=== PATIENT | female | born 1970 | race Caucasian/White ===

== ENCOUNTER 2016-12-21 16:27 | Inpatient (IN) | payer BC ==
[~2016-12-21] VITALS: Ht 165.1 cm; Wt 124.0 kg
[~2016-12-21 16:27] MED LIST: ADVIN25/60 INH; ATV5X PO; BUPR150T5 PO; EFFSR150 PO; HYOS1TAB SL; LEVO75TA5 PO; LISI20TA3 PO; OMEP20CA9 PO; ONDA-63 PO; SIME80CH12 PO; TPM/50 PO; TPRSR/100 PO; VENL37.593 PO; VLT/75 PO; XPNIN INH; XPNINS1255 NEB
[2016-12-21] MEDS ORDERED: EPP3/2 IM (16:39)
[2016-12-21] MEDS ORDERED: ONDANSETRON INJ 2 MG/ML 2 ML VIAL IV STA (16:54)
[2016-12-21] MEDS ORDERED: SODIUM CHLORIDE 0.9% 1000ML 1,000 ML IV ONE (16:54)
[2016-12-21] MEDS ORDERED: ACETAMINOPHEN 500 MG TAB PO STA (16:54)
[2016-12-21 16:55] VITALS: Ht 165.1 cm; Wt 124.0 kg
[2016-12-21] MEDS ORDERED: DEXAMETHASONE SOD INJ 10 MG/ML VIAL IV ONE (17:00)
--- NOTE | 2016-12-21 17:02 | EMERGENCY ROOM VISIT NOTE ---
History Report prepared by Kamini: Alo Puckett Under the Supervision of: Dr. Bobby Galicia D.O. First contact with patient: 16:48 Chief Complaint: HEADACHE Stated Complaint: HEADACHE, NAUSEA History of Present Illness The patient is a 46 year old female who presents to the Emergency Room with complaints of a constant and severe headache that she has been experiencing for the past two weeks. The patient states that her headache pain is localized in the back of her head, and radiates up the back and into the top of her head. She claims her pain is severe. She is also experiencing nausea secondary to her headache. She denies ever having a headache like this in the past. The patient saw here primary care physician yesterday and was given Lisinopril and Tramadol without relief. She is also complaining of mild "tightness" in her chest and loose stools. She denies any recent cough. Source of History: patient Onset: Two weeks Position: head (Back of head) Symptom Intensity: severe Timing: constant Associated Symptoms: + chest pain, + nausea, No cough Review of Systems See HPI for pertinent positives & negatives. A total of 10 systems reviewed and were otherwise negative. Past Medical & Surgical Medical Problems: (1) Asthma (2) Diabetes (3) HTN (hypertension) (4) Intractable headache Family History Diabetes mellitus FH: cancer FH: heart disease Hypertension Social History Smoking Status: Never Smoker Alcohol Use: none Drug Use: none Marital Status: Housing Status: lives with family Occupation Status: employed Current/Historical Medications Scheduled Lisinopril (Zestril), 10 MG PO DAILY Scheduled PRN Epinephrine (Epipen 2-Bashir), 0.3 MG IM UD PRN for ALLERGIC REACTION Allergies Coded Allergies: Sulfa Drugs (Verified Allergy, Intermediate, HIVES, 07/06/16) Molds & Smuts (Unverified Allergy, Mild, UNKNOWN, 07/06/16) Physical Exam Vital Signs Date Time Temp Pulse Resp B/P Pulse Ox O2 Delivery O2 Flow Rate FiO2 12/21/16 21:47 90 18 153/80 92 Room Air 12/21/16 21:13 98 12/21/16 19:47 101 18 135/64 91 Room Air 12/21/16 18:40 37.4 12/21/16 18:30 108 18 103/54 95 Room Air 12/21/16 18:05 115 17 105/66 94 Room Air 12/21/16 17:14 120 12/21/16 16:55 98 Room Air 12/21/16 16:33 39.1 127 22 133/80 96 Room Air Physical Exam GENERAL: Patient is awake, alert. Very anxious and uncomfortable appearing. EYES: The conjunctivae are clear. The pupils are round and reactive. EARS, NOSE, MOUTH AND THROAT: The nose is without any evidence of any deformity. Mucous membranes are moist tongue is midline NECK: There is pain with flexion of the neck. No meningismus was noted. RESPIRATORY: Normal respiratory effort is noted there is no evidence of wheezing rhonchi or rales CARDIOVASCULAR: Tachycardiac rate and rhythm noted there no murmurs rubs or gallops normal S1 normal S2 GASTROINTESTINAL: The abdomen is soft. Bowel sounds are present in all quadrants. Abdomen is nontender MUSCULOSKELETAL/EXTREMITIES: There is no evidence of gross deformity full range of motion is noted in the hips and shoulders SKIN: There is no obvious evidence of any rash. There are no petechiae, pallor or cyanosis noted. NEUROLOGIC: Patient is awake alert and oriented x3 strength is symmetric patellar reflexes are 2+ bilaterally Medical Decision & Procedures ER Provider Diagnostic Interpretation: Radiology results as stated below per my review and radiologist interpretation: CHEST ONE VIEW PORTABLE CLINICAL HISTORY: Sepsis dyspnea COMPARISON STUDY: 07/06/2016 FINDINGS: The bones soft tissues and hemidiaphragms are normal. The cardiomediastinal silhouette is normal. The lungs are clear. The pulmonary vasculature is normal. IMPRESSION: Negative chest. Electronically signed by: Ruddy Orourke M.D. 12/21/2016 5:11 PM Dictated Date/Time: 12/21/2016 5:[address]AST CT DOSE: 773.57 mGy.cm HISTORY: Mental status change HERRERA TECHNIQUE: Multiaxial CT images of the head were performed without the use of intravenous contrast. Comparison: 06/21/2016 Findings: The paranasal sinuses and mastoid air cells are clear. The calvarium and skull base are intact. The ventricles and sulci are within normal limits. There is no mass, hematoma, midline shift, or acute infarct. Impression: No acute intracranial abnormality. Electronically signed by: Ruddy Orourke M.D. 12/21/2016 5:47 PM Dictated Date/Time: 12/21/2016 5:46 PM Laboratory Results Test 12/21/16 16:55 12/21/16 17:03 12/21/16 19:14 Erythrocyte Sedimentation Rate 18 mm/hr (0-21) Prothrombin Time 11.1 SECONDS (9.0-12.0) Prothromb Time International Ratio 1.0 (0.9-1.1) Activated Partial Thromboplast Time 28.3 SECONDS (21.0-31.0) Partial Thromboplastin Ratio 1.1 Urine Color YELLOW Urine Appearance CLEAR (CLEAR) Urine pH 6.5 (4.5-7.5) Urine Specific [place] 1.002 (1.000-1.030) Urine Protein NEG (NEG) Urine Glucose (UA) NEG (NEG) Urine Ketones NEG (NEG) Urine Occult Blood NEG (NEG) Urine Nitrite NEG (NEG) Urine Bilirubin NEG (NEG) Urine Urobilinogen NEG (NEG) Urine Leukocyte Esterase NEG (NEG) Urine WBC (Auto) 1-5 /hpf (0-5) Urine RBC (Auto) 0-4 /hpf (0-4) Urine Hyaline Casts (Auto) 0 /lpf (0-5) Urine Epithelial Cells (Auto) 0-5 /lpf (0-5) Urine Bacteria (Auto) NEG (NEG) Total Bilirubin 0.6 mg/dl (0.2-1) Aspartate Amino Transf (AST/SGOT) 17 U/L (15-37) Alanine Aminotransferase (ALT/SGPT) 35 U/L (12-78) Alkaline Phosphatase 104 U/L (45-117) Total Creatine Kinase 77 U/L (26-192) Creatine Kinase MB < 0.5 ng/ml (0.5-3.6) Creatine Kinase MB Ratio (0-3.0) Troponin I < 0.015 ng/ml (0-0.045) C-Reactive Protein 6.55 mg/dl (0-0.29) Total Protein 8.0 gm/dl (6.4-8.2) Albumin 3.7 gm/dl (3.4-5.0) Globulin 4.3 gm/dl (2.5-4.0) Albumin/Globulin Ratio 0.9 (0.9-2) Lyme Disease IgG Antibody NEG (NEG) Lyme Disease IgM Antibody NEG (NEG) Bedside Lactic Acid Venous 2.22 mmol/L (0.90-1.70) CSF Color COLORLESS CSF Appearance CLEAR CSF WBC 1 /uL (0-5) CSF RBC 1 /uL (0) CSF Xanthrochromic NO XANTHOCHROMIA CSF Cell Count Tube # 4 CSF Chemistry Tube # 2 CSF Glucose 66 mg/dl (40-70) CSF Total Protein 35.9 mg/dl (15.0-45.0) Date/Time Source Procedure Growth Status 12/21/16 19:14 Cerebral Spinal Fluid Gram Stain - Final Complete 12/21/16 19:14 Cerebral Spinal Fluid CSF Culture - Final NO GROWTH Complete Laboratory results per my review. Medications Administered Medications (Trade) Dose Ordered Sig/Everardo Route Start Time Stop Time Status Last Admin Dose Admin Sodium Chloride (Nss 1000ml) 1,000 ml @ 999 mls/hr Q1H1M ONCE IV 12/21/16 16:54 12/21/16 17:54 DC 12/21/16 17:14 999 MLS/HR Acetaminophen (Tylenol Tab) 1,000 mg NOW STAT PO 12/21/16 16:54 12/21/16 16:58 DC 12/21/16 17:15 1,000 MG Ondansetron HCl (Zofran Inj) 4 mg NOW STAT IV 12/21/16 16:54 12/21/16 16:58 DC 12/21/16 17:15 4 MG Morphine Sulfate (MoRPHine SULFATE INJ) 4 mg Q15M PRN IV 12/21/16 17:00 12/21/16 22:07 DC 12/21/16 19:42 4 MG Dexamethasone Sodium Phosphate 10 mg 10 mg NOW ONCE IV 12/21/16 17:00 12/21/16 17:01 DC 12/21/16 17:15 10 MG Sodium Chloride (Nss 1000ml) 1,000 ml @ 999 mls/hr Q1H1M STAT IV 12/21/16 17:58 12/21/16 18:58 DC 12/21/16 18:42 999 MLS/HR Ceftriaxone Sodium 1 gm 1 gm NOW STAT IV 12/21/16 19:15 12/21/16 19:16 DC 12/21/16 19:15 1 GM Sodium Chloride 1,000 ml @ 999 mls/hr Q1H1M STAT IV 12/21/16 19:15 12/21/16 20:15 DC 12/21/16 19:15 999 MLS/HR Promethazine HCl/ Sodium Chloride (Phenergan Inj/ Nss 50ml) 50.5 ml @ 204 mls/hr NOW STAT IV 12/21/16 20:53 12/21/16 21:07 DC 12/21/16 21:14 204 MLS/HR Ketorolac Tromethamine (Toradol Inj) 30 mg NOW STAT IV 12/21/16 20:53 12/21/16 20:54 DC 12/21/16 21:14 30 MG Ondansetron HCl (Zofran Inj) 4 mg Q6H PRN IV 12/21/16 21:45 01/20/17 21:44 12/23/16 12:59 4 MG Hydromorphone HCl (Dilaudid Inj) 1 mg Q3HWA PRN IV 12/21/16 21:45 12/23/16 10:27 DC 12/22/16 20:04 1 MG Procedure Lumbar Puncture Indication: Headache and fever. Verbal consent was obtained after the risks and benefits were explained, including but not limited to headache, bleeding/clotting, scarring, infection, pain, and bone/joint/nerve damage. At this time, the risks of the procedure are less than the risks of NOT performing the procedure. A time out was taken and the correct patient and site identified. The patient was placed in the seated position and the back was prepped with betadine and draped in the standard fashion. The L3 intervertebral space was identified, anesthetized locally with 1 % lidocaine without epinephrine, and the spinal needle was inserted through the skin with the bevel parallel to the dural fibers. The needle was carefully advanced into the lumbar cistern and 4 tubes of initially bloody then clear CSF was obtained. The stylet was replaced and the needle was removed. A bandaid was placed and the patient was placed in the supine position. The patient tolerated the procedure well and there were no complications. ECG Indication: chest pain Rate (beats per minute): 117 Rhythm: sinus tachycardia Findings: RBBB (incomplete), no ectopy ED Course 1653: The patient was evaluated in room A3. A complete history and physical examination were performed. 1653: Ordered Zofran 4 mg IV, Tylenol 1000 mg PO, Sodium Chloride 1000 mL @ 999 mL/hr IV. 0: Ordered Decadron 10 mg IV, Morphine Sulfate 4 mg IV. 8: Ordered Sodium Chloride 1000 mL @ 999 mL/hr IV. 1915: Ordered Sodium Chloride 1000 mL @ 999 mL/hr IV, Rocephin 1 gm IV. 2052: Ordered Toradol 30 mg IV, Promethazine HCL 50.5 mL @ 205 mL/hr IV. 2110: I discussed the case with Dr. Ene GUZMAN Hospitalist, he will evaluate the patient for further treatment. Medical Decision The patient's history was concerning for headache. Differential diagnosis: Etiologies such as migraine headache, meningitis, sinusitis, CO exposure, ICH, SAH, infection, tumor, headache, sinus thrombosis, arterial dissection, as well as others were entertained. The patient is a 46-year-old female who presented to the emergency department for an evaluation of headache and fever. The patient had significant headache but no focal neurologic deficit. She had plates of neck pain but no meningismus. The patient was treated with IV fluids IV pain medicine and IV antiemetics. On subsequent reevaluation she was only minimally improved. She was given an IV steroid for the possibility that we were going to do a lumbar puncture to evaluate for meningitis. The patient was further treated with IV antibiotics because of the severity of symptoms. I discussed the patient's laboratory and radiographic studies with her. She continued to have very significant headache. Because of her abnormal vital signs as well as her fever I discussed her case with the on-call [facility] hospitalist group. They' ve agreed to evaluate the patient in the emergency department for further management and disposition. Consults Time Called: 2101 Consulting Physician: Dr. Ene Barry Returned Call: 2110 I discussed the case with Dr. Ene GUZMAN [facility], he will evaluate the patient for further treatment. Impression Primary Impression: SIRS (systemic inflammatory response syndrome) Additional Impressions: Intractable headache Fever Elevated WBC count Scribe Attestation The scribe's documentation has been prepared under my direction and personally reviewed by me in its entirety. I confirm that the note above accurately reflects all work, treatment, procedures, and medical decision making performed by me. Departure Information Dispostion Being Evaluated By Hospitalist Orlin Hunt M.D. (PCP) Patient Instructions My [facility] Problem Qualifiers Additional Impressions: Intractable headache Headache type: unspecified Headache chronicity pattern: acute headache Qualified Codes: R51 - Headache Fever Fever type: unspecified Qualified Codes: R50.9 - Fever, unspecified Elevated WBC count Leukocytosis type: unspecified Qualified Codes: D72.829 - Elevated white blood cell count, unspecified
[2016-12-21] MEDS ORDERED: LISI-461 PO (17:06)
--- NOTE | 2016-12-21 17:12 | DIAGNOSTIC IMAGING REPORT ---
CHEST ONE VIEW PORTABLE CLINICAL HISTORY: Sepsis dyspnea COMPARISON STUDY: 07/06/2016 FINDINGS: The bones soft tissues and hemidiaphragms are normal. The cardiomediastinal silhouette is normal. The lungs are clear. The pulmonary vasculature is normal. IMPRESSION: Negative chest. Electronically signed by: Ruddy Orourke M.D. 12/21/2016 5:11 PM Dictated Date/Time: 12/21/2016 5:10 PM
[2016-12-21] MEDS: MoRPHine SULFATE 4 MG/ML 1 ML CARP\\VIAL IV PRN ×3 (17:15→19:42)
[2016-12-21 17:16] LABS: BASO % 0.1 %; BASO ABS # 0.01 K/uL (0-0.2); COMPLETE YES; IG% 0.2 %; LYMPH % 10.2 %; LYMPH ABS # 1.26 K/uL (1.2-3.4); MEAN CELL VOLUME 86.2 fL (80-100); MEAN CORPUSCULAR HEMOGLOBIN 29.5 pg (25-34); MEAN CORPUSCULAR HGB CONC 34.2 g/dl (32-36); MEAN PLATELET VOLUME 9.5 fL (7.4-10.4); MONO % 2.8 %; NEUT % 86.7 %; PLATELET COUNT 264 K/uL (130-400); RED BLOOD COUNT 4.99 M/uL (4.2-5.4); WHITE BLOOD COUNT 12.33 K/uL (4.8-10.8)
[2016-12-21 17:21] LABS: URINE APPEARANCE CLEAR (CLEAR); URINE BILIRUBIN NEG (NEG); URINE COLOR YELLOW; URINE EPITHELIAL CELL AUTO 0-5 /lpf (0-5); URINE NITRITE NEG (NEG); URINE PH 6.5 (4.5-7.5); URINE SPECIFIC GRAVITY 1.002 (1.000-1.030); UROBILINOGEN NEG (NEG); ZZUR CULT IF INDIC CLEAN CATCH NO
[2016-12-21 17:23] LABS: MANUAL MICROSCOPIC REQUIRED? NO; REVIEW REQ? NO
[2016-12-21 17:24] LABS: PARTIAL THROMBOPLASTIN RATIO 1.1; PROTHROMBIN TIME (PATIENT) 11.1 SECONDS (9.0-12.0)
[2016-12-21 17:39] LABS: ALT/SGPT 35 U/L (12-78); AST/SGOT 17 U/L (15-37); BLOOD UREA NITROGEN 7 mg/dl (7-18); CALCIUM 8.6 mg/dl (8.5-10.1); CARBON DIOXIDE 27 mmol/L (21-32); CHLORIDE 101 mmol/L (98-107); CREATININE 0.89 mg/dl (0.60-1.20); GLUCOSE 124 mg/dl (70-99); POTASSIUM 3.3 mmol/L (3.5-5.1); SODIUM 135 mmol/L (136-145)
[2016-12-21 17:42] LABS: ALB/GLOB RATIO 0.9 (0.9-2); ALKALINE PHOSPHATASE 104 U/L (45-117); C-REACTIVE PROTEIN 6.55 mg/dl (0-0.29)
--- NOTE | 2016-12-21 17:49 | DIAGNOSTIC IMAGING REPORT ---
HEAD CT NONCONTRAST CT DOSE: 773.57 mGy.cm HISTORY: Mental status change HERRERA TECHNIQUE: Multiaxial CT images of the head were performed without the use of intravenous contrast. Comparison: 06/21/2016 Findings: The paranasal sinuses and mastoid air cells are clear. The calvarium and skull base are intact. The ventricles and sulci are within normal limits. There is no mass, hematoma, midline shift, or acute infarct. Impression: No acute intracranial abnormality. Electronically signed by: Ruddy Orourke M.D. 12/21/2016 5:47 PM Dictated Date/Time: 12/21/2016 5:46 PM
[2016-12-21] MEDS ORDERED: SODIUM CHLORIDE 0.9% 1000ML 1,000 ML IV STA ×2 (17:58→19:15)
[2016-12-21 18:08] LABS: LYME DISEASE AB IGG NEG (NEG); LYME DISEASE AB IGM NEG (NEG)
[2016-12-21] MEDS ORDERED: CEFTRIAXONE SOD INJ 1 GM ADDVIAL IV STA (19:15)
[2016-12-21 19:45] LABS: CSF TOTAL PROTEIN 35.9 mg/dl (15.0-45.0)
[2016-12-21 19:47] LABS: CSF CHEMISTRY TUBE # 2
[2016-12-21 19:50] LABS: CSF APPEARANCE CLEAR; CSF COLOR COLORLESS; CSF XANTHOCHROMIC NO XANTHOCHROMIA
[2016-12-21] MEDS ORDERED: KETOROLAC TROMETHAMINE 30 MG/ML VIAL IV STA (20:53)
[2016-12-21] MEDS ORDERED: PROMETHAZINE HCL INJ 12.5 MG in SODIUM CHLORIDE 0.9% 50ML 50 ML IV STA (20:53)
[2016-12-21] MEDS ORDERED: ACETAMINOPHEN 325 MG TAB PO PRN (21:45)
[2016-12-21] MEDS ORDERED: LEVALBUTEROL 1.25MG/0.5ML NEB INH PRN (21:45)
[2016-12-21] MEDS ORDERED: MAGNESIUM HYDROXIDE SUSP 30 ML UDC PO PRN (21:45)
[2016-12-21] MEDS ORDERED: OPTIRAY 320 IV PRN (22:00)
[2016-12-21] MEDS ORDERED: POTASSIUM CHLORIDE 10 MEQ TABCR PO STA (22:01)
[2016-12-21] MEDS ORDERED: VANCOMYCIN CONSULT ACTIVE PRN (22:15)
[2016-12-21] MEDS ORDERED: PIPERACILL/TAZOBAC CONSULT ACTIVE PRN (22:15)
[2016-12-21] MEDS ORDERED: PIPERACILL/TAZOBAC IV 4.5 GM in DEXTROSE 5% 100ML IV ONE (23:00)
[2016-12-21] MEDS ORDERED: VANCOMYCIN INJ 2,800 MG in SODIUM CHLORIDE 0.9% 500ML 500 ML IV SCH (23:00)
--- NOTE | 2016-12-21 23:01 | DIAGNOSTIC IMAGING REPORT ---
ABDOMEN AND PELVIS CT WITH IV CONTRAST CT DOSE: 1774.31 mGy.cm HISTORY: Pain left lower abdominal pain TECHNIQUE: Multiaxial CT images of the abdomen and pelvis were performed following the use of intravenous contrast. COMPARISON STUDY: 04/26/2013 FINDINGS: Lung bases are clear. Fatty infiltration of liver. Prior cholecystectomy and kidneys enhance uniformly. Spleen is unremarkable. Pancreas is within normal limits. Bowel pattern suggests a mild degree of generalized colonic wall thickening. There is a trace amount of pericolonic infiltrative change. There is no evidence for abscess collection or obstruction. The appendix is normal. Bladder is midline. There are several small reactive mesenteric pelvic and inguinal nodes. IMPRESSION: 1. Findings consistent with a generalized nonspecific colitis. 2. No evidence for abscess collection or obstruction. 3. Fatty infiltration of liver. 4. Prior cholecystectomy Electronically signed by: Ruddy Orourke M.D. 12/21/2016 11:00 PM Dictated Date/Time: 12/21/2016 10:57 PM
[2016-12-21] MEDS: HYDROmorphone INJ 1 MG/ML SYR IV PRN (23:31)
[2016-12-22] VITALS: BP 101/65; PULSE 78; TEMP 36.5; O2SAT 95
[2016-12-22 00:26] VITALS: O2SAT 95
[2016-12-22] MEDS: ONDANSETRON INJ 2 MG/ML 2 ML VIAL IV PRN ×4 (00:32→21:49)
--- NOTE | 2016-12-22 01:34 | HISTORY & PHYSICAL EXAMINATION ---
DATE OF ADMISSION: 12/21/2016 CHIEF COMPLAINT: Severe headache. HISTORY OF PRESENT ILLNESS: This is a 46-year-old female, with a past medical history significant for reflux esophagitis, obesity, hypothyroidism, asthma, hypertension and depression who presents with severe headache. The patient says that she is having intractable severe headache in the occipital region radiating to the front side of the head, going on for the last 2 weeks. She saw her family doctor and her blood pressure was high. Was restarted on lisinopril and advised for an MRI. As it was not getting better, she came to the ER today. In the ER, initially she was found to have a temp spike, but rest of the labs were okay. A lumbar puncture was done which was unremarkable. Urinalysis was negative. Lyme screen was negative. CT of the head was unremarkable. The patient is still complaining of severe headache; light is bothering her and sounds are bothering some. She also having some nausea, had couple of episodes of diarrhea and complains of some left lower quadrant abdominal pain. She denies any chest pain. She has some shortness of breath. The patient was on multiple medications in the past, but she has weaned off her all medications currently. Just recently, restarted lisinopril 10 mg for her blood pressure when she saw her PCP for headaches. But she wants to restart the Advair for her asthma. Currently, she is lying down in the dark room. Vitals signs are stable. ALLERGIES: SULFA ANTIBIOTICS. PAST MEDICAL HISTORY: As mentioned above. PAST SURGICAL HISTORY: Laparoscopic hysterectomy, total abdominal hysterectomy with bilateral salpingo-oophorectomy and sinus surgery. MEDICATIONS: Currently only on lisinopril 10 mg p.o. daily. FAMILY HISTORY: Significant for allergies. SOCIAL HISTORY: . Never smoked. No alcohol, no drug use. REVIEW OF SYMPTOMS: As per HPI. Rest of the review of symptoms is negative. PHYSICAL EXAMINATION: GENERAL: The patient is obese. She seems to be in pain. VITAL SIGNS: T-max 37.1, pulse 90, respiratory rate 18, blood pressure 150/80 and oxygen 92% on room air. HEENT: No pallor, no icterus. Pupils are equal, round and reactive to light. NECK: No JVD, no neck masses, no carotid bruits. CARDIOVASCULAR: S1, S2 heard, regular rate and rhythm. No murmur, no gallop. RESPIRATORY: Clear to auscultation bilaterally. No wheezing, no crackles. ABDOMEN: Soft, bowel sounds present. Left lower quadrant tenderness present. No distention, no guarding or rigidity. CENTRAL NERVOUS SYSTEM: Cranial nerves II-XII grossly intact. Nonfocal. EXTREMITIES: No edema, no erythema. LABORATORIES: PT 11.1, INR 1, PTT 28.3. Sodium 135, potassium 3.3, chloride 101, bicarbonate 27, BUN 7, creatinine 0.8, serum glucose 124, [id number] lactic acid 2.2, calcium 8.6, magnesium 2, total bilirubin 0.6, AST 17, ALT 35, alkaline phosphatase 104, total creatinine kinase 77, troponin I less than 0.015. WBC 12.3, hemoglobin 14.7, hematocrit 43 and platelets 264. Urinalysis was negative. Lumbar puncture today is unremarkable. Lyme screen negative. CT of the head; no acute intracranial abnormalities are seen. Chest x-ray; negative chest. EKG; sinus tachycardia with a rate of 117. No significant change found. ASSESSMENT AND PLAN: This is a 46-year-old female, who presents with: 1. Intractable headaches, starting from the back of the head and radiating to the front of the head. CT of the head is negative and also lumbar puncture is unremarkable. We will follow up with a MRI and MRA of the head, pain control. If any concerns, we will consult neurology in the morning. 2. Possible early sepsis and temperature spike with tachycardia and mild leukocytosis, but urinalysis is negative. Chest x-ray unremarkable. Source of infection is unclear. She has some mild left lower quadrant abdominal pain. We will get a CT of abdomen and pelvis .We will empirically start her on vancomycin, Zosyn and follow cultures. 3. History of hypertension. Start lisinopril 10 mg; recently restarted. We will follow her blood pressure. 4. History of depression, but not taking any medications. In the past, she was weaned off of all her medications for blood pressure, depression and asthma. She wants to restart Advair. 5. History of hypothyroidism, not on any medication. We will check TSH. 6. Family history of diabetes. We will check HbA1c levels. 7. Deep venous thrombosis prophylaxis, SCDs for now. 8. Disposition: Admit to medical floor. Expect to discharge home and follow with her family doctor. Level 1. Full code. MTDD
[2016-12-22] MEDS ORDERED: IV FLUIDS COMPLETED PRN (02:15)
[2016-12-22] MEDS: HYDROmorphone INJ 1 MG/ML SYR IV PRN ×4 (03:15→20:04)
[2016-12-22] MEDS ORDERED: PIPERACILL/TAZOBAC IV 4.5 GM in DEXTROSE 5% 100ML 100 ML IV SCH (06:00)
--- NOTE | 2016-12-22 06:37 | Pharmacy Progress Note ---
Pharmacy Antibiotic Consult Date of Service: December 22, 2016. Pharmacy Dosing Scope Pharmacy is consulted to initiate Vancomycin IV dosing therapy, order appropriate labs and adjust drug dose/frequency. Subjective The patient is a 46 year old female admitted on December 21, 2016 at 21:50 with intractable headaches who spike a fever and had some tachycardia. Dr. Luque chose to treat her empirically with Zosyn and Vancomycin for possible sepsis. Pharmacy will monitor and follow both at this time. Objective Height (Feet): 5 Height (Inches): 5 Weight (Kilograms): 124.00 Lab Results (24hrs): Test 12/21/16 16:55 12/21/16 17:03 12/21/16 19:14 12/22/16 04:44 White Blood Count 12.33 K/uL (4.8-10.8) Red Blood Count 4.99 M/uL (4.2-5.4) Hemoglobin 14.7 g/dL (12.0-16.0) Hematocrit 43.0 % (37-47) Mean Corpuscular Volume 86.2 fL (80-100) Mean Corpuscular Hemoglobin 29.5 pg (25-34) Mean Corpuscular Hemoglobin Concent 34.2 g/dl (32-36) Platelet Count 264 K/uL (130-400) Mean Platelet Volume 9.5 fL (7.4-10.4) Neutrophils (%) (Auto) 86.7 % Lymphocytes (%) (Auto) 10.2 % Monocytes (%) (Auto) 2.8 % Eosinophils (%) (Auto) 0.0 % Basophils (%) (Auto) 0.1 % Neutrophils # (Auto) 10.68 K/uL (1.4-6.5) Lymphocytes # (Auto) 1.26 K/uL (1.2-3.4) Monocytes # (Auto) 0.35 K/uL (0.11-0.59) Eosinophils # (Auto) 0.00 K/uL (0-0.5) Basophils # (Auto) 0.01 K/uL (0-0.2) RDW Standard Deviation 38.4 fL (36.4-46.3) RDW Coefficient of Variation 12.2 % (11.5-14.5) Immature Granulocyte % (Auto) 0.2 % Immature Granulocyte # (Auto) 0.03 K/uL (0.00-0.02) Erythrocyte Sedimentation Rate 18 mm/hr (0-21) Prothrombin Time 11.1 SECONDS (9.0-12.0) Prothromb Time International Ratio 1.0 (0.9-1.1) Activated Partial Thromboplast Time 28.3 SECONDS (21.0-31.0) Partial Thromboplastin Ratio 1.1 Urine Color YELLOW Urine Appearance CLEAR (CLEAR) Urine pH 6.5 (4.5-7.5) Urine Specific [place] 1.002 (1.000-1.030) Urine Protein NEG (NEG) Urine Glucose (UA) NEG (NEG) Urine Ketones NEG (NEG) Urine Occult Blood NEG (NEG) Urine Nitrite NEG (NEG) Urine Bilirubin NEG (NEG) Urine Urobilinogen NEG (NEG) Urine Leukocyte Esterase NEG (NEG) Urine WBC (Auto) 1-5 /hpf (0-5) Urine RBC (Auto) 0-4 /hpf (0-4) Urine Hyaline Casts (Auto) 0 /lpf (0-5) Urine Epithelial Cells (Auto) 0-5 /lpf (0-5) Urine Bacteria (Auto) NEG (NEG) Sodium Level 135 mmol/L (136-145) Potassium Level 3.3 mmol/L (3.5-5.1) Chloride Level 101 mmol/L (98-107) Carbon Dioxide Level 27 mmol/L (21-32) Anion Gap 7.0 mmol/L (3-11) Blood Urea Nitrogen 7 mg/dl (7-18) Creatinine 0.89 mg/dl (0.60-1.20) Est Creatinine Clear Calc Drug Dose 106.7 ml/min Estimated GFR () 91.4 Estimated GFR (Non- 78.8 BUN/Creatinine Ratio 8.0 (10-20) Random Glucose 124 mg/dl (70-99) Calcium Level 8.6 mg/dl (8.5-10.1) Magnesium Level 2.0 mg/dl (1.8-2.4) Total Bilirubin 0.6 mg/dl (0.2-1) Aspartate Amino Transf (AST/SGOT) 17 U/L (15-37) Alanine Aminotransferase (ALT/SGPT) 35 U/L (12-78) Alkaline Phosphatase 104 U/L (45-117) Total Creatine Kinase 77 U/L (26-192) Creatine Kinase MB < 0.5 ng/ml (0.5-3.6) Creatine Kinase MB Ratio (0-3.0) Troponin I < 0.015 ng/ml (0-0.045) C-Reactive Protein 6.55 mg/dl (0-0.29) Total Protein 8.0 gm/dl (6.4-8.2) Albumin 3.7 gm/dl (3.4-5.0) Globulin 4.3 gm/dl (2.5-4.0) Albumin/Globulin Ratio 0.9 (0.9-2) Lyme Disease IgG Antibody NEG (NEG) Lyme Disease IgM Antibody NEG (NEG) Bedside Lactic Acid Venous 2.22 mmol/L (0.90-1.70) CSF Color COLORLESS CSF Appearance CLEAR CSF WBC 1 /uL (0-5) CSF RBC 1 /uL (0) CSF Xanthrochromic NO XANTHOCHROMIA CSF Cell Count Tube # 4 CSF Chemistry Tube # 2 CSF Glucose 66 mg/dl (40-70) CSF Total Protein 35.9 mg/dl (15.0-45.0) Micro Results: Item Value Date Time Gram Stain - Final Resulted 12/21/16 1914 Cerebral Spinal Fluid Blood Culture Received 12/21/16 1717 Blood Pending Blood Culture Received 12/21/16 1655 Blood Pending Recent Pertinent Medications Item Value Date Time Piperacillin Sod/ 120 ml @ 30 mls/hr 12/22/16 0600 Tazobactam Sod Q8H/IV 12/22/16 0619 4.5 gm/Dextrose Assessment & Plan Loading dose: Vancomycin 2800mg (22.5mg/kg) IV X 1 dose then: Vancomycin 1500mg (11mg/kg) IV every 8 hours. I estimated patients half life at around 7 hours. I ordered to check a trough prior to patients 0400 dose on 12/24/16. Goal trough level estimate: between 15-20 mcg/mL. Pharmacy will continue to follow and will adjust dose/frequency as necessary. Thank you
[2016-12-22 07:52] VITALS: BP 120/70; PULSE 86; TEMP 36.7; O2SAT 93
[2016-12-22] MEDS: FLUTICASONE/SALMETEROL 250/50 (ADVAIR) 14 PUFF/1 INHALER INH SCH ×2 (08:27→20:01)
[2016-12-22] MEDS: LISINOPRIL 10 MG TAB PO SCH (08:28)
[2016-12-22 08:35] LABS: COMPLETE YES; HEMATOCRIT 36.9 % (37-47); IG% 0.2 %; LYMPH % 6.9 %; MEAN CELL VOLUME 87.2 fL (80-100); MEAN CORPUSCULAR HEMOGLOBIN 30.7 pg (25-34); MEAN CORPUSCULAR HGB CONC 35.2 g/dl (32-36); MEAN PLATELET VOLUME 9.4 fL (7.4-10.4); NEUT % 89.9 %; PLATELET COUNT 221 K/uL (130-400); RED BLOOD COUNT 4.23 M/uL (4.2-5.4); WHITE BLOOD COUNT 10.08 K/uL (4.8-10.8)
[2016-12-22] MEDS ORDERED: BUTALBITAL/ACETAMIN/CAFFEINE TAB PO STA (09:03)
[2016-12-22 09:08] LABS: BUN/CREATININE RATIO 15.2 (10-20); CREATININE 0.67 mg/dl (0.60-1.20); MAGNESIUM 2.2 mg/dl (1.8-2.4); POTASSIUM 3.8 mmol/L (3.5-5.1)
[2016-12-22 09:19] LABS: THYROID STIMULATING HORMONE 0.473 uIu/ml (0.300-4.500)
[2016-12-22 09:23] LABS: CALCIUM 8.6 mg/dl (8.5-10.1)
[2016-12-22 09:48] LABS: ESTIMATED AVERAGE GLUCOSE 117 mg/dl; HA1C FLAG Normal (Normal)
[2016-12-22 11:45] VITALS: TEMP 36.6
[2016-12-22] MEDS ORDERED: VANCOMYCIN INJ 1,400 MG in SODIUM CHLORIDE 0.9% 500ML 500 ML IV SCH (12:00)
--- NOTE | 2016-12-22 13:47 | Progress Note ---
Subjective Date of Service: December 22, 2016. Subjective Pt evaluation today including: conversation w/ patient, physical exam, lab review, review of studies, review of inpatient medication list Saw/examined the patient in room 454 She continues to have a headache +diarrhea this morning +fever on arrival, she feels weakness, +chills Problem List Medical Problems: (1) Chest pain Status: Acute (2) Cough Status: Acute (3) Elevated WBC count Status: Acute (4) Epigastric abdominal pain Status: Acute (5) Fever Status: Acute (6) SIRS (systemic inflammatory response syndrome) Status: Acute (7) Sleep deprivation Status: Acute (8) Wheezing Status: Acute Review of Systems Constitutional: + chills, + fever, + weakness ENT: + problem reported (headache) Respiratory: No shortness of breath Cardiac: No chest pain Abdomen: + diarrhea, + nausea, + pain, No GI bleeding, No constipation, No vomiting Psychiatric: No anxiety, No depression symptoms Heme: No abnormal bleeding/bruising Medications Current Inpatient Medications Medications (Trade) Dose Ordered Sig/Everardo Route Start Time Stop Time Status Last Admin Dose Admin Acetaminophen (Tylenol Tab) 650 mg Q4H PRN PO 12/21/16 21:45 01/20/17 21:44 Al Hydrox/Mg Hydrox/Simethicone (Maalox Max Susp) 15 ml Q4H PRN PO 12/21/16 21:45 01/20/17 21:44 Magnesium Hydroxide (Milk Of Magnesia Susp) 30 ml Q6H PRN PO 12/21/16 21:45 01/20/17 21:44 Ondansetron HCl (Zofran Inj) 4 mg Q6H PRN IV 12/21/16 21:45 01/20/17 21:44 12/22/16 12:44 4 MG Lisinopril (Zestril Tab) 10 mg DAILY PO 12/22/16 08:00 01/21/17 08:59 12/22/16 08:28 10 MG Hydromorphone HCl (Dilaudid Inj) 1 mg Q3HWA PRN IV 12/21/16 21:45 01/04/17 21:44 12/22/16 12:39 1 MG Salmeterol Xinafoate/ Fluticasone (Advair Diskus 250/50 Inh) 1 puff BID INH 12/22/16 08:00 01/21/17 08:59 12/22/16 08:27 1 PUFF Levalbuterol (Xopenex 1.25MG/ 0.5ML Neb) 1.25 mg Q4 PRN INH 12/21/16 21:45 01/20/17 21:44 Ioversol (Optiray 320) 111 ml UD PRN IV 12/21/16 22:00 12/25/16 21:59 Miscellaneous 1 ea 1 ea PRN PRN N/A 12/22/16 02:15 12/22/17 02:14 Ciprofloxacin/ Dextrose 400 mg/ Prmx 200 ml @ 100 mls/hr Q12 IV 12/22/16 21:00 01/01/17 20:59 UNV Metronidazole/Prmx (Flagyl / Nss/ Premixed Nss) 100 ml @ 100 mls/hr Q8H IV 12/22/16 13:30 01/01/17 13:29 UNV Acetaminophen/ Butalbital/ Caffeine (Fioricet Tab) 1 tab Q4H PRN PO 12/22/16 13:45 01/21/17 13:44 UNV Objective Vital Signs Date Time Temp Pulse Resp B/P Pulse Ox O2 Delivery O2 Flow Rate FiO2 12/22/16 11:45 Room Air 12/22/16 11:45 36.6 12/22/16 07:52 36.7 86 20 120/70 93 Room Air 12/22/16 00:26 95 Room Air 12/22/16 00:00 36.5 78 20 101/65 95 Room Air 12/22/16 00:00 Room Air 12/21/16 21:47 90 18 153/80 92 Room Air 12/21/16 21:13 98 12/21/16 19:47 101 18 135/64 91 Room Air 12/21/16 18:40 37.4 12/21/16 18:30 108 18 103/54 95 Room Air 12/21/16 18:05 115 17 105/66 94 Room Air 12/21/16 17:14 120 12/21/16 16:55 98 Room Air 12/21/16 16:33 39.1 127 22 133/80 96 Room Air Physical Exam General Appearance: + mild distress (mild distress secondary to pain), + obese Respiratory/Chest: lungs clear, normal breath sounds, no respiratory distress, no accessory muscle use Cardiovascular: regular rate, rhythm, no edema, no murmur Abdomen: non tender, soft, + abnormal bowel sounds (hyperactive bowel sounds) Extremities: normal inspection, no pedal edema Laboratory Results Last 24 Hours Test 12/21/16 16:55 12/21/16 17:03 12/21/16 19:14 12/22/16 08:05 White Blood Count 12.33 K/uL 10.08 K/uL Red Blood Count 4.99 M/uL 4.23 M/uL Hemoglobin 14.7 g/dL 13.0 g/dL Hematocrit 43.0 % 36.9 % Mean Corpuscular Volume 86.2 fL 87.2 fL Mean Corpuscular Hemoglobin 29.5 pg 30.7 pg Mean Corpuscular Hemoglobin Concent 34.2 g/dl 35.2 g/dl Platelet Count 264 K/uL 221 K/uL Mean Platelet Volume 9.5 fL 9.4 fL Neutrophils (%) (Auto) 86.7 % 89.9 % Lymphocytes (%) (Auto) 10.2 % 6.9 % Monocytes (%) (Auto) 2.8 % 3.0 % Eosinophils (%) (Auto) 0.0 % 0.0 % Basophils (%) (Auto) 0.1 % 0.0 % Neutrophils # (Auto) 10.68 K/uL 9.06 K/uL Lymphocytes # (Auto) 1.26 K/uL 0.70 K/uL Monocytes # (Auto) 0.35 K/uL 0.30 K/uL Eosinophils # (Auto) 0.00 K/uL 0.00 K/uL Basophils # (Auto) 0.01 K/uL 0.00 K/uL RDW Standard Deviation 38.4 fL 40.4 fL RDW Coefficient of Variation 12.2 % 12.6 % Immature Granulocyte % (Auto) 0.2 % 0.2 % Immature Granulocyte # (Auto) 0.03 K/uL 0.02 K/uL Erythrocyte Sedimentation Rate 18 mm/hr Prothrombin Time 11.1 SECONDS Prothromb Time International Ratio 1.0 Activated Partial Thromboplast Time 28.3 SECONDS Partial Thromboplastin Ratio 1.1 Urine Color YELLOW Urine Appearance CLEAR Urine pH 6.5 Urine Specific Protivin 1.002 Urine Protein NEG Urine Glucose (UA) NEG Urine Ketones NEG Urine Occult Blood NEG Urine Nitrite NEG Urine Bilirubin NEG Urine Urobilinogen NEG Urine Leukocyte Esterase NEG Urine WBC (Auto) 1-5 /hpf Urine RBC (Auto) 0-4 /hpf Urine Hyaline Casts (Auto) 0 /lpf Urine Epithelial Cells (Auto) 0-5 /lpf Urine Bacteria (Auto) NEG Sodium Level 135 mmol/L 140 mmol/L Potassium Level 3.3 mmol/L 3.8 mmol/L Chloride Level 101 mmol/L 108 mmol/L Carbon Dioxide Level 27 mmol/L 24 mmol/L Anion Gap 7.0 mmol/L 8.0 mmol/L Blood Urea Nitrogen 7 mg/dl 10 mg/dl Creatinine 0.89 mg/dl 0.67 mg/dl Est Creatinine Clear Calc Drug Dose 106.7 ml/min 141.8 ml/min Estimated GFR () 91.4 123.9 Estimated GFR (Non- 78.8 106.9 BUN/Creatinine Ratio 8.0 15.2 Random Glucose 124 mg/dl 135 mg/dl Calcium Level 8.6 mg/dl 8.6 mg/dl Magnesium Level 2.0 mg/dl 2.2 mg/dl Total Bilirubin 0.6 mg/dl Aspartate Amino Transf (AST/SGOT) 17 U/L Alanine Aminotransferase (ALT/SGPT) 35 U/L Alkaline Phosphatase 104 U/L Total Creatine Kinase 77 U/L Creatine Kinase MB < 0.5 ng/ml Creatine Kinase MB Ratio Troponin I < 0.015 ng/ml C-Reactive Protein 6.55 mg/dl Total Protein 8.0 gm/dl Albumin 3.7 gm/dl Globulin 4.3 gm/dl Albumin/Globulin Ratio 0.9 Lyme Disease IgG Antibody NEG Lyme Disease IgM Antibody NEG Bedside Lactic Acid Venous 2.22 mmol/L CSF Color COLORLESS CSF Appearance CLEAR CSF WBC 1 /uL CSF RBC 1 /uL CSF Xanthrochromic NO XANTHOCHROMIA CSF Cell Count Tube # 4 CSF Chemistry Tube # 2 CSF Glucose 66 mg/dl CSF Total Protein 35.9 mg/dl Estimated Average Glucose 117 mg/dl Hemoglobin A1c 5.7 % Thyroid Stimulating Hormone (TSH) 0.473 uIu/ml Test 12/22/16 11:42 Bedside Glucose 124 mg/dl Assessment and Plan This is a 46 year old female with PMH of HTN, depression/anxiety presents with headaches, weakness, fevers, abdominal pain Tension Headache patient presents with tension headache, which begins in the cervical region and works its way to the front patient states that she's been under a lot of stress at work recently - working overtime and 12+hours daily She has had problems with headaches before, but they have not persisted like this Dilaudid did not help Head CT performed = no acute findings Lumbar Puncture = no findings of meningitis/encephalitis MRI pending will add Fioricet q4PRN for headaches further work-up/management pending MRI results Viral Gastroenteritis patient presents with abdominal pain Abdominal CT shows nonspecific colitis states she ate scrapple, which tasted like it had gone bad +diarrhea this morning will check for C. diff, stool culture will change Zosyn + Vanco to Cipro + Flagyl WBC improved, presented with lactic acidosis and fever as well fever has subsided as well recheck lactic acid and CBC in AM HTN blood pressure stable continue Lisinopril Obesity Ha1c ~ 5.7% encouraged to lose weight DVT ppx SCDs FULL CODE
[2016-12-22] MEDS: METRONIDAZOLE / NSS 500 MG in PREMIXED NSS 100 ML IV SCH ×2 (14:15→21:49)
[2016-12-22 15:16] VITALS: BP 109/65; PULSE 85; TEMP 36.7; O2SAT 96
[2016-12-22] MEDS: CIPROFLOXACIN / D5W 400 MG in PREMIXED IN D5W 200 ML IV SCH (15:43)
[2016-12-22] MEDS: BUTALBITAL/ACETAMIN/CAFFEINE TAB PO PRN (16:02)
[2016-12-22] MEDS ORDERED: DiphenhydrAMINE INJ 50 MG in SYRINGE 0 ML IV PRN (17:15)
[2016-12-22] MEDS: DiphenhydrAMINE HCL 50 MG/ML VIAL IV PRN (17:19)
[2016-12-22] MEDS ORDERED: GADAVIST IV PRN (19:30)
--- NOTE | 2016-12-22 19:48 | DIAGNOSTIC IMAGING REPORT ---
MRI OF THE BRAIN WITHOUT AND WITH IV CONTRAST CLINICAL HISTORY: Severe headache. COMPARISON STUDY: MRI the brain December 15, [address] December 21, 2016. TECHNIQUE: Utilizing a 1.5 Norma magnet and dedicated coil, multiplanar, multiecho imaging of the brain was performed pre and postcontrast administration. IV administration of 12.5 mL of Gadavist contrast was uneventful. FINDINGS: There are no areas of restricted diffusion. No acute intracranial hemorrhage, midline shift or mass effect is present. Ventricular system is normal. Basilar cisterns are patent. There are no extra axial collections. Flow-voids for the major intracranial vessels are present. There are no intracranial masses or areas of pathologic enhancement. The appearance of the brain is unchanged since earlier studies. Calvarial signal is maintained. There are post surgical findings within the sinuses. There is no significant sinus disease. IMPRESSION: Unremarkable MRI of the brain. Electronically signed by: Donnell Ugarte M.D. 12/22/2016 7:47 PM Dictated Date/Time: 12/22/2016 7:44 PM
--- NOTE | 2016-12-22 19:55 | DIAGNOSTIC IMAGING REPORT ---
MRA OF THE INTRACRANIAL CIRCULATION WITHOUT CONTRAST CLINICAL HISTORY: Severe headache. COMPARISON STUDY: None. TECHNIQUE: Utilizing a 1.5 Norma magnet and 3-D [id number] technique, unenhanced MRA of the intracranial circulation was obtained. FINDINGS: The bilateral M1, M2, A1 and A2 segments are patent. There is no abrupt vessel cut off or intracranial aneurysm within the intracranial circulation. Posterior circulation is also intact. IMPRESSION: Unremarkable MRA of the intracranial circulation. Electronically signed by: Donnell Ugarte M.D. 12/22/2016 7:54 PM Dictated Date/Time: 12/22/2016 7:49 PM
[2016-12-22 22:50] VITALS: BP 104/68; PULSE 84; TEMP 36.6; O2SAT 96
[2016-12-23] MEDS: CIPROFLOXACIN / D5W 400 MG in PREMIXED IN D5W 200 ML IV SCH ×2 (03:53→15:39)
[2016-12-23] MEDS: ONDANSETRON INJ 2 MG/ML 2 ML VIAL IV PRN ×4 (04:08→19:55)
[2016-12-23] MEDS: DiphenhydrAMINE HCL 50 MG/ML VIAL IV PRN (05:00)
[2016-12-23] MEDS: METRONIDAZOLE / NSS 500 MG in PREMIXED NSS 100 ML IV SCH ×3 (06:10→21:41)
[2016-12-23 07:30] VITALS: BP 107/72; PULSE 73; TEMP 36.4; O2SAT 97
[2016-12-23] MEDS ORDERED: LOPERAMIDE HCL 2 MG CAP PO ONE (08:00)
[2016-12-23 08:02] LABS: BASO % 0.3 %; BASO ABS # 0.02 K/uL (0-0.2); COMPLETE YES; EOS % 0.4 %; HEMATOCRIT 34.6 % (37-47); IG% 0.1 %; LYMPH % 32.4 %; LYMPH ABS # 2.49 K/uL (1.2-3.4); MEAN CELL VOLUME 89.6 fL (80-100); MEAN CORPUSCULAR HEMOGLOBIN 30.6 pg (25-34); MEAN CORPUSCULAR HGB CONC 34.1 g/dl (32-36); MEAN PLATELET VOLUME 8.9 fL (7.4-10.4); MONO % 9.4 %; NEUT % 57.4 %; PLATELET COUNT 187 K/uL (130-400); RED BLOOD COUNT 3.86 M/uL (4.2-5.4); WHITE BLOOD COUNT 7.68 K/uL (4.8-10.8)
[2016-12-23] MEDS: LISINOPRIL 10 MG TAB PO SCH (08:14)
[2016-12-23] MEDS: FLUTICASONE/SALMETEROL 250/50 (ADVAIR) 14 PUFF/1 INHALER INH SCH ×2 (08:14→19:53)
[2016-12-23 09:04] LABS: BUN/CREATININE RATIO 13.4 (10-20); CALCIUM 8.1 mg/dl (8.5-10.1); CREATININE 0.78 mg/dl (0.60-1.20); MAGNESIUM 2.3 mg/dl (1.8-2.4); POTASSIUM 3.7 mmol/L (3.5-5.1)
--- NOTE | 2016-12-23 11:16 | Progress Note ---
Subjective Date of Service: December 23, 2016. Subjective Pt evaluation today including: conversation w/ patient, physical exam, lab review, review of studies, review of inpatient medication list Saw/examined the patient in room 454 +watery diarrhea, multiple episodes overnight states she also had nausea/vomiting this morning no abdominal pain no chest pain, no shortness of breath headache; intermittent, radiating from cervical neck around the forehead Problem List Medical Problems: (1) Chest pain Status: Acute (2) Cough Status: Acute (3) Elevated WBC count Status: Acute (4) Epigastric abdominal pain Status: Acute (5) Fever Status: Acute (6) SIRS (systemic inflammatory response syndrome) Status: Acute (7) Sleep deprivation Status: Acute (8) Wheezing Status: Acute Review of Systems Constitutional: + weakness, No chills, No fever Respiratory: No cough, No shortness of breath, No sputum Cardiac: No chest pain, No edema, No palpitations Abdomen: + diarrhea, + nausea, + vomiting, No GI bleeding, No constipation, No pain Medications Current Inpatient Medications Medications (Trade) Dose Ordered Sig/Everardo Route Start Time Stop Time Status Last Admin Dose Admin Acetaminophen (Tylenol Tab) 650 mg Q4H PRN PO 12/21/16 21:45 01/20/17 21:44 Al Hydrox/Mg Hydrox/Simethicone (Maalox Max Susp) 15 ml Q4H PRN PO 12/21/16 21:45 01/20/17 21:44 Magnesium Hydroxide (Milk Of Magnesia Susp) 30 ml Q6H PRN PO 12/21/16 21:45 01/20/17 21:44 Ondansetron HCl (Zofran Inj) 4 mg Q6H PRN IV 12/21/16 21:45 01/20/17 21:44 12/23/16 07:35 4 MG Lisinopril (Zestril Tab) 10 mg DAILY PO 12/22/16 08:00 01/21/17 08:59 12/23/16 08:14 10 MG Salmeterol Xinafoate/ Fluticasone (Advair Diskus 250/50 Inh) 1 puff BID INH 12/22/16 08:00 01/21/17 08:59 12/23/16 08:14 1 PUFF Levalbuterol (Xopenex 1.25MG/ 0.5ML Neb) 1.25 mg Q4 PRN INH 12/21/16 21:45 01/20/17 21:44 Ioversol (Optiray 320) 111 ml UD PRN IV 12/21/16 22:00 12/25/16 21:59 Miscellaneous 1 ea 1 ea PRN PRN N/A 12/22/16 02:15 12/22/17 02:14 Ciprofloxacin/ Dextrose 400 mg/ Prmx 200 ml @ 100 mls/hr Q12H IV 12/22/16 16:00 01/01/17 15:59 12/23/16 03:53 100 MLS/HR Metronidazole/Prmx (Flagyl / Nss/ Premixed Nss) 100 ml @ 100 mls/hr Q8H IV 12/22/16 14:00 01/01/17 13:29 12/23/16 06:10 100 MLS/HR Acetaminophen/ Butalbital/ Caffeine (Fioricet Tab) 1 tab Q4H PRN PO 12/22/16 13:45 01/21/17 13:44 12/22/16 16:02 1 TAB Diphenhydramine HCl (Benadryl Inj) 50 mg Q8H PRN IV 12/22/16 17:30 01/21/17 17:29 12/23/16 05:00 50 MG Gadobutrol (Gadavist) 12.5 mmol UD PRN IV 12/22/16 19:30 12/26/16 19:29 Ketorolac Tromethamine 30 mg 30 mg Q6H PRN IV 12/23/16 10:30 12/28/16 10:29 UNV Potassium Chloride/Dextrose/ Sod Cl (D5nss + 20meq KCl) 1,000 ml @ 80 mls/hr [id number] IV 12/23/16 10:30 01/22/17 10:29 UNV Objective Vital Signs Date Time Temp Pulse Resp B/P Pulse Ox O2 Delivery O2 Flow Rate FiO2 12/23/16 08:00 Room Air 12/23/16 07:30 36.4 73 18 107/72 97 Room Air 12/23/16 00:00 Room Air 12/22/16 22:50 36.6 84 18 104/68 96 Room Air 12/22/16 18:50 Room Air 12/22/16 15:16 36.7 85 18 109/65 96 Room Air 12/22/16 11:45 Room Air 12/22/16 11:45 36.6 Physical Exam General Appearance: no apparent distress, + obese Respiratory/Chest: lungs clear, normal breath sounds, no respiratory distress, no accessory muscle use Cardiovascular: regular rate, rhythm, no edema, no murmur Abdomen: non tender, soft, + abnormal bowel sounds (hyperactive bowel sounds), + pertinent finding (nondistended) Laboratory Results Last 24 Hours Test 12/22/16 11:42 12/23/16 07:53 Bedside Glucose 124 mg/dl White Blood Count 7.68 K/uL Red Blood Count 3.86 M/uL Hemoglobin 11.8 g/dL Hematocrit 34.6 % Mean Corpuscular Volume 89.6 fL Mean Corpuscular Hemoglobin 30.6 pg Mean Corpuscular Hemoglobin Concent 34.1 g/dl Platelet Count 187 K/uL Mean Platelet Volume 8.9 fL Neutrophils (%) (Auto) 57.4 % Lymphocytes (%) (Auto) 32.4 % Monocytes (%) (Auto) 9.4 % Eosinophils (%) (Auto) 0.4 % Basophils (%) (Auto) 0.3 % Neutrophils # (Auto) 4.41 K/uL Lymphocytes # (Auto) 2.49 K/uL Monocytes # (Auto) 0.72 K/uL Eosinophils # (Auto) 0.03 K/uL Basophils # (Auto) 0.02 K/uL RDW Standard Deviation 42.5 fL RDW Coefficient of Variation 13.0 % Immature Granulocyte % (Auto) 0.1 % Immature Granulocyte # (Auto) 0.01 K/uL Sodium Level 144 mmol/L Potassium Level 3.7 mmol/L Chloride Level 110 mmol/L Carbon Dioxide Level 27 mmol/L Anion Gap 7.0 mmol/L Blood Urea Nitrogen 10 mg/dl Creatinine 0.78 mg/dl Est Creatinine Clear Calc Drug Dose 121.8 ml/min Estimated GFR () 107.2 Estimated GFR (Non- 92.5 BUN/Creatinine Ratio 13.4 Random Glucose 91 mg/dl Lactic Acid Level 1.2 mmol/L Calcium Level 8.1 mg/dl Magnesium Level 2.3 mg/dl Lipase 202 U/L Assessment and Plan This is a 46 year old female with PMH of HTN, depression/anxiety presents with headaches, weakness, fevers, abdominal pain Tension Headache 12/23 will stop Dilaudid as this does not seem to work continue Fioricet PRN and alternate with Toradol PRN for tension headache symptoms Head CT, Brain MRI/MRA, LP all with no acute findings 12/22 patient presents with tension headache, which begins in the cervical region and works its way to the front patient states that she's been under a lot of stress at work recently - working overtime and 12+hours daily She has had problems with headaches before, but they have not persisted like this Dilaudid did not help Head CT performed = no acute findings Lumbar Puncture = no findings of meningitis/encephalitis MRI pending will add Fioricet q4PRN for headaches further work-up/management pending MRI results Viral Gastroenteritis 12/23 give Imodium x1 now start IVFs Zofran PRN Cipro + Flagyl C. diff negative, stool cultures pending 12/22 patient presents with abdominal pain Abdominal CT shows nonspecific colitis states she ate scrapple, which tasted like it had gone bad +diarrhea this morning will check for C. diff, stool culture will change Zosyn + Vanco to Cipro + Flagyl WBC improved, presented with lactic acidosis and fever as well fever has subsided as well recheck lactic acid and CBC in AM HTN blood pressure stable continue Lisinopril Obesity Ha1c ~ 5.7% encouraged to lose weight DVT ppx SCDs FULL CODE
[2016-12-23] MEDS: D5NSS + 20MEQ KCL 1,000 ML IV SCH (11:42)
[2016-12-23] MEDS: KETOROLAC TROMETHAMINE 30 MG/ML VIAL IV PRN (11:50)
[2016-12-23 16:17] VITALS: BP 116/78; PULSE 75; TEMP 36.6; O2SAT 96
[2016-12-23 23:41] VITALS: BP 122/75; PULSE 73; TEMP 36.8; O2SAT 93
[2016-12-24] MEDS ORDERED: PROMETHAZINE HCL INJ 12.5 MG in SODIUM CHLORIDE 0.9% 50ML 50 ML IV PRN ×2
[2016-12-24] MEDS: D5NSS + 20MEQ KCL 1,000 ML IV SCH ×2 (01:20→13:05)
[2016-12-24] MEDS ORDERED: VANCOMYCIN TROUGH SCH (03:30)
[2016-12-24] MEDS: CIPROFLOXACIN / D5W 400 MG in PREMIXED IN D5W 200 ML IV SCH ×2 (04:28→15:43)
[2016-12-24] MEDS: BUTALBITAL/ACETAMIN/CAFFEINE TAB PO PRN (05:29)
[2016-12-24] MEDS: METRONIDAZOLE / NSS 500 MG in PREMIXED NSS 100 ML IV SCH (06:30)
[2016-12-24 07:00] VITALS: BP 124/81; PULSE 66; TEMP 36.7; O2SAT 95
[2016-12-24 08:02] LABS: BASO % 0.2 %; BASO ABS # 0.01 K/uL (0-0.2); COMPLETE YES; EOS % 2.3 %; HEMATOCRIT 36.3 % (37-47); IG% 0.2 %; LYMPH % 36.7 %; LYMPH ABS # 2.26 K/uL (1.2-3.4); MEAN CELL VOLUME 89.9 fL (80-100); MEAN CORPUSCULAR HEMOGLOBIN 30.9 pg (25-34); MEAN CORPUSCULAR HGB CONC 34.4 g/dl (32-36); MEAN PLATELET VOLUME 9.6 fL (7.4-10.4); NEUT % 52.6 %; PLATELET COUNT 211 K/uL (130-400); RED BLOOD COUNT 4.04 M/uL (4.2-5.4); WHITE BLOOD COUNT 6.16 K/uL (4.8-10.8)
[2016-12-24] MEDS: FLUTICASONE/SALMETEROL 250/50 (ADVAIR) 14 PUFF/1 INHALER INH SCH ×2 (08:26→21:03)
[2016-12-24] MEDS: LISINOPRIL 10 MG TAB PO SCH (08:26)
[2016-12-24] MEDS: ONDANSETRON INJ 2 MG/ML 2 ML VIAL IV PRN (08:31)
[2016-12-24 08:34] LABS: BUN/CREATININE RATIO 9.6 (10-20); CREATININE 0.8 mg/dl (0.60-1.20); MAGNESIUM 2.1 mg/dl (1.8-2.4); POTASSIUM 3.5 mmol/L (3.5-5.1)
[2016-12-24 08:46] LABS: CALCIUM 8.2 mg/dl (8.5-10.1)
--- NOTE | 2016-12-24 13:42 | Progress Note ---
Subjective Date of Service: December 24, 2016. Subjective Pt evaluation today including: conversation w/ patient, physical exam, lab review, review of studies, review of inpatient medication list Saw/examined the patient in room 454 She feels slightly improved today Tolerated full liquid diet Problem List Medical Problems: (1) Chest pain Status: Acute (2) Cough Status: Acute (3) Elevated WBC count Status: Acute (4) Epigastric abdominal pain Status: Acute (5) Fever Status: Acute (6) SIRS (systemic inflammatory response syndrome) Status: Acute (7) Sleep deprivation Status: Acute (8) Wheezing Status: Acute Review of Systems Constitutional: No chills, No fever, No weakness Respiratory: No cough, No shortness of breath, No sputum Cardiac: No chest pain Abdomen: + diarrhea, + nausea, No GI bleeding, No constipation, No pain, No vomiting Heme: No abnormal bleeding/bruising Medications Current Inpatient Medications Medications (Trade) Dose Ordered Sig/Everardo Route Start Time Stop Time Status Last Admin Dose Admin Acetaminophen (Tylenol Tab) 650 mg Q4H PRN PO 12/21/16 21:45 01/20/17 21:44 Al Hydrox/Mg Hydrox/Simethicone (Maalox Max Susp) 15 ml Q4H PRN PO 12/21/16 21:45 01/20/17 21:44 Magnesium Hydroxide (Milk Of Magnesia Susp) 30 ml Q6H PRN PO 12/21/16 21:45 01/20/17 21:44 Ondansetron HCl (Zofran Inj) 4 mg Q6H PRN IV 12/21/16 21:45 01/20/17 21:44 12/24/16 08:31 4 MG Lisinopril (Zestril Tab) 10 mg DAILY PO 12/22/16 08:00 01/21/17 08:59 12/24/16 08:26 10 MG Salmeterol Xinafoate/ Fluticasone (Advair Diskus 250/50 Inh) 1 puff BID INH 12/22/16 08:00 01/21/17 08:59 12/24/16 08:26 1 PUFF Levalbuterol (Xopenex 1.25MG/ 0.5ML Neb) 1.25 mg Q4 PRN INH 12/21/16 21:45 01/20/17 21:44 Ioversol (Optiray 320) 111 ml UD PRN IV 12/21/16 22:00 12/25/16 21:59 Miscellaneous 1 ea 1 ea PRN PRN N/A 12/22/16 02:15 12/22/17 02:14 Ciprofloxacin/ Dextrose/Prmx (Cipro / D5w/ Premixed D5W) 200 ml @ 100 mls/hr Q12H IV 12/22/16 16:00 01/01/17 15:59 12/24/16 04:28 100 MLS/HR Acetaminophen/ Butalbital/ Caffeine (Fioricet Tab) 1 tab Q4H PRN PO 12/22/16 13:45 01/21/17 13:44 12/24/16 05:29 1 TAB Diphenhydramine HCl (Benadryl Inj) 50 mg Q8H PRN IV 12/22/16 17:30 01/21/17 17:29 12/23/16 05:00 50 MG Gadobutrol (Gadavist) 12.5 mmol UD PRN IV 12/22/16 19:30 12/26/16 19:29 Ketorolac Tromethamine 30 mg 30 mg Q6H PRN IV 12/23/16 10:30 12/28/16 10:29 12/23/16 11:50 30 MG Potassium Chloride/Dextrose/ Sod Cl 1,000 ml @ 80 mls/hr [id number] IV 12/23/16 12:00 01/22/17 11:59 12/24/16 01:20 80 MLS/HR Promethazine HCl/ Sodium Chloride (Phenergan Inj/ Nss 50ml) 50.5 ml @ 204 mls/hr Q6H PRN IV 12/24/16 00:00 01/23/17 00:00 Objective Vital Signs Date Time Temp Pulse Resp B/P Pulse Ox O2 Delivery O2 Flow Rate FiO2 12/24/16 08:00 Room Air 12/24/16 07:00 36.7 66 16 124/81 95 Room Air 12/24/16 00:55 Room Air 12/23/16 23:41 36.8 73 16 122/75 93 Room Air 12/23/16 16:17 36.6 75 18 116/78 96 Room Air 12/23/16 15:58 Room Air Physical Exam General Appearance: no apparent distress ENT: hearing grossly normal Respiratory/Chest: lungs clear, normal breath sounds, no respiratory distress, no accessory muscle use Cardiovascular: regular rate, rhythm, no edema, no murmur Abdomen: normal bowel sounds, non tender, soft Extremities: normal inspection, no pedal edema Neurologic/Psychiatric: no motor/sensory deficits, alert, normal mood/affect Laboratory Results Last 24 Hours Test 12/24/16 07:00 White Blood Count 6.16 K/uL Red Blood Count 4.04 M/uL Hemoglobin 12.5 g/dL Hematocrit 36.3 % Mean Corpuscular Volume 89.9 fL Mean Corpuscular Hemoglobin 30.9 pg Mean Corpuscular Hemoglobin Concent 34.4 g/dl Platelet Count 211 K/uL Mean Platelet Volume 9.6 fL Neutrophils (%) (Auto) 52.6 % Lymphocytes (%) (Auto) 36.7 % Monocytes (%) (Auto) 8.0 % Eosinophils (%) (Auto) 2.3 % Basophils (%) (Auto) 0.2 % Neutrophils # (Auto) 3.25 K/uL Lymphocytes # (Auto) 2.26 K/uL Monocytes # (Auto) 0.49 K/uL Eosinophils # (Auto) 0.14 K/uL Basophils # (Auto) 0.01 K/uL RDW Standard Deviation 42.9 fL RDW Coefficient of Variation 13.0 % Immature Granulocyte % (Auto) 0.2 % Immature Granulocyte # (Auto) 0.01 K/uL Sodium Level 142 mmol/L Potassium Level 3.5 mmol/L Chloride Level 106 mmol/L Carbon Dioxide Level 29 mmol/L Anion Gap 7.0 mmol/L Blood Urea Nitrogen 8 mg/dl Creatinine 0.80 mg/dl Est Creatinine Clear Calc Drug Dose 118.7 ml/min Estimated GFR () 103.9 Estimated GFR (Non- 89.7 BUN/Creatinine Ratio 9.6 Random Glucose 94 mg/dl Calcium Level 8.2 mg/dl Magnesium Level 2.1 mg/dl Assessment and Plan This is a 46 year old female with PMH of HTN, depression/anxiety presents with headaches, weakness, fevers, abdominal pain Campylobacter Enteritis 12/24 stool culture + for Campylobacter jejuni will stop Flagyl continue Cipro for now IVFs advance diet as tolerated d/c home on 12/25 12/23 give Imodium x1 now start IVFs Zofran PRN Cipro + Flagyl C. diff negative, stool cultures pending 12/22 patient presents with abdominal pain Abdominal CT shows nonspecific colitis states she ate scrapple, which tasted like it had gone bad +diarrhea this morning will check for C. diff, stool culture will change Zosyn + Vanco to Cipro + Flagyl WBC improved, presented with lactic acidosis and fever as well fever has subsided as well recheck lactic acid and CBC in AM Tension Headache 12/24 resolved, will keep PRN fioricet and toradol for now 12/23 will stop Dilaudid as this does not seem to work continue Fioricet PRN and alternate with Toradol PRN for tension headache symptoms Head CT, Brain MRI/MRA, LP all with no acute findings 12/22 patient presents with tension headache, which begins in the cervical region and works its way to the front patient states that she's been under a lot of stress at work recently - working overtime and 12+hours daily She has had problems with headaches before, but they have not persisted like this Dilaudid did not help Head CT performed = no acute findings Lumbar Puncture = no findings of meningitis/encephalitis MRI pending will add Fioricet q4PRN for headaches further work-up/management pending MRI results HTN blood pressure stable continue Lisinopril Obesity Ha1c ~ 5.7% encouraged to lose weight DVT ppx SCDs FULL CODE
[2016-12-24 15:00] VITALS: BP 127/80; PULSE 72; TEMP 36.8; O2SAT 96
[2016-12-24] MEDS: ALUMINUM/MAGNESIUM/SIMETH (MAALOX MAX) 30 ML UDC PO PRN ×2 (18:46→22:30)
[2016-12-25 01:00] VITALS: BP 119/79; PULSE 70; TEMP 36.5; O2SAT 96
[2016-12-25] MEDS: D5NSS + 20MEQ KCL 1,000 ML IV SCH ×2 (02:30→14:11)
[2016-12-25] MEDS: CIPROFLOXACIN / D5W 400 MG in PREMIXED IN D5W 200 ML IV SCH ×2 (04:07→16:18)
[2016-12-25 06:18] LABS: HEMATOCRIT 40.8 % (37-47); MEAN CELL VOLUME 89.5 fL (80-100); MEAN CORPUSCULAR HEMOGLOBIN 29.8 pg (25-34); MEAN CORPUSCULAR HGB CONC 33.3 g/dl (32-36); MEAN PLATELET VOLUME 9.6 fL (7.4-10.4); PLATELET COUNT 214 K/uL (130-400); RED BLOOD COUNT 4.56 M/uL (4.2-5.4); WHITE BLOOD COUNT 6.87 K/uL (4.8-10.8)
[2016-12-25 07:00] LABS: BUN/CREATININE RATIO 9.9 (10-20); CALCIUM 8.6 mg/dl (8.5-10.1); CREATININE 0.65 mg/dl (0.60-1.20); POTASSIUM 3.9 mmol/L (3.5-5.1)
[2016-12-25 07:35] VITALS: BP 135/91; PULSE 70; TEMP 36.7; O2SAT 97
[2016-12-25] MEDS: FLUTICASONE/SALMETEROL 250/50 (ADVAIR) 14 PUFF/1 INHALER INH SCH ×2 (08:22→21:59)
[2016-12-25] MEDS: LISINOPRIL 10 MG TAB PO SCH (08:23)
--- NOTE | 2016-12-25 09:44 | Progress Note ---
Subjective Date of Service: December 25, 2016. Subjective Pt evaluation today including: conversation w/ patient, physical exam, lab review, review of studies, review of inpatient medication list Saw/examined the patient in room 454 She is doing okay; eating and tolerating it well still feels some stomach cramping; occasional diarrhea no blood in the stool Problem List Medical Problems: (1) Chest pain Status: Acute (2) Cough Status: Acute (3) Elevated WBC count Status: Acute (4) Epigastric abdominal pain Status: Acute (5) Fever Status: Acute (6) SIRS (systemic inflammatory response syndrome) Status: Acute (7) Sleep deprivation Status: Acute (8) Wheezing Status: Acute Review of Systems Constitutional: No chills, No fever Respiratory: No shortness of breath Cardiac: No chest pain Abdomen: + diarrhea, + nausea, + pain, No GI bleeding, No constipation, No vomiting Medications Current Inpatient Medications Medications (Trade) Dose Ordered Sig/Everardo Route Start Time Stop Time Status Last Admin Dose Admin Acetaminophen (Tylenol Tab) 650 mg Q4H PRN PO 12/21/16 21:45 01/20/17 21:44 Al Hydrox/Mg Hydrox/Simethicone (Maalox Max Susp) 15 ml Q4H PRN PO 12/21/16 21:45 01/20/17 21:44 12/24/16 22:30 15 ML Magnesium Hydroxide (Milk Of Magnesia Susp) 30 ml Q6H PRN PO 12/21/16 21:45 01/20/17 21:44 Ondansetron HCl (Zofran Inj) 4 mg Q6H PRN IV 12/21/16 21:45 01/20/17 21:44 12/24/16 08:31 4 MG Lisinopril (Zestril Tab) 10 mg DAILY PO 12/22/16 08:00 01/21/17 08:59 12/25/16 08:23 10 MG Salmeterol Xinafoate/ Fluticasone (Advair Diskus 250/50 Inh) 1 puff BID INH 12/22/16 08:00 01/21/17 08:59 12/25/16 08:22 1 PUFF Levalbuterol (Xopenex 1.25MG/ 0.5ML Neb) 1.25 mg Q4 PRN INH 12/21/16 21:45 01/20/17 21:44 Ioversol (Optiray 320) 111 ml UD PRN IV 12/21/16 22:00 12/25/16 21:59 Miscellaneous 1 ea 1 ea PRN PRN N/A 12/22/16 02:15 12/22/17 02:14 Ciprofloxacin/ Dextrose/Prmx (Cipro / D5w/ Premixed D5W) 200 ml @ 100 mls/hr Q12H IV 12/22/16 16:00 01/01/17 15:59 12/25/16 04:07 100 MLS/HR Acetaminophen/ Butalbital/ Caffeine (Fioricet Tab) 1 tab Q4H PRN PO 12/22/16 13:45 01/21/17 13:44 12/24/16 05:29 1 TAB Diphenhydramine HCl (Benadryl Inj) 50 mg Q8H PRN IV 12/22/16 17:30 01/21/17 17:29 12/23/16 05:00 50 MG Gadobutrol (Gadavist) 12.5 mmol UD PRN IV 12/22/16 19:30 12/26/16 19:29 Ketorolac Tromethamine 30 mg 30 mg Q6H PRN IV 12/23/16 10:30 12/28/16 10:29 12/23/16 11:50 30 MG Potassium Chloride/Dextrose/ Sod Cl 1,000 ml @ 80 mls/hr [id number] IV 12/23/16 12:00 01/22/17 11:59 12/25/16 02:30 80 MLS/HR Promethazine HCl/ Sodium Chloride (Phenergan Inj/ Nss 50ml) 50.5 ml @ 204 mls/hr Q6H PRN IV 12/24/16 00:00 01/23/17 00:00 Objective Vital Signs Date Time Temp Pulse Resp B/P Pulse Ox O2 Delivery O2 Flow Rate FiO2 12/25/16 07:35 36.7 70 18 135/91 97 Room Air 12/25/16 01:00 36.5 70 20 119/79 96 Room Air 12/25/16 00:03 Room Air 12/24/16 21:20 Room Air 12/24/16 16:00 Room Air 12/24/16 15:00 36.8 72 16 127/80 96 Room Air Physical Exam General Appearance: no apparent distress, + obese Abdomen: normal bowel sounds, non tender, soft Laboratory Results Last 24 Hours Test 12/25/16 05:24 12/25/16 05:30 Sodium Level 139 mmol/L Potassium Level 3.9 mmol/L Chloride Level 104 mmol/L Carbon Dioxide Level 29 mmol/L Anion Gap 6.0 mmol/L Blood Urea Nitrogen 6 mg/dl Creatinine 0.65 mg/dl Est Creatinine Clear Calc Drug Dose 146.1 ml/min Estimated GFR () 125.1 Estimated GFR (Non- 108.0 BUN/Creatinine Ratio 9.9 Random Glucose 113 mg/dl Calcium Level 8.6 mg/dl White Blood Count 6.87 K/uL Red Blood Count 4.56 M/uL Hemoglobin 13.6 g/dL Hematocrit 40.8 % Mean Corpuscular Volume 89.5 fL Mean Corpuscular Hemoglobin 29.8 pg Mean Corpuscular Hemoglobin Concent 33.3 g/dl RDW Standard Deviation 41.5 fL RDW Coefficient of Variation 12.7 % Platelet Count 214 K/uL Mean Platelet Volume 9.6 fL Assessment and Plan This is a 46 year old female with PMH of HTN, depression/anxiety presents with headaches, weakness, fevers, abdominal pain Campylobacter Enteritis 12/25 blood culture + for one bottle, for gram negative bacilli likely campylobacter will continue Cipro IVFs advance diet as tolerated d/c in AM (12/26) - once cultures return 12/24 stool culture + for Campylobacter jejuni will stop Flagyl continue Cipro for now IVFs advance diet as tolerated d/c home on 12/25 12/23 give Imodium x1 now start IVFs Zofran PRN Cipro + Flagyl C. diff negative, stool cultures pending 12/22 patient presents with abdominal pain Abdominal CT shows nonspecific colitis states she ate scrapple, which tasted like it had gone bad +diarrhea this morning will check for C. diff, stool culture will change Zosyn + Vanco to Cipro + Flagyl WBC improved, presented with lactic acidosis and fever as well fever has subsided as well recheck lactic acid and CBC in AM Tension Headache 12/24 resolved, will keep PRN fioricet and toradol for now 12/23 will stop Dilaudid as this does not seem to work continue Fioricet PRN and alternate with Toradol PRN for tension headache symptoms Head CT, Brain MRI/MRA, LP all with no acute findings 12/22 patient presents with tension headache, which begins in the cervical region and works its way to the front patient states that she's been under a lot of stress at work recently - working overtime and 12+hours daily She has had problems with headaches before, but they have not persisted like this Dilaudid did not help Head CT performed = no acute findings Lumbar Puncture = no findings of meningitis/encephalitis MRI pending will add Fioricet q4PRN for headaches further work-up/management pending MRI results HTN blood pressure stable continue Lisinopril Obesity Ha1c ~ 5.7% encouraged to lose weight DVT ppx SCDs FULL CODE
[2016-12-25] MEDS: ALUMINUM/MAGNESIUM/SIMETH (MAALOX MAX) 30 ML UDC PO PRN ×3 (14:10→21:57)
[2016-12-25 16:40] VITALS: BP 132/84; PULSE 78; TEMP 36.8; O2SAT 95
[2016-12-25] MEDS: KETOROLAC TROMETHAMINE 30 MG/ML VIAL IV PRN (21:58)
[2016-12-25 23:43] VITALS: BP 123/65; PULSE 68; TEMP 36.7; O2SAT 97
[2016-12-26] MEDS: D5NSS + 20MEQ KCL 1,000 ML IV SCH ×2 (03:47→15:43)
[2016-12-26] MEDS: CIPROFLOXACIN / D5W 400 MG in PREMIXED IN D5W 200 ML IV SCH ×2 (03:47→15:44)
[2016-12-26 07:27] VITALS: BP 133/84; PULSE 70; TEMP 36.4; O2SAT 98
[2016-12-26] MEDS: FLUTICASONE/SALMETEROL 250/50 (ADVAIR) 14 PUFF/1 INHALER INH SCH ×2 (07:40→20:59)
[2016-12-26] MEDS: LISINOPRIL 10 MG TAB PO SCH (07:40)
[2016-12-26 08:00] LABS: HEMATOCRIT 41.6 % (37-47); MEAN CELL VOLUME 89.1 fL (80-100); MEAN CORPUSCULAR HEMOGLOBIN 30.6 pg (25-34); MEAN CORPUSCULAR HGB CONC 34.4 g/dl (32-36); MEAN PLATELET VOLUME 9.3 fL (7.4-10.4); PLATELET COUNT 246 K/uL (130-400); RED BLOOD COUNT 4.67 M/uL (4.2-5.4); WHITE BLOOD COUNT 7.46 K/uL (4.8-10.8)
[2016-12-26 08:25] LABS: BUN/CREATININE RATIO 10.6 (10-20); CREATININE 0.69 mg/dl (0.60-1.20); MAGNESIUM 2.6 mg/dl (1.8-2.4); POTASSIUM 4.2 mmol/L (3.5-5.1)
[2016-12-26 08:52] LABS: CALCIUM 8.6 mg/dl (8.5-10.1)
[2016-12-26] MEDS: ALUMINUM/MAGNESIUM/SIMETH (MAALOX MAX) 30 ML UDC PO PRN ×2 (09:34→21:00)
--- NOTE | 2016-12-26 13:22 | Progress Note ---
Subjective Date of Service: December 26, 2016. Subjective Pt evaluation today including: conversation w/ patient, physical exam, lab review, review of studies, review of inpatient medication list Saw/examined the patient in room 454 she still is c/o abdominal pain, diarrhea improving with medications no fevers/chills Problem List Medical Problems: (1) Chest pain Status: Acute (2) Cough Status: Acute (3) Elevated WBC count Status: Acute (4) Epigastric abdominal pain Status: Acute (5) Fever Status: Acute (6) SIRS (systemic inflammatory response syndrome) Status: Acute (7) Sleep deprivation Status: Acute (8) Wheezing Status: Acute Review of Systems Constitutional: No chills, No fever Respiratory: No shortness of breath Cardiac: No chest pain Abdomen: + diarrhea, + nausea, + pain, No GI bleeding, No constipation, No vomiting Female : No dysuria, No urinary frequency Medications Current Inpatient Medications Medications (Trade) Dose Ordered Sig/Everardo Route Start Time Stop Time Status Last Admin Dose Admin Acetaminophen (Tylenol Tab) 650 mg Q4H PRN PO 12/21/16 21:45 01/20/17 21:44 Al Hydrox/Mg Hydrox/Simethicone (Maalox Max Susp) 15 ml Q4H PRN PO 12/21/16 21:45 01/20/17 21:44 12/26/16 09:34 15 ML Magnesium Hydroxide (Milk Of Magnesia Susp) 30 ml Q6H PRN PO 12/21/16 21:45 01/20/17 21:44 Ondansetron HCl (Zofran Inj) 4 mg Q6H PRN IV 12/21/16 21:45 01/20/17 21:44 12/24/16 08:31 4 MG Lisinopril (Zestril Tab) 10 mg DAILY PO 12/22/16 08:00 01/21/17 08:59 12/26/16 07:40 10 MG Salmeterol Xinafoate/ Fluticasone (Advair Diskus 250/50 Inh) 1 puff BID INH 12/22/16 08:00 01/21/17 08:59 12/26/16 07:40 1 PUFF Levalbuterol (Xopenex 1.25MG/ 0.5ML Neb) 1.25 mg Q4 PRN INH 12/21/16 21:45 01/20/17 21:44 Miscellaneous 1 ea 1 ea PRN PRN N/A 12/22/16 02:15 12/22/17 02:14 Ciprofloxacin/ Dextrose/Prmx (Cipro / D5w/ Premixed D5W) 200 ml @ 100 mls/hr Q12H IV 12/22/16 16:00 01/01/17 15:59 12/26/16 03:47 100 MLS/HR Acetaminophen/ Butalbital/ Caffeine (Fioricet Tab) 1 tab Q4H PRN PO 12/22/16 13:45 01/21/17 13:44 12/24/16 05:29 1 TAB Diphenhydramine HCl (Benadryl Inj) 50 mg Q8H PRN IV 12/22/16 17:30 01/21/17 17:29 12/23/16 05:00 50 MG Gadobutrol (Gadavist) 12.5 mmol UD PRN IV 12/22/16 19:30 12/26/16 19:29 Ketorolac Tromethamine 30 mg 30 mg Q6H PRN IV 12/23/16 10:30 12/28/16 10:29 12/25/16 21:58 30 MG Potassium Chloride/Dextrose/ Sod Cl 1,000 ml @ 80 mls/hr [id number] IV 12/23/16 12:00 01/22/17 11:59 12/26/16 03:47 80 MLS/HR Promethazine HCl/ Sodium Chloride (Phenergan Inj/ Nss 50ml) 50.5 ml @ 204 mls/hr Q6H PRN IV 12/24/16 00:00 01/23/17 00:00 12/25/16 22:06 204 MLS/HR Objective Vital Signs Date Time Temp Pulse Resp B/P Pulse Ox O2 Delivery O2 Flow Rate FiO2 12/26/16 08:00 Room Air 12/26/16 07:27 36.4 70 16 133/84 98 Room Air 12/26/16 00:35 Room Air 12/25/16 23:43 36.7 68 20 123/65 97 Room Air 12/25/16 21:30 Room Air 12/25/16 16:40 36.8 78 18 132/84 95 Room Air 12/25/16 16:00 Room Air Physical Exam General Appearance: + mild distress (nausea, diarrhea, abdominal pain) Abdomen: non tender, soft, no organomegaly, no pulsatile mass, + abnormal bowel sounds (hyperactive bowel sounds) Extremities: normal inspection, no pedal edema Laboratory Results Last 24 Hours Test 12/26/16 07:30 White Blood Count 7.46 K/uL Red Blood Count 4.67 M/uL Hemoglobin 14.3 g/dL Hematocrit 41.6 % Mean Corpuscular Volume 89.1 fL Mean Corpuscular Hemoglobin 30.6 pg Mean Corpuscular Hemoglobin Concent 34.4 g/dl RDW Standard Deviation 39.8 fL RDW Coefficient of Variation 12.6 % Platelet Count 246 K/uL Mean Platelet Volume 9.3 fL Sodium Level 139 mmol/L Potassium Level 4.2 mmol/L Chloride Level 102 mmol/L Carbon Dioxide Level 29 mmol/L Anion Gap 8.0 mmol/L Blood Urea Nitrogen 7 mg/dl Creatinine 0.69 mg/dl Est Creatinine Clear Calc Drug Dose 137.6 ml/min Estimated GFR () 122.7 Estimated GFR (Non- 105.9 BUN/Creatinine Ratio 10.6 Random Glucose 126 mg/dl Calcium Level 8.6 mg/dl Magnesium Level 2.6 mg/dl Assessment and Plan This is a 46 year old female with PMH of HTN, depression/anxiety presents with headaches, weakness, fevers, abdominal pain Campylobacter Enteritis 12/26 blood culture + for probably anaerobic gram negative organism I'll add Flagyl back will continue Cipro IVFs full liquid diet monitor overnight; possible d/c home with Cipro + Flagyl and Zofran PRN as an outpatient 12/25 blood culture + for one bottle, for gram negative bacilli likely campylobacter will continue Cipro IVFs advance diet as tolerated d/c in AM (12/26) - once cultures return 12/24 stool culture + for Campylobacter jejuni will stop Flagyl continue Cipro for now IVFs advance diet as tolerated d/c home on 12/25 12/23 give Imodium x1 now start IVFs Zofran PRN Cipro + Flagyl C. diff negative, stool cultures pending 12/22 patient presents with abdominal pain Abdominal CT shows nonspecific colitis states she ate scrapple, which tasted like it had gone bad +diarrhea this morning will check for C. diff, stool culture will change Zosyn + Vanco to Cipro + Flagyl WBC improved, presented with lactic acidosis and fever as well fever has subsided as well recheck lactic acid and CBC in AM Tension Headache - resolved 12/24 resolved, will keep PRN fioricet and toradol for now 12/23 will stop Dilaudid as this does not seem to work continue Fioricet PRN and alternate with Toradol PRN for tension headache symptoms Head CT, Brain MRI/MRA, LP all with no acute findings 12/22 patient presents with tension headache, which begins in the cervical region and works its way to the front patient states that she's been under a lot of stress at work recently - working overtime and 12+hours daily She has had problems with headaches before, but they have not persisted like this Dilaudid did not help Head CT performed = no acute findings Lumbar Puncture = no findings of meningitis/encephalitis MRI pending will add Fioricet q4PRN for headaches further work-up/management pending MRI results HTN blood pressure stable continue Lisinopril Obesity Ha1c ~ 5.7% encouraged to lose weight DVT ppx SCDs FULL CODE
[2016-12-26] MEDS: METRONIDAZOLE / NSS 500 MG in PREMIXED NSS 100 ML IV SCH ×2 (13:53→22:15)
[2016-12-26 15:23] VITALS: BP 130/87; PULSE 73; TEMP 36.6; O2SAT 95
[2016-12-26] MEDS: ONDANSETRON INJ 2 MG/ML 2 ML VIAL IV PRN (23:07)
[2016-12-26 23:43] VITALS: BP 113/74; PULSE 79; TEMP 36.5; O2SAT 96
[2016-12-27] VITALS: O2SAT 96
[2016-12-27] MEDS: CIPROFLOXACIN / D5W 400 MG in PREMIXED IN D5W 200 ML IV SCH (03:53)
[2016-12-27] MEDS: D5NSS + 20MEQ KCL 1,000 ML IV SCH (03:53)
[2016-12-27] MEDS: METRONIDAZOLE / NSS 500 MG in PREMIXED NSS 100 ML IV SCH ×2 (06:18→13:33)
[2016-12-27 07:06] VITALS: BP 116/76; PULSE 71; TEMP 36.5; O2SAT 96
[2016-12-27 07:49] LABS: HEMATOCRIT 42.7 % (37-47); MEAN CORPUSCULAR HEMOGLOBIN 30.2 pg (25-34); MEAN PLATELET VOLUME 9.1 fL (7.4-10.4); PLATELET COUNT 268 K/uL (130-400); WHITE BLOOD COUNT 8.91 K/uL (4.8-10.8)
[2016-12-27] MEDS: LISINOPRIL 10 MG TAB PO SCH (07:57)
[2016-12-27] MEDS: FLUTICASONE/SALMETEROL 250/50 (ADVAIR) 14 PUFF/1 INHALER INH SCH (07:57)
[2016-12-27 08:53] LABS: BUN/CREATININE RATIO 8.6 (10-20); CREATININE 0.71 mg/dl (0.60-1.20); MAGNESIUM 2.3 mg/dl (1.8-2.4); POTASSIUM 4.6 mmol/L (3.5-5.1)
[2016-12-27 08:59] LABS: CALCIUM 8.9 mg/dl (8.5-10.1)
--- NOTE | 2016-12-27 12:33 | Progress Note ---
Subjective Date of Service: December 27, 2016. Subjective Pt evaluation today including: conversation w/ patient, physical exam, lab review, review of studies, review of inpatient medication list Problem List Medical Problems: (1) Chest pain Status: Acute (2) Cough Status: Acute (3) Elevated WBC count Status: Acute (4) Epigastric abdominal pain Status: Acute (5) Fever Status: Acute (6) SIRS (systemic inflammatory response syndrome) Status: Acute (7) Sleep deprivation Status: Acute (8) Wheezing Status: Acute Review of Systems Constitutional: No chills, No fever Respiratory: No shortness of breath Cardiac: No chest pain Abdomen: + diarrhea (improving), No GI bleeding, No constipation, No nausea, No pain, No vomiting Heme: No abnormal bleeding/bruising Medications Current Inpatient Medications Medications (Trade) Dose Ordered Sig/Everardo Route Start Time Stop Time Status Last Admin Dose Admin Acetaminophen (Tylenol Tab) 650 mg Q4H PRN PO 12/21/16 21:45 01/20/17 21:44 Al Hydrox/Mg Hydrox/Simethicone (Maalox Max Susp) 15 ml Q4H PRN PO 12/21/16 21:45 01/20/17 21:44 12/26/16 21:00 15 ML Magnesium Hydroxide (Milk Of Magnesia Susp) 30 ml Q6H PRN PO 12/21/16 21:45 01/20/17 21:44 Ondansetron HCl (Zofran Inj) 4 mg Q6H PRN IV 12/21/16 21:45 01/20/17 21:44 12/26/16 23:07 4 MG Lisinopril (Zestril Tab) 10 mg DAILY PO 12/22/16 08:00 01/21/17 08:59 12/27/16 07:57 10 MG Salmeterol Xinafoate/ Fluticasone (Advair Diskus 250/50 Inh) 1 puff BID INH 12/22/16 08:00 01/21/17 08:59 12/27/16 07:57 1 PUFF Levalbuterol (Xopenex 1.25MG/ 0.5ML Neb) 1.25 mg Q4 PRN INH 12/21/16 21:45 01/20/17 21:44 Miscellaneous 1 ea 1 ea PRN PRN N/A 12/22/16 02:15 12/22/17 02:14 Ciprofloxacin/ Dextrose/Prmx (Cipro / D5w/ Premixed D5W) 200 ml @ 100 mls/hr Q12H IV 12/22/16 16:00 01/01/17 15:59 12/27/16 03:53 100 MLS/HR Acetaminophen/ Butalbital/ Caffeine (Fioricet Tab) 1 tab Q4H PRN PO 12/22/16 13:45 01/21/17 13:44 12/24/16 05:29 1 TAB Diphenhydramine HCl (Benadryl Inj) 50 mg Q8H PRN IV 12/22/16 17:30 01/21/17 17:29 12/23/16 05:00 50 MG Ketorolac Tromethamine 30 mg 30 mg Q6H PRN IV 12/23/16 10:30 12/28/16 10:29 12/25/16 21:58 30 MG Potassium Chloride/Dextrose/ Sod Cl 1,000 ml @ 80 mls/hr [id number] IV 12/23/16 12:00 01/22/17 11:59 12/27/16 03:53 80 MLS/HR Promethazine HCl 12.5 mg/Sodium Chloride 50.5 ml @ 204 mls/hr Q6H PRN IV 12/24/16 00:00 01/23/17 00:00 12/25/16 22:06 204 MLS/HR Metronidazole/Prmx (Flagyl / Nss/ Premixed Nss) 100 ml @ 100 mls/hr Q8H IV 12/26/16 14:00 01/05/17 13:14 12/27/16 06:18 100 MLS/HR Objective Vital Signs Date Time Temp Pulse Resp B/P Pulse Ox O2 Delivery O2 Flow Rate FiO2 12/27/16 08:00 Room Air 12/27/16 07:06 36.5 71 18 116/76 96 Room Air 12/27/16 00:00 96 Room Air 12/26/16 23:43 36.5 79 18 113/74 96 Room Air 12/26/16 16:00 Room Air 12/26/16 15:23 36.6 73 16 130/87 95 Room Air Physical Exam General Appearance: no apparent distress, + obese Respiratory/Chest: lungs clear, normal breath sounds, no respiratory distress, no accessory muscle use Cardiovascular: regular rate, rhythm, no edema, no murmur Abdomen: normal bowel sounds, non tender, soft Laboratory Results Last 24 Hours Test 12/27/16 07:26 White Blood Count 8.91 K/uL Red Blood Count 4.80 M/uL Hemoglobin 14.5 g/dL Hematocrit 42.7 % Mean Corpuscular Volume 89.0 fL Mean Corpuscular Hemoglobin 30.2 pg Mean Corpuscular Hemoglobin Concent 34.0 g/dl RDW Standard Deviation 40.5 fL RDW Coefficient of Variation 12.6 % Platelet Count 268 K/uL Mean Platelet Volume 9.1 fL Sodium Level 139 mmol/L Potassium Level 4.6 mmol/L Chloride Level 103 mmol/L Carbon Dioxide Level 31 mmol/L Anion Gap 5.0 mmol/L Blood Urea Nitrogen 6 mg/dl Creatinine 0.71 mg/dl Est Creatinine Clear Calc Drug Dose 133.8 ml/min Estimated GFR () 120.1 Estimated GFR (Non- 103.6 BUN/Creatinine Ratio 8.6 Random Glucose 94 mg/dl Calcium Level 8.9 mg/dl Magnesium Level 2.3 mg/dl Chemistry Specimen Hemolysis Assessment and Plan This is a 46 year old female with PMH of HTN, depression/anxiety presents with headaches, weakness, fevers, abdominal pain Campylobacter Enteritis 12/27 Will d/c home today with Cipro + Flagyl x3 days F/u with Dr. Joy on December 30 @ 10:45AM 12/26 blood culture + for probably anaerobic gram negative organism I'll add Flagyl back will continue Cipro IVFs full liquid diet monitor overnight; possible d/c home with Cipro + Flagyl and Zofran PRN as an outpatient 12/25 blood culture + for one bottle, for gram negative bacilli likely campylobacter will continue Cipro IVFs advance diet as tolerated d/c in AM (12/26) - once cultures return 12/24 stool culture + for Campylobacter jejuni will stop Flagyl continue Cipro for now IVFs advance diet as tolerated d/c home on 12/25 12/23 give Imodium x1 now start IVFs Zofran PRN Cipro + Flagyl C. diff negative, stool cultures pending 12/22 patient presents with abdominal pain Abdominal CT shows nonspecific colitis states she ate scrapple, which tasted like it had gone bad +diarrhea this morning will check for C. diff, stool culture will change Zosyn + Vanco to Cipro + Flagyl WBC improved, presented with lactic acidosis and fever as well fever has subsided as well recheck lactic acid and CBC in AM Tension Headache - resolved 12/24 resolved, will keep PRN fioricet and toradol for now 12/23 will stop Dilaudid as this does not seem to work continue Fioricet PRN and alternate with Toradol PRN for tension headache symptoms Head CT, Brain MRI/MRA, LP all with no acute findings 12/22 patient presents with tension headache, which begins in the cervical region and works its way to the front patient states that she's been under a lot of stress at work recently - working overtime and 12+hours daily She has had problems with headaches before, but they have not persisted like this Dilaudid did not help Head CT performed = no acute findings Lumbar Puncture = no findings of meningitis/encephalitis MRI pending will add Fioricet q4PRN for headaches further work-up/management pending MRI results HTN blood pressure stable continue Lisinopril Obesity Ha1c ~ 5.7% encouraged to lose weight DVT ppx SCDs FULL CODE
[2016-12-27] MEDS ORDERED: CIPR-255 PO (12:40)
[2016-12-27] MEDS ORDERED: ONDA8TAB62 SL (12:40)
[2016-12-27] MEDS ORDERED: METR-163 PO (12:40)
--- NOTE | 2016-12-27 12:43 | Discharge Instructions ---
Discharge Instructions Date of Service December 27, 2016. Admission Reason for Admission: Intractable Headache Discharge Discharge Diagnosis / Problem: Campylobacter Enteritis Discharge Goals Goal(s): Decrease discomfort, Improve function, Diagnostic testing, Therapeutic intervention Activity Recommendations Activity Limitations: resume your previous activity . Instructions / Follow-Up Instructions / Follow-Up Please follow-up with Dr. Joy (covering for Dr. Mccauley) on December 30 at 10:45AM * You will be on Cipro and Flagyl for three more days, take as prescribed * Continue with liquids and soft diet for now * Primary care should check back on final blood culture report from the hospital Current Hospital Diet Patient's current hospital diet: Full Liquid Diet Discharge Diet Recommended Diet: Full Liquid Diet Pending Studies Studies pending at discharge: no Laboratory Results Hemoglobin A1c Test 12/22/16 08:05 Range/Units Estimated Average Glucose 117 mg/dl Hemoglobin A1c 5.7 H 4.5-5.6 % Medical Emergencies . Who to Call and When: Medical Emergencies: If at any time you feel your situation is an emergency, please call 911 immediately. . Non-Emergent Contact Non-Emergency issues call your: Primary Care Provider . . "Provider Documentation" section prepared by Cristino Rudolph. . VTE Core Measure Inpt VTE Proph given/why not?: SCD's
--- NOTE | 2016-12-27 12:44 | Discharge Summary ---
Discharge Summary Date of Service December 27, 2016. Discharge Summary Admission Date: December 21, 2016 at 21:50 Discharge Date: December 27, 2016 Discharge Disposition: Home Principal Diagnosis: Campylobacter Enteritis Medication Reconciliation New Medications: Ciprofloxacin Hcl (Cipro) 500 Mg Tab 500 MG PO BID for 3 Days, #6 TAB Metronidazole (Flagyl) 500 Mg Tab 500 MG PO TID for 3 Days, #9 TAB Ondansetron Odt (Zofran Odt) 8 Mg Soltab 8 MG SL Q6H PRN for Nausea for 5 Days, #20 TAB Continued Medications: Epinephrine (Epipen 2-Bashir) 0.3 Mg Inj 0.3 MG IM UD PRN for ALLERGIC REACTION Lisinopril (Zestril) 10 Mg Tab 10 MG PO DAILY, TAB Admission Information Physical Exam (per Admitting): DATE OF ADMISSION: 12/21/2016 CHIEF COMPLAINT: Severe headache. HISTORY OF PRESENT ILLNESS: This is a 46-year-old female, with a past medical history significant for reflux esophagitis, obesity, hypothyroidism, asthma, hypertension and depression who presents with severe headache. The patient says that she is having intractable severe headache in the occipital region radiating to the front side of the head, going on for the last 2 weeks. She saw her family doctor and her blood pressure was high. Was restarted on lisinopril and advised for an MRI. As it was not getting better, she came to the ER today. In the ER, initially she was found to have a temp spike, but rest of the labs were okay. A lumbar puncture was done which was unremarkable. Urinalysis was negative. Lyme screen was negative. CT of the head was unremarkable. The patient is still complaining of severe headache; light is bothering her and sounds are bothering some. She also having some nausea, had couple of episodes of diarrhea and complains of some left lower quadrant abdominal pain. She denies any chest pain. She has some shortness of breath. The patient was on multiple medications in the past, but she has weaned off her all medications currently. Just recently, restarted lisinopril 10 mg for her blood pressure when she saw her PCP for headaches. But she wants to restart the Advair for her asthma. Currently, she is lying down in the dark room. Vitals signs are stable. ALLERGIES: SULFA ANTIBIOTICS. PAST MEDICAL HISTORY: As mentioned above. PAST SURGICAL HISTORY: Laparoscopic hysterectomy, total abdominal hysterectomy with bilateral salpingo-oophorectomy and sinus surgery. MEDICATIONS: Currently only on lisinopril 10 mg p.o. daily. FAMILY HISTORY: Significant for allergies. SOCIAL HISTORY: . Never smoked. No alcohol, no drug use. REVIEW OF SYMPTOMS: As per HPI. Rest of the review of symptoms is negative. PHYSICAL EXAMINATION: GENERAL: The patient is obese. She seems to be in pain. VITAL SIGNS: T-max 37.1, pulse 90, respiratory rate 18, blood pressure 150/80 and oxygen 92% on room air. HEENT: No pallor, no icterus. Pupils are equal, round and reactive to light. NECK: No JVD, no neck masses, no carotid bruits. CARDIOVASCULAR: S1, S2 heard, regular rate and rhythm. No murmur, no gallop. RESPIRATORY: Clear to auscultation bilaterally. No wheezing, no crackles. ABDOMEN: Soft, bowel sounds present. Left lower quadrant tenderness present. No distention, no guarding or rigidity. CENTRAL NERVOUS SYSTEM: Cranial nerves II-XII grossly intact. Nonfocal. EXTREMITIES: No edema, no erythema. LABORATORIES: PT 11.1, INR 1, PTT 28.3. Sodium 135, potassium 3.3, chloride 101, bicarbonate 27, BUN 7, creatinine 0.8, serum glucose 124, [id number] lactic acid 2.2, calcium 8.6, magnesium 2, total bilirubin 0.6, AST 17, ALT 35, alkaline phosphatase 104, total creatinine kinase 77, troponin I less than 0.015. WBC 12.3, hemoglobin 14.7, hematocrit 43 and platelets 264. Urinalysis was negative. Lumbar puncture today is unremarkable. Lyme screen negative. CT of the head; no acute intracranial abnormalities are seen. Chest x-ray; negative chest. EKG; sinus tachycardia with a rate of 117. No significant change found. ASSESSMENT AND PLAN: This is a 46-year-old female, who presents with: 1. Intractable headaches, starting from the back of the head and radiating to the front of the head. CT of the head is negative and also lumbar puncture is unremarkable. We will follow up with a MRI and MRA of the head, pain control. If any concerns, we will consult neurology in the morning. 2. Possible early sepsis and temperature spike with tachycardia and mild leukocytosis, but urinalysis is negative. Chest x-ray unremarkable. Source of infection is unclear. She has some mild left lower quadrant abdominal pain. We will get a CT of abdomen and pelvis .We will empirically start her on vancomycin, Zosyn and follow cultures. 3. History of hypertension. Start lisinopril 10 mg; recently restarted. We will follow her blood pressure. 4. History of depression, but not taking any medications. In the past, she was weaned off of all her medications for blood pressure, depression and asthma. She wants to restart Advair. 5. History of hypothyroidism, not on any medication. We will check TSH. 6. Family history of diabetes. We will check HbA1c levels. 7. Deep venous thrombosis prophylaxis, SCDs for now. 8. Disposition: Admit to medical floor. Expect to discharge home and follow with her family doctor. Level 1. Full code. Hospital Course This is a 46 year old female with PMH of HTN, depression/anxiety presents with headaches, weakness, fevers, abdominal pain Campylobacter Enteritis 12/27 Will d/c home today with Cipro + Flagyl x3 days F/u with Dr. Joy on Monday, December 30 @ 10:45AM 12/26 blood culture + for probably anaerobic gram negative organism I'll add Flagyl back will continue Cipro IVFs full liquid diet monitor overnight; possible d/c home with Cipro + Flagyl and Zofran PRN as an outpatient 12/25 blood culture + for one bottle, for gram negative bacilli likely campylobacter will continue Cipro IVFs advance diet as tolerated d/c in AM (12/26) - once cultures return 12/24 stool culture + for Campylobacter jejuni will stop Flagyl continue Cipro for now IVFs advance diet as tolerated d/c home on 12/25 12/23 give Imodium x1 now start IVFs Zofran PRN Cipro + Flagyl C. diff negative, stool cultures pending 12/22 patient presents with abdominal pain Abdominal CT shows nonspecific colitis states she ate scrapple, which tasted like it had gone bad +diarrhea this morning will check for C. diff, stool culture will change Zosyn + Vanco to Cipro + Flagyl WBC improved, presented with lactic acidosis and fever as well fever has subsided as well recheck lactic acid and CBC in AM Tension Headache - resolved 12/24 resolved, will keep PRN fioricet and toradol for now 12/23 will stop Dilaudid as this does not seem to work continue Fioricet PRN and alternate with Toradol PRN for tension headache symptoms Head CT, Brain MRI/MRA, LP all with no acute findings 12/22 patient presents with tension headache, which begins in the cervical region and works its way to the front patient states that she's been under a lot of stress at work recently - working overtime and 12+hours daily She has had problems with headaches before, but they have not persisted like this Dilaudid did not help Head CT performed = no acute findings Lumbar Puncture = no findings of meningitis/encephalitis MRI pending will add Fioricet q4PRN for headaches further work-up/management pending MRI results HTN blood pressure stable continue Lisinopril Obesity Ha1c ~ 5.7% encouraged to lose weight DVT ppx SCDs FULL CODE Total time spent on discharge = 40 minutes This includes examination of the patient, discharge planning, medication reconciliation, and communication with other providers. Discharge Instructions Please follow-up with Dr. Joy (covering for Dr. Mccauley) on December 30 at 10:45AM * You will be on Cipro and Flagyl for three more days, take as prescribed * Continue with liquids and soft diet for now * Primary care should check back on final blood culture report from the hospital Additional Copies To Alisa Joy D.O.; Orlin Mccauley M.D.
[2016-12-27 13:18] VITALS: BP 116/76; PULSE 71; TEMP 36.5; O2SAT 96
== END 2016-12-27 16:10 | disposition home or self-care (01) | DRG 372 ==
LOC: ENRESERVDT → ENRESERVTM → C.EDB 16:31 → C.MS4W 21:50
PROVIDERS: ADMIT Internal Medicine; ATTEND Family Medicine
PROC: 009U3ZX Drainage of Spinal Canal, Percutaneous Approach, Diagnostic (ICD-10-PCS; principal; 2016-12-21)
DX: A04.5 Campylobacter enteritis (principal); Z68.42 Body mass index [BMI] 45.0-49.9, adult; G44.201 Tension-type headache, unspecified, intractable; I10 Essential (primary) hypertension; E66.9 Obesity, unspecified; J45.909 Unspecified asthma, uncomplicated; Z79.899 Other long term (current) drug therapy; Z83.3 Family history of diabetes mellitus

== ENCOUNTER 2017-04-08 17:58 | Inpatient (IN) | payer BC ==
[~2017-04-08] VITALS: Ht 167.6 cm; Wt 117.2 kg
[2017-04-08] VITALS (9 sets, daily range): BP systolic 107–138; BP diastolic 62–87; PULSE 75–88; TEMP 36.8–37; O2SAT 95–98; Ht 167.6 cm; Wt 117.2 kg
[~2017-04-08 17:58] MED LIST changes: -ADVIN25/60 INH; -ATV5X PO; -BUPR150T5 PO; +CIPR-255 PO; -EFFSR150 PO; +EPP3/2 IM; -HYOS1TAB SL; -LEVO75TA5 PO; +LISI-461 PO; -LISI20TA3 PO; -OMEP20CA9 PO; -ONDA-63 PO; -SIME80CH12 PO; -TPM/50 PO; -TPRSR/100 PO; -VENL37.593 PO; -VLT/75 PO; -XPNIN INH; -XPNINS1255 NEB
[2017-04-08] MEDS ORDERED: SODIUM CHLORIDE 0.9% 1000ML 1,000 ML IV SCH (18:00)
--- NOTE | 2017-04-08 18:18 | DIAGNOSTIC IMAGING REPORT ---
HEAD WITHOUT CONTRAST (CT) CLINICAL HISTORY: 46 years-old Female presenting with Stroke. TECHNIQUE: Multidetector CT imaging of the head was performed without the use of intravenous contrast. IV contrast: None. A dose lowering technique was used consistent with the principles of ALARA (as low as reasonably achievable). COMPARISON: 12/21/2016. CT DOSE (mGy.cm): The estimated cumulative dose is 1074.96 mGy.cm. FINDINGS: [employer] topogram: Unremarkable. Ventricles and sulci normal in size. Brain parenchyma normal in appearance with preserved atn-white differentiation. No mass effect or midline shift. No hemorrhage or acute territorial infarct. No extra-axial fluid collection. Paranasal sinuses and mastoid air cells clear. Calvarium intact. IMPRESSION: 1. No acute intracranial pathology. Electronically signed by: Dhaval Thayer M.D. 04/08/2017 6:17 PM Dictated Date/Time: 04/08/2017 6:15 PM
[2017-04-08] MEDS ORDERED: PROMETHAZINE HCL INJ 12.5 MG in SODIUM CHLORIDE 0.9% 50ML 50 ML IV STA (18:20)
[2017-04-08] MEDS ORDERED: LABETALOL HCL IV 5 MG/ML 20ML IV ONE (18:25)
--- NOTE | 2017-04-08 18:33 | EMERGENCY ROOM VISIT NOTE ---
History Report prepared by Kamini: Shirley Fam Under the Supervision of: Jose MustafaO. First contact with patient: 18:00 Stated Complaint: STROKE SYMPTOMS History of Present Illness The patient is a 46 year old female who presents to the Emergency Room with complaints of worsening stroke-like symptoms beginning at 1725. The patient was not feeling well today and went to [facility] for evaluation. She developed blurred vision while there and EMS was called. When paramedics arrived on scene the patient was found to have left-sided weakness and slurred speech. She was brought to the ED for further evaluation. The patient states that she has had a frontal headache for the past two weeks. She states that the headache came on slowly and has been gradually worsening. She saw her PCP earlier this week for her headache and they thought that it was due to hypertension. The patient was started on Lisinopril and Metoprolol. The patient is currently complaining of a headache, blurred vision, nausea, and chest pain. She denies any shortness of breath. Source of History: patient, EMS Onset: 1724 Position: other (global) Quality: other (stroke-like) Timing: worsening Associated Symptoms: + headache, + chest pain, + nausea, + weakness (left- sided weakness. ), No SOB Note: Pt notes blurred vision. Pt found to have slurred speech. Review of Systems See HPI for pertinent positives & negatives. A total of 10 systems reviewed and were otherwise negative. 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 Family History Diabetes mellitus FH: cancer FH: heart disease Hypertension Social History Smoking Status: Never Smoker Alcohol Use: none Drug Use: none Marital Status: Housing Status: lives with family Occupation Status: employed Current/Historical Medications Scheduled Lisinopril (Zestril), 20 MG PO DAILY Lisinopril (Zestril), 10 MG PO DAILY Metoprolol Succ (Toprol Xl) (Toprol-Xl), 25 MG PO DAILY Scheduled PRN Cyclobenzaprine Hcl (Flexeril), 10 MG PO HS PRN for Muscle Spasms Epinephrine (Epipen 2-Bashir), 0.3 MG IM UD PRN for ALLERGIC REACTION Simethicone (Gas Relief), 80 MG PO QID PRN for Gas or Constipation Allergies Coded Allergies: Sulfa Drugs (Verified Allergy, Intermediate, HIVES, 04/08/17) Molds & Smuts (Unverified Allergy, Mild, UNKNOWN, 04/08/17) Physical Exam Vital Signs Date Time Temp Pulse Resp B/P (MAP) Pulse Ox O2 Delivery O2 Flow Rate FiO2 04/08/17 19:46 113 18 149/92 96 04/08/17 19:41 115 20 138/124 95 04/08/17 19:36 101 20 148/88 92 04/08/17 19:31 103 18 156/94 96 04/08/17 19:26 172/117 04/08/17 19:25 108 18 99 04/08/17 19:21 145/101 04/08/17 19:20 99 16 96 04/08/17 19:16 174/101 04/08/17 19:15 99 97 04/08/17 19:11 160/107 04/08/17 19:10 90 96 04/08/17 19:06 192/124 04/08/17 19:05 94 18 98 04/08/17 19:01 176/105 04/08/17 19:00 92 20 97 04/08/17 18:56 175/118 04/08/17 18:55 89 97 04/08/17 18:53 90 20 173/133 96 Room Air 04/08/17 18:51 173/133 04/08/17 18:50 98 100 04/08/17 18:46 155/115 04/08/17 18:45 89 96 04/08/17 18:40 88 18 169/101 96 Room Air 04/08/17 18:30 93 18 171/107 97 Room Air 04/08/17 18:30 97 Room Air 04/08/17 18:20 99 04/08/17 18:20 99 20 177/114 97 Room Air Physical Exam GENERAL: Patient is awake, alert, and very anxious-appearing. Patient is resting comfortably and showing no signs of anxiety EYES: The conjunctivae are clear. The pupils were dilated and reactive bilaterally. EARS, NOSE, MOUTH AND THROAT: The nose is without any evidence of any deformity. Mucous membranes are moist tongue is midline NECK: The neck is nontender and supple. RESPIRATORY: Normal respiratory effort is noted there is no evidence of wheezing rhonchi or rales CARDIOVASCULAR: Regular rate and rhythm noted there no murmurs rubs or gallops normal S1 normal S2 GASTROINTESTINAL: The abdomen is soft. Bowel sounds are present in all quadrants. Abdomen is nontender MUSCULOSKELETAL/EXTREMITIES: There is no evidence of gross deformity full range of motion is noted in the hips and shoulders SKIN: There is no obvious evidence of any rash. There are no petechiae, pallor or cyanosis noted. NEUROLOGIC: Patient is awake alert and oriented x3. Speech was slurred. Ultrasound Technologist strength diminished in left compared to right. Patient was able to hold legs off bed for greater than 5 seconds, right stronger than left. Medical Decision & Procedures ER Provider Diagnostic Interpretation: Radiology results as stated below per my review and radiologist interpretation: HEAD WITHOUT CONTRAST (CT) CLINICAL HISTORY: 46 years-old Female presenting with Stroke. TECHNIQUE: Multidetector CT imaging of the head was performed without the use of intravenous contrast. IV contrast: None. A dose lowering technique was used consistent with the principles of ALARA (as low as reasonably achievable). COMPARISON: 12/21/2016. CT DOSE (mGy.cm): The estimated cumulative dose is 1074.96 mGy.cm. FINDINGS: Patent Leather Sorter topogram: Unremarkable. Ventricles and sulci normal in size. Brain parenchyma normal in appearance with preserved tan-white differentiation. No mass effect or midline shift. No hemorrhage or acute territorial infarct. No extra-axial fluid collection. Paranasal sinuses and mastoid air cells clear. Calvarium intact. IMPRESSION: 1. No acute intracranial pathology. Electronically signed by: Dhaval Thayer M.D. 04/08/2017 6:17 PM Dictated Date/Time: 04/08/2017 6:15 PM CHEST ONE VIEW PORTABLE CLINICAL HISTORY: 46 years-old Female presenting with Stroke. TECHNIQUE: Portable upright AP view of the chest was obtained. COMPARISON: 12/21/2016. FINDINGS: Cardiac silhouette top normal in size. Persistent elevation of the right hemidiaphragm. Lungs and pleural spaces clear. Osseous structures normal. Upper abdomen normal. IMPRESSION: 1. No acute cardiopulmonary disease. Electronically signed by: Dhaval Thayer M.D. 04/08/2017 6:32 PM Dictated Date/Time: 04/08/2017 6:31 PM Laboratory Results 04/08/17 18:32 Red Blood Count 5.44, Mean Corpuscular Volume 86.6, Mean Corpuscular Hemoglobin 29.4, Mean Corpuscular Hemoglobin Concent 34.0, Mean Platelet Volume 9.5, Neutrophils (%) (Auto) 58.5, Lymphocytes (%) (Auto) 35.3, Monocytes (%) (Auto) 4.9, Eosinophils (%) (Auto) 1.0, Basophils (%) (Auto) 0.1, Neutrophils # (Auto) 5.15, Lymphocytes # (Auto) 3.11, Monocytes # (Auto) 0.43, Eosinophils # (Auto) 0.09, Basophils # (Auto) 0.01 04/08/17 18:32 Test 04/08/17 00:00 04/08/17 18:18 04/08/17 18:21 04/08/17 18:31 Urine Color YELLOW Urine Appearance CLEAR (CLEAR) Urine pH 7.0 (4.5-7.5) Urine Specific [place] 1.012 (1.000-1.030) Urine Protein NEG (NEG) Urine Glucose (UA) NEG (NEG) Urine Ketones NEG (NEG) Urine Occult Blood NEG (NEG) Urine Nitrite NEG (NEG) Urine Bilirubin NEG (NEG) Urine Urobilinogen NEG (NEG) Urine Leukocyte Esterase SMALL (NEG) Urine WBC (Auto) 5-10 /hpf (0-5) Urine RBC (Auto) 0-4 /hpf (0-4) Urine Hyaline Casts (Auto) 0 /lpf (0-5) Urine Epithelial Cells (Auto) >30 /lpf (0-5) Urine Bacteria (Auto) NEG (NEG) Urine Opiates Screen NEG (NEG) Urine Methadone, Qualitative NEG (NEG) Urine Barbiturates NEG (NEG) Urine Phencyclidine (PCP) Level NEG (NEG) Ur Amphetamine/Methamphetamine NEG (NEG) MDMA (Ecstasy) Screen NEG (NEG) Urine Benzodiazepines Screen NEG (NEG) Urine Cocaine Metabolite NEG (NEG) Urine Marijuana (THC) NEG (NEG) Bedside Glucose 108 mg/dl (70-90) Bedside Prothrombin Time INR 1.1 (0.9-1.1) Prothrombin Time 10.4 SECONDS (9.0-12.0) Prothromb Time International Ratio 1.0 (0.9-1.1) Activated Partial Thromboplast Time 27.2 SECONDS (21.0-31.0) Partial Thromboplastin Ratio 1.0 Fibrinogen 374 mg/dl (184-400) D-Dimer 290 ug/L FEU (0-500) Test 04/08/17 18:32 04/08/17 19:38 White Blood Count 8.81 K/uL (4.8-10.8) Red Blood Count 5.44 M/uL (4.2-5.4) Hemoglobin 16.0 g/dL (12.0-16.0) Hematocrit 47.1 % (37-47) Mean Corpuscular Volume 86.6 fL (80-100) Mean Corpuscular Hemoglobin 29.4 pg (25-34) Mean Corpuscular Hemoglobin Concent 34.0 g/dl (32-36) Platelet Count 300 K/uL (130-400) Mean Platelet Volume 9.5 fL (7.4-10.4) Neutrophils (%) (Auto) 58.5 % Lymphocytes (%) (Auto) 35.3 % Monocytes (%) (Auto) 4.9 % Eosinophils (%) (Auto) 1.0 % Basophils (%) (Auto) 0.1 % Neutrophils # (Auto) 5.15 K/uL (1.4-6.5) Lymphocytes # (Auto) 3.11 K/uL (1.2-3.4) Monocytes # (Auto) 0.43 K/uL (0.11-0.59) Eosinophils # (Auto) 0.09 K/uL (0-0.5) Basophils # (Auto) 0.01 K/uL (0-0.2) RDW Standard Deviation 39.3 fL (36.4-46.3) RDW Coefficient of Variation 12.3 % (11.5-14.5) Immature Granulocyte % (Auto) 0.2 % Immature Granulocyte # (Auto) 0.02 K/uL (0.00-0.02) Anion Gap 7.0 mmol/L (3-11) Estimated GFR () 99.4 Estimated GFR (Non- 85.8 BUN/Creatinine Ratio 11.5 (10-20) Calcium Level 9.4 mg/dl (8.5-10.1) Total Bilirubin 0.5 mg/dl (0.2-1) Direct Bilirubin < 0.1 mg/dl (0-0.2) Aspartate Amino Transf (AST/SGOT) 17 U/L (15-37) Alanine Aminotransferase (ALT/SGPT) 30 U/L (12-78) Alkaline Phosphatase 109 U/L (45-117) Total Creatine Kinase 101 U/L (26-192) Creatine Kinase MB 1.6 ng/ml (0.5-3.6) Creatine Kinase MB Ratio 1.6 (0-3.0) Troponin I < 0.015 ng/ml (0-0.045) Total Protein 8.5 gm/dl (6.4-8.2) Albumin 4.2 gm/dl (3.4-5.0) Laboratory results per my review. Medications Administered Medications (Trade) Dose Ordered Sig/Everardo Route Start Time Stop Time Status Last Admin Dose Admin Sodium Chloride 1,000 ml @ 50 mls/hr Q20H IV 04/08/17 18:00 04/08/17 21:00 DC 04/08/17 18:00 50 MLS/HR Promethazine HCl 12.5 mg/Sodium Chloride 50.5 ml @ 204 mls/hr NOW STAT IV 04/08/17 18:20 04/08/17 18:34 DC 04/08/17 18:52 204 MLS/HR Labetalol HCl (Normodyne IV) 5 mg STK-MED ONCE IV 04/08/17 18:25 04/08/17 18:26 DC 04/08/17 18:32 10 MG Nicardipine HCl 25 mg/Sodium Chloride 250 ml @ 0 mls/hr Q0M STAT IV 04/08/17 18:58 04/08/17 18:59 DC 04/08/17 19:17 5 MLS/HR Alteplase, Recombinant 90 mg/ Empty Bag 90 ml @ 0 mls/hr TODAY@1930 IV 04/08/17 19:30 04/08/17 19:31 DC 04/08/17 19:30 91 MLS/HR Alteplase, Recombinant 9 mg/ Syringe 9 ml @ 9 mls/min TODAY@1915 IV 04/08/17 19:15 04/08/17 20:00 DC 04/08/17 19:22 9 MLS/MIN ECG Indication: altered mental status Rate (beats per minute): 86 Rhythm: normal sinus Findings: RBBB (incomplete), no acute ischemic change, no ectopy Comparison ECG Date: 12/21/16 Change: no significant change ED Course 175: I took medical command. A stroke alert was called in the ED prior to the patient's arrival. 1800: NSS 1000 ml @ 50 mls/hr IV 180: The patient arrived and was taken immediately to CT. I accompanied her there. 181: The patient was evaluated in room A1. A complete history and physical examination were performed. 182: Promethazine HCl 12.5 mg/Sodium Chloride 50.5 ml @ 204 mls/hr IV 182: Dr. Cerrato of neurology at [facility] will evaluate the patient via Tele-Stroke. 1841: I reassessed the patient and she is speaking with Dr. Cerrato. 1857: Nicardipine HCl 25 mg/Sodium Chloride 250 ml IV 1908: I reevaluated the patient. TPA will be ordered and administered. 1914: Alteplase, Recombinant 9 ml @ 9 mls/min IV, Nicardipine HCl 25 mg/Sodium Chloride 250 ml IV 1929: Alteplase, Recombinant 90 mg IV 1931: I spoke with Dr. Moss. We discussed the patient's case. The patient will be evaluated by the [facility] for further management. 1936: I discussed the patient's results and treatment plan with Dr. Cerrato of neurology at [facility]. 1953: I reassessed the patient at this time. She is resting comfortably. I discussed the results and treatment plan with the patient and her family. I answered all pertaining questions that they had. They expressed understanding and verbalized agreement. 2005: I discussed the case with the quill machine tender, Dr. Isaac. He will follow will consult in the ICU. Medical Decision Differential diagnosis: Etiologies such as metabolic, infection, hypo/hyperglycemia, electrolyte abnormalities, cardiac sources, intracerebral event, toxicologic, neurologic, as well as others were entertained. Nursing notes reviewed. Additional history is obtained from the patient's family member. Additional history is obtained from the prehospital personnel. The patient is a 46-year-old female who presented to the emergency department for a strokelike syndrome. The patient has had a headache for the last few days but also has been having difficulty managing her blood pressure. She was seen at an outpatient clinic and started to develop symptoms that could be consistent with stroke. She was sent to the emergency department by ambulance. She was made a stroke alert prior to arrival after a medic command phone call. The patient was found have significantly elevated blood pressure but also a physical exam consistent with a possible stroke. She had a very significant NIH stroke score. She also had a headache which made the overall presentation somewhat difficult. The patient presented well within the three-hour window so she was evaluated by the tele stroke neurologist at [facility]. After discussion we felt the patient's condition could be consistent with an ischemic stroke. Her initial CT did not show any hemorrhagic changes. For this reason she was felt to be a good candidate for IV TPA. She was also treated with blood pressure medication IV. She was reevaluated multiple times. I discussed the patient's laboratory and radiographic studies with her and her significant other. The TPA checklist was gone over by the neurologist and the patient. She accepted the risk of the TPA. She was given TPA in the emergency department. She was also treated with IV fluids and IV antiemetics. I discussed her case with the on-call quill machine tender as well as the on-call [facility] hospitalist. They've agreed to evaluate the patient for further management and disposition. Medication Reconcilliation Current Medication List: was personally reviewed by me Blood Pressure Screening Patient's blood pressure: Elevated blood pressure Managed in the ED and will be dealt with as an inpatient. Consults Time Called: 1928 Consulting Physician: Dr. Moss Returned Call: [address] Moss. We discussed the patient's case. The patient will be evaluated by the [facility] for further management. Additional Consults: Time Called: 1936 Consulted Physician: Dr. Cerrato Returned Call: 1936 Additional Comments: I discussed the patient's results and treatment plan with Dr. Cerrato of neurology at [facility]. Time Called: 1944 Consulted Physician: Dr. Isaac Returned Call: 2005 Additional Comments: I discussed the case with the quill machine tender, Dr. Isaac. He will follow will consult in the ICU. Impression Primary Impression: CVA (cerebral vascular accident) Additional Impressions: Left-sided weakness Headache Critical Care I have personally spent greater than 60 minutes of critical care time in the direct management of this patient. This includes bedside care, interpretation of diagnostic studies, and testing, discussion with consultants, patient, and family members, and other required patient management activities. This 60 minutes is in excess of all separately billable procedures. Scribe Attestation The scribe's documentation has been prepared under my direction and personally reviewed by me in its entirety. I confirm that the note above accurately reflects all work, treatment, procedures, and medical decision making performed by me. Departure Information Dispostion Being Evaluated By Hospitalist Orlin Hunt M.D. (PCP) Stroke History Time Last Known Well 172 Stroke t-PA Criteria Reviewed Meets criteria for t-PA Reason t-PA Not Given Treatment provided - N/A Problem Qualifiers Primary Impression: CVA (cerebral vascular accident) CVA mechanism: unspecified Qualified Codes: I63.9 - Cerebral infarction, unspecified Additional Impressions: Headache Headache type: unspecified Headache chronicity pattern: acute headache Intractability: not intractable Qualified Codes: R51 - Headache
[2017-04-08 18:44] LABS: BASO % 0.1 %; BASO ABS # 0.01 K/uL (0-0.2); COMPLETE YES; HEMATOCRIT 47.1 % (37-47); IG% 0.2 %; LYMPH % 35.3 %; LYMPH ABS # 3.11 K/uL (1.2-3.4); MEAN CELL VOLUME 86.6 fL (80-100); MEAN CORPUSCULAR HEMOGLOBIN 29.4 pg (25-34); MEAN PLATELET VOLUME 9.5 fL (7.4-10.4); MONO % 4.9 %; NEUT % 58.5 %; PLATELET COUNT 300 K/uL (130-400); RED BLOOD COUNT 5.44 M/uL (4.2-5.4); WHITE BLOOD COUNT 8.81 K/uL (4.8-10.8)
[2017-04-08 18:54] LABS: PROTHROMBIN TIME (PATIENT) 10.4 SECONDS (9.0-12.0)
[2017-04-08] MEDS ORDERED: NiCARDipine IV 25 MG in SODIUM CHLORIDE 0.9% 250ML 240 ML IV STA (18:58)
[2017-04-08 19:11] LABS: ALKALINE PHOSPHATASE 109 U/L (45-117); ALT/SGPT 30 U/L (12-78); BLOOD UREA NITROGEN 10 mg/dl (7-18); BUN/CREATININE RATIO 11.5 (10-20); CALCIUM 9.4 mg/dl (8.5-10.1)
[2017-04-08 19:12] LABS: CARBON DIOXIDE 28 mmol/L (21-32); CHLORIDE 104 mmol/L (98-107); CREATININE 0.83 mg/dl (0.60-1.20); GLUCOSE 101 mg/dl (70-99); SODIUM 139 mmol/L (136-145)
[2017-04-08] MEDS ORDERED: ALTEPLASE, RECOMBINANT INJ 9 MG in SYRINGE 0 ML IV SCH (19:15)
[2017-04-08] MEDS ORDERED: SET 2260-0500 IV ONE (19:15)
[2017-04-08] MEDS ORDERED: NiCARDipine IV 25 MG in SODIUM CHLORIDE 0.9% 250ML 240 ML IV PRN (19:15)
[2017-04-08 19:27] LABS: AST/SGOT 17 U/L (15-37); CKMB/CK RATIO 1.6 (0-3.0)
[2017-04-08] MEDS ORDERED: ALTEPLASE IV SCH (19:30)
[2017-04-08] MEDS ORDERED: RECOMBINANT IV SCH (19:30)
[2017-04-08] MEDS ORDERED: PHARMACIST DISCHARGE MED REC CONSULT PRN ×2 (19:45→20:00)
[2017-04-08] MEDS ORDERED: MoRPHine SULFATE 2 MG/ML CARP IV PRN (19:45)
[2017-04-08] MEDS ORDERED: NITROGLYCERIN 0.4 MG SL PER TAB CHARGE SL PRN (19:45)
[2017-04-08] MEDS ORDERED: LORAZEPAM 0.5 MG TAB PO PRN (19:45)
[2017-04-08] MEDS ORDERED: SIME1CHW17 PO (20:07)
[2017-04-08] MEDS ORDERED: LISI-725 PO (20:07)
[2017-04-08] MEDS ORDERED: LISI-461 PO (20:07)
[2017-04-08] MEDS ORDERED: METO25TA3 PO (20:07)
[2017-04-08] MEDS ORDERED: CYCL10TA6 PO (20:07)
[2017-04-08] MEDS ORDERED: LABETALOL HCL IV 5 MG/ML 20ML IV PRN (20:15)
--- NOTE | 2017-04-08 20:37 | History and Physical ---
History & Physical Date & Time of Service: Apr 08, 2017 at 20:34 Chief Complaint: Stroke Symptoms Primary Care Physician: Orlin Mccauley M.D. History of Present Illness Source: patient, hospital records History as per prior medical records as patient have slurred speech and receiving TPA for ischemic stroke in the ED: "The patient is a 46 year old female who presents to the Emergency Room with complaints of worsening stroke-like symptoms beginning at 1725. The patient was not feeling well today and went to [facility] for evaluation. She developed blurred vision while there and EMS was called. When paramedics arrived on scene the patient was found to have left-sided weakness and slurred speech. She was brought to the ED for further evaluation. The patient states that she has had a frontal headache for the past two weeks. She states that the headache came on slowly and has been gradually worsening. She saw her PCP earlier this week for her headache and they thought that it was due to hypertension. The patient was started on Lisinopril and Metoprolol. The patient is currently complaining of a headache, blurred vision, nausea, and chest pain. She denies any shortness of breath." ED provider initiated TPA after tele-consultation with neurology. Estimated time of between symptoms of stroke and TPA was estimated to be around 2 hours and 30 mnutes. Patient was also started on nicardipine drip for blood pressure control. On exam by hospitalist medical provider, patient able to speak with slurred speech however with generalized left sided weakness of upper extremity to lower extremity with diminished sensation throughout left side of the body. Past Medical/Surgical History Medical Problems: (1) Anxiety Status: Chronic (2) Asthma Status: Chronic (3) Diabetes Status: Chronic (4) HTN (hypertension) Status: Chronic (5) Hyperventilation Status: Resolved Family History Diabetes mellitus FH: cancer FH: heart disease Hypertension Social History Smoking Status: Never Smoker Drug Use: none Marital Status: Housing status: lives with family Occupational Status: employed Immunizations History of Influenza Vaccine: Yes Influenza Vaccine Date: Jun 12, 2008 History of Tetanus Vaccine?: Yes Tetanus Immunization Date: May 10, 2005 History of Pneumococcal: Yes History of Hepatitis B Vaccine: Unknown Multi-Drug Resistant Organisms History of MDRO: No Allergies Coded Allergies: Sulfa Drugs (Verified Allergy, Intermediate, HIVES, 04/08/17) Molds & Smuts (Unverified Allergy, Mild, UNKNOWN, 04/08/17) Home Medications Scheduled Lisinopril (Zestril), 20 MG PO DAILY Lisinopril (Zestril), 10 MG PO DAILY Metoprolol Succ (Toprol Xl) (Toprol-Xl), 25 MG PO DAILY Scheduled PRN Cyclobenzaprine Hcl (Flexeril), 10 MG PO HS PRN for Muscle Spasms Epinephrine (Epipen 2-Bashir), 0.3 MG IM UD PRN for ALLERGIC REACTION Simethicone (Gas Relief), 80 MG PO QID PRN for Gas or Constipation Review of Systems Review of symptoms limited as patient receiving TPA in the ED for stroke and has slurred speech Neurologic: + weakness, + numbness/tingling Physical Exam Vital Signs Date Time Temp Pulse Resp B/P (MAP) Pulse Ox O2 Delivery O2 Flow Rate FiO2 04/08/17 20:19 80 18 96/57 96 04/08/17 20:16 72 18 92/52 93 04/08/17 20:11 92 16 96/59 93 04/08/17 20:06 112 18 139/79 94 04/08/17 20:01 134 18 137/108 97 04/08/17 19:56 111 20 148/89 96 04/08/17 19:51 112 18 160/85 95 04/08/17 19:46 113 18 149/92 96 04/08/17 19:41 115 20 138/124 95 04/08/17 19:36 101 20 148/88 92 04/08/17 19:31 103 18 156/94 96 04/08/17 19:26 172/117 04/08/17 19:25 108 18 99 04/08/17 19:21 145/101 04/08/17 19:20 99 16 96 04/08/17 19:16 174/101 04/08/17 19:15 99 97 04/08/17 19:11 160/107 04/08/17 19:10 90 96 04/08/17 19:06 192/124 04/08/17 19:05 94 18 98 04/08/17 19:01 176/105 04/08/17 19:00 92 20 97 04/08/17 18:56 175/118 04/08/17 18:55 89 97 04/08/17 18:53 90 20 173/133 96 Room Air 04/08/17 18:51 173/133 04/08/17 18:50 98 100 04/08/17 18:46 155/115 04/08/17 18:45 89 96 04/08/17 18:40 88 18 169/101 96 Room Air 04/08/17 18:30 93 18 171/107 97 Room Air 04/08/17 18:30 97 Room Air 04/08/17 18:20 99 04/08/17 18:20 99 20 177/114 97 Room Air General Appearance: + moderate distress, + obese Head: normocephalic, atraumatic Eyes: normal inspection, EOMI ENT: + muffled/hoarse voice (slurred speech) Neck: supple, trachea midline Respiratory/Chest: chest non-tender, lungs clear, normal breath sounds, no respiratory distress, no accessory muscle use Cardiovascular: regular rate, rhythm, no edema, no JVD, no murmur, normal peripheral pulses Abdomen/GI: normal bowel sounds, non tender, soft, no pulsatile mass Extremities/Musculoskelatal: no calf tenderness, no pedal edema Neurologic/Psych: alert, oriented x 3, + aphasia, + motor weakness (left upper extremity strength diminished compared to right arm, patient cannot lift up her left leg or left foot dorsiflexion or plantarflexion ), + sensory deficit (left upper and lower extremities with diminished sensation compared to right side) Skin: normal color, warm/dry, no rash Diagnostics Laboratory Results Results Past 24 Hours Test 04/08/17 18:00 04/08/17 18:21 04/08/17 18:31 04/08/17 18:32 Range/Units Bedside Prothrombin Time INR 1.1 0.9-1.1 Prothrombin Time 10.4 9.0-12.0 SECONDS Prothromb Time International Ratio 1.0 0.9-1.1 Activated Partial Thromboplast Time 27.2 21.0-31.0 SECONDS Partial Thromboplastin Ratio 1.0 White Blood Count 8.81 4.8-10.8 K/uL Red Blood Count 5.44 4.2-5.4 M/uL Hemoglobin 16.0 12.0-16.0 g/dL Hematocrit 47.1 37-47 % Mean Corpuscular Volume 86.6 80-100 fL Mean Corpuscular Hemoglobin 29.4 25-34 pg Mean Corpuscular Hemoglobin Concent 34.0 32-36 g/dl Platelet Count 300 130-400 K/uL Mean Platelet Volume 9.5 7.4-10.4 fL Neutrophils (%) (Auto) 58.5 % Lymphocytes (%) (Auto) 35.3 % Monocytes (%) (Auto) 4.9 % Eosinophils (%) (Auto) 1.0 % Basophils (%) (Auto) 0.1 % Neutrophils # (Auto) 5.15 1.4-6.5 K/uL Lymphocytes # (Auto) 3.11 1.2-3.4 K/uL Monocytes # (Auto) 0.43 0.11-0.59 K/uL Eosinophils # (Auto) 0.09 0-0.5 K/uL Basophils # (Auto) 0.01 0-0.2 K/uL RDW Standard Deviation 39.3 36.4-46.3 fL RDW Coefficient of Variation 12.3 11.5-14.5 % Immature Granulocyte % (Auto) 0.2 % Immature Granulocyte # (Auto) 0.02 0.00-0.02 K/uL Sodium Level 139 136-145 mmol/L Potassium Level 4.0 3.5-5.1 mmol/L Chloride Level 104 98-107 mmol/L Carbon Dioxide Level 28 21-32 mmol/L Anion Gap 7.0 3-11 mmol/L Blood Urea Nitrogen 10 7-18 mg/dl Creatinine 0.83 0.60-1.20 mg/dl Estimated GFR () 99.4 Estimated GFR (Non- 85.8 BUN/Creatinine Ratio 11.5 10-20 Random Glucose 101 70-99 mg/dl Calcium Level 9.4 8.5-10.1 mg/dl Total Bilirubin 0.5 0.2-1 mg/dl Direct Bilirubin < 0.1 0-0.2 mg/dl Aspartate Amino Transf (AST/SGOT) 17 15-37 U/L Alanine Aminotransferase (ALT/SGPT) 30 12-78 U/L Alkaline Phosphatase 109 45-117 U/L Total Creatine Kinase 101 26-192 U/L Creatine Kinase MB 1.6 0.5-3.6 ng/ml Creatine Kinase MB Ratio 1.6 0-3.0 Troponin I < 0.015 0-0.045 ng/ml Total Protein 8.5 6.4-8.2 gm/dl Albumin 4.2 3.4-5.0 gm/dl Test 04/08/17 19:38 Range/Units Diagnostic Radiology HEAD WITHOUT CONTRAST (CT) CLINICAL HISTORY: 46 years-old Female presenting with Stroke. TECHNIQUE: Multidetector CT imaging of the head was performed without the use of intravenous contrast. IV contrast: None. A dose lowering technique was used consistent with the principles of ALARA (as low as reasonably achievable). COMPARISON: 12/21/2016. CT DOSE (mGy.cm): The estimated cumulative dose is 1074.96 mGy.cm. FINDINGS: Carrier Blower topogram: Unremarkable. Ventricles and sulci normal in size. Brain parenchyma normal in appearance with preserved tan-white differentiation. No mass effect or midline shift. No hemorrhage or acute territorial infarct. No extra-axial fluid collection. Paranasal sinuses and mastoid air cells clear. Calvarium intact. IMPRESSION: 1. No acute intracranial pathology. Electronically signed by: Dhaval Thayer M.D. 04/08/2017 6:17 PM Dictated Date/Time: 04/08/2017 6:15 PM EKG no EKG available Impression Assessment and Plan This is a 46 year old F admitted with symptoms of ischemic stroke and TPA was initiated in the ED Admit to ICU for monitoring and neurochecks Will switch from Nicardipine drip to Labetalol to keep blood pressure between 150/90 to 180/105 Patient's physical exam when TPA initiated was generalized left sided weakness with sensory deficits and slurred speech Will need stat repeat CT head if need neurological findings as this may suggest evolving stroke of intracranial bleed as side effect of TPA Will need further CT head evaluation between 12 to 36 hours to follow up whether there are new changes on head CT if no acute deterioration in symptoms Hold other anticoagulation or antiplatelets for now because of TPA use Will need speech and swallow evaluation Restart oral home medications if passes speech and swallow, review of medications from home significant for metoprolol and lisinopril Will need PT/OT for physical therapy As patient is under age of 50 with stroke, ordered hypercoagulable workup labs Follow up with Neurology consult Level of Care Critical Care VTE Prophylaxis VTE Risk Assessment Done? Y/N: Yes Risk Level: Low
[2017-04-08 20:41] LABS: FIBRINOGEN* 374 mg/dl (184-400)
[2017-04-08] MEDS ORDERED: SODIUM CHLORIDE 0.9% 500ML 500 ML IV SCH (21:30)
[2017-04-08] MEDS ORDERED: NURSING VERBAL MED ORDER ONE (22:15)
[2017-04-08] MEDS: SODIUM CHLORIDE 0.9% 1000ML 1,000 ML IV SCH (22:38)
[2017-04-08 23:04] LABS: URINE APPEARANCE CLEAR (CLEAR); URINE BILIRUBIN NEG (NEG); URINE COLOR YELLOW; URINE EPITHELIAL CELL AUTO >30 /lpf (0-5); URINE NITRITE NEG (NEG); URINE SPECIFIC GRAVITY 1.012 (1.000-1.030); UROBILINOGEN NEG (NEG); ZZUR CULT IF INDIC CLEAN CATCH NO
[2017-04-08 23:05] LABS: MANUAL MICROSCOPIC REQUIRED? NO; REVIEW REQ? NO
[2017-04-08 23:37] LABS: BENZODIAZEPINE, URINE NEG (NEG); COCAINE,URINE NEG (NEG); PHENCYCLIDINE, URINE NEG (NEG)
[2017-04-09] VITALS (42 sets, daily range): BP systolic 97–145; BP diastolic 57–90; PULSE 65–87; TEMP 36.6–37; O2SAT 94–99
[2017-04-09 02:10] LABS: BASO % 0.1 %; BASO ABS # 0.01 K/uL (0-0.2); COMPLETE YES; HEMATOCRIT 37.6 % (37-47); IG% 0.1 %; LYMPH % 33.4 %; LYMPH ABS # 2.55 K/uL (1.2-3.4); MEAN CELL VOLUME 85.6 fL (80-100); MEAN CORPUSCULAR HEMOGLOBIN 30.8 pg (25-34); MEAN CORPUSCULAR HGB CONC 35.9 g/dl (32-36); MEAN PLATELET VOLUME 9.3 fL (7.4-10.4); MONO % 5.6 %; NEUT % 59.8 %; PLATELET COUNT 252 K/uL (130-400); RED BLOOD COUNT 4.39 M/uL (4.2-5.4); WHITE BLOOD COUNT 7.64 K/uL (4.8-10.8)
[2017-04-09 02:31] LABS: CKMB/CK RATIO 2.3 (0-3.0)
[2017-04-09 04:58] LABS: BUN/CREATININE RATIO 12.2 (10-20); CALCIUM 8.2 mg/dl (8.5-10.1); CREATININE 0.65 mg/dl (0.60-1.20); POTASSIUM 3.8 mmol/L (3.5-5.1)
[2017-04-09] MEDS ORDERED: NURSING VERBAL MED ORDER ONE (05:00)
[2017-04-09 05:06] LABS: CHOLESTEROL/HDL RATIO 4.4
--- NOTE | 2017-04-09 06:19 | DIAGNOSTIC IMAGING REPORT ---
CAROTID DOPPLER NECK ART CLINICAL HISTORY: 46 years-old Female with acute strokelike symptoms. COMPARISON: Brain MR 04/09/2017 TECHNIQUE: Multiple real time sonographic images of the carotid bifurcations were obtained assessing tan scale, color Doppler and spectral wave form appearance FINDINGS: RIGHT CAROTID: The peak systolic velocity measured 63.8 cm/sec. The end diastolic velocity measured 21 cm/sec. The ICA to CCA ratio measured 0.64 which correlates with a stenosis of 0-50%. LEFT CAROTID: The peak systolic velocity measured 55 cm/sec. The end diastolic velocity measured 24 cm/sec. The ICA to CCA ratio measured 0.51 which correlates with a stenosis of 0-50%. There is normal antegrade vertebral flow bilaterally. IMPRESSION: 1. No hemodynamically significant stenosis or significant atherosclerotic plaquing. 2. Normal antegrade vertebral flow bilaterally. The above report was generated using voice recognition software. It may contain grammatical, syntax or spelling errors. Electronically signed by: Grupo Robins M.D. 04/09/2017 6:18 AM Dictated Date/Time: 04/09/2017 6:13 AM
--- NOTE | 2017-04-09 06:58 | DIAGNOSTIC IMAGING REPORT ---
MRA HEAD WITHOUT CONTRAST HISTORY: 46 years-old Female acute strokelike symptoms. COMPARISON: MRI of the brain 04/09/2017 TECHNIQUE: MR angiography of the head was obtained utilizing 3-D [id number]-[id number] sequencing with MIP reformats. FINDINGS: Large lyrnx-ip-ryoy voice professor images demonstrate no gross abnormality. The bilateral internal carotid arteries, middle and anterior cerebral arteries appear patent and within normal limits. The anterior communicating artery is also unremarkable. The bilateral vertebral arteries appear patent. The basilar and posterior cerebral arteries are patent. No high-grade stenosis, aneurysm or proximal branch occlusion identified. IMPRESSION: No high-grade stenosis, proximal branch occlusion or aneurysm. The above report was generated using voice recognition software. It may contain grammatical, syntax or spelling errors. Electronically signed by: Grupo Robins M.D. 04/09/2017 6:57 AM Dictated Date/Time: 04/09/2017 6:53 AM
--- NOTE | 2017-04-09 08:07 | DIAGNOSTIC IMAGING REPORT ---
BRAIN COMBO HISTORY: 46 years-old Female acute stroke like symptoms. COMPARISON: MRA of the head 04/08/2017, CT head 04/08/2017 TECHNIQUE: Multiplanar multisequence MRI of the brain was obtained both with and without the use of 12 mL Gadavist. FINDINGS: The large djbeh-vc-exbi make ready worker images demonstrate no gross of modality. There is no restricted diffusion to suggest acute ischemia. The midline structures including the corpus callosum, brainstem, optic chiasm, pituitary and pineal glands appear unremarkable on the sagittal T1 sequence. No cerebellar tonsillar herniation. No acute intracranial hemorrhage, midline shift, hydrocephalus, abnormal extra-axial collections or intracranial mass. No abnormal T2/FLAIR signal abnormality. Flow voids at the level of the skull base are within normal limits. Orbits are symmetric. Mastoid air cells and middle ear cavities are clear. There is minimal ethmoid, right sphenoid and left maxillary sinus disease. No abnormal enhancement identified. IMPRESSION: 1. No acute intracranial abnormality. No evidence of acute ischemia or abnormal enhancement. 2. Mild paranasal sinus disease incidentally noted. The above report was generated using voice recognition software. It may contain grammatical, syntax or spelling errors. Electronically signed by: Grupo Robins M.D. 04/09/2017 8:06 AM Dictated Date/Time: 04/09/2017 8:02 AM
[2017-04-09] MEDS ORDERED: PERFLUTREN LIPID MICROSPHERE (DEFINITY) IV ONE (08:45)
--- NOTE | 2017-04-09 09:42 | ECHOCARDIOGRAM REPORT ---
*NOTICE TO RECEIVING LIBERTARIAN AGENCY This information is strictly Confidential and protected under [place] law. [place] law prohibits you from making any further disclosure of this information unless further disclosure is expressly permitted by the written consent of the person to whom it pertains or is authorized by law. A general authorization for the release of medical or other information is not sufficient for this purpose. Hospital accepts no responsibility if the information is made available to any other person, INCLUDING THE PATIENT. Interpretation Summary * Name: KOFFI DELGADO Study Date: 04/09/2017 08:18 AM BP: 123/75 mmHg * Patient Location: .MSICU\S\E106\S\1 HR: 74 * : 1970 (M/d/yyyy) Gender: Female Height: 65 in * Age: 46 yrs Ethnicity: CA Weight: 270 lb * Ordering Physician: Chrissy Yeh * Referring Physician: Self, Referred * Performed By: Edna Glover RDCS * * Reason For Study: CEREBRAL ISCHEMIA/EMBOLUS * BSA: 2.2 m2 * -- Conclusions -- * The left ventricle is normal in size. * There is mild concentric left ventricular hypertrophy. * The left ventricular wall motion is normal. * Left ventricular systolic function is normal. * Ejection Fraction = 60-65%. * There is no significant valvular disease. * Injection of contrast documented no interatrial shunt noted on technically limited assessment Procedure Details * A saline contrast injection was performed to assess for cardiac shunting. * The injection was performed through an intravenous line in the left arm. * The attending nurse who injected the saline contrast was JONAH BYERS. * A total of 10 cc of agitated saline was given. * A contrast injection of Definity was performed to improve assessment of LV function. * Contrast was injected into an intravenous site in the left arm. * One vial of Definity ultrasound contrast was diluted in normal saline to a total volume of 10 ml. A total of '2' ml of solution was administered during imaging. * Lot # [id number] of Definity utilized for procedure. * Expiration date MAY 31. * The attending nurse who injected the contrast agent was JONAH BYERS. * A complete two-dimensional transthoracic echocardiogram was performed (2D, M-mode, Doppler and color flow Doppler). Left Ventricle * The left ventricle is normal in size. * There is mild concentric left ventricular hypertrophy. * Ejection Fraction = 60-65%. * Left ventricular systolic function is normal. * The left ventricular wall motion is normal. Right Ventricle * The right ventricle is normal in size and function. Atria * The left atrial size is normal. * Right atrial size is normal. * No ASD detected; PFO is not assessed. * Injection of contrast documented no interatrial shunt. Mitral Valve * The mitral valve anatomy is normal. * There is no mitral valve stenosis. * There is trace mitral regurgitation. Tricuspid Valve * The tricuspid valve anatomy is normal. * There is no tricuspid stenosis. * There is trace tricuspid regurgitation. Aortic Valve * The aortic valve is trileaflet. * No hemodynamically significant valvular aortic stenosis. * No aortic regurgitation is present. Pulmonic Valve * The pulmonic valve is not well visualized. Great Vessels * The aortic root is normal size. Pericardium/Pleural * There is no pericardial effusion. Great Vessels * Normal inferior vena cava diameter and respiratory variation suggests normal central venous pressure. MMode 2D Measurements and Calculations IVSd 1.2 cm IVSs 1.8 cm LVIDd 4.9 cm LVIDs 3.1 cm LVPWd 1.1 cm LVPWs 1.4 cm IVS/LVPW 1.1 FS 36.5 % EDV(Teich) 115.4 ml ESV(Teich) 39.1 ml EF(Teich) 66.1 % EDV(cubed) 121.1 ml ESV(cubed) 31.0 ml EF(cubed) 74.4 % % IVS thick 53.4 % % LVPW thick 31.1 % LV mass(C)d 210.7 grams LV mass(C)dI 93.8 grams/m\S\2 LV mass(C)s 189.0 grams LV mass(C)sI 84.1 grams/m\S\2 SV(Teich) 76.2 ml SI(Teich) 33.9 ml/m\S\2 SV(cubed) 90.1 ml SI(cubed) 40.1 ml/m\S\2 Ao root diam 3.0 cm Ao root area 7.1 cm\S\2 LA dimension 3.8 cm LA/Ao 1.3 LVAd ap4 30.4 cm\S\2 LVLd ap4 8.7 cm EDV(MOD-sp4) 84.5 ml EDV(sp4-el) 90.2 ml LVAs ap4 17.3 cm\S\2 LVLs ap4 7.2 cm ESV(MOD-sp4) 32.5 ml ESV(sp4-el) 35.1 ml EF(MOD-sp4) 61.6 % EF(sp4-el) 61.1 % LVAd ap2 41.1 cm\S\2 LVLd ap2 9.2 cm EDV(MOD-sp2) 147.3 ml EDV(sp2-el) 155.6 ml LVAs ap2 23.1 cm\S\2 LVLs ap2 7.9 cm ESV(MOD-sp2) 54.2 ml ESV(sp2-el) 57.3 ml EF(MOD-sp2) 63.2 % EF(sp2-el) 63.1 % LVLd %diff 6.2 % EDV(MOD-bp) 114.2 ml LVLs %diff 8.7 % ESV(MOD-bp) 41.8 ml EF(MOD-bp) 63.4 % SV(MOD-sp4) 52.1 ml SI(MOD-sp4) 23.2 ml/m\S\2 SV(MOD-sp2) 93.1 ml SI(MOD-sp2) 41.4 ml/m\S\2 SV(MOD-bp) 72.3 ml SI(MOD-bp) 32.2 ml/m\S\2 SV(sp4-el) 55.2 ml SI(sp4-el) 24.5 ml/m\S\2 SV(sp2-el) 98.3 ml SI(sp2-el) 43.7 ml/m\S\2 Doppler Measurements and Calculations MV E max ana 95.1 cm/sec MV A max ana 87.8 cm/sec MV E/A 1.1 MV dec time 0.20 sec Ao V2 max 137.7 cm/sec Ao max PG 7.6 mmHg Ao max PG (full) 2.7 mmHg LV V1 max PG 4.8 mmHg LV V1 max 110.1 cm/sec
[2017-04-09] MEDS: PANTOprazole SOD 40 MG TAB PO SCH (12:26)
[2017-04-09] MEDS: ATORVASTATIN 40 MG TAB PO SCH (12:26)
[2017-04-09] MEDS: SODIUM CHLORIDE 0.9% 1000ML 1,000 ML IV SCH ×3 (12:27→20:40)
--- NOTE | 2017-04-09 12:38 | Progress Note ---
Medicine Progress Note Date & Time of Visit: Apr 09, 2017 at 12:31. Subjective patient seen resting in bed, comfortable at bedside states she feels improved today able to articulate words more, slurring is less also states left arm is stronger, but still feels somewhat heavy denies headache, chest pain, dyspnea, palpitations, dizziness no other symptoms Objective Last 8 Hrs Date Time Temp Pulse Resp B/P (MAP) Pulse Ox O2 Delivery O2 Flow Rate FiO2 04/09/17 11:10 36.6 87 20 136/79 (98) 97 Room Air 04/09/17 10:10 36.6 72 20 115/67 (83) 98 Room Air 04/09/17 10:00 36.6 78 17 115/67 (83) 96 Room Air 04/09/17 09:10 36.6 80 23 118/77 (91) 96 Room Air 04/09/17 08:10 36.6 74 15 123/75 (91) 96 Room Air 04/09/17 08:00 Room Air 04/09/17 08:00 36.6 79 15 122/78 (93) 98 Room Air 04/09/17 07:10 37.0 72 14 130/81 (97) 98 Room Air 04/09/17 06:22 37.0 69 12 110/62 (78) 97 Room Air 04/09/17 06:10 37.0 70 13 110/62 (78) 96 Room Air 04/09/17 05:10 37.0 74 17 105/63 (77) 94 Room Air 04/09/17 04:51 37.0 70 14 118/75 (89) 96 Room Air 04/09/17 04:45 96 Room Air Physical Exam: General- oriented x 3, not in distress, speaks in sentences with no effort Head- atraumatic Eyes- EOMI, anicteric ENT- oropharynx clear Neck- supple, no JVD Lungs- clear breath sounds bilaterally Heart- regular rhythm; no murmur, normal rate Abdomen- normal bowel sounds, soft, nontender, no masses or hepatosplenomegaly Extremities- no pretibial edema, no calf tenderness; peripheral pulses intact Neuro- alert, oriented x 3; PERRL, EOMI; no facial palsy; moderate dysarthria; motor 4/5 LUE otherwise 5/5 ;sensation 100% Skin- warm & dry Laboratory Results: Last 24 Hours Test 8/26/17 18:18 04/08/17 18:21 04/08/17 18:31 04/08/17 18:32 Bedside Glucose 108 mg/dl Bedside Prothrombin Time INR 1.1 Prothrombin Time 10.4 SECONDS Prothromb Time International Ratio 1.0 Activated Partial Thromboplast Time 27.2 SECONDS Partial Thromboplastin Ratio 1.0 Fibrinogen 374 mg/dl D-Dimer 290 ug/L FEU White Blood Count 8.81 K/uL Red Blood Count 5.44 M/uL Hemoglobin 16.0 g/dL Hematocrit 47.1 % Mean Corpuscular Volume 86.6 fL Mean Corpuscular Hemoglobin 29.4 pg Mean Corpuscular Hemoglobin Concent 34.0 g/dl Platelet Count 300 K/uL Mean Platelet Volume 9.5 fL Neutrophils (%) (Auto) 58.5 % Lymphocytes (%) (Auto) 35.3 % Monocytes (%) (Auto) 4.9 % Eosinophils (%) (Auto) 1.0 % Basophils (%) (Auto) 0.1 % Neutrophils # (Auto) 5.15 K/uL Lymphocytes # (Auto) 3.11 K/uL Monocytes # (Auto) 0.43 K/uL Eosinophils # (Auto) 0.09 K/uL Basophils # (Auto) 0.01 K/uL RDW Standard Deviation 39.3 fL RDW Coefficient of Variation 12.3 % Immature Granulocyte % (Auto) 0.2 % Immature Granulocyte # (Auto) 0.02 K/uL Sodium Level 139 mmol/L Potassium Level 4.0 mmol/L Chloride Level 104 mmol/L Carbon Dioxide Level 28 mmol/L Anion Gap 7.0 mmol/L Blood Urea Nitrogen 10 mg/dl Creatinine 0.83 mg/dl Estimated GFR () 99.4 Estimated GFR (Non- 85.8 BUN/Creatinine Ratio 11.5 Random Glucose 101 mg/dl Calcium Level 9.4 mg/dl Total Bilirubin 0.5 mg/dl Direct Bilirubin < 0.1 mg/dl Aspartate Amino Transf (AST/SGOT) 17 U/L Alanine Aminotransferase (ALT/SGPT) 30 U/L Alkaline Phosphatase 109 U/L Total Creatine Kinase 101 U/L Creatine Kinase MB 1.6 ng/ml Creatine Kinase MB Ratio 1.6 Troponin I < 0.015 ng/ml Total Protein 8.5 gm/dl Albumin 4.2 gm/dl Test 04/09/17 01:36 04/09/17 09:32 White Blood Count 7.64 K/uL Red Blood Count 4.39 M/uL Hemoglobin 13.5 g/dL Hematocrit 37.6 % Mean Corpuscular Volume 85.6 fL Mean Corpuscular Hemoglobin 30.8 pg Mean Corpuscular Hemoglobin Concent 35.9 g/dl Platelet Count 252 K/uL Mean Platelet Volume 9.3 fL Neutrophils (%) (Auto) 59.8 % Lymphocytes (%) (Auto) 33.4 % Monocytes (%) (Auto) 5.6 % Eosinophils (%) (Auto) 1.0 % Basophils (%) (Auto) 0.1 % Neutrophils # (Auto) 4.56 K/uL Lymphocytes # (Auto) 2.55 K/uL Monocytes # (Auto) 0.43 K/uL Eosinophils # (Auto) 0.08 K/uL Basophils # (Auto) 0.01 K/uL RDW Standard Deviation 39.2 fL RDW Coefficient of Variation 12.5 % Immature Granulocyte % (Auto) 0.1 % Immature Granulocyte # (Auto) 0.01 K/uL Prothrombin Time 11.0 SECONDS Prothromb Time International Ratio 1.0 Sodium Level 141 mmol/L Potassium Level 3.8 mmol/L Chloride Level 109 mmol/L Carbon Dioxide Level 26 mmol/L Anion Gap 6.0 mmol/L Blood Urea Nitrogen 8 mg/dl Creatinine 0.65 mg/dl Est Creatinine Clear Calc Drug Dose 145.3 ml/min Estimated GFR () 125.1 Estimated GFR (Non- 108.0 BUN/Creatinine Ratio 12.2 Random Glucose 103 mg/dl Calcium Level 8.2 mg/dl Total Bilirubin 0.5 mg/dl Direct Bilirubin 0.1 mg/dl Aspartate Amino Transf (AST/SGOT) 16 U/L Alanine Aminotransferase (ALT/SGPT) 25 U/L Alkaline Phosphatase 83 U/L Total Creatine Kinase 57 U/L Creatine Kinase MB 1.3 ng/ml Creatine Kinase MB Ratio Troponin I < 0.015 ng/ml Total Protein 6.4 gm/dl Albumin 3.1 gm/dl Triglycerides Level 138 mg/dl Cholesterol Level 136 mg/dl HDL Cholesterol 31 mg/dl LDL Cholesterol, Calculated 77 mg/dl VLDL Cholesterol, Calculated 28 mg/dl Cholesterol/HDL Ratio 4.4 Date/Time Source Procedure Growth Status 8/26/17 20:42 Nasal MRSA DNA Surveillance Screen - Final Specimen Negative for MRSA by DNA Probe Complete Assessment & Plan 46 year old female with history of Hypertension presenting with slurred speech and left sided weakness. EPISODE OF SLURRED SPEECH, LEFT SIDED WEAKNESS - possible acute CVA - s/p TPA 04/08/17 at around 730pm - Brain MRI, Brain MRA, Carotid US: unremarkable - repeat CT head pending - no Aspirin, Plavix, anticoag until after 24 hours since tpa - Neuro consulted HYPERTENSION - presented with Hypertension - given Labetalol, Nicardipine BP stable now DVT PROPHYLAXIS SCDs for now Dispo lives with at home PT/OT pending Current Inpatient Medications: Current Inpatient Medications Medications (Trade) Dose Ordered Sig/Everardo Route Start Time Stop Time Status Last Admin Dose Admin Miscellaneous Information (Pharmacist Discharge Med Rec Consult) 1 ea UD PRN N/A 04/08/17 19:45 05/08/17 19:44 Acetaminophen (Tylenol Tab) 650 mg Q4H PRN PO 04/08/17 19:45 05/08/17 19:44 Lorazepam (Ativan Tab) 0.5 mg Q4H PRN PO 04/08/17 19:45 05/08/17 19:44 Nitroglycerin (Nitrostat Tab) 0.4 mg UD PRN SL 04/08/17 19:45 05/08/17 19:44 Pantoprazole Sodium (Protonix Tab) 40 mg DAILY PO 04/09/17 09:00 05/09/17 08:59 04/09/17 12:26 40 MG Morphine Sulfate (MoRPHine SULFATE INJ) 2 mg Q2H PRN IV 04/08/17 19:45 04/22/17 19:44 Atorvastatin Calcium (Lipitor Tab) 80 mg QAM PO 04/09/17 09:00 05/09/17 08:59 04/09/17 12:26 80 MG Labetalol HCl (Normodyne IV) 10 mg Q8H PRN IV 04/08/17 20:15 05/08/17 20:14 Sodium Chloride 1,000 ml @ 150 mls/hr Q6H40M IV 04/08/17 22:30 05/08/17 22:29 04/09/17 12:27 150 MLS/HR
--- NOTE | 2017-04-09 17:16 | CONSULTATION REPORT ---
DATE OF CONSULTATION: 04/09/[address] Sunshine. Elo is 46 years old, is known to Dr. Orlin Mccauley and presented to the Emergency Room last evening with complaints of visual blurring on the left side and numbness and weakness of the left side, beginning at about 1725 hours. This preceded by about 2 weeks of a right-sided pulsatile headache without photophobia, sonophobia or much in the way of nausea and in the setting of episodic shorter duration headaches which have plagued her for quite a number of years. She in fact had a headache back in 2013, occurring in the setting of abrupt withdrawal from serotonin reuptake inhibitors and probably had a withdrawal syndrome and then developed a right hemiparesis, was seen then by Dr. Castro and was noted to have some nonorganic findinge on exam. She apparently continued to have a right-sided weakness syndrome for several weeks, the headache resolved and she has had nothing like that ever since until the past two weeks Please see the next note I was interrupted and had to stop this dictation suddenly MTDD
--- NOTE | 2017-04-09 17:26 | Critical Care Consultation ---
Critical Care Consultation Date of Consultation: Apr 09, 2017. Attending Physician: Ramez Sunshine MD Reason for Consultation: Acute CVA History of Present Illness This is a 46 year old female with h/o DM, asthma, HTN that presented to ED yesterday with left sided weakness and heaviness, blurry vision and slurring of the speech. Received tPA last night after consulting the tele-neurologist. Her symptoms are somewhat improved but still persistent She has been complaining of right side headache for couple of weeks.. On admission her BP was high, was briefly on Nicardipine, has lowered quickly, and is actually normal now Family History Diabetes mellitus FH: cancer FH: heart disease Hypertension Social History Smoking Status: Never Smoker Drug Use: none Marital Status: Housing Status: lives with family Occupation Status: employed Allergies Coded Allergies: Sulfa Drugs (Verified Allergy, Intermediate, HIVES, 04/08/17) Molds & Smuts (Unverified Allergy, Mild, UNKNOWN, 04/08/17) Home Medications Scheduled Lisinopril (Zestril), 20 MG PO DAILY Lisinopril (Zestril), 10 MG PO DAILY Metoprolol Succ (Toprol Xl) (Toprol-Xl), 25 MG PO DAILY Scheduled PRN Cyclobenzaprine Hcl (Flexeril), 10 MG PO HS PRN for Muscle Spasms Epinephrine (Epipen 2-Bashir), 0.3 MG IM UD PRN for ALLERGIC REACTION Simethicone (Gas Relief), 80 MG PO QID PRN for Gas or Constipation Current Inpatient Medications Current Inpatient Medications Medications (Trade) Dose Ordered Sig/Everardo Route Start Time Stop Time Status Last Admin Dose Admin Miscellaneous Information (Pharmacist Discharge Med Rec Consult) 1 ea UD PRN N/A 04/08/17 19:45 05/08/17 19:44 Acetaminophen (Tylenol Tab) 650 mg Q4H PRN PO 04/08/17 19:45 05/08/17 19:44 Lorazepam (Ativan Tab) 0.5 mg Q4H PRN PO 04/08/17 19:45 05/08/17 19:44 Nitroglycerin (Nitrostat Tab) 0.4 mg UD PRN SL 04/08/17 19:45 05/08/17 19:44 Pantoprazole Sodium (Protonix Tab) 40 mg DAILY PO 04/09/17 09:00 05/09/17 08:59 04/09/17 12:26 40 MG Morphine Sulfate (MoRPHine SULFATE INJ) 2 mg Q2H PRN IV 04/08/17 19:45 04/22/17 19:44 Atorvastatin Calcium (Lipitor Tab) 80 mg QAM PO 04/09/17 09:00 05/09/17 08:59 04/09/17 12:26 80 MG Labetalol HCl (Normodyne IV) 10 mg Q8H PRN IV 04/08/17 20:15 05/08/17 20:14 Sodium Chloride 1,000 ml @ 150 mls/hr Q6H40M IV 04/08/17 22:30 05/08/17 22:29 04/09/17 12:27 150 MLS/HR Review of Systems Per HPI, all other systems reviewed and negative Physical Exam Date Time Temp Pulse Resp B/P (MAP) Pulse Ox O2 Delivery O2 Flow Rate FiO2 04/09/17 16:10 36.6 85 19 105/68 (80) 97 Room Air 04/09/17 16:00 36.6 81 16 105/68 (80) 99 Room Air 04/09/17 16:00 Room Air 04/09/17 15:10 36.6 85 19 110/67 (81) 98 Room Air 04/09/17 14:10 36.6 85 19 110/67 (81) 98 Room Air 04/09/17 14:00 36.6 82 13 134/71 (92) 96 Room Air 04/09/17 13:10 36.6 85 19 110/67 (81) 98 Room Air 04/09/17 12:10 36.6 73 15 100/66 (77) 97 Room Air 04/09/17 12:00 36.6 72 13 100/66 (77) 96 Room Air 04/09/17 12:00 Room Air 04/09/17 11:10 36.6 87 20 136/79 (98) 97 Room Air 04/09/17 10:10 36.6 72 20 115/67 (83) 98 Room Air 04/09/17 10:00 36.6 78 17 115/67 (83) 96 Room Air 04/09/17 09:10 36.6 80 23 118/77 (91) 96 Room Air 04/09/17 08:10 36.6 74 15 123/75 (91) 96 Room Air 04/09/17 08:00 Room Air 04/09/17 08:00 36.6 79 15 122/78 (93) 98 Room Air 04/09/17 07:10 37.0 72 14 130/81 (97) 98 Room Air 04/09/17 06:22 37.0 69 12 110/62 (78) 97 Room Air 04/09/17 06:10 37.0 70 13 110/62 (78) 96 Room Air 04/09/17 05:10 37.0 74 17 105/63 (77) 94 Room Air 04/09/17 04:51 37.0 70 14 118/75 (89) 96 Room Air 04/09/17 04:45 96 Room Air 04/09/17 04:10 37.0 77 13 118/75 (89) 98 Room Air 04/09/17 03:10 37.0 65 13 106/59 (75) 97 Room Air 04/09/17 02:40 37.0 70 13 97/57 (70) 94 Room Air 04/09/17 02:10 37.0 69 13 99/57 (71) 96 Room Air 04/09/17 02:10 68 14 99/57 (71) 98 Room Air 04/09/17 02:06 37.0 66 15 99/57 (71) 95 Room Air 04/09/17 01:40 37.0 69 13 110/68 (82) 95 Room Air 04/09/17 01:10 37.0 75 14 108/68 (81) 95 Room Air 04/09/17 01:10 76 13 108/68 (81) 98 Room Air 04/09/17 00:40 37.0 84 14 113/73 (86) 95 Room Air 04/09/17 00:19 37.0 75 22 127/76 (93) 95 Room Air 04/09/17 00:10 77 16 113/73 (86) 98 Room Air 04/09/17 00:10 37.0 79 20 129/75 (93) 95 Room Air 04/09/17 00:01 96 Room Air 04/08/17 23:40 37.0 79 20 138/87 (104) 97 Room Air 04/08/17 23:10 37.0 75 21 123/75 (91) 98 Room Air 04/08/17 23:10 37.0 75 21 123/75 (91) 98 Room Air 04/08/17 22:40 80 15 118/76 (90) 96 Room Air 04/08/17 22:10 37.0 75 15 107/62 (77) 96 Room Air 04/08/17 22:10 37.0 75 15 107/62 (77) 96 Room Air 04/08/17 21:40 80 17 108/65 (79) 95 Room Air 04/08/17 21:40 36.8 80 17 115/70 (85) 95 Room Air 04/08/17 21:10 37.0 86 18 124/69 (87) 97 Room Air 04/08/17 21:10 86 18 124/69 (87) 97 Room Air 04/08/17 21:06 37.0 86 18 113/75 97 Room Air 04/08/17 20:55 86 18 113/75 (88) 97 Room Air 04/08/17 20:55 86 18 113/75 (88) 97 Room Air 04/08/17 20:40 37.0 88 18 108/76 (87) 96 Room Air 04/08/17 20:40 37.0 88 18 108/76 (87) 96 Room Air 04/08/17 20:19 80 18 96/57 96 04/08/17 20:16 72 18 92/52 93 04/08/17 20:11 92 16 96/59 93 04/08/17 20:06 112 18 139/79 94 04/08/17 20:01 134 18 137/108 97 04/08/17 19:56 111 20 148/89 96 04/08/17 19:51 112 18 160/85 95 04/08/17 19:46 113 18 149/92 96 04/08/17 19:41 115 20 138/124 95 04/08/17 19:36 101 20 148/88 92 04/08/17 19:31 103 18 156/94 96 04/08/17 19:26 172/117 04/08/17 19:25 108 18 99 04/08/17 19:21 145/101 04/08/17 19:20 99 16 96 04/08/17 19:16 174/101 04/08/17 19:15 99 97 04/08/17 19:11 160/107 04/08/17 19:10 90 96 04/08/17 19:06 192/124 04/08/17 19:05 94 18 98 04/08/17 19:01 176/105 04/08/17 19:00 92 20 97 04/08/17 18:56 175/118 04/08/17 18:55 89 97 04/08/17 18:53 90 20 173/133 96 Room Air 04/08/17 18:51 173/133 04/08/17 18:50 98 100 04/08/17 18:46 155/115 04/08/17 18:45 89 96 04/08/17 18:40 88 18 169/101 96 Room Air 04/08/17 18:30 93 18 171/107 97 Room Air 04/08/17 18:30 97 Room Air 04/08/17 18:20 99 04/08/17 18:20 99 20 177/114 97 Room Air General: Obese, NAD Heent: NC/AT, PERRL CVS: S1S2 regular, no murmur. Lungs: CTA b/l Abd: soft, NT, ND Ext: No edema INSTRUCTION LIBRARIAN: AAO x 3. 3/5 strength on the right, 4/5 on the left. Diminished sensation on the left side of the body. Cranial nerves appear intact. Stuttered speech Laboratory Results Last 24 Hours Test 04/08/17 18:18 04/08/17 18:21 04/08/17 18:31 04/08/17 18:32 Bedside Glucose 108 mg/dl Bedside Prothrombin Time INR 1.1 Prothrombin Time 10.4 SECONDS Prothromb Time International Ratio 1.0 Activated Partial Thromboplast Time 27.2 SECONDS Partial Thromboplastin Ratio 1.0 Fibrinogen 374 mg/dl D-Dimer 290 ug/L FEU White Blood Count 8.81 K/uL Red Blood Count 5.44 M/uL Hemoglobin 16.0 g/dL Hematocrit 47.1 % Mean Corpuscular Volume 86.6 fL Mean Corpuscular Hemoglobin 29.4 pg Mean Corpuscular Hemoglobin Concent 34.0 g/dl Platelet Count 300 K/uL Mean Platelet Volume 9.5 fL Neutrophils (%) (Auto) 58.5 % Lymphocytes (%) (Auto) 35.3 % Monocytes (%) (Auto) 4.9 % Eosinophils (%) (Auto) 1.0 % Basophils (%) (Auto) 0.1 % Neutrophils # (Auto) 5.15 K/uL Lymphocytes # (Auto) 3.11 K/uL Monocytes # (Auto) 0.43 K/uL Eosinophils # (Auto) 0.09 K/uL Basophils # (Auto) 0.01 K/uL RDW Standard Deviation 39.3 fL RDW Coefficient of Variation 12.3 % Immature Granulocyte % (Auto) 0.2 % Immature Granulocyte # (Auto) 0.02 K/uL Sodium Level 139 mmol/L Potassium Level 4.0 mmol/L Chloride Level 104 mmol/L Carbon Dioxide Level 28 mmol/L Anion Gap 7.0 mmol/L Blood Urea Nitrogen 10 mg/dl Creatinine 0.83 mg/dl Estimated GFR () 99.4 Estimated GFR (Non- 85.8 BUN/Creatinine Ratio 11.5 Random Glucose 101 mg/dl Calcium Level 9.4 mg/dl Total Bilirubin 0.5 mg/dl Direct Bilirubin < 0.1 mg/dl Aspartate Amino Transf (AST/SGOT) 17 U/L Alanine Aminotransferase (ALT/SGPT) 30 U/L Alkaline Phosphatase 109 U/L Total Creatine Kinase 101 U/L Creatine Kinase MB 1.6 ng/ml Creatine Kinase MB Ratio 1.6 Troponin I < 0.015 ng/ml Total Protein 8.5 gm/dl Albumin 4.2 gm/dl Test 04/09/17 01:36 04/09/17 09:32 04/09/17 12:40 White Blood Count 7.64 K/uL Red Blood Count 4.39 M/uL Hemoglobin 13.5 g/dL Hematocrit 37.6 % Mean Corpuscular Volume 85.6 fL Mean Corpuscular Hemoglobin 30.8 pg Mean Corpuscular Hemoglobin Concent 35.9 g/dl Platelet Count 252 K/uL Mean Platelet Volume 9.3 fL Neutrophils (%) (Auto) 59.8 % Lymphocytes (%) (Auto) 33.4 % Monocytes (%) (Auto) 5.6 % Eosinophils (%) (Auto) 1.0 % Basophils (%) (Auto) 0.1 % Neutrophils # (Auto) 4.56 K/uL Lymphocytes # (Auto) 2.55 K/uL Monocytes # (Auto) 0.43 K/uL Eosinophils # (Auto) 0.08 K/uL Basophils # (Auto) 0.01 K/uL RDW Standard Deviation 39.2 fL RDW Coefficient of Variation 12.5 % Immature Granulocyte % (Auto) 0.1 % Immature Granulocyte # (Auto) 0.01 K/uL Prothrombin Time 11.0 SECONDS Prothromb Time International Ratio 1.0 Sodium Level 141 mmol/L Potassium Level 3.8 mmol/L Chloride Level 109 mmol/L Carbon Dioxide Level 26 mmol/L Anion Gap 6.0 mmol/L Blood Urea Nitrogen 8 mg/dl Creatinine 0.65 mg/dl Est Creatinine Clear Calc Drug Dose 145.3 ml/min Estimated GFR () 125.1 Estimated GFR (Non- 108.0 BUN/Creatinine Ratio 12.2 Random Glucose 103 mg/dl Calcium Level 8.2 mg/dl Total Bilirubin 0.5 mg/dl Direct Bilirubin 0.1 mg/dl Aspartate Amino Transf (AST/SGOT) 16 U/L Alanine Aminotransferase (ALT/SGPT) 25 U/L Alkaline Phosphatase 83 U/L Total Creatine Kinase 57 U/L Creatine Kinase MB 1.3 ng/ml Creatine Kinase MB Ratio Troponin I < 0.015 ng/ml Total Protein 6.4 gm/dl Albumin 3.1 gm/dl Triglycerides Level 138 mg/dl Cholesterol Level 136 mg/dl HDL Cholesterol 31 mg/dl LDL Cholesterol, Calculated 77 mg/dl VLDL Cholesterol, Calculated 28 mg/dl Cholesterol/HDL Ratio 4.4 Bedside Glucose 91 mg/dl Diagnostic Results MRI: 1. No acute intracranial abnormality. No evidence of acute ischemia or abnormal enhancement. 2. Mild paranasal sinus disease incidentally noted. MRA: No high-grade stenosis, proximal branch occlusion or aneurysm. Carotid US: 1. No hemodynamically significant stenosis or significant atherosclerotic plaquing. 2. Normal antegrade vertebral flow bilaterally. Echo: Negative bubble test EF 60-65% No significant valvular disease Assessment & Plan 46 year old female present with symptom of right sided CVA, s/p thrombolysis, with residual deficit but normal MRI HTN DM Obesity Mood disorder Plan: Monitor neurochecks Holding antihypertensives for the time being MRI/MRA normal. Start ASA if follow up CT scan is negative for bleeding Glucose 103, 91. If it increases, start insulin coverage Tolerating diet, passed swallow evaluation DVT prophylaxis: SCD Critical care time spent with patient, family, consultants greater than 25 minutes
--- NOTE | 2017-04-09 18:08 | PROGRESS NOTE ---
DATE: 04/09/2017 ADDENDUM See the prior note for the history of the present illness. Yesterday after she presented to the Emergency Room with fluctuating neurologic signs and headache, she was found to be quite hypertensive. A CAT scan was negative. Telestroke neurology was contacted at [place] and it was recommended that her blood pressure be treated acutely and it was with resultant drop into quite normal range and in fact into a hypotensive range eventually and TPA was administered, without much in the way of appreciable change in her symptoms other than perhaps a slight improvement and her headache seems to be slightly better. She has some stuttering speech. She still talks about monocular visual blurring on the left and has varying degrees of weakness and numbness of the left arm and to a lesser degree the left leg. She claims no symptoms on the right. Repeat CT scan has not been done as yet, but is due as per protocol. MRI has been done along with an MRA and both studies are not unexpectedly in my opinion quite normal, revealing no evidence for a new infarction, no evidence for significant prior areas of white matter hyperintensity and no intracranial vascular lesions. All of this occurs in the setting of anxiety, asthma, diabetes, hypertension and history of hyperventilation. FAMILY HISTORY: Positive for diabetes, cancer, heart disease and hypertension. SOCIAL HISTORY: Reveals her to be a never smoker. She is . She lives with her family. She does not use ethanol. She is employed. IMMUNIZATIONS: Up-to-date. There is no history of multiple drug resistant organisms. ALLERGIES: SULFA, MOLDS AND SMUTS. MEDICATIONS: Home medications include lisinopril and metoprolol, which actually were just recently started. She presented to her primary care physician's office and was noted to be hypertensive with the systolic, I believe in the 160 range and both of these drugs were initiated then in hopes that this would help her headache. As needed medications include cyclobenzaprine for muscle spasms, epinephrine for allergic reactions and simethicone for gas relief. REVIEW OF SYSTEMS: Reveals episodic headaches without much in the way of visual or somatosensory aura, dating back at least several years, probably longer. Otherwise, she does not have any chronic problems with head, eyes, ears, nose and throat, cardiovascular, pulmonary, gastrointestinal, genitourinary, or musculoskeletal systems and neurologically all we have is the headaches, the prior episode of right-sided weakness and numbness, alluded to above and evaluated by Dr. Castro in 2014 and the current events. She has never had any scintillating phenomenon or other visual phenomena that might indicate prior migraines with aura. PHYSICAL EXAMINATION: VITAL SIGNS: On admission, her blood pressure was 192/124, but then after administration of medications, it fell precipitously to 96/57. Her pulse was 80, had been 101. Her pressure was a little up and her oxygen saturations were normal. GENERAL: She was moderately overnourished, alert, mildly anxious. HEENT: There were no cranial deformities or other abnormalities on examination of the head, eyes, ears, nose and throat other than some hesitant speech with some stuttering. LUNGS: Clear. HEART: Had a regular rhythm. No murmurs were appreciated. ABDOMEN: Soft, nontender. EXTREMITIES: Free of edema. SKIN: Normal and peripheral pulses were normal. NEUROLOGIC: Today neurologically, she is alert, awake, oriented. She has a hesitant stuttering speech pattern, it varies from moment to moment and when distracted, it actually comes out fairly fluently. There are no aphasic tendencies, no word substitutions, no neologisms or paraphasias. She has normal extraocular movements. Visual field testing is revealing of a left monocular visual blurring with retention of ability to see fingers and count them, yet with a reduced acuity on that side, at least to gross testing. On the right, monocular vision is quite normal without any field cuts. Ocular fundi are poorly seen. Eye movements themselves are conjugate. There is no nystagmus. There is no facial asymmetry. Facial motility and strength are normal. Facial sensation is subjectively reduced on the left, all modalities. I could not get her to split the tuning fork in the middle of the forehead. Tongue protrudes in the midline. There is remarkably variable degree of left upper extremity weakness and clumsiness. At times, she can raise her hand quite readily to her face, but at other times it remains flaccid . 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 I can even get her to do some rapid repetitive motions and when distracted, the arm does go through a lot of purposeful posturing without any obvious deficits. Reflexes are present and equal. Toes are downgoing. No Dann signs are seen. Strength testing is comparable on the left but lot of give way phenomenon is normal on the right. There is obviously no atrophy. No fasciculations. Sensory examination again reveals hemisensory deficit to all modalities, which is variable. Reviewing all of this, it is difficult to state that this woman had a true vascular event. At most this may be a migraine with aura accompanied by some amplification of symptomatology, leading to this variable degree of hemiparesis without objective evidence on either imaging studies or exam for true neurologic deficit. 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 For now, I would go through the TPA protocol, would place her on aspirin after the next CT scan and Dr. Castro will assume her care tomorrow. She may well need physical therapy, occupational therapy, speech therapy, etc. and could even reach a point where she needs to go to [facility] to "recover" some of her function. Judging from her last performance, I would suspect however that she may be back to baseline within a week. BLU
[2017-04-09 19:54] LABS: CKMB/CK RATIO 1.2 (0-3.0)
--- NOTE | 2017-04-09 20:23 | DIAGNOSTIC IMAGING REPORT ---
HEAD WITHOUT CONTRAST (CT) CLINICAL HISTORY: 46 years-old Female with S/P t-PA for Stroke. Evaluate hemorrhage. Acute strokelike symptoms. TECHNIQUE: Multiple axial CT images of the head were obtained without contrast. A dose lowering technique was utilized adhering to the principles of ALARA. CT DOSE: 537.48 mGy.cm COMPARISON: Brain MRA 02/03/2017, CT head 04/08/2017. FINDINGS: No acute intracranial hemorrhage, midline shift, mass, large territorial ischemia or abnormal extra-axial collection. The calvarium is intact. The paranasal sinuses, mastoid air cells, and middle ear cavities are clear. IMPRESSION: No acute intracranial abnormality. The above report was generated using voice recognition software. It may contain grammatical, syntax or spelling errors. Electronically signed by: Grupo Robins M.D. 04/09/2017 8:22 PM Dictated Date/Time: 04/09/2017 8:20 PM
[2017-04-09] MEDS: ACETAMINOPHEN 325 MG TAB PO PRN (23:13)
[2017-04-10] VITALS (16 sets, daily range): BP systolic 115–150; BP diastolic 67–96; PULSE 63–90; TEMP 36.5–36.9; O2SAT 92–98
[2017-04-10] MEDS: SODIUM CHLORIDE 0.9% 1000ML 1,000 ML IV SCH (05:07)
[2017-04-10 05:24] LABS: COMPLETE YES; EOS % 1.4 %; HEMATOCRIT 42.1 % (37-47); IG% 0.1 %; LYMPH % 33.6 %; LYMPH ABS # 2.56 K/uL (1.2-3.4); MEAN CELL VOLUME 88.4 fL (80-100); MEAN PLATELET VOLUME 9.2 fL (7.4-10.4); MONO % 5.2 %; NEUT % 59.7 %; PLATELET COUNT 252 K/uL (130-400); RED BLOOD COUNT 4.76 M/uL (4.2-5.4); WHITE BLOOD COUNT 7.62 K/uL (4.8-10.8)
[2017-04-10 05:33] LABS: PROTHROMBIN TIME (PATIENT) 10.8 SECONDS (9.0-12.0)
[2017-04-10 05:51] LABS: BUN/CREATININE RATIO 11.1 (10-20); CALCIUM 8.6 mg/dl (8.5-10.1); CREATININE 0.61 mg/dl (0.60-1.20); POTASSIUM 3.7 mmol/L (3.5-5.1)
[2017-04-10 07:38] LABS: ESTIMATED AVERAGE GLUCOSE 114 mg/dl; HA1C FLAG Normal (Normal)
--- NOTE | 2017-04-10 09:25 | Progress Note ---
Medicine Progress Note Date & Time of Visit: Apr 10, 2017 at 09:21. Subjective patient seen resting in bed, comfortable states she feels improved today slurred speech about the same, left arm and leg weakness and numbness improving has diarrhea since yesterday, 2 BMs today, mild abdominal discomfort no other symptoms Objective Last 8 Hrs Date Time Temp Pulse Resp B/P (MAP) Pulse Ox O2 Delivery O2 Flow Rate FiO2 04/10/17 06:01 66 14 128/88 (101) 98 04/10/17 05:06 63 15 141/82 (101) 04/10/17 05:01 71 15 127/88 (101) 92 04/10/17 04:16 96 Room Air 04/10/17 04:01 64 14 121/76 (91) 98 04/10/17 03:01 67 12 125/71 (89) 97 04/10/17 02:01 68 12 120/73 (89) 96 Physical Exam: General- oriented x 3, not in distress, speaks in sentences with no effort Eyes- anicteric Neck- no JVD Lungs- clear breath sounds bilaterally, no rales/wheezes Heart- regular rhythm; no murmur, normal rate Abdomen- normal bowel sounds, soft, nontender, no masses or hepatosplenomegaly Extremities- no pretibial edema, no calf tenderness; peripheral pulses intact Neuro- alert, oriented x 3; PERRL, EOMI; no facial palsy; moderate dysarthria; motor 3-4/5 DANA and LLE otherwise 5/5 ;sensation 50% on the left side , 100% on the right Skin- warm & dry Laboratory Results: Last 24 Hours Test 04/09/17 12:40 04/09/17 19:25 04/10/17 05:07 Bedside Glucose 91 mg/dl Total Creatine Kinase 51 U/L Creatine Kinase MB 0.6 ng/ml Creatine Kinase MB Ratio 1.2 Troponin I < 0.015 ng/ml White Blood Count 7.62 K/uL Red Blood Count 4.76 M/uL Hemoglobin 14.3 g/dL Hematocrit 42.1 % Mean Corpuscular Volume 88.4 fL Mean Corpuscular Hemoglobin 30.0 pg Mean Corpuscular Hemoglobin Concent 34.0 g/dl Platelet Count 252 K/uL Mean Platelet Volume 9.2 fL Neutrophils (%) (Auto) 59.7 % Lymphocytes (%) (Auto) 33.6 % Monocytes (%) (Auto) 5.2 % Eosinophils (%) (Auto) 1.4 % Basophils (%) (Auto) 0.0 % Neutrophils # (Auto) 4.54 K/uL Lymphocytes # (Auto) 2.56 K/uL Monocytes # (Auto) 0.40 K/uL Eosinophils # (Auto) 0.11 K/uL Basophils # (Auto) 0.00 K/uL RDW Standard Deviation 39.8 fL RDW Coefficient of Variation 12.4 % Immature Granulocyte % (Auto) 0.1 % Immature Granulocyte # (Auto) 0.01 K/uL Prothrombin Time 10.8 SECONDS Prothromb Time International Ratio 1.0 Sodium Level 140 mmol/L Potassium Level 3.7 mmol/L Chloride Level 108 mmol/L Carbon Dioxide Level 27 mmol/L Anion Gap 5.0 mmol/L Blood Urea Nitrogen 7 mg/dl Creatinine 0.61 mg/dl Est Creatinine Clear Calc Drug Dose 156.7 ml/min Estimated GFR () 127.8 Estimated GFR (Non- 110.3 BUN/Creatinine Ratio 11.1 Random Glucose 96 mg/dl Calcium Level 8.6 mg/dl Total Bilirubin 0.7 mg/dl Direct Bilirubin 0.1 mg/dl Aspartate Amino Transf (AST/SGOT) 9 U/L Alanine Aminotransferase (ALT/SGPT) 25 U/L Alkaline Phosphatase 99 U/L Total Protein 7.2 gm/dl Albumin 3.5 gm/dl Date/Time Source Procedure Growth Status 04/09/17 16:30 Stool C.difficile Toxin B Gene (PCR) - Final No C. difficile toxin B gene detected Complete Assessment & Plan 46 year old female with history of Hypertension presenting with slurred speech and left sided weakness. EPISODE OF SLURRED SPEECH, LEFT SIDED WEAKNESS - possible acute CVA - s/p TPA 04/08/17 at around 730pm - Brain MRI, Brain MRA, Carotid US: unremarkable - repeat CT head: negative - will start Aspirin today - appreciate Neuro consult - will need Rehab HYPERTENSION - presented with Hypertension - given Labetalol, Nicardipine BP stable now off Metoprolol and Lisinopril DIARRHEA - no C diff - will start Imodium PRN, Clear liquids diet, IV fluids - monitor DVT PROPHYLAXIS SCDs for now will discuss heparin with Neuro Dispo lives with at home will need Rehab placement Current Inpatient Medications: Current Inpatient Medications Medications (Trade) Dose Ordered Sig/Everardo Route Start Time Stop Time Status Last Admin Dose Admin Miscellaneous Information (Pharmacist Discharge Med Rec Consult) 1 ea UD PRN N/A 04/08/17 19:45 05/08/17 19:44 Acetaminophen (Tylenol Tab) 650 mg Q4H PRN PO 04/08/17 19:45 05/08/17 19:44 04/09/17 23:13 650 MG Lorazepam (Ativan Tab) 0.5 mg Q4H PRN PO 04/08/17 19:45 05/08/17 19:44 04/09/17 23:13 0.5 MG Nitroglycerin (Nitrostat Tab) 0.4 mg UD PRN SL 04/08/17 19:45 05/08/17 19:44 Pantoprazole Sodium (Protonix Tab) 40 mg DAILY PO 04/09/17 09:00 05/09/17 08:59 04/09/17 12:26 40 MG Morphine Sulfate (MoRPHine SULFATE INJ) 2 mg Q2H PRN IV 04/08/17 19:45 04/22/17 19:44 Atorvastatin Calcium (Lipitor Tab) 80 mg QAM PO 04/09/17 09:00 05/09/17 08:59 04/09/17 12:26 80 MG Labetalol HCl (Normodyne IV) 10 mg Q8H PRN IV 04/08/17 20:15 05/08/17 20:14 Sodium Chloride 1,000 ml @ 150 mls/hr Q6H40M IV 04/08/17 22:30 05/08/17 22:29 04/10/17 05:07 150 MLS/HR
[2017-04-10] MEDS ORDERED: NURSING VERBAL MED ORDER ONE (10:00)
[2017-04-10] MEDS: ATORVASTATIN 40 MG TAB PO SCH (10:15)
[2017-04-10] MEDS: PANTOprazole SOD 40 MG TAB PO SCH (10:15)
[2017-04-10] MEDS: ACETAMINOPHEN 325 MG TAB PO PRN ×2 (12:48→23:07)
[2017-04-10] MEDS ORDERED: ASPIRIN 81 MG ECTAB PO STA (21:19)
--- NOTE | 2017-04-10 22:40 | PROGRESS NOTE ---
DATE: 04/10/2017 REASON FOR CONSULTATION: Weakness. HISTORY OF PRESENT ILLNESS: I am seeing Mrs. Lovell in followup. Dr. House saw her yesterday and noted that she was admitted hypertensive to the ER with complaints of stuttering each, blurred vision and variable degrees of weakness of the left arm and left leg. CT of the head noncontrast was nonrevealing, MRI/MRA were normal and she was given TPA. This neurologic deficit did come on in the setting of a headache but has persisted and her headache has improved. She has been for several weeks complaining of migraines. She indicates she has a history of migraines, but none for many years, never accompanied by any neurologic deficit. Apparently, as far in 2014 with right-sided weakness and numbness with a negative workup at that time. Her CT of the head today is unrevealing. Her blood pressure is under much better control. She has a difficult to describe speech, but it is clearly stuttering without clear word-finding difficulty. There is no field cut. OBJECTIVE: VITAL SIGNS: 36.9, 90, 18, 127/86, 96%. NEUROLOGICAL: There is no field cut. No facial asymmetry. Speech stuttering. Motor - she uses the left arm variably. There is a drift without pronation. There are decreased left rapid alternating movements. Left leg - very variable effort, symmetric reflexes, decreased sensation to temperature on the left. IMPRESSION: Possible complicated migraine. PLAN: Supportive care, physical therapy if needed, echocardiography showing no embolic source, hypercoagulable state workup if not previously done albeit, no clear infarction is noted. The patient has a history of weakness in the legs associated with medication use. I will try to review her outpatient chart to see which agent was etiologic at that time. We will consider then prophylactic agents for migraine, Topamax may be a good option. The patient has no history of kidney stones, we will follow with you. BLU
[2017-04-11] VITALS (8 sets, daily range): BP systolic 121–136; BP diastolic 77–94; PULSE 71–91; TEMP 36.5–37.1; O2SAT 94–98
[2017-04-11 06:03] LABS: COMPLETE YES; EOS % 1.8 %; HEMATOCRIT 42.7 % (37-47); IG% 0.2 %; LYMPH % 31.1 %; LYMPH ABS # 2.77 K/uL (1.2-3.4); MEAN CELL VOLUME 86.4 fL (80-100); MEAN CORPUSCULAR HEMOGLOBIN 30.8 pg (25-34); MEAN CORPUSCULAR HGB CONC 35.6 g/dl (32-36); MEAN PLATELET VOLUME 9.4 fL (7.4-10.4); MONO % 6.6 %; NEUT % 60.3 %; PLATELET COUNT 275 K/uL (130-400); RED BLOOD COUNT 4.94 M/uL (4.2-5.4); WHITE BLOOD COUNT 8.92 K/uL (4.8-10.8)
[2017-04-11 06:29] LABS: PROTHROMBIN TIME (PATIENT) 10.7 SECONDS (9.0-12.0)
[2017-04-11 06:40] LABS: BUN/CREATININE RATIO 12.2 (10-20); CALCIUM 8.9 mg/dl (8.5-10.1); CREATININE 0.74 mg/dl (0.60-1.20); POTASSIUM 3.7 mmol/L (3.5-5.1)
[2017-04-11] MEDS: ATORVASTATIN 40 MG TAB PO SCH (09:42)
[2017-04-11] MEDS: PANTOprazole SOD 40 MG TAB PO SCH (09:42)
[2017-04-11] MEDS: ASPIRIN 81 MG ECTAB PO SCH (09:44)
[2017-04-11] MEDS: LOPERAMIDE HCL 2 MG CAP PO PRN (12:23)
[2017-04-11] MEDS ORDERED: TOPIRAMATE 25 MG TAB PO ONE (15:00)
--- NOTE | 2017-04-11 15:06 | Progress Note ---
Medicine Progress Note Date & Time of Visit: Apr 11, 2017 at 15:00. Subjective patient seen resting in chair, comfortable states speech continues to improved, also left upper and lower extremity strength and sensation is improving has mild headache, but no new focal deficits, nausea, changes with vision no other symptoms states she is ready and would like to discharged today to have more physical therapy Objective Last 8 Hrs Date Time Temp Pulse Resp B/P (MAP) Pulse Ox O2 Delivery O2 Flow Rate FiO2 04/11/17 12:00 Room Air 04/11/17 11:32 36.7 91 16 136/94 (108) 96 Room Air 04/11/17 08:09 36.8 71 16 121/78 (92) 97 Room Air 04/11/17 08:00 Room Air Physical Exam: General- oriented x 3, not in distress, speaks in sentences with no effort Neck- no JVD Lungs- clear breath sounds bilaterally Heart- regular rhythm; no murmur, normal rate Abdomen- normal bowel sounds, soft, nontender Extremities- no pretibial edema, no calf tenderness Neuro- alert, oriented x 3; PERRL, EOMI; no facial palsy; moderate dysarthria; motor 3-4/5 DANA and 4/5 LLE otherwise 5/5 ;sensation 60% on the left side , 100% on the right Skin- warm & dry Laboratory Results: Last 24 Hours Test 04/11/17 05:29 White Blood Count 8.92 K/uL Red Blood Count 4.94 M/uL Hemoglobin 15.2 g/dL Hematocrit 42.7 % Mean Corpuscular Volume 86.4 fL Mean Corpuscular Hemoglobin 30.8 pg Mean Corpuscular Hemoglobin Concent 35.6 g/dl Platelet Count 275 K/uL Mean Platelet Volume 9.4 fL Neutrophils (%) (Auto) 60.3 % Lymphocytes (%) (Auto) 31.1 % Monocytes (%) (Auto) 6.6 % Eosinophils (%) (Auto) 1.8 % Basophils (%) (Auto) 0.0 % Neutrophils # (Auto) 5.38 K/uL Lymphocytes # (Auto) 2.77 K/uL Monocytes # (Auto) 0.59 K/uL Eosinophils # (Auto) 0.16 K/uL Basophils # (Auto) 0.00 K/uL RDW Standard Deviation 40.2 fL RDW Coefficient of Variation 12.6 % Immature Granulocyte % (Auto) 0.2 % Immature Granulocyte # (Auto) 0.02 K/uL Prothrombin Time 10.7 SECONDS Prothromb Time International Ratio 1.0 Sodium Level 138 mmol/L Potassium Level 3.7 mmol/L Chloride Level 104 mmol/L Carbon Dioxide Level 27 mmol/L Anion Gap 7.0 mmol/L Blood Urea Nitrogen 9 mg/dl Creatinine 0.74 mg/dl Est Creatinine Clear Calc Drug Dose 126.1 ml/min Estimated GFR () 114.2 Estimated GFR (Non- 98.5 BUN/Creatinine Ratio 12.2 Random Glucose 96 mg/dl Calcium Level 8.9 mg/dl Total Bilirubin 0.5 mg/dl Direct Bilirubin 0.1 mg/dl Aspartate Amino Transf (AST/SGOT) 12 U/L Alanine Aminotransferase (ALT/SGPT) 24 U/L Alkaline Phosphatase 101 U/L Total Protein 7.5 gm/dl Albumin 3.6 gm/dl Assessment & Plan 46 year old female with history of Hypertension presenting with slurred speech and left sided weakness. EPISODE OF SLURRED SPEECH, LEFT SIDED WEAKNESS - possible complicate migraine - s/p TPA 04/08/17 at around 730pm 03/29/17 - Brain MRI, Brain MRA, Carotid US: unremarkable - repeat CT head: negative -- evaluated by Neurology service Dr. House and Dr. Castro episode and symptoms felt to be from complicated migraine recommend Topamax 25mg bid x 1 week, then 50mg BID also start Aspirin 81mg po daily -- transition to Rehab today ff up with Neurologist Dr. House or Dr. Castro in 2 weeks ff up with Primary care physician after Rehab HYPERTENSION - presented with Hypertension - given Labetalol, Nicardipine BP stable now off usual Metoprolol and Lisinopril - monitor BP and resume Metoprolol and/or Lisinopril accordingly DIARRHEA - no C diff - resolved Dispo transition to Rehab ff up with Neurologist Dr. House or Dr. Castro in 2 weeks ff up with Primary care physician after Rehab Current Inpatient Medications: Current Inpatient Medications Medications (Trade) Dose Ordered Sig/Everardo Route Start Time Stop Time Status Last Admin Dose Admin Acetaminophen (Tylenol Tab) 650 mg Q4H PRN PO 04/08/17 19:45 05/08/17 19:44 04/10/17 23:07 650 MG Lorazepam (Ativan Tab) 0.5 mg Q4H PRN PO 04/08/17 19:45 05/08/17 19:44 04/09/17 23:13 0.5 MG Nitroglycerin (Nitrostat Tab) 0.4 mg UD PRN SL 04/08/17 19:45 05/08/17 19:44 Pantoprazole Sodium (Protonix Tab) 40 mg DAILY PO 04/09/17 09:00 05/09/17 08:59 04/11/17 09:42 40 MG Morphine Sulfate (MoRPHine SULFATE INJ) 2 mg Q2H PRN IV 04/08/17 19:45 04/22/17 19:44 Atorvastatin Calcium (Lipitor Tab) 80 mg QAM PO 04/09/17 09:00 05/09/17 08:59 04/11/17 09:42 80 MG Loperamide HCl (Imodium Cap) 2 mg UD PRN PO 04/10/17 09:30 05/10/17 09:29 04/11/17 12:23 2 MG Aspirin (Ecotrin Tab) 81 mg QAM PO 04/11/17 09:00 05/11/17 08:59 04/11/17 09:44 81 MG
[2017-04-11] MEDS ORDERED: LPT40 PO (15:10)
[2017-04-11] MEDS ORDERED: ASPEC81 PO (15:10)
[2017-04-11] MEDS ORDERED: TOPI25TA10 PO ×2 (15:10→15:11)
[2017-04-11] MEDS ORDERED: TOPI50TA24 PO (15:10)
--- NOTE | 2017-04-11 15:22 | Discharge Summary ---
Discharge Summary Date of Service Apr 11, 2017. Discharge Summary Admission Date: Apr 08, 2017 at 19:46 Discharge Date: Apr 11, 2017 Discharge Disposition: Rehab Principal Diagnosis: EPISODE OF SLURRED SPEECH, LEFT SIDED WEAKNESS - possible complicate migraine Secondary Diagnoses/Problems: Please refer to hospital course below. Procedures: BRAIN COMBO HISTORY: 46 years-old Female acute stroke like symptoms. COMPARISON: MRA of the head 04/08/2017, CT head 04/08/2017 TECHNIQUE: Multiplanar multisequence MRI of the brain was obtained both with and without the use of 12 mL Gadavist. FINDINGS: The large sxioa-nj-jzwk net mender images demonstrate no gross of modality. There is no restricted diffusion to suggest acute ischemia. The midline structures including the corpus callosum, brainstem, optic chiasm, pituitary and pineal glands appear unremarkable on the sagittal T1 sequence. No cerebellar tonsillar herniation. No acute intracranial hemorrhage, midline shift, hydrocephalus, abnormal extra-axial collections or intracranial mass. No abnormal T2/FLAIR signal abnormality. Flow voids at the level of the skull base are within normal limits. Orbits are symmetric. Mastoid air cells and middle ear cavities are clear. There is minimal ethmoid, right sphenoid and left maxillary sinus disease. No abnormal enhancement identified. IMPRESSION: 1. No acute intracranial abnormality. No evidence of acute ischemia or abnormal enhancement. 2. Mild paranasal sinus disease incidentally noted. MRA HEAD WITHOUT CONTRAST HISTORY: 46 years-old Female acute strokelike symptoms. COMPARISON: MRI of the brain 04/09/2017 TECHNIQUE: MR angiography of the head was obtained utilizing 3-D uyma-gi-ligqje sequencing with MIP reformats. FINDINGS: Large znmyy-ge-bopu net mender images demonstrate no gross abnormality. The bilateral internal carotid arteries, middle and anterior cerebral arteries appear patent and within normal limits. The anterior communicating artery is also unremarkable. The bilateral vertebral arteries appear patent. The basilar and posterior cerebral arteries are patent. No high-grade stenosis, aneurysm or proximal branch occlusion identified. IMPRESSION: No high-grade stenosis, proximal branch occlusion or aneurysm. CAROTID DOPPLER NECK ART CLINICAL HISTORY: 46 years-old Female with acute strokelike symptoms. COMPARISON: Brain MR 04/09/2017 TECHNIQUE: Multiple real time sonographic images of the carotid bifurcations were obtained assessing tan scale, color Doppler and spectral wave form appearance FINDINGS: RIGHT CAROTID: The peak systolic velocity measured 63.8 cm/sec. The end diastolic velocity measured 21 cm/sec. The ICA to CCA ratio measured 0.64 which correlates with a stenosis of 0-50%. LEFT CAROTID: The peak systolic velocity measured 55 cm/sec. The end diastolic velocity measured 24 cm/sec. The ICA to CCA ratio measured 0.51 which correlates with a stenosis of 0-50%. There is normal antegrade vertebral flow bilaterally. IMPRESSION: 1. No hemodynamically significant stenosis or significant atherosclerotic plaquing. 2. Normal antegrade vertebral flow bilaterally. ECHO: * -- Conclusions -- * The left ventricle is normal in size. * There is mild concentric left ventricular hypertrophy. * The left ventricular wall motion is normal. * Left ventricular systolic function is normal. * Ejection Fraction = 60-65%. * There is no significant valvular disease. * Injection of contrast documented no interatrial shunt noted on technically limited assessment Consultations: Neurology Dr. Escobedo and Dr. Castro Pending Studies/Follow-Up: Please refer to hospital course below. Medication Reconciliation New Medications: Topiramate (Topamax) 50 Mg Tab 1 TAB PO BID for 30 Days, #60 TAB 1 Refill START ON 2016 Topiramate (Topamax) 25 Mg Tab 1 TAB PO BID for 7 Days, #14 TAB 0 Refills TO BE TAKEN FROM 04/11/17 TO 04/17/17, THEN TRANSITION TO TOPAMAX 50MG BID ON 04/18/17 Aspirin (Aspirin EC Low Dose) 81 Mg Ectab 81 MG PO QAM for 30 Days, #30 TABS 2 Refills with food Atorvastatin (Atorvastatin Calcium) 40 Mg Tab 40 MG PO QAM for 30 Days, #30 TAB 2 Refills Continued Medications: Epinephrine (Epipen 2-Bashir) 0.3 Mg Inj 0.3 MG IM UD PRN for ALLERGIC REACTION Simethicone (Gas Relief) 80 Mg Chw 80 MG PO QID PRN for Gas or Constipation Discontinued Medications: Cyclobenzaprine Hcl (Flexeril) 10 Mg Tab 10 MG PO HS PRN for Muscle Spasms, #21 TAB Lisinopril (Zestril) 20 Mg Tab 20 MG PO DAILY, TAB TAKE 20MG DAILY WITH 10MG TABLET FOR A TOTAL DOSE OF 30MG DAILY Lisinopril (Zestril) 10 Mg Tab 10 MG PO DAILY, TAB TAKE 10MG DAILY WITH A 20MG TABLET FOR A TOTAL DOSE OF 30MG DAILY Metoprolol Succ (Toprol Xl) (Toprol-Xl) 25 Mg Tabcr 25 MG PO DAILY, #30 TAB Admission Information HPI (per Admitting provider): History as per prior medical records as patient have slurred speech and receiving TPA for ischemic stroke in the ED: "The patient is a 46 year old female who presents to the Emergency Room with complaints of worsening stroke-like symptoms beginning at 1725. The patient was not feeling well today and went to [facility] for evaluation. She developed blurred vision while there and EMS was called. When paramedics arrived on scene the patient was found to have left-sided weakness and slurred speech. She was brought to the ED for further evaluation. The patient states that she has had a frontal headache for the past two weeks. She states that the headache came on slowly and has been gradually worsening. She saw her PCP earlier this week for her headache and they thought that it was due to hypertension. The patient was started on Lisinopril and Metoprolol. The patient is currently complaining of a headache, blurred vision, nausea, and chest pain. She denies any shortness of breath." ED provider initiated TPA after tele-consultation with neurology. Estimated time of between symptoms of stroke and TPA was estimated to be around 2 hours and 30 mnutes. Patient was also started on nicardipine drip for blood pressure control. On exam by hospitalist medical provider, patient able to speak with slurred speech however with generalized left sided weakness of upper extremity to lower extremity with diminished sensation throughout left side of the body. Physical Exam (per Admitting): General Appearance: + moderate distress, + obese Head: normocephalic, atraumatic Eyes: normal inspection, EOMI ENT: + muffled/hoarse voice (slurred speech) Neck: supple, trachea midline Respiratory/Chest: chest non-tender, lungs clear, normal breath sounds, no respiratory distress, no accessory muscle use Cardiovascular: regular rate, rhythm, no edema, no JVD, no murmur, normal peripheral pulses Abdomen/GI: normal bowel sounds, non tender, soft, no pulsatile mass Extremities/Musculoskelatal: no calf tenderness, no pedal edema Neurologic/Psych: alert, oriented x 3, + aphasia, + motor weakness (left upper extremity strength diminished compared to right arm, patient cannot lift up her left leg or left foot dorsiflexion or plantarflexion ), + sensory deficit (left upper and lower extremities with diminished sensation compared to right side) Skin: normal color, warm/dry, no rash Hospital Course 46 year old female with history of Hypertension presenting with slurred speech and left sided weakness. EPISODE OF SLURRED SPEECH, LEFT SIDED WEAKNESS - possible Complicated Migraine\\ - s/p TPA administration at 04/08/17 after Tele-Stroke Conference with [facility] - however, Brain MRI, Brain MRA: negative for acute process Carotid US: negative - repeat CT head: negative admitted to ICU, then transitioned to Tele -- evaluated by Neurology service Dr. Escobedo and Dr. Castro episode and symptoms felt to be from complicated migraine recommend Topamax 25mg bid x 1 week, then 50mg BID for migraine prophylaxis also start Aspirin 81mg po daily, Simvastatin 40 mg po daily for now -- symptoms improving gradually -- transition to Rehab for continued PT/OT/Speech therapy ff up with Neurologist Dr. Escobedo or Dr. Castro in 2 weeks ff up with Primary care physician after Rehab -- ff up LFTs as Statin has been started HYPERTENSION - presented with Hypertension - given Labetalol, Nicardipine BP stable now off usual Metoprolol and Lisinopril - monitor BP and resume Metoprolol and/or Lisinopril accordingly DIARRHEA - no C diff - resolved HISTORY OF DEPRESSION - monitor Dispo transition to Rehab ff up with Neurologist Dr. Escobedo or Dr. Castro in 2 weeks ff up with Primary care physician after Rehab Total time spent on discharge = 35 minutes This includes examination of the patient, discharge planning, medication reconciliation, and communication with other providers. Discharge Instructions Discharge Instructions Date of Service Apr 11, 2017. 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 Additional Information Patient informed of condition: Yes Advance Directives: No (UNKNOWN) DNR: No (PATIENT IS FULL CODE) Level of Care: Acute Rehab Communicable Disease: No Prognosis: Improving Instructions / Follow-Up Instructions / Follow-Up PLEASE MONITOR BP DAILY. MAY NEED TO RESUME METOPROLOL AND LISINOPRIL NEEDED. ALSO, TOPAMAX HAS BEEN STARTED. MONITOR CLOSELY. FOLLOW UP LFTS OUTPATIENT HAS STATIN HAS BEEN STARTED. PLEASE REFER TO ACCOMPANYING DISCHARGE SUMMARY FOR FURTHER DETAILS. FOLLOW UP WITH PRIMARY CARE PHYSICIAN 1 WEEK AFTER DISCHARGE FROM REHAB. FOLLOW UP WITH NEUROLOGIST DR. ESCOBEDO OR DR. CASTRO IN 2 WEEKS. PATIENT INSTRUCTIONS: Risk Factors for Stroke: You can reduce your chances of stroke by working with your medical provider to adopt a healthy lifestyle. Some specific ways to lower your chance of stroke are: * If you are a smoker, now is the time to stop smoking cigarettes * If you are diabetic, improve the control of your blood sugars * Avoid excessive amounts of alcohol * Control high blood pressure * Lose weight if you are overweight * Be sure to lead an active lifestyle * Eat a healthy diet low in salt, cholesterol and fat You should know about other risk factors for stroke that you are unable to control. These include: * Age 55 years or older * Male gender * Certain racial groups: , or / * Family History of Stroke, Mini stroke or Heart Attack * Sickle Cell Disease Follow Up: It is important for you to keep your follow up appointments with your medical provider. . Who to Call and When: Medical Emergencies: Call 911 immediately if you experience any of the following warning signs and symptoms of Stroke: * Sudden numbness or weakness of the face, arm or leg, especially on one side of the body * Sudden confusion, trouble speaking or understanding * Sudden trouble seeing in one or both eyes * Sudden trouble walking, dizziness, loss of balance or coordination * Sudden severe headache with no cause Do not delay calling 911 if you experience any warning signs or symptoms of a stroke. Delay in seeking medical attention may affect what treatments can be given to you. . Current Hospital Diet Patient's current hospital diet: Diabetes Type 2 Diet, AHA Diet (Heart Healthy) Discharge Diet Recommended Diet: AHA Diet (Heart Healthy) Procedures Procedures Performed: BRAIN MRI AND MRA, ECHO, CT HEAD Pending Studies Studies pending at discharge: yes List of pending studies: PLEASE REFER TO DISCHARGE SUMMARY. Physician Orders On Transfer Special Precautions: PLEASE MONITOR BP DAILY. MAY NEED TO RESUME METOPROLOL AND LISINOPRIL NEEDED. ALSO, TOPAMAX HAS BEEN STARTED. MONITOR CLOSELY. FOLLOW UP LFTS OUTPATIENT HAS STATIN HAS BEEN STARTED. PLEASE REFER TO ACCOMPANYING DISCHARGE SUMMARY FOR FURTHER DETAILS. FOLLOW UP WITH PRIMARY CARE PHYSICIAN 1 WEEK AFTER DISCHARGE FROM REHAB. FOLLOW UP WITH NEUROLOGIST DR. ESCOBEDO OR DR. CASTRO IN 2 WEEKS. Laboratory Results Hemoglobin A1c Test 04/08/17 18:32 Range/Units Estimated Average Glucose 114 mg/dl Hemoglobin A1c 5.6 4.5-5.6 % Lipid Panel Test 04/09/17 01:36 Range/Units Triglycerides Level 138 0-150 mg/dl Cholesterol Level 136 0-200 mg/dl HDL Cholesterol 31 mg/dl Cholesterol/HDL Ratio 4.4 LDL Cholesterol, Calculated 77 mg/dl Medical Emergencies . Who to Call and When: Medical Emergencies: If at any time you feel your situation is an emergency, please call 911 immediately. . Non-Emergent Contact Non-Emergency issues call your: Primary Care Provider, Neurologist Call Non-Emergent contact if: you have a fever, you have any medication questions . . "Provider Documentation" section prepared by Ramez Sunshine. . Core Measure Problem Core Measures: Stroke Stroke Core Measures Reason no t-PA for Stroke: Treatment provided - N/A Reason no antithrom by day 2: Treatment provided - N/A Reason no antithrom at D/C: Treatment provided - N/A Reason no statin at D/C: Treatment provided - N/A Reason no anticoag w/a fib: Treatment provided - N/A
--- NOTE | 2017-04-11 15:25 | Discharge Instructions ---
Discharge Instructions Date of Service Apr 11, 2017. 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 Additional Information Patient informed of condition: Yes Advance Directives: No (UNKNOWN) DNR: No (PATIENT IS FULL CODE) Level of Care: Acute Rehab Communicable Disease: No Prognosis: Improving Instructions / Follow-Up Instructions / Follow-Up PLEASE MONITOR BP DAILY. MAY NEED TO RESUME METOPROLOL AND LISINOPRIL NEEDED. ALSO, TOPAMAX HAS BEEN STARTED. MONITOR CLOSELY. FOLLOW UP LFTS OUTPATIENT HAS STATIN HAS BEEN STARTED. PLEASE REFER TO ACCOMPANYING DISCHARGE SUMMARY FOR FURTHER DETAILS. FOLLOW UP WITH PRIMARY CARE PHYSICIAN 1 WEEK AFTER DISCHARGE FROM REHAB. FOLLOW UP WITH NEUROLOGIST DR. ESCOBEDO OR DR. SMALLWOOD IN 2 WEEKS. PATIENT INSTRUCTIONS: Risk Factors for Stroke: You can reduce your chances of stroke by working with your medical provider to adopt a healthy lifestyle. Some specific ways to lower your chance of stroke are: * If you are a smoker, now is the time to stop smoking cigarettes * If you are diabetic, improve the control of your blood sugars * Avoid excessive amounts of alcohol * Control high blood pressure * Lose weight if you are overweight * Be sure to lead an active lifestyle * Eat a healthy diet low in salt, cholesterol and fat You should know about other risk factors for stroke that you are unable to control. These include: * Age 55 years or older * Male gender * Certain racial groups: , or / * Family History of Stroke, Mini stroke or Heart Attack * Sickle Cell Disease Follow Up: It is important for you to keep your follow up appointments with your medical provider. . Who to Call and When: Medical Emergencies: Call 911 immediately if you experience any of the following warning signs and symptoms of Stroke: * Sudden numbness or weakness of the face, arm or leg, especially on one side of the body * Sudden confusion, trouble speaking or understanding * Sudden trouble seeing in one or both eyes * Sudden trouble walking, dizziness, loss of balance or coordination * Sudden severe headache with no cause Do not delay calling 911 if you experience any warning signs or symptoms of a stroke. Delay in seeking medical attention may affect what treatments can be given to you. . Current Hospital Diet Patient's current hospital diet: Diabetes Type 2 Diet, AHA Diet (Heart Healthy) Discharge Diet Recommended Diet: AHA Diet (Heart Healthy) Procedures Procedures Performed: BRAIN MRI AND MRA, ECHO, CT HEAD Pending Studies Studies pending at discharge: yes List of pending studies: PLEASE REFER TO DISCHARGE SUMMARY. Physician Orders On Transfer Special Precautions: PLEASE MONITOR BP DAILY. MAY NEED TO RESUME METOPROLOL AND LISINOPRIL NEEDED. ALSO, TOPAMAX HAS BEEN STARTED. MONITOR CLOSELY. FOLLOW UP LFTS OUTPATIENT HAS STATIN HAS BEEN STARTED. PLEASE REFER TO ACCOMPANYING DISCHARGE SUMMARY FOR FURTHER DETAILS. FOLLOW UP WITH PRIMARY CARE PHYSICIAN 1 WEEK AFTER DISCHARGE FROM REHAB. FOLLOW UP WITH NEUROLOGIST DR. ESCOBEDO OR DR. SMALLWOOD IN 2 WEEKS. Laboratory Results Hemoglobin A1c Test 04/08/17 18:32 Range/Units Estimated Average Glucose 114 mg/dl Hemoglobin A1c 5.6 4.5-5.6 % Lipid Panel Test 04/09/17 01:36 Range/Units Triglycerides Level 138 0-150 mg/dl Cholesterol Level 136 0-200 mg/dl HDL Cholesterol 31 mg/dl Cholesterol/HDL Ratio 4.4 LDL Cholesterol, Calculated 77 mg/dl Medical Emergencies . Who to Call and When: Medical Emergencies: If at any time you feel your situation is an emergency, please call 911 immediately. . Non-Emergent Contact Non-Emergency issues call your: Primary Care Provider, Neurologist Call Non-Emergent contact if: you have a fever, you have any medication questions . . "Provider Documentation" section prepared by Ramez Sunshine. . Core Measure Problem Core Measures: Stroke Stroke Core Measures Reason no t-PA for Stroke: Treatment provided - N/A Reason no antithrom by day 2: Treatment provided - N/A Reason no antithrom at D/C: Treatment provided - N/A Reason no statin at D/C: Treatment provided - N/A Reason no anticoag w/a fib: Treatment provided - N/A
[2017-04-11] MEDS: TOPIRAMATE 25 MG TAB PO SCH (21:11)
[2017-04-12 03:41] VITALS: BP 123/70; PULSE 79; TEMP 37; O2SAT 95
[2017-04-12] MEDS: PANTOprazole SOD 40 MG TAB PO SCH (07:41)
[2017-04-12] MEDS: ATORVASTATIN 40 MG TAB PO SCH (07:41)
[2017-04-12] MEDS: TOPIRAMATE 25 MG TAB PO SCH ×2 (07:41→20:41)
[2017-04-12] MEDS: ASPIRIN 81 MG ECTAB PO SCH (07:42)
[2017-04-12 07:44] VITALS: BP 121/79; PULSE 74; TEMP 36.6; O2SAT 95
--- NOTE | 2017-04-12 11:03 | Progress Note ---
Internal Med Progress Note Date of Service: Apr 12, 2017. Provider Documentation: SUBJECTIVE: Seen and examined at bedside. States speech and left sided weakness continues to improve Headache resolved No new complaints Eager to get discharged OBJECTIVE: Vital Signs-as noted below Physical Exam: General Appearance:Moderately built and nourished, no apparent distress Head: normocephalic, Atraumatic Eyes: normal inspection, EOMI Neck: supple, Trachea midline Respiratory/Chest: Normal breath sounds, CTA Cardiovascular: S1, S2, No murmur Abdomen/GI:Soft, Non tender, Bowel sounds present Extremities/Musculoskelatal:normal inspection, no edema Neurologic/Psych: motor 3-4/5 LUE and 4/5 LLE Skin: normal color, warm Lab data as noted below. ASSESSMENT & PLAN: Patient is a 46 yr female with history of Hypertension presenting with slurred speech and left sided weakness. Stroke like symptoms Presented with episode of slurred speech and left sided weakness Likely complicate migraine S/P TPA on 04/08/17 Brain MRI, Brain MRA, Carotid US: unremarkable Repeat CT head: negative Appreciate Neurology Input:Dr. House and Dr. Castro Continue Topamax 25mg bid x 1 week, then 50mg BID Continue Aspirin 81mg po daily Plan to be discharged to Rehab today Follow up with Neurologist Dr. House or Dr. Castro in 2 weeks Follow up with Primary care physician after Rehab Hypertension presented with Hypertension Received Labetalol, Nicardipine stable off usual Metoprolol and Lisinopril Plan to resume Metoprolol and/or Lisinopril if necessary Diarrhea no C diff resolved Disposition: Plan to discharge to Rehab when bed available Follow up with Neurologist Dr. House or Dr. Castro in 2 weeks Follow up with Primary care physician after Rehab Vital Signs: Date Time Temp Pulse Resp B/P (MAP) Pulse Ox O2 Delivery O2 Flow Rate FiO2 04/12/17 08:00 Room Air 04/12/17 07:44 36.6 74 17 121/79 (93) 95 Room Air 04/12/17 04:00 Room Air 04/12/17 03:41 37.0 79 19 123/70 (87) 95 Room Air 04/12/17 00:00 Room Air 04/11/17 23:53 36.7 84 18 125/77 (93) 98 Room Air 04/11/17 20:00 95 Room Air 04/11/17 19:10 37.0 91 18 130/87 (101) 95 Room Air 04/11/17 16:00 94 Room Air 04/11/17 15:14 37.1 89 20 134/89 (104) 94 Room Air 04/11/17 12:00 Room Air 04/11/17 11:32 36.7 91 16 136/94 (108) 96 Room Air Lab Results: Results Past 24 Hours Test 04/12/17 05:29 Range/Units Total Bilirubin 0.5 0.2-1 mg/dl Direct Bilirubin 0.2 0-0.2 mg/dl Aspartate Amino Transf (AST/SGOT) 17 15-37 U/L Alanine Aminotransferase (ALT/SGPT) 26 12-78 U/L Alkaline Phosphatase 95 45-117 U/L Total Protein 7.0 6.4-8.2 gm/dl Albumin 3.5 3.4-5.0 gm/dl
[2017-04-12 11:36] VITALS: BP 135/86; PULSE 84; TEMP 36.6; O2SAT 97
[2017-04-12] MEDS: ACETAMINOPHEN 325 MG TAB PO PRN (12:57)
[2017-04-12] MEDS: LOPERAMIDE HCL 2 MG CAP PO PRN (14:40)
[2017-04-12 15:33] VITALS: BP 121/82; PULSE 92; TEMP 36.8; O2SAT 96
[2017-04-12 17:23] VITALS: BP 125/87; PULSE 90; TEMP 36.6; O2SAT 95
[2017-04-12 23:29] VITALS: BP 105/70; PULSE 77; TEMP 36.6; O2SAT 97
[2017-04-13 08:05] VITALS: BP 126/85; PULSE 73; TEMP 36.8; O2SAT 96
[2017-04-13] MEDS: TOPIRAMATE 25 MG TAB PO SCH ×2 (08:37→21:04)
[2017-04-13] MEDS: ASPIRIN 81 MG ECTAB PO SCH (08:38)
[2017-04-13] MEDS: ATORVASTATIN 40 MG TAB PO SCH (08:38)
[2017-04-13] MEDS: PANTOprazole SOD 40 MG TAB PO SCH (08:38)
--- NOTE | 2017-04-13 13:48 | Progress Note ---
Internal Med Progress Note Date of Service: Apr 13, 2017. Provider Documentation: SUBJECTIVE: Seen and examined at bedside. States is upset about not able being to be discharged to rehab Also reports stiffness of left wrist She reports she is able move her extremities better when she diverts herself by watching television Still has intermittent speech problems Denies Headache Eager to get discharged OBJECTIVE: Vital Signs-as noted below Physical Exam: General Appearance:Moderately built and nourished, no apparent distress Head: normocephalic, Atraumatic Eyes: normal inspection, EOMI Neck: supple, Trachea midline Respiratory/Chest: Normal breath sounds, CTA Cardiovascular: S1, S2, No murmur Abdomen/GI:Soft, Non tender, Bowel sounds present Extremities/Musculoskelatal:normal inspection, no edema Neurologic/Psych: motor 3-4/5 LUE and 4/5 LLE Skin: normal color, warm Lab data as noted below. ASSESSMENT & PLAN: Patient is a 46 yr female with history of Hypertension presenting with slurred speech and left sided weakness. Stroke like symptoms Presented with episode of slurred speech and left sided weakness Likely complicate migraine S/P TPA on 04/08/17 Brain MRI, Brain MRA, Carotid US: unremarkable Repeat CT head: negative Appreciate Neurology Input:Dr. House and Dr. Castro Continue Topamax 25mg bid x 1 week, then 50mg BID Continue Aspirin, Lipitor Discussed with regarding change in symptoms Repeat MRI Brain/Neck Start Baclofen 10mg BID Consult Psychiatry for possible conversion disorder Hypertension presented with Hypertension Received Labetalol, Nicardipine stable off usual Metoprolol and Lisinopril Plan to resume Metoprolol and/or Lisinopril if necessary Diarrhea no C diff resolved Disposition: Plan to discharge to Rehab when medically stable Follow up with Neurologist Dr. House or Dr. Castro in 2 weeks Follow up with Primary care physician after Rehab Vital Signs: Date Time Temp Pulse Resp B/P (MAP) Pulse Ox O2 Delivery O2 Flow Rate FiO2 04/13/17 08:05 36.8 73 18 126/85 (99) 96 Room Air 04/13/17 08:00 Room Air 04/13/17 00:00 Room Air 04/12/17 23:29 36.6 77 20 105/70 (82) 97 Room Air 04/12/17 20:00 Room Air 04/12/17 17:23 36.6 90 18 125/87 (100) 95 Room Air 04/12/17 17:13 Room Air 04/12/17 17:03 36.8 92 18 96 04/12/17 16:00 Room Air 04/12/17 15:33 36.8 92 18 121/82 (95) 96 Room Air Lab Results: Results Past 24 Hours Test 04/12/17 20:36 04/13/17 07:09 04/13/17 07:39 04/13/17 11:50 Range/Units Bedside Glucose 97 106 79 70-90 mg/dl Total Bilirubin 0.5 0.2-1 mg/dl Direct Bilirubin 0.1 0-0.2 mg/dl Aspartate Amino Transf (AST/SGOT) 17 15-37 U/L Alanine Aminotransferase (ALT/SGPT) 30 12-78 U/L Alkaline Phosphatase 98 45-117 U/L Total Protein 7.2 6.4-8.2 gm/dl Albumin 3.5 3.4-5.0 gm/dl
[2017-04-13] MEDS: BACLOFEN 10 MG TAB PO SCH ×2 (14:23→21:04)
[2017-04-13 15:44] LABS: ANTITHROMBINIII ACTIVITY** 101 % activity (80-120); B2 GLYCOPROTEIN IGA <9 SAU (<=20); B2 GLYCOPROTEIN IGG <9 SGU (<=20); B2 GLYCOPROTEIN IGM <9 SMU (<=20); LUPUS ANTICOAGULANT** TC36573X Negative (Negative); PROTEIN C ACTIVITY** TC 1777X 128 % (70-180); PROTEIN S ACT(FUNCT)**1779X 110 % (60-140)
[2017-04-13 16:22] VITALS: BP 118/83; PULSE 97; TEMP 36.9; O2SAT 96
--- NOTE | 2017-04-13 16:55 | Psychiatric Consultation ---
Consultation Date of Consultation Apr 13, 2017. Identifying Data The patient is a 46-year-old female, with medical history significant for hypertension, who presented to the emergency department with symptoms of a CVA. She was admitted for further evaluation and treatment. We are consulted to evaluate possible conversion disorder. Information is gathered from the patient, in the electronic medical record, and considered to be reliable. Chief Complaint "People think I'm crazy". History of Present Illness Elo Lovell is a 46-year-old woman, known to our mental health unit from a previous admission for depression in 2006, who is now admitted to the medical floor after presenting to the emergency department with symptoms of worsening headache 2 weeks, blurred vision, left-sided weakness, slurred speech. She [facility] presented to the [facility] and was immediately sent by ambulance to the ED due to concerns for CVA. She was placed on TPA protocol in the emergency room. She has been seen by neurology, Dr. House and Raúl, who did not think that this was a thromboembolic event but cannot rule out a migraine with aura. She has had similar symptoms in the past, but on the other side. When I see the patient today, she is seated in a wheelchair. She appears to have full range of motion of her right leg and right arm but left leg is still, left arm is still and left fist is contracted. She describes being under immense stress in recent months. She works as a personal computer network engineer full-time but is being scheduled up to 135 hours every 2 weeks. She has asked them to back down her hours which they have not and her boss had been away at the [facility] for several weeks and so she could not address it with her. Her is in support of her backing off her hours. She also feels stressed by some of the clients that she has cysts, and feels anxious going to their homes. She admits that she has had a headache for the better part of the last 2 weeks which was continuously worsening to the day of admission. She has been started on Topamax here in the hospital and says that she has not had headaches since that time. She is extremely distressed today, perceiving members of her primary team as having told her that she is "crazy" and that all of her symptoms are in her head. She is tearful, at times yelling her distress , saying that "no one would want to be in the hospital with these symptoms". She describes that her mood has been "okay" and denies any suicidal thinking. She has been extremely tired based on the number of hours that she has been working. She has had headaches on the right side of her head off and on for years and tends to believe that they may be migrainous. Her sleep is been disturbance with significant initial insomnia describing that everything is "running through my head" and she is unable to fall asleep. She experiences anxiety on a regular basis and knows so when she has a racing heart. She denies any specific triggers to her anxiety other than having to go to certain clients homes. She denies that she has ever had auditory or visual hallucinations. She does not engage in self-injurious behaviors. She has never demonstrated any eating disordered behaviors. She denies any discrete episodes of euphoric mood, sleeplessness or pleasure seeking behaviors that would be congruent with a bipolar disorder. Past Psychiatric History Current OP Treatment: no current treatment Prior OP Treatment: psychiatrist, therapist Prior Psych [facility] Suicide Attempts: Yes (By OD in 2006) Past Medication Trials Celexa, xanax Past Medical/Surgical History (1) HTN (hypertension) Allergies Allergies: Coded Allergies: Sulfa Drugs (Verified Allergy, Intermediate, HIVES, 04/08/17) Molds & Smuts (Unverified Allergy, Mild, UNKNOWN, 04/08/17) Home Medications Scheduled Aspirin (Aspirin EC Low Dose), 81 MG PO QAM Atorvastatin (Atorvastatin Calcium), 40 MG PO QAM Lisinopril (Zestril), 20 MG PO DAILY Lisinopril (Zestril), 10 MG PO DAILY Metoprolol Succ (Toprol Xl) (Toprol-Xl), 25 MG PO DAILY Topiramate (Topamax), 1 TAB PO BID Topiramate (Topamax), 1 TAB PO BID Scheduled PRN Cyclobenzaprine Hcl (Flexeril), 10 MG PO HS PRN for Muscle Spasms Epinephrine (Epipen 2-Bashir), 0.3 MG IM UD PRN for ALLERGIC REACTION Simethicone (Gas Relief), 80 MG PO QID PRN for Gas or Constipation Family History Diabetes mellitus FH: cancer FH: heart disease Hypertension History of Suicide: No History of Substance Abuse: No Psychiatric History: No Alcohol Use Alcohol Use In Past 12 Months: No Smoking Use Smoking Status: Never Smoker Substance History Denies Personal History Lives in: [place] with her and parents Education: graduated from high school Work History: Employed full-time as a personal computer network engineer Relationship History: (for 26 years) Children: [id number] son Legal History: none Psychological Trauma History: Denies Hx Traumatic Event Review of Systems Constitutional: other (fatigue) Eyes: denies: no symptoms, as stated in HPI, eye pain, tearing, itching, redness, discharge, double vision, visual changes, blurred vision, photophobia, other ENT: denies: no symptoms reported, see HPI, ear pain, ear discharge, loss of hearing, tinnitus, nasal pain, nasal congestion, rhinorrhea, epistaxis, sore throat, stidor, throat swelling, mouth pain, mouth swelling, dental pain, gum swelling, other Cardiovascular: denies: no symptoms reported, see HPI, chest pain, chest tightness, chest pressure, diaphoresis, palpitations, syncope, other Respiratory: denies: no symptoms reported, see HPI, cough, orthopnea, short of breath, stridor, wheezing, sputum production, cyanosis, BARBOSA, PND, other Gastrointestinal: denies no symptoms reported, denies see HPI, denies abdominal pain, denies constipation, denies diarrhea, denies nausea, denies vomiting, denies other Musculoskeletal: other (residual left sided weakness) Integumentary: denies no symptoms reported, denies see HPI, denies change in color, denies change in hair/nails, denies dryness, denies lesions, denies lumps , denies rash, denies other Neurologic: reports: other (left sided weakness) Endocrine: denies: no symptoms, as stated in HPI, cold intolerance, heat intolerance, hair changes, goiter, polydipsia, polyuria, skin changes, other Hematologic / Lymphatic: denies: no symptoms, as stated in HPI, abnormal clotting, adenopathy, anemia, easy bleeding, easy bruising, gums bleeding, petechiae, other Examination Physical Examination As per Dr. Mercedes Vital Signs Vital Signs Past 12 Hours Date Time Temp Pulse Resp B/P (MAP) Pulse Ox O2 Delivery O2 Flow Rate FiO2 04/13/17 16:22 36.9 97 18 118/83 (95) 96 Room Air 04/13/17 08:05 36.8 73 18 126/85 (99) 96 Room Air 04/13/17 08:00 Room Air Laboratory Results Last 24 Hours Test 04/12/17 20:36 04/13/17 07:09 04/13/17 07:39 04/13/17 11:50 Bedside Glucose 97 mg/dl 106 mg/dl 79 mg/dl Total Bilirubin 0.5 mg/dl Direct Bilirubin 0.1 mg/dl Aspartate Amino Transf (AST/SGOT) 17 U/L Alanine Aminotransferase (ALT/SGPT) 30 U/L Alkaline Phosphatase 98 U/L Total Protein 7.2 gm/dl Albumin 3.5 gm/dl Mental Examination During interview pt is: alert and oriented, cooperative Appearance: appropriately groomed Eye contact is: good Motor behavior is: other (left sided weakness with contracted left hand, full range of motion of right leg and arm) Speech: loud (at times when angry) Affect: tearful, angry Mood is: angry Thought process: goal directed Thought content: reality based without delusions Suicidal thought are: denied Homicidal thoughts are: denied Hallucinations: denies auditory, denies visual Cognition: memory grossly intact, attention grossly intact, language grossly intact Intelligence estimated to be: below average Insight: poor Judgement: poor Impression / Recommendations Impression 46-year-old woman admitted to the hospital with symptoms of a stroke. She received TP a and CVA has been ruled out. Neurology has been consulted and cannot rule out a migrainous process with our up. We have been asked to see her to rule out a conversion disorder which we cannot do until all other organic causes for her symptoms have been ruled out. What I can tell you is that she has been under a great deal of stress at work and feels she has no control over that. It is certainly possible that she is converting her emotional distress into a physical symptom but we cannot make that connection until the migraine with aura has been ruled out. I have spent time talking with her about conversion disorder in an attempt to let her know that no one thinks that she is "crazy". I told her we acknowledge that her symptoms are very real but may have a significant stress component to them. She denies that she has been feeling stressed and does not give me indication to prescribe an antidepressant. She is anxious to break free of her symptoms and is pushing herself emotionally to "just do it" which I think is only putting more pressure on her. I am suggesting that she have a period away from work and then return to work with only 40 hours a week until she has seen a significant period of stability. This I will leave to be attending team or to the people who will be discharging her from what ever nursing facility she will be transferring to. She seems to have grasped the notion that her body is giving her a message that she has been under too much stress. There is no indication for inpatient hospitalization. I will order Ativan 0.5 mg twice a day when necessary for use here in the hospital as she is overly distraught about people's perceptions of her symptoms. Inventory Assets Strengths: Supportive family, is employed multimedia production assistant Needs: To set good limits with work Risk Factors Assessment : Yes /single/: No Higher / Fall in social status: No Access to guns: Yes Health problems: Yes Mental Health Diagnoses: Yes Substance use disorders: No Previous attempt: Yes Previous psychiatric stay: Yes Hopelessness: No Smoker: No Protective Factors Assessment : Yes Responsible for young children: No Employed: Yes Stable relationships: Yes Supportive family: Yes Recommendations (1) psychological factors affecting other medical conditions 04/13 - Cannot diagnosed with conversion disorder until other organic causes have been ruled out. -She is willing to accept a psychological interpretation for her symptoms as that of being a stress reaction. - She denies that her mood has been significantly depressed and so I do not see room for an antidepressant at this time. - I will take the liberty of ordering Ativan 0.5 mg twice a day when necessary anxiety for use here in the hospital only -I would recommend that she take a week off of work post discharge and then return to work with a 40 hour limitation until she has had a significant period of stability and cleared by her outpatient PCP Has been reviewed with Dr. Nisreen Taylor
[2017-04-13] MEDS ORDERED: LORAZEPAM 0.5 MG TAB PO PRN (17:00)
--- NOTE | 2017-04-13 17:39 | DIAGNOSTIC IMAGING REPORT ---
BRAIN WITHOUT CONTRAST HISTORY: 46 years-old Female acute headache with strokelike symptoms. COMPARISON: CT head 04/09/2017, brain MRI 04/09/2017. TECHNIQUE: Multiplanar multisequence MRI of the brain was obtained without contrast. FINDINGS: The large [id number] localizer images demonstrates no gross abnormality. There is no restricted diffusion to suggest acute infarction. The midline structures including the corpus callosum, brainstem, optic chiasm, pituitary and peroneal glands are unremarkable. There is no evidence of cerebellar tonsillar herniation. The imaged upper cervical spine is unremarkable. No acute intracranial hemorrhage, midline shift, abnormal extra-axial collections, hydrocephalus or intracranial mass. The major flow voids at the level of the skull base appear patent. Moderate right sphenoid sinus disease has developed in the interval. Minimal maxillary and ethmoid sinus disease also noted. The mastoid air cells are generally clear. IMPRESSION: 1. No acute intracranial abnormality. 2. Interval development of moderate right sphenoid sinus disease. The above report was generated using voice recognition software. It may contain grammatical, syntax or spelling errors. Electronically signed by: Grupo Robins M.D. 04/13/2017 5:38 PM Dictated Date/Time: 04/13/2017 5:34 PM
--- NOTE | 2017-04-13 18:22 | DIAGNOSTIC IMAGING REPORT ---
CERVICAL WITHOUT CONTRAST HISTORY: 46 years-old Female acute left-sided weakness. COMPARISON: MRI cervical spine 12/25/2013 TECHNIQUE: Multiplanar multisequence MRI of the cervical spine was obtained without contrast. FINDINGS: Large [id number] localizer images demonstrate no gross abnormality of the thorax, head or neck. Right sided sphenoid sinus disease is partially imaged. Circumscribed T1 hyperintense lesion within the T3 vertebral body is unchanged suggesting hemangioma. No aggressive features. There is no focal bone marrow edema or fracture identified. Signal within the cord is within normal limits. Imaged posterior fossa structures are unremarkable. C2-C3: Minimal uncovertebral spurring without significant central canal or foraminal narrowing. No change. C3-C4: Mild uncovertebral spurring without central canal or foraminal narrowing. No change. C4-C5: Mild uncovertebral spurring without central canal or foraminal narrowing. No change. C5-C6: Moderate intervertebral disc space narrowing with marginal spurring and a broad-based posterior disc osteophyte complex favoring the left lateral recess and left foramen is again seen causing mild to moderate central canal, moderate left lateral recess and mild left foraminal stenosis. Right foramen is generally patent. Modic type II endplate changes are noted. No significant change from 12/15/2013. C6-C7: Uncovertebral spurring with broad-based posterior disc bulge. No central canal or foraminal narrowing. No change. C7-T1: No central canal or foraminal narrowing. No change. Left paracentral disc osteophyte complex at T2-T3 is unchanged causing mild left lateral recess narrowing as seen on the sagittal imaging alone. IMPRESSION: 1. No acute abnormality identified involving the cervical spine. No fracture. 2. At C5-C6, intervertebral disc space narrowing with a broad-based posterior disc osteophyte complex favoring the left lateral recess and left foramen is again seen causing mild to moderate central canal, moderate left lateral recess and mild left foraminal stenosis. These findings appear unchanged from comparison MRI cervical spine dated 12/15/2013. 3. Right-sided sphenoid sinus disease incidentally noted. The above report was generated using voice recognition software. It may contain grammatical, syntax or spelling errors. Electronically signed by: Grupo Robins M.D. 04/13/2017 6:21 PM Dictated Date/Time: 04/13/2017 6:11 PM
[2017-04-13] MEDS ORDERED: IBUPROFEN 200 MG TAB PO PRN (19:45)
[2017-04-13] MEDS ORDERED: TRAMADOL HCL 50 MG TAB PO PRN (19:45)
--- NOTE | 2017-04-13 19:47 | PROGRESS NOTE ---
DATE: 04/13/2017 SUBJECTIVE: I have contacted by Dr. Mercedes today about the patient. We had not been following as I thought she had been transferred to rehabilitation, but there have been some placement issues. Went to see her today twice and she was not in her room. She complained of increased weakness and numbness on the left side and a very stiff and spastic left hand. Still with some distraction. She was somewhat stronger than she had otherwise appeared. When contacted by Dr. Mercedes, I recommended that he perform an MRI of the cervical spine and a repeat MRI of the brain. They have been performed by now and they are grossly normal. There is nothing on the MRI of the brain or cervical apinethat would explain her symptoms, and the MRI of the brain is normal. I suspect the patient is having a conversion reaction related to personal stressors. I did speak to Dr. Mercedes about trying a little bit of baclofen to see if that decreased the tone in her left hand. The patient should see us in followup post -discharge. I think she does need inpatient rehabilitation as she has had ongoing neurologic deficit. BLU
[2017-04-13 23:18] VITALS: BP 111/72; PULSE 73; TEMP 36.7; O2SAT 95
[2017-04-14 07:25] VITALS: BP 123/79; PULSE 74; TEMP 36.7; O2SAT 96
[2017-04-14] MEDS: TOPIRAMATE 25 MG TAB PO SCH (09:40)
[2017-04-14] MEDS: PANTOprazole SOD 40 MG TAB PO SCH (09:40)
[2017-04-14] MEDS: BACLOFEN 10 MG TAB PO SCH (09:40)
[2017-04-14] MEDS: ATORVASTATIN 40 MG TAB PO SCH (09:40)
[2017-04-14] MEDS: ASPIRIN 81 MG ECTAB PO SCH (09:40)
[2017-04-14] MEDS: ACETAMINOPHEN 325 MG TAB PO PRN (12:33)
--- NOTE | 2017-04-14 12:35 | Progress Note ---
Internal Med Progress Note Date of Service: Apr 14, 2017. Provider Documentation: SUBJECTIVE: Seen and examined at bedside. states feeling better today Stiffness in left upper extremity much improved and speech more fluent today Has mild Headache Eager to get discharged OBJECTIVE: Vital Signs-as noted below Physical Exam: General Appearance:Moderately built and nourished, no apparent distress Head: normocephalic, Atraumatic Eyes: normal inspection, EOMI Neck: supple, Trachea midline Respiratory/Chest: Normal breath sounds, CTA Cardiovascular: S1, S2, No murmur Abdomen/GI:Soft, Non tender, Bowel sounds present Extremities/Musculoskelatal:normal inspection, no edema Neurologic/Psych: motor 3-4/5 LUE and 4/5 LLE Skin: normal color, warm Lab data as noted below. ASSESSMENT & PLAN: Patient is a 46 yr female with history of Hypertension presenting with slurred speech and left sided weakness. Stroke like symptoms Presented with episode of slurred speech and left sided weakness Likely complicate migraine S/P TPA on 04/08/17 Brain MRI, Brain MRA, Carotid US: unremarkable Repeat CT head: negative Appreciate Neurology Input:Dr. House and Dr. Castro Continue Topamax 25mg bid x 1 week, then 50mg BID Continue Aspirin, Lipitor Discussed with regarding change in symptoms Repeat MRI Brain/Neck: no acute process Continue Baclofen 10mg BID Consult Psychiatry for possible conversion disorder Hypertension presented with Hypertension Received Labetalol, Nicardipine stable off usual Metoprolol and Lisinopril Plan to resume Metoprolol and/or Lisinopril if necessary Diarrhea no C diff resolved Disposition: Plan to discharge to Rehab today Follow up with in 1 week after being discharged from [facility] Follow up with Neurologist Dr. House or Dr. Castro in 2 weeks Follow up with your Psychiatrist as needed. Vital Signs: Date Time Temp Pulse Resp B/P (MAP) Pulse Ox O2 Delivery O2 Flow Rate FiO2 04/14/17 10:37 Room Air 04/14/17 07:25 36.7 74 16 123/79 (94) 96 Room Air 04/14/17 00:00 Room Air 04/13/17 23:18 36.7 73 20 111/72 (85) 95 Room Air 04/13/17 16:22 36.9 97 18 118/83 (95) 96 Room Air 04/13/17 16:00 Room Air Lab Results: Results Past 24 Hours Test 04/13/17 16:39 04/14/17 07:50 04/14/17 11:26 Range/Units Bedside Glucose 111 100 128 70-90 mg/dl
[2017-04-14 13:28] VITALS: BP 123/79; PULSE 74; TEMP 36.7; O2SAT 96
--- NOTE | 2017-04-14 15:10 | PROGRESS NOTE ---
DATE: 04/14/2017 Elo is going off to [facility] this afternoon. I refer the reader to Dr. Castro's notation of yesterday regarding the spasms of the left arm and the notations of the essentially normal MRIs of the cervical spine. She was put on some baclofen. She is on Topamax. Her headache seems to be better and overall her mood is good. Her speech still has a peculiar hesitancy to it, but there are no word finding deficits. The left arm is held in a flexed posture and may have a little bit of excessive tone, but again there are variable degrees of weakness consistent in my mind with a underlying more functional hemiparesis than organic. Hopefully, with tincture of time and a little rehabilitation efforts at [facility] she will get back to her baseline and she is going to follow up with Dr. Castro in the clinic several weeks after she is discharged from [facility] or within a month or so of her discharge from here assuming that she is not in [facility] for a prolonged interval MTDD
== END 2017-04-14 15:00 | DRG 103 ==
LOC: EDBD 17:58 → C.ED 18:00 → C.MSICU 19:46 → ENRESERV 20:14 → C.2T 04-10 18:44 → ENRESERV 04-12 16:24 → C.MS2W 04-12 17:05
PROVIDERS: ADMIT Hospitalist; ATTEND Internal Medicine
DX: G43.109 Migraine with aura, not intractable, without status migrainosus (principal); Z68.41 Body mass index [BMI] 40.0-44.9, adult; I10 Essential (primary) hypertension; E11.9 Type 2 diabetes mellitus without complications; F41.9 Anxiety disorder, unspecified; J45.909 Unspecified asthma, uncomplicated; E66.9 Obesity, unspecified; Z83.3 Family history of diabetes mellitus; Z80.9 Family history of malignant neoplasm, unspecified; Z82.49 Family history of ischemic heart disease and other diseases of the circulatory system

== ENCOUNTER 2017-09-15 06:36 | Emergency (ER) | payer BC ==
[~2017-09-15 06:36] MED LIST changes: +ASPEC81 PO; -CIPR-255 PO; +CYCL10TA6 PO; -LISI-461 PO; +LPT40 PO; +SIME1CHW17 PO; +TOPI25TA10 PO; +TOPI50TA24 PO
[2017-09-15 06:40] VITALS: TEMP 36.7; Ht 167.6 cm
[2017-09-15] MEDS ORDERED: PROCHLORPERAZINE 5 MG/ML 2 ML VIAL IV STA (06:50)
[2017-09-15] MEDS ORDERED: KETOROLAC TROMETHAMINE 30 MG/ML VIAL IV STA (06:50)
[2017-09-15] MEDS ORDERED: DiphenhydrAMINE HCL 50 MG/ML VIAL IV STA (06:50)
--- NOTE | 2017-09-15 07:44 | EMERGENCY ROOM VISIT NOTE ---
History Report prepared by Kamini: Clark Razo Under the Supervision of: Dr. Bradley Jansen D.O. First contact with patient: 06:39 Chief Complaint: STROKE SYMPTOMS Stated Complaint: STROKE SYMPTOMS History of Present Illness The patient is a 47 year old female who presents to the Emergency Room with complaints of persistent headache for two days [employer]. She reports a headache through stuttered words. She states that it has been hurting for two days. She currently rates her pain a 9/10 in severity. Per , the patient's stuttered speech began this morning. She states that she has been taking medication prescribed to her for migraines. She believes it is Topamax, which she is taking twice a day. She notes the headaches were improving, though they have returned. She was seen in the ED in March 2017 for similar symptoms. She believes this migraine is worse than before. Source of History: patient, spouse/significant other Onset: two days [employer] Position: head Symptom Intensity: 9/10 Quality: ache Timing: other (persistent) Note: She notes stuttered speech. Review of Systems See HPI for pertinent positives & negatives. A total of 10 systems reviewed and were otherwise negative. 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 [employer] Family History Diabetes mellitus FH: cancer FH: heart disease Hypertension Social History Smoking Status: Never Smoker Alcohol Use: none Drug Use: none Marital Status: Housing Status: lives with family Occupation Status: employed Current/Historical Medications Scheduled Aspirin (Aspirin EC Low Dose), 81 MG PO QAM Atorvastatin (Lipitor), 40 MG PO QAM Topiramate (Topamax), 1 TAB PO BID Scheduled PRN Cyclobenzaprine Hcl (Flexeril), 10 MG PO HS PRN for Muscle Spasms Epinephrine (Epipen 2-Bashir), 0.3 MG IM UD PRN for ALLERGIC REACTION Allergies Coded Allergies: Sulfa Drugs (Verified Allergy, Intermediate, HIVES, 09/15/17) Molds & Smuts (Unverified Allergy, Mild, UNKNOWN, 09/15/17) Physical Exam Vital Signs Date Time Temp Pulse Resp B/P (MAP) Pulse Ox O2 Delivery O2 Flow Rate FiO2 09/15/17 06:56 75 09/15/17 06:40 36.7 95 18 177/99 100 Room Air Physical Exam VITAL SIGNS: were reviewed as above. GENERAL:Non-toxic in appearance. Stuttered speech. SKIN: Warm dry and pink. HEAD: Normocephalic and atraumatic. OROPHARYNX: Is clear and moist NECK: Supple without lymphadenopathy or meningismus. LUNGS: clear. HEART: Regular rate and rhythm. ABDOMEN: Soft and nontender. EXTREMITIES: Warm and well perfused. NEUROLOGICALLY: Awake alert and oriented without focal deficit. Cranial nerves 2 -12 are intact. There is no pronator drift. Cerebellar testing is within normal limits. There is no nystagmus. There is no facial droop. Speech is clear. Vision is grossly normal. MUSCULOSKELETAL: Good muscle tone. No evidence of trauma. Medical Decision & Procedures Medications Administered Medications (Trade) Dose Ordered Sig/Everardo Route Start Time Stop Time Status Last Admin Dose Admin Ketorolac Tromethamine (Toradol Inj) 30 mg NOW STAT IV 09/15/17 06:50 09/15/17 06:52 DC 09/15/17 07:03 30 MG Prochlorperazine Edisylate (Compazine Inj) 10 mg NOW STAT IV 09/15/17 06:50 09/15/17 06:52 DC 09/15/17 07:03 10 MG Diphenhydramine HCl (Benadryl Inj) 50 mg NOW STAT IV 09/15/17 06:50 09/15/17 06:52 DC 09/15/17 07:03 50 MG ED Course 0642: Previous medical records were reviewed. The patient was evaluated in room B11B. A complete history and physical examination was performed. 0650: Ordered Benadryl 50 mg IV, Compazine 10 mg IV, and Toradol 30 mg IV 0738: I reassessed the patient at this time. She is feeling better. Her speech is mostly normal. I discussed the results and treatment plan with the patient. I answered all pertaining questions that she had. She expressed understanding and verbalized agreement. The patient will be discharged home. Medical Decision Differential includes: Acute intracranial bleed, trauma, meningitis, encephalitis, increased intracranial pressure, mass or mass effect, facial or dental infection, temporal arteritis, CVA, TIA, acute hypertensive emergency, sinusitis, carbon monoxide exposure. This is a 47-year-old female who presents to the ED with a chief complaint of migraine headache. The patient states that her migraine is similar to previous migraines it is on the right side. She also has associated stuttering. This is happened to her in the past. The patient is currently on Topamax for her migraines. She tried her Topamax but it did not seem to help. She has had the symptoms for a couple of days. Initial blood pressure was somewhat elevated. This is likely situational. The patient's exam revealed no neurologic deficit. The patient does have some stuttering. She has no other abnormal findings on exam. The patient was treated with Toradol 30 mg IV, Benadryl 50 mg IV and Compazine 10 mg IV. On reassessment, the patient states that her headache seems to be mostly improved. Her stuttering has also mostly improved. There is a small amount of residual stuttering. The patient is felt to be stable for discharge. She is to contact her neurologist for further evaluation and follow- up. Medication Reconcilliation Current Medication List: was personally reviewed by me Blood Pressure Screening Patient's blood pressure: Elevated blood pressure Blood pressure disposition: Elevated BP felt to be situational Impression Primary Impression: Migraine Additional Impression: Stuttered speeh w/headache Scribe Attestation The scribe's documentation has been prepared under my direction and personally reviewed by me in its entirety. I confirm that the note above accurately reflects all work, treatment, procedures, and medical decision making performed by me. Departure Information Dispostion Home / Self-Care Referrals Orlin Mccauley M.D. (PCP) Forms HOME CARE DOCUMENTATION FORM, IMPORTANT VISIT INFORMATION Patient Instructions ED Headache Migraine, My [facility] Additional Instructions Follow-up with your neurologist. Call today for an appointment. Follow-up with your doctor for further care and evaluation in 1-2 days. Return to the emergency department for worsening or new symptoms or any concerns. You have been examined and treated today on an emergency basis only. This is not a substitute for, or an effort to provide, complete comprehensive medical care. It is impossible to recognize and treat all injuries or illnesses in a single emergency department visit. It is therefore important that you follow up closely with your doctor. Call as soon as possible for an appointment. Problem Qualifiers
[2017-09-15 08:05] VITALS: BP 122/67; PULSE 66; O2SAT 95
== END 2017-09-15 08:06 | disposition home or self-care (01) ==
LOC: C.EDB 06:36
DX: G43.909 Migraine, unspecified, not intractable, without status migrainosus (principal); R47.89 Other speech disturbances; J45.909 Unspecified asthma, uncomplicated; F41.9 Anxiety disorder, unspecified; Z86.73 Personal history of transient ischemic attack (TIA), and cerebral infarction without residual deficits; E11.9 Type 2 diabetes mellitus without complications; I10 Essential (primary) hypertension; Z83.3 Family history of diabetes mellitus; Z82.49 Family history of ischemic heart disease and other diseases of the circulatory system; Z79.82 Long term (current) use of aspirin; Z79.899 Other long term (current) drug therapy

== ENCOUNTER 2017-09-24 13:06 | Observation (INO) | payer BC ==
[~2017-09-24] VITALS: Ht 167.6 cm; Wt 96.3 kg
[~2017-09-24 13:06] MED LIST changes: -SIME1CHW17 PO; -TOPI25TA10 PO
[2017-09-24] MEDS ORDERED: DiphenhydrAMINE HCL 50 MG/ML VIAL IV STA (13:42)
[2017-09-24] MEDS ORDERED: SODIUM CHLORIDE 0.9% 1000ML 1,000 ML IV STA (13:42)
[2017-09-24] MEDS ORDERED: PROCHLORPERAZINE 5 MG/ML 2 ML VIAL IV STA (13:42)
[2017-09-24] MEDS ORDERED: KETOROLAC TROMETHAMINE 30 MG/ML VIAL IV STA (13:42)
[2017-09-24 14:12] LABS: BASO % 0.1 %; BASO ABS # 0.01 K/uL (0-0.2); EOS % 0.6 %; EOS ABS # 0.05 K/uL (0-0.5); HEMATOCRIT 43.7 % (37-47); HEMOGLOBIN 15.6 g/dL (12.0-16.0); IG# 0.02 K/uL (0.00-0.02); LYMPH % 25.1 %; LYMPH ABS # 2.14 K/uL (1.2-3.4); MEAN CELL VOLUME 87.4 fL (80-100); MEAN CORPUSCULAR HEMOGLOBIN 31.2 pg (25-34); MEAN CORPUSCULAR HGB CONC 35.7 g/dl (32-36); MEAN PLATELET VOLUME 9.8 fL (7.4-10.4); MONO % 6.3 %; MONO ABS # 0.54 K/uL (0.11-0.59); NEUT % 67.7 %; NEUT ABS # 5.75 K/uL (1.4-6.5); PLATELET COUNT 243 K/uL (130-400); RED CELL DISTRIBUTION WIDTH CV 12.4 % (11.5-14.5); RED CELL DISTRIBUTION WIDTH SD 39.8 fL (36.4-46.3); WHITE BLOOD COUNT 8.51 K/uL (4.8-10.8)
[2017-09-24 14:22] LABS: ALBUMIN 3.8 gm/dl (3.4-5.0); ALT/SGPT 27 U/L (12-78); AST/SGOT 11 U/L (15-37); BLOOD UREA NITROGEN 14 mg/dl (7-18); CALCIUM 8.7 mg/dl (8.5-10.1); CARBON DIOXIDE 24 mmol/L (21-32); CREATININE 0.75 mg/dl (0.60-1.20); GLUCOSE 86 mg/dl (70-99); LIPASE 159 U/L (73-393); POTASSIUM 3.6 mmol/L (3.5-5.1); SODIUM 138 mmol/L (136-145)
--- NOTE | 2017-09-24 14:23 | DIAGNOSTIC IMAGING REPORT ---
HEAD WITHOUT CONTRAST (CT) CT DOSE: 537.48 mGy.cm HISTORY: Mental status change HERRERA and l weakness TECHNIQUE: Multiaxial CT images of the head were performed without the use of intravenous contrast. A dose lowering technique was utilized adhering to the principles of ALARA. Comparison: 04/09/2017 Findings: The paranasal sinuses and mastoid air cells are clear. The calvarium and skull base are intact. The ventricles and sulci are within normal limits. There is no mass, hematoma, midline shift, or acute infarct. Impression: No acute intracranial abnormality. The above report was generated using voice recognition software. It may contain grammatical, syntax or spelling errors. Electronically signed by: Ruddy Orourke M.D. 09/24/2017 2:22 PM Dictated Date/Time: 09/24/2017 2:21 PM
[2017-09-24 14:25] LABS: ALKALINE PHOSPHATASE 129 U/L (45-117)
[2017-09-24] MEDS ORDERED: LISI-461 PO (15:35)
[2017-09-24] MEDS ORDERED: TOPI50TA16 PO (15:35)
[2017-09-24] MEDS ORDERED: METO25TA4 PO (15:35)
[2017-09-24] MEDS ORDERED: ONDANSETRON INJ 2 MG/ML 2 ML VIAL IV PRN (15:45)
[2017-09-24] MEDS ORDERED: VERAPAMIL HCL 40 MG TAB PO ONE (15:45)
[2017-09-24 16:14] LABS: PTT PATIENT 27.2 SECONDS (21.0-31.0)
[2017-09-24 17:00] VITALS: BP 114/73; PULSE 66; TEMP 36.6; O2SAT 96; Ht 167.6 cm; Wt 96.3 kg
[2017-09-24] MEDS ORDERED: IV FLUIDS COMPLETED PRN (17:30)
[2017-09-24] MEDS: SODIUM CHLORIDE 0.9% 1000ML 1,000 ML IV SCH (18:09)
--- NOTE | 2017-09-24 19:04 | EMERGENCY ROOM VISIT NOTE ---
History Report prepared by Kamini: Sachin Wooten Under the Supervision of: Dr. Declan Khan D.O. First contact with patient: 13:31 Chief Complaint: OTHER COMPLAINT Stated Complaint: HERRERA, SHAKEY,COLD,NERVOUS, SICK IN STOMACH History of Present Illness The patient is a 47 year old female who presents to the Emergency Room with complaints of a persistent right-sided headache that began two days ago. She rates her pain an 8/10 in severity. She has a past medical history of migraines that began this past summer, about 8 months ago. When she would experience her headaches, she would get them about once a week. She describes her current headache as a thumping sensation and as a normal migraine. A couple of days ago , the patient began to have this persistent thumping headache with associated nausea. She tried her normal medications and Excedrin with no relief. She is having noise and light sensitivity as well. She notes some mild weakness to her left leg that began when her headache began as well. This morning, she began having some burning with urination and urgency. Pt denies change in vision, rhinorrhea, sore throat, fevers, cough, chest pain, shortness of breath, abdominal pain, vomiting, diarrhea, and melena. Source of History: patient Onset: two days ago Position: head Symptom Intensity: 8/10 Quality: other (Thumping) Timing: constant Associated Symptoms: + nausea, + weakness (left leg), No fevers, No sorethroat, No cough, No chest pain, No SOB, No vomiting, No abdominal pain, No melena, No diarrhea Note: She is having some light and noise sensitivity. Review of Systems See HPI for pertinent positives & negatives. A total of 10 systems reviewed and were otherwise negative. 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 [employer]UFA[employer]IC[employer] Family History Diabetes mellitus FH: cancer FH: heart disease Hypertension Social History Smoking Status: Never Smoker Alcohol Use: none Drug Use: none Marital Status: Housing Status: lives with family Occupation Status: employed Current/Historical Medications Scheduled Aspirin (Aspirin EC Low Dose), 81 MG PO QAM Atorvastatin (Lipitor), 40 MG PO QAM Lisinopril (Zestril), 10 MG PO DAILY Metoprolol Succinate (Toprol Xl), 25 MG PO DAILY Topiramate (Topamax), 50 MG PO BID Scheduled PRN Cyclobenzaprine Hcl (Flexeril), 10 MG PO HS PRN for Muscle Spasms Epinephrine (Epipen 2-Bashir), 0.3 MG IM UD PRN for ALLERGIC REACTION Allergies Coded Allergies: Sulfa Antibiotics (Verified Allergy, Intermediate, HIVES, 09/24/17) Molds & Smuts (Unverified Allergy, Mild, UNKNOWN, 09/24/17) Physical Exam Vital Signs Date Time Temp Pulse Resp B/P (MAP) Pulse Ox O2 Delivery O2 Flow Rate FiO2 09/24/17 14:45 72 18 119/66 98 Room Air 09/24/17 13:24 36.9 96 20 151/98 99 Room Air Physical Exam GENERAL: Sitting up in bed, alert, well appearing, well nourished, no distress, non-toxic EYE EXAM: normal conjunctiva. PERRL and EOM's intact. OROPHARYNX: no exudate, no erythema, lips, buccal mucosa, and tongue normal and mucous membranes are moist NECK: supple, no nuchal rigidity, no adenopathy, non-tender LUNGS: Clear to auscultation. Normal chest wall mechanics HEART: no murmurs, S1 normal and S2 normal ABDOMEN: abdomen soft, non-tender, normo-active bowel sounds, no masses, no rebound or guarding. BACK: Back is symmetrical on inspection and there is no deformity, no midline tenderness, no CVA tenderness. SKIN: no rashes and no bruising UPPER EXTREMITIES: upper extremities are grossly normal. LOWER EXTREMITIES: No pitting edema. NEURO EXAM: Normal sensorium, cranial nerves II-XII intact, normal speech, strength 5/5 of bilateral upper extremities, flexion and extension at the left hip, knee, and ankle 4/5 in LLE. Right lower extremity 5/5. No drift. Finger to nose intact. Gross sensation intact. Medical Decision & Procedures ER Provider Diagnostic Interpretation: Radiology results as stated below per my review and the radiologist's interpretation: HEAD WITHOUT CONTRAST (CT) CT DOSE: 537.48 mGy.cm HISTORY: Mental status change HERRERA and l weakness TECHNIQUE: Multiaxial CT images of the head were performed without the use of intravenous contrast. A dose lowering technique was utilized adhering to the principles of ALARA. Comparison: 04/09/2017 Findings: The paranasal sinuses and mastoid air cells are clear. The calvarium and skull base are intact. The ventricles and sulci are within normal limits. There is no mass, hematoma, midline shift, or acute infarct. Impression: No acute intracranial abnormality. The above report was generated using voice recognition software. It may contain grammatical, syntax or spelling errors. Electronically signed by: Ruddy Orourke M.D. 09/24/2017 2:22 PM Dictated Date/Time: 09/24/2017 2:21 PM Laboratory Results 09/24/17 14:00 Red Blood Count 5.00, Mean Corpuscular Volume 87.4, Mean Corpuscular Hemoglobin 31.2, Mean Corpuscular Hemoglobin Concent 35.7, Mean Platelet Volume 9.8, Neutrophils (%) (Auto) 67.7, Lymphocytes (%) (Auto) 25.1, Monocytes (%) (Auto) 6.3, Eosinophils (%) (Auto) 0.6, Basophils (%) (Auto) 0.1, Neutrophils # (Auto) 5.75, Lymphocytes # (Auto) 2.14, Monocytes # (Auto) 0.54, Eosinophils # (Auto) 0.05, Basophils # (Auto) 0.01 09/24/17 14:00 Test 09/24/17 14:00 White Blood Count 8.51 K/uL (4.8-10.8) Red Blood Count 5.00 M/uL (4.2-5.4) Hemoglobin 15.6 g/dL (12.0-16.0) Hematocrit 43.7 % (37-47) Mean Corpuscular Volume 87.4 fL (80-100) Mean Corpuscular Hemoglobin 31.2 pg (25-34) Mean Corpuscular Hemoglobin Concent 35.7 g/dl (32-36) Platelet Count 243 K/uL (130-400) Mean Platelet Volume 9.8 fL (7.4-10.4) Neutrophils (%) (Auto) 67.7 % Lymphocytes (%) (Auto) 25.1 % Monocytes (%) (Auto) 6.3 % Eosinophils (%) (Auto) 0.6 % Basophils (%) (Auto) 0.1 % Neutrophils # (Auto) 5.75 K/uL (1.4-6.5) Lymphocytes # (Auto) 2.14 K/uL (1.2-3.4) Monocytes # (Auto) 0.54 K/uL (0.11-0.59) Eosinophils # (Auto) 0.05 K/uL (0-0.5) Basophils # (Auto) 0.01 K/uL (0-0.2) RDW Standard Deviation 39.8 fL (36.4-46.3) RDW Coefficient of Variation 12.4 % (11.5-14.5) Immature Granulocyte % (Auto) 0.2 % Immature Granulocyte # (Auto) 0.02 K/uL (0.00-0.02) Prothrombin Time 10.3 SECONDS (9.0-12.0) Prothromb Time International Ratio 1.0 (0.9-1.1) Activated Partial Thromboplast Time 27.2 SECONDS (21.0-31.0) Partial Thromboplastin Ratio 1.0 Urine Color YELLOW Urine Appearance CLEAR (CLEAR) Urine pH 6.0 (4.5-7.5) Urine Specific [place] 1.019 (1.000-1.030) Urine Protein NEG (NEG) Urine Glucose (UA) NEG (NEG) Urine Ketones NEG (NEG) Urine Occult Blood NEG (NEG) Urine Nitrite NEG (NEG) Urine Bilirubin NEG (NEG) Urine Urobilinogen NEG (NEG) Urine Leukocyte Esterase TRACE (NEG) Urine WBC (Auto) 1-5 /hpf (0-5) Urine RBC (Auto) 0-4 /hpf (0-4) Urine Hyaline Casts (Auto) 0 /lpf (0-5) Urine Epithelial Cells (Auto) 10-20 /lpf (0-5) Urine Bacteria (Auto) NEG (NEG) Urine Test NEG (NEG) Anion Gap 10.0 mmol/L (3-11) Est Creatinine Clear Calc Drug Dose 120.2 ml/min Estimated GFR () 111.6 Estimated GFR (Non- 96.3 BUN/Creatinine Ratio 18.9 (10-20) Calcium Level 8.7 mg/dl (8.5-10.1) Magnesium Level 2.0 mg/dl (1.8-2.4) Total Bilirubin 0.4 mg/dl (0.2-1) Direct Bilirubin < 0.1 mg/dl (0-0.2) Aspartate Amino Transf (AST/SGOT) 11 U/L (15-37) Alanine Aminotransferase (ALT/SGPT) 27 U/L (12-78) Alkaline Phosphatase 129 U/L (45-117) Total Protein 8.0 gm/dl (6.4-8.2) Albumin 3.8 gm/dl (3.4-5.0) Lipase 159 U/L (73-393) Thyroid Stimulating Hormone (TSH) 2.400 uIu/ml (0.300-4.500) Laboratory results per my review. Medications Administered Medications (Trade) Dose Ordered Sig/Everardo Route Start Time Stop Time Status Last Admin Dose Admin Sodium Chloride 1,000 ml @ 999 mls/hr Q1H1M STAT IV 09/24/17 13:42 09/24/17 14:42 DC 09/24/17 13:55 999 MLS/HR Prochlorperazine Edisylate (Compazine Inj) 10 mg NOW STAT IV 09/24/17 13:42 09/24/17 13:43 DC 09/24/17 13:54 10 MG Ketorolac Tromethamine (Toradol Inj) 30 mg NOW STAT IV 09/24/17 13:42 09/24/17 13:43 DC 09/24/17 13:54 30 MG Diphenhydramine HCl (Benadryl Inj) 50 mg NOW STAT IV 09/24/17 13:42 09/24/17 13:43 DC 09/24/17 13:55 50 MG ED Course ED COURSE: Vital signs were reviewed and showed situational hypertension The patients medical record was reviewed and showed that she received TPA during and inpatient stay on 04/13/17. The above diagnostic studies were performed and reviewed. ED treatments and interventions as stated above. 1331: The patient was evaluated in room A2. A complete history and physical examination was performed. 1342: Ordered Benadryl Inj 50 mg IV, Toradol Inj 30 mg IV, Compazine Inj 10 mg IV, Sodium Chloride 1000 ml @ 999 mls/hr IV 1507: Upon reevaluation, the patient is resting.I discussed my findings with the patient and she understands and agrees with the treatment plan. Based on the patients age, coexisting illnesses, exam and lab findings the decision to treat as an inpatient was made. The patient remained stable while under my care. The patient will be evaluated by Dr. Ronni Barry, for further management. Medical Decision Differential Diagnosis includes but is not limited to ischemic Stroke, hemorrhagic stroke, bells palsy, mass, neoplasm, migraine headache, seizure, subarachnoid hemorrhage, TIA, and transient global amnesia. Patient is a 47-year-old female who presents to ER for headache which has been present since this past Monday associated with left lower extremity weakness. She does have mild weakness with flexion extension of the hip knee ankle and EHL. CBC all BMP, LFTs, bilirubin and lipase is unremarkable. UA was negative. INR was unremarkable. CT head was negative. EKG was unremarkable. Upon review of her chart she is here previously for left-sided deficit following which she received TPA. She is in the hospital and they question whether this was secondary to a conversion disorder versus migraine. She was discharged to rehabilitation. Currently her symptoms have been present longer than 24 hours. Not candidate for a stroke workup. Discussed case with internal medicine as this is her second appearance with very similar symptoms. I felt uncomfortable sending her home with the left-sided deficit. Case discussed with internal medicine for further workup. Medication Reconcilliation Current Medication List: was personally reviewed by me Blood Pressure Screening Patient's blood pressure: Elevated blood pressure Blood pressure disposition: Elevated BP felt to be situational Consults Time Called: 1500 Consulting Physician: Dr. Ronni Barry Returned Call: [phone] I reviewed the patient's case with them. They will evaluate the patient for further management. Impression Primary Impression: Headache Additional Impression: Weakness of left lower extremity Scribe Attestation The scribe's documentation has been prepared under my direction and personally reviewed by me in its entirety. I confirm that the note above accurately reflects all work, treatment, procedures, and medical decision making performed by me. Departure Information Dispostion Being Evaluated By Hospitalist rOlin Hunt M.D. (PCP) Patient Instructions My [facility] Problem Qualifiers Primary Impression: Headache Headache type: unspecified Headache chronicity pattern: unspecified pattern Intractability: not intractable Qualified Codes: R51 - Headache
--- NOTE | 2017-09-24 19:16 | History and Physical ---
History & Physical Date & Time of Service: Sep 24, 2017 at 19:03 Chief Complaint: Hemiplegic Migraine Primary Care Physician: Orlin Mccauley M.D. History of Present Illness Source: patient, clinic records, hospital records This is a 47 year old female with a PMH of HTN, obesity, migraine headaches - presents with a migraine as well as L sided weakness. She has had this in the past and was admitted in March 2017 with similar symptoms. At that time, she had severe headaches and L upper extremity weakness. She had a complete w/up which including multiple brain MRIs and CTs which were negative. She was diagnosed with complicated migraines and was seen by neurology inpatient as well as outpatient. She was started on Topamax and has been doing well. States that the headache started to act up two days prior to arrival and worsened the day of arrival. She then developed L lower extremity weakness and her family urged her to come to the ED. Upon presentation, she had a head CT which was negative. Was given IV toradol, Zofran and fluids. States her headache is better and as her headache improved, her lower extremity weakness improved. During my exam, most of the weakness had subsided. Past Medical/Surgical History Medical Problems: (1) Acute asthma exacerbation Status: Resolved (2) Ambulatory dysfunction Status: Resolved (3) Ambulatory dysfunction Status: Resolved (4) Anxiety Status: Chronic (5) Anxiety attack Status: Resolved (6) Asthma Status: Chronic (7) CVA (cerebral vascular accident) Status: Resolved (8) Diabetes Status: Chronic (9) HTN (hypertension) Status: Chronic (10) Hyperventilation Status: Resolved (11) Intractable headache Status: Resolved (12) Medication reaction Status: Resolved (13) Medication side effect Status: Resolved (14) Migraine Status: Chronic (15) Prolonged QT interval Status: Resolved (16) psychological factors affecting other medical conditions Status: Resolved (17) SOB (shortness of breath) Status: Resolved (18) Stuttered speeh w/headache Status: Resolved (19) 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 Family History Diabetes mellitus FH: cancer FH: heart disease Hypertension Social History Smoking Status: Never Smoker Drug Use: none Marital Status: Housing status: lives with family Occupational Status: employed Immunizations History of Influenza Vaccine: Yes Influenza Vaccine Date: Jun 12, 2008 History of Tetanus Vaccine?: Yes Tetanus Immunization Date: May 10, 2005 History of Pneumococcal: Yes History of Hepatitis B Vaccine: Unknown Multi-Drug Resistant Organisms History of MDRO: No Allergies Coded Allergies: Sulfa Antibiotics (Verified Allergy, Intermediate, HIVES, 09/24/17) Molds & Smuts (Unverified Allergy, Mild, UNKNOWN, 09/24/17) Home Medications Scheduled Aspirin (Aspirin EC Low Dose), 81 MG PO QAM Atorvastatin (Lipitor), 40 MG PO QAM Lisinopril (Zestril), 10 MG PO DAILY Metoprolol Succinate (Toprol Xl), 25 MG PO DAILY Topiramate (Topamax), 50 MG PO BID Scheduled PRN Cyclobenzaprine Hcl (Flexeril), 10 MG PO HS PRN for Muscle Spasms Epinephrine (Epipen 2-Bashir), 0.3 MG IM UD PRN for ALLERGIC REACTION Review of Systems Constitutional: + weakness, + problem reported (headache), No fever, No chills Eyes: No worsening of vision, No eye pain, No diplopia ENT: No hearing loss Respiratory: No cough, No sputum, No shortness of breath, No dyspnea on exertion Cardiovascular: No chest pain, No orthopnea, No edema, No palpitations Abdomen: No pain, No nausea, No vomiting, No diarrhea, No constipation, No GI bleeding Musculoskeletal: No joint pain, No muscle pain Genitourinary - Female: No dysuria, No urinary frequency, No urinary urgency, No urinary incontinence, No urinary retention, No hematuria Neurologic: + weakness (LLE weakness), No memory loss, No paralysis, No numbness/tingling, No vertigo, No balance problems Psychiatric: No depression symptoms, No anxiety, No insomnia Endocrine: No fatigue Hematologic / Lymphatic: No abnormal bleeding/bruising Integumentary: No rash Allergic / Immunologic: No environmental allergies, No seasonal allergies Physical Exam Vital Signs Date Time Temp Pulse Resp B/P (MAP) Pulse Ox O2 Delivery O2 Flow Rate FiO2 09/24/17 17:00 36.6 66 18 114/73 96 Room Air 09/24/17 16:05 73 18 112/73 97 Room Air 09/24/17 14:45 72 18 119/66 98 Room Air 09/24/17 13:24 36.9 96 20 151/98 99 Room Air General Appearance: no apparent distress, + obese Head: normocephalic, atraumatic Eyes: normal inspection ENT: hearing grossly normal Neck: supple Respiratory/Chest: lungs clear, normal breath sounds, no respiratory distress, no accessory muscle use Cardiovascular: regular rate, rhythm, no edema, no murmur Abdomen/GI: normal bowel sounds, non tender, soft Back: no muscle spasm Extremities/Musculoskelatal: normal capillary refill, no pedal edema Neurologic/Psych: alert, + motor weakness (mild weakness to plantarflexion of the L foot; no weakness to any other planes of motion) Skin: normal color Lymphatic: no adenopathy Diagnostics Laboratory Results Results Past 24 Hours Test 09/24/17 14:00 09/24/17 15:45 Range/Units White Blood Count 8.51 4.8-10.8 K/uL Red Blood Count 5.00 4.2-5.4 M/uL Hemoglobin 15.6 12.0-16.0 g/dL Hematocrit 43.7 37-47 % Mean Corpuscular Volume 87.4 80-100 fL Mean Corpuscular Hemoglobin 31.2 25-34 pg Mean Corpuscular Hemoglobin Concent 35.7 32-36 g/dl Platelet Count 243 130-400 K/uL Mean Platelet Volume 9.8 7.4-10.4 fL Neutrophils (%) (Auto) 67.7 % Lymphocytes (%) (Auto) 25.1 % Monocytes (%) (Auto) 6.3 % Eosinophils (%) (Auto) 0.6 % Basophils (%) (Auto) 0.1 % Neutrophils # (Auto) 5.75 1.4-6.5 K/uL Lymphocytes # (Auto) 2.14 1.2-3.4 K/uL Monocytes # (Auto) 0.54 0.11-0.59 K/uL Eosinophils # (Auto) 0.05 0-0.5 K/uL Basophils # (Auto) 0.01 0-0.2 K/uL RDW Standard Deviation 39.8 36.4-46.3 fL RDW Coefficient of Variation 12.4 11.5-14.5 % Immature Granulocyte % (Auto) 0.2 % Immature Granulocyte # (Auto) 0.02 0.00-0.02 K/uL Prothrombin Time 10.3 9.0-12.0 SECONDS Prothromb Time International Ratio 1.0 0.9-1.1 Activated Partial Thromboplast Time 27.2 21.0-31.0 SECONDS Partial Thromboplastin Ratio 1.0 Urine Color YELLOW Urine Appearance CLEAR CLEAR Urine pH 6.0 4.5-7.5 Urine Specific [place] 1.019 1.000-1.030 Urine Protein NEG NEG Urine Glucose (UA) NEG NEG Urine Ketones NEG NEG Urine Occult Blood NEG NEG Urine Nitrite NEG NEG Urine Bilirubin NEG NEG Urine Urobilinogen NEG NEG Urine Leukocyte Esterase TRACE NEG Urine WBC (Auto) 1-5 0-5 /hpf Urine RBC (Auto) 0-4 0-4 /hpf Urine Hyaline Casts (Auto) 0 0-5 /lpf Urine Epithelial Cells (Auto) 10-20 0-5 /lpf Urine Bacteria (Auto) NEG NEG Urine Test NEG NEG Sodium Level 138 136-145 mmol/L Potassium Level 3.6 3.5-5.1 mmol/L Chloride Level 104 98-107 mmol/L Carbon Dioxide Level 24 21-32 mmol/L Anion Gap 10.0 3-11 mmol/L Blood Urea Nitrogen 14 7-18 mg/dl Creatinine 0.75 0.60-1.20 mg/dl Est Creatinine Clear Calc Drug Dose 120.2 ml/min Estimated GFR () 111.6 Estimated GFR (Non- 96.3 BUN/Creatinine Ratio 18.9 10-20 Random Glucose 86 70-99 mg/dl Calcium Level 8.7 8.5-10.1 mg/dl Magnesium Level 2.0 1.8-2.4 mg/dl Total Bilirubin 0.4 0.2-1 mg/dl Direct Bilirubin < 0.1 0-0.2 mg/dl Aspartate Amino Transf (AST/SGOT) 11 15-37 U/L Alanine Aminotransferase (ALT/SGPT) 27 12-78 U/L Alkaline Phosphatase 129 45-117 U/L Total Protein 8.0 6.4-8.2 gm/dl Albumin 3.8 3.4-5.0 gm/dl Lipase 159 73-393 U/L Thyroid Stimulating Hormone (TSH) 2.400 0.300-4.500 uIu/ml Vitamin B12 Level 260 211-911 pg/mL Diagnostic Radiology HEAD WITHOUT CONTRAST (CT) CT DOSE: 537.48 mGy.cm HISTORY: Mental status change HERRERA and l weakness TECHNIQUE: Multiaxial CT images of the head were performed without the use of intravenous contrast. A dose lowering technique was utilized adhering to the principles of ALARA. Comparison: 04/09/2017 Findings: The paranasal sinuses and mastoid air cells are clear. The calvarium and skull base are intact. The ventricles and sulci are within normal limits. There is no mass, hematoma, midline shift, or acute infarct. Impression: No acute intracranial abnormality. Impression Assessment and Plan This is a 47 year old female with a PMH of HTN, obesity, migraine headaches - presents with a migraine as well as L sided weakness Complicated Migraine causing temporary hemiparesis/hemiplegia has had issues with this in the past for now, will give a dose of Verapamil try Toradol monitor electrolytes, check TSH continue Topamax 50mg BID consult neurology for further input PT/OT HTN blood pressure stable continue Lisinopril, metoprolol DVT ppx Lovenox FULL CODE Advanced Directives Existing Living Will: No Existing Power of Program Management Professional: No VTE Prophylaxis VTE Risk Assessment Done? Y/N: Yes Risk Level: Moderate
[2017-09-24 19:31] VITALS: BP 107/68; PULSE 66; TEMP 36.4; O2SAT 97
[2017-09-24] MEDS: ENOXAPARIN 40 MG/0.4 ML SYR SC SCH (21:29)
[2017-09-24] MEDS: TOPIRAMATE 25 MG TAB PO SCH (21:29)
[2017-09-25] VITALS (9 sets, daily range): BP systolic 101–138; BP diastolic 63–89; PULSE 64–76; TEMP 36.4–36.7; O2SAT 96–98
[2017-09-25] MEDS: ACETAMINOPHEN 325 MG TAB PO PRN ×4 (00:29→19:34)
[2017-09-25] MEDS: SODIUM CHLORIDE 0.9% 1000ML 1,000 ML IV SCH (05:37)
[2017-09-25] MEDS: ATORVASTATIN 40 MG TAB PO SCH (07:46)
[2017-09-25] MEDS: ASPIRIN 81 MG ECTAB PO SCH (07:46)
[2017-09-25] MEDS: LISINOPRIL 10 MG TAB PO SCH (07:46)
[2017-09-25] MEDS: METOPROLOL SUCC 25MG EXT REL TAB PO SCH (07:46)
[2017-09-25] MEDS: TOPIRAMATE 25 MG TAB PO SCH (07:47)
[2017-09-25 09:20] LABS: BASO % 0.1 %; BASO ABS # 0.01 K/uL (0-0.2); EOS % 0.8 %; EOS ABS # 0.06 K/uL (0-0.5); HEMATOCRIT 39.2 % (37-47); HEMOGLOBIN 13.9 g/dL (12.0-16.0); IG# 0.01 K/uL (0.00-0.02); LYMPH % 34.4 %; LYMPH ABS # 2.51 K/uL (1.2-3.4); MEAN CELL VOLUME 87.1 fL (80-100); MEAN CORPUSCULAR HEMOGLOBIN 30.9 pg (25-34); MEAN PLATELET VOLUME 9.4 fL (7.4-10.4); MONO % 4.4 %; MONO ABS # 0.32 K/uL (0.11-0.59); NEUT % 60.2 %; NEUT ABS # 4.39 K/uL (1.4-6.5); PLATELET COUNT 225 K/uL (130-400); RED CELL DISTRIBUTION WIDTH CV 12.5 % (11.5-14.5); RED CELL DISTRIBUTION WIDTH SD 40.1 fL (36.4-46.3)
[2017-09-25 09:25] LABS: MEAN CORPUSCULAR HGB CONC 35.5 g/dl (32-36)
[2017-09-25 09:44] LABS: ALBUMIN 3.3 gm/dl (3.4-5.0); CALCIUM 8.5 mg/dl (8.5-10.1); CREATININE 0.77 mg/dl (0.60-1.20); POTASSIUM 3.8 mmol/L (3.5-5.1); TOTAL PROTEIN 6.8 gm/dl (6.4-8.2)
--- NOTE | 2017-09-25 09:55 | DIAGNOSTIC IMAGING REPORT ---
BRAIN COMBO CLINICAL HISTORY: 47 years-old Female presenting with history of complicated migraine. rule out infarct areas. TECHNIQUE: Multisequence, multiplanar MR imaging of the brain was performed before and after the administration of intravenous contrast. IV contrast: 9.5 mL of Gadavist. COMPARISON: Head CT 09/24/2017 and Brain MR on 04/13/2017. FINDINGS: Ventricles and sulci normal in size. Brain parenchyma normal in appearance with preserved tan-white differentiation. Incidental no made of choroid plexus cysts in the atria of the lateral ventricles. No mass effect or midline shift. No restricted diffusion to suggest acute ischemia. No hemorrhage. No extra-axial fluid collection. T2 skull base flow voids preserved. No abnormal parenchymal enhancement. Bone marrow signal intensity within the calvarium within normal limits. IMPRESSION: 1. No acute intracranial pathology. No abnormal enhancement. Specifically, no signal abnormality within the white matter as evidence evidence of migraines, and no evidence of infarct. Electronically signed by: Dhaval Thayer M.D. 09/25/2017 9:54 AM Dictated Date/Time: 09/25/2017 9:47 AM
--- NOTE | 2017-09-25 16:11 | Neurology Consultation ---
Neurology Consultation Date of Consultation: Sep 25, 2017. Attending Physician: Oswald Moss M.D. Primary Care Physician: Orlin Mccauley M.D. Reason for Consultation: hemiplegic migraine History of Present Illness Source: patient Elo is a 47 year old female with a PMH of HTN, obesity, migraine headaches - presents with a migraine as well as L sided weakness. She has had this in the past and was admitted in March 2017 with similar symptoms. Previously she complained of a severe headaches and L upper extremity weakness, brain MRIs and CTs were negative. She was diagnosed with complicated migraines and was seen by neurology inpatient as well as outpatient. She was started on Topamax and has been doing well. States that the headache started on Monday and she was taking Tylenol for the pain when she developed L lower extremity weakness and her family urged her to come to the ED. Today she states her headache is down to a 5/10 which is much improved. She is no longer having LE weakness but she states her foot is turning in which it did in the past and has a foot brace for support. denies CP, SOB, abdominal pain, N , V, UE weakness, vision changes. 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 Past Medical/Surgical History Medical Problems: (1) Chest pain Status: Acute (2) Cough Status: Acute (3) Elevated WBC count Status: Acute (4) Epigastric abdominal pain Status: Acute (5) Fever Status: Acute (6) Headache Status: Acute (7) Headache Status: Acute (8) Left-sided weakness Status: Acute (9) SIRS (systemic inflammatory response syndrome) Status: Acute (10) Sleep deprivation Status: Acute (11) Weakness of left lower extremity Status: Acute (12) Wheezing Status: Acute Social History Smoking Status: Never smoker Drug Use: none Marital Status: Housing Status: lives with family Occupation Status: employed Allergies Coded Allergies: Sulfa Antibiotics (Verified Allergy, Intermediate, HIVES, 09/24/17) Molds & Smuts (Unverified Allergy, Mild, UNKNOWN, 09/24/17) Current Inpatient Medications Current Inpatient Medications Medications (Trade) Dose Ordered Sig/Everardo Route Start Time Stop Time Status Last Admin Dose Admin Enoxaparin Sodium (Lovenox Inj) 40 mg Q24H SC 2/11/18 21:00 10/24/17 20:59 09/24/17 21:29 40 MG Acetaminophen (Tylenol Tab) 650 mg Q4H PRN PO 09/24/17 15:45 10/24/17 15:44 09/25/17 12:23 650 MG Ondansetron HCl (Zofran Inj) 4 mg Q6H PRN IV 09/24/17 15:45 10/24/17 15:44 Aspirin (Ecotrin Tab) 81 mg QAM PO 09/25/17 09:00 10/25/17 08:59 09/25/17 07:46 81 MG Atorvastatin Calcium (Lipitor Tab) 40 mg QAM PO 09/25/17 09:00 10/25/17 08:59 09/25/17 07:46 40 MG Lisinopril (Zestril Tab) 10 mg DAILY PO 09/25/17 09:00 10/25/17 08:59 09/25/17 07:46 10 MG Metoprolol Succinate (Toprol Xl Tab) 25 mg DAILY PO 09/25/17 09:00 10/25/17 08:59 09/25/17 07:46 25 MG Topiramate (Topamax Tab) 50 mg BID PO 09/24/17 21:00 10/24/17 20:59 09/25/17 07:47 50 MG Miscellaneous (Iv Fluids Completed) 1 ea PRN PRN N/A 09/24/17 17:30 09/24/18 17:29 09/25/17 08:47 1 EA Physical Exam Vital Signs (Past 24 Hrs): Date Time Temp Pulse Resp B/P (MAP) Pulse Ox O2 Delivery O2 Flow Rate FiO2 09/25/17 12:20 Room Air 09/25/17 12:12 36.5 71 20 138/89 (105) 96 Room Air 09/25/17 11:01 69 97 09/25/17 08:20 Room Air 09/25/17 08:04 36.7 67 16 116/75 (89) 98 Room Air 09/25/17 04:00 Room Air 09/25/17 03:59 36.5 65 21 107/68 (81) 97 Room Air 09/25/17 00:25 Room Air 09/25/17 00:04 36.5 64 20 102/63 (76) 97 Room Air 09/24/17 20:00 Room Air 09/24/17 19:31 36.4 66 18 107/68 (81) 97 Room Air 09/24/17 17:00 36.6 66 18 114/73 96 Room Air 09/24/17 16:05 73 18 112/73 97 Room Air Physical Exam: Constitutional: appearance nourished, healthy and obese Ears, Nose, Mouth and Throat: mucous membranes moist, no injection and skin normal, eyes normal Cardiovascular: normal S-1 and S-2 and regular rate and rhythm Respiratory: clear to auscultation (CTA) and no rales, rhonchi or wheeze Musculoskeletal: non pitting peripheral edema and good distal pulses Skin: no stigmata of neurocutaneous disease noted and normal and intact Eyes: extraocular muscles intact (EOMI) and pupils equal, round and reactive to light (PERRL) NEUROLOGIC EXAMINATION: Mental status: Alert and interactive Oriented to full date and location Oriented to person Speech fluent with no evidence of aphasia Cranial Nerves smile eye brow raise symmetric Reflexes: Deep tendon reflexes were symmetrical and graded 2/5. Plantar responses were flexor. Sensory: cool and light touch intact Coordination: Romberg absent Gait/Stance: Posture normal. Gait normal: with steady with steps, base, turning tandem gait. Motor: Negative for pronator drift of out stretched arms with eyes closed. Strength: biceps triceps deltoids hand utilization management manager intrinsics 5/5 bilaterally hip flex plantar flex ext 5/5 bilaterally Laboratory Results Past 24 Hours: 09/25/17 08:50 Red Blood Count 4.50, Mean Corpuscular Volume 87.1, Mean Corpuscular Hemoglobin 30.9, Mean Corpuscular Hemoglobin Concent 35.5, Mean Platelet Volume 9.4, Neutrophils (%) (Auto) 60.2, Lymphocytes (%) (Auto) 34.4, Monocytes (%) (Auto) 4.4, Eosinophils (%) (Auto) 0.8, Basophils (%) (Auto) 0.1, Neutrophils # (Auto) 4.39, Lymphocytes # (Auto) 2.51, Monocytes # (Auto) 0.32, Eosinophils # (Auto) 0.06, Basophils # (Auto) 0.01 09/25/17 08:50 Test 2/12/18 08:50 White Blood Count 7.30 K/uL (4.8-10.8) Red Blood Count 4.50 M/uL (4.2-5.4) Hemoglobin 13.9 g/dL (12.0-16.0) Hematocrit 39.2 % (37-47) Mean Corpuscular Volume 87.1 fL (80-100) Mean Corpuscular Hemoglobin 30.9 pg (25-34) Mean Corpuscular Hemoglobin Concent 35.5 g/dl (32-36) Platelet Count 225 K/uL (130-400) Mean Platelet Volume 9.4 fL (7.4-10.4) Neutrophils (%) (Auto) 60.2 % Lymphocytes (%) (Auto) 34.4 % Monocytes (%) (Auto) 4.4 % Eosinophils (%) (Auto) 0.8 % Basophils (%) (Auto) 0.1 % Neutrophils # (Auto) 4.39 K/uL (1.4-6.5) Lymphocytes # (Auto) 2.51 K/uL (1.2-3.4) Monocytes # (Auto) 0.32 K/uL (0.11-0.59) Eosinophils # (Auto) 0.06 K/uL (0-0.5) Basophils # (Auto) 0.01 K/uL (0-0.2) RDW Standard Deviation 40.1 fL (36.4-46.3) RDW Coefficient of Variation 12.5 % (11.5-14.5) Immature Granulocyte % (Auto) 0.1 % Immature Granulocyte # (Auto) 0.01 K/uL (0.00-0.02) Anion Gap 9.0 mmol/L (3-11) Est Creatinine Clear Calc Drug Dose 107.9 ml/min Estimated GFR () 108.1 Estimated GFR (Non- 93.2 BUN/Creatinine Ratio 16.4 (10-20) Calcium Level 8.5 mg/dl (8.5-10.1) Magnesium Level 2.2 mg/dl (1.8-2.4) Total Bilirubin 0.5 mg/dl (0.2-1) Aspartate Amino Transf (AST/SGOT) 10 U/L (15-37) Alanine Aminotransferase (ALT/SGPT) 22 U/L (12-78) Alkaline Phosphatase 100 U/L (45-117) Total Protein 6.8 gm/dl (6.4-8.2) Albumin 3.3 gm/dl (3.4-5.0) Globulin 3.5 gm/dl (2.5-4.0) Albumin/Globulin Ratio 0.9 (0.9-2) Imaging MRI brain combo- . No acute intracranial pathology. No abnormal enhancement. Specifically, no signal abnormality within the white matter as evidence evidence of migraines, and no evidence of infarct. Impression 47 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 increase Topamax 50 mg BID to 100 mg BID report and foggy thinking or tingling in hands 2. MRI with no acute findings 3. hemiplegia has resolved- should wear foot support for ambulation 4. PT/OT for any discharge needs 5. she needs to talk to her regarding work issues and finding a new job 6. will see her back in the office 2-3 weeks after discharge Brittany Adams PAC schedule I have seen and discussed above patient with Dr Trung House, neurology Patient known to our service and familiar to me from past admission for very similar but now fortunately less profound issues ie headache and contralateral left hemiparesis now involving almost the leg exclusively and of very minor severity we will increase the topamax and hopefully the headache and her symptoms will respond exam and imaging thus far- much like last time -shows some non organic features and is normal respectively Trung House MD
--- NOTE | 2017-09-25 18:48 | Progress Note ---
Internal Med Progress Note Date of Service: Sep 25, 2017. Provider Documentation: SUBJECTIVE: Patient seen and examined. Continues to have headache. Was able to demonstrate that she could stand but appeared to be unsteady on her feet. OBJECTIVE: General Appearance: no apparent distress, + obese Head: normocephalic, atraumatic Eyes: normal inspection ENT: hearing grossly normal Neck: supple Respiratory/Chest: lungs clear, normal breath sounds, no respiratory distress, no accessory muscle use Cardiovascular: regular rate, rhythm, no edema, no murmur Abdomen/GI: normal bowel sounds, non tender, soft Back: no muscle spasm Extremities/Musculoskelatal: normal capillary refill, no pedal edema Neurologic/Psych: alert,mild weakness to plantarflexion of the L foot Skin: normal color Lymphatic: no adenopath ASSESSMENT & PLAN: 47 year old female with PMH hemiplegic migraines As per Neurology "1. increase Topamax 50 mg BID to 100 mg BID report and foggy thinking or tingling in hands 2. MRI with no acute findings 3. hemiplegia has resolved- should wear foot support for ambulation 4. PT/OT for any discharge needs 5. she needs to talk to her regarding work issues and finding a new job 6. will see her back in the office 2-3 weeks after discharge Brittany Adams PAC schedule" HTN blood pressure stable continue Lisinopril, metoprolol DVT ppx Lovenox FULL CODE Vital Signs: Date Time Temp Pulse Resp B/P (MAP) Pulse Ox O2 Delivery O2 Flow Rate FiO2 09/25/17 16:00 97 Room Air 09/25/17 15:24 36.6 76 123/81 (95) 97 Room Air 09/25/17 12:20 Room Air 09/25/17 12:12 36.5 71 20 138/89 (105) 96 Room Air 09/25/17 11:01 69 97 09/25/17 08:20 Room Air 09/25/17 08:04 36.7 67 16 116/75 (89) 98 Room Air 09/25/17 04:00 Room Air 09/25/17 03:59 36.5 65 21 107/68 (81) 97 Room Air 09/25/17 00:25 Room Air 09/25/17 00:04 36.5 64 20 102/63 (76) 97 Room Air 09/24/17 20:00 Room Air 09/24/17 19:31 36.4 66 18 107/68 (81) 97 Room Air Lab Results: Results Past 24 Hours Test 09/25/17 08:50 Range/Units White Blood Count 7.30 4.8-10.8 K/uL Red Blood Count 4.50 4.2-5.4 M/uL Hemoglobin 13.9 12.0-16.0 g/dL Hematocrit 39.2 37-47 % Mean Corpuscular Volume 87.1 80-100 fL Mean Corpuscular Hemoglobin 30.9 25-34 pg Mean Corpuscular Hemoglobin Concent 35.5 32-36 g/dl Platelet Count 225 130-400 K/uL Mean Platelet Volume 9.4 7.4-10.4 fL Neutrophils (%) (Auto) 60.2 % Lymphocytes (%) (Auto) 34.4 % Monocytes (%) (Auto) 4.4 % Eosinophils (%) (Auto) 0.8 % Basophils (%) (Auto) 0.1 % Neutrophils # (Auto) 4.39 1.4-6.5 K/uL Lymphocytes # (Auto) 2.51 1.2-3.4 K/uL Monocytes # (Auto) 0.32 0.11-0.59 K/uL Eosinophils # (Auto) 0.06 0-0.5 K/uL Basophils # (Auto) 0.01 0-0.2 K/uL RDW Standard Deviation 40.1 36.4-46.3 fL RDW Coefficient of Variation 12.5 11.5-14.5 % Immature Granulocyte % (Auto) 0.1 % Immature Granulocyte # (Auto) 0.01 0.00-0.02 K/uL Sodium Level 141 136-145 mmol/L Potassium Level 3.8 3.5-5.1 mmol/L Chloride Level 108 98-107 mmol/L Carbon Dioxide Level 24 21-32 mmol/L Anion Gap 9.0 3-11 mmol/L Blood Urea Nitrogen 13 7-18 mg/dl Creatinine 0.77 0.60-1.20 mg/dl Est Creatinine Clear Calc Drug Dose 107.9 ml/min Estimated GFR () 108.1 Estimated GFR (Non- 93.2 BUN/Creatinine Ratio 16.4 10-20 Random Glucose 144 70-99 mg/dl Calcium Level 8.5 8.5-10.1 mg/dl Magnesium Level 2.2 1.8-2.4 mg/dl Total Bilirubin 0.5 0.2-1 mg/dl Aspartate Amino Transf (AST/SGOT) 10 15-37 U/L Alanine Aminotransferase (ALT/SGPT) 22 12-78 U/L Alkaline Phosphatase 100 45-117 U/L Total Protein 6.8 6.4-8.2 gm/dl Albumin 3.3 3.4-5.0 gm/dl Globulin 3.5 2.5-4.0 gm/dl Albumin/Globulin Ratio 0.9 0.9-2
[2017-09-25] MEDS: ENOXAPARIN 40 MG/0.4 ML SYR SC SCH (20:35)
[2017-09-25] MEDS: TOPIRAMATE 100 MG TAB PO SCH (20:36)
[2017-09-26] MEDS: ACETAMINOPHEN 325 MG TAB PO PRN ×4 (00:06→21:04)
[2017-09-26 07:48] VITALS: BP 121/81; PULSE 60; TEMP 36.4; O2SAT 97
[2017-09-26] MEDS: METOPROLOL SUCC 25MG EXT REL TAB PO SCH (10:02)
[2017-09-26] MEDS: ASPIRIN 81 MG ECTAB PO SCH (10:02)
[2017-09-26] MEDS: TOPIRAMATE 100 MG TAB PO SCH ×2 (10:02→20:59)
[2017-09-26] MEDS: LISINOPRIL 10 MG TAB PO SCH (10:02)
[2017-09-26] MEDS: ATORVASTATIN 40 MG TAB PO SCH (10:02)
--- NOTE | 2017-09-26 13:03 | Progress Note ---
Internal Med Progress Note Date of Service: Sep 26, 2017. Provider Documentation: SUBJECTIVE: Patient seen and examined. Patient reports that she continues to have 4 out of 10 headache but feels better compared to yesterday. She has worked with physical therapy on her gait yesterday. OBJECTIVE: General Appearance: no apparent distress, + obese Head: normocephalic, atraumatic Eyes: normal inspection ENT: hearing grossly normal Neck: supple Respiratory/Chest: lungs clear, normal breath sounds, no respiratory distress, no accessory muscle use Cardiovascular: regular rate, rhythm, no edema, no murmur Abdomen/GI: normal bowel sounds, non tender, soft Back: no muscle spasm Extremities/Musculoskelatal: normal capillary refill, no pedal edema Neurologic/Psych: alert,mild weakness to plantarflexion of the L foot Skin: normal color Lymphatic: no adenopath ASSESSMENT & PLAN: 47 year old female with PMH hemiplegic migraines As per Neurology on 09/25/17 "1. increase Topamax 50 mg BID to 100 mg BID report and foggy thinking or tingling in hands 2. MRI with no acute findings 3. hemiplegia has resolved- should wear foot support for ambulation 4. PT/OT for any discharge needs 5. she needs to talk to her regarding work issues and finding a new job 6. will see her back in the office 2-3 weeks after discharge Brittany Adams PAC schedule" As of 09/26/17, patient is not feeling that the headaches have resolved but she is optimistic that with recent medication titrations that she will feel better, Patient also awaiting further neurology service follow up and further physical therapy for her gait. Patient still with left ankle weakness for the hemiplegia on exam which is likely due to the migraine sequelae as CT head and MRI head tests are unremarkable. TSH and B12 levels normal. Will check Folate levels, RPR with today's electrolyte labs HTN blood pressure stable continue Lisinopril, metoprolol DVT ppx Lovenox FULL CODE Vital Signs: Date Time Temp Pulse Resp B/P (MAP) Pulse Ox O2 Delivery O2 Flow Rate FiO2 09/26/17 07:48 36.4 60 18 121/81 (94) 97 Room Air 09/26/17 07:35 Room Air 09/26/17 00:00 Room Air 09/25/17 22:52 36.4 64 16 101/66 (78) 97 Room Air 09/25/17 20:35 Room Air 09/25/17 19:25 Room Air 09/25/17 18:59 36.6 76 20 97 09/25/17 16:00 97 Room Air 09/25/17 15:24 36.6 76 123/81 (95) 97 Room Air
[2017-09-26 13:47] LABS: ALBUMIN 3.7 gm/dl (3.4-5.0); CALCIUM 8.8 mg/dl (8.5-10.1); CREATININE 0.72 mg/dl (0.60-1.20); POTASSIUM 3.7 mmol/L (3.5-5.1)
[2017-09-26 13:49] LABS: TOTAL PROTEIN 7.3 gm/dl (6.4-8.2)
--- NOTE | 2017-09-26 15:01 | Neurology Progress Notes ---
Neurology Progress Note Date of Service Sep 26, 2017. Jung Gasca is a 47 year old female with a PMH of HTN, obesity, migraine headaches - presents with a migraine as well as L sided weakness. She has had this in the past and was admitted in March 2017 with similar symptoms. Previously she complained of a severe headaches and L upper extremity weakness, brain MRIs and CTs were negative. She was diagnosed with complicated migraines and was seen by neurology inpatient as well as outpatient. She was started on Topamax and has been doing well. States that the headache started on Monday and she was taking Tylenol for the pain when she developed L lower extremity weakness and her family urged her to come to the ED. Today she states her headache is down to a 5/10 which is much improved but they put the lights on over her bed an this made her headache worse. She is no longer having LE weakness but she states her foot is turning in which it did in the past and has a foot brace for support. denies CP, SOB, abdominal pain, N, V , UE weakness, vision changes. 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 discussed starting steroid taper to break the migraine she is in agreement. she had some dizziness with standing this am when after she was given the Topamax 100mg will need to watch. Will see her back in the office and may change to another prophy option. Objective Date Time Temp Pulse Resp B/P (MAP) Pulse Ox O2 Delivery O2 Flow Rate FiO2 09/26/17 07:48 36.4 60 18 121/81 (94) 97 Room Air 09/26/17 07:35 Room Air 09/26/17 00:00 Room Air 09/25/17 22:52 36.4 64 16 101/66 (78) 97 Room Air 09/25/17 20:35 Room Air 09/25/17 19:25 Room Air 09/25/17 18:59 36.6 76 20 97 09/25/17 16:00 97 Room Air 09/25/17 15:24 36.6 76 123/81 (95) 97 Room Air Last 24 Hours Test 09/26/17 13:07 Sodium Level 138 mmol/L Potassium Level 3.7 mmol/L Chloride Level 107 mmol/L Carbon Dioxide Level 23 mmol/L Anion Gap 7.0 mmol/L Blood Urea Nitrogen 10 mg/dl Creatinine 0.72 mg/dl Est Creatinine Clear Calc Drug Dose 115.4 ml/min Estimated GFR () 117.2 Estimated GFR (Non- 101.1 BUN/Creatinine Ratio 13.3 Random Glucose 129 mg/dl Calcium Level 8.8 mg/dl Total Bilirubin 0.4 mg/dl Aspartate Amino Transf (AST/SGOT) 12 U/L Alanine Aminotransferase (ALT/SGPT) 25 U/L Alkaline Phosphatase 107 U/L Total Protein 7.3 gm/dl Albumin 3.7 gm/dl Globulin 3.6 gm/dl Albumin/Globulin Ratio 1.0 Folate 17.34 ng/mL Imaging: no new imaging Exam: Physical Exam: Constitutional: Bappearance nourished, obese sitting in the dark Ears, Nose, Mouth and Throat: mucous membranes moist, no injection and skin normal, eyes normal Cardiovascular: normal S-1 and S-2 and regular rate and rhythm Respiratory: clear to auscultation (CTA) and no rales, rhonchi or wheeze Musculoskeletal: non pitting peripheral edema Skin: no stigmata of neurocutaneous disease noted and normal and intact Eyes: extraocular muscles intact (EOMI) and pupils equal, round and reactive to light (PERRL) NEUROLOGIC EXAMINATION: Mental status: Alert and interactive Oriented to full date and location Oriented to person Speech fluent with no evidence of aphasia Cranial Nerves smile eye brow raise symmetric Coordination: finger to nose no bipass Gait/Stance: Posture lying in bed Strength: biceps triceps hand laborer bituminous paving 5/5 bilaterally hip flex plantar flex ext 5/5 bilaterally Current Inpatient Medications Medications (Trade) Dose Ordered Sig/Everardo Route Start Time Stop Time Status Last Admin Dose Admin Enoxaparin Sodium (Lovenox Inj) 40 mg Q24H SC 09/24/17 21:00 10/24/17 20:59 09/25/17 20:35 40 MG Acetaminophen (Tylenol Tab) 650 mg Q4H PRN PO 09/24/17 15:45 10/24/17 15:44 09/26/17 14:25 650 MG Ondansetron HCl (Zofran Inj) 4 mg Q6H PRN IV 09/24/17 15:45 10/24/17 15:44 Aspirin (Ecotrin Tab) 81 mg QAM PO 09/25/17 09:00 3/14/18 08:59 09/26/17 10:02 81 MG Atorvastatin Calcium (Lipitor Tab) 40 mg QAM PO 09/25/17 09:00 10/25/17 08:59 09/26/17 10:02 40 MG Lisinopril (Zestril Tab) 10 mg DAILY PO 09/25/17 09:00 10/25/17 08:59 09/26/17 10:02 10 MG Metoprolol Succinate (Toprol Xl Tab) 25 mg DAILY PO 09/25/17 09:00 10/25/17 08:59 09/26/17 10:02 25 MG Miscellaneous (Iv Fluids Completed) 1 ea PRN PRN N/A 09/24/17 17:30 09/24/18 17:29 09/25/17 08:47 1 EA Topiramate (Topamax Tab) 100 mg BID PO 09/25/17 21:00 10/24/17 20:59 09/26/17 10:02 100 MG Impression 47 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 increase Topamax 50 mg BID to 100 mg BID report and foggy thinking or tingling in hands 2. MRI with no acute findings 3. hemiplegia has resolved- should wear foot support for ambulation 4. PT/OT for any discharge needs 5. she needs to talk to her regarding work issues and finding a new job 6. will start a steroid taper 60 mg x 3 days (first dose given), 40 mg x 3 days , 30 mg x 3 days, 20 mg x 3 days, 10 mg x 3 days then stop 7. will see her back in the office 2-3 weeks after discharge Brittany Adams PAC schedule 8. if steroid taper and change in topamax does not help with headache management may switch at next visit will need to taper off topamax. 9. if medically stable ok to discharge to home with follow up I have seen and discussed above patient with Dr Trung House, neurology Unfortunately today the headache is persistent and she is much more photophobic with lights off totally in the room but luckily the left leg strength is stable and speech with the exception of some stuttering is unremarkable plan is to start steroids in hopes this will "break up the pain " but in the past her response to this was marginal I feel she could go home but suspect she will resist a bit until pain is a bit better follow up if discharged with Brittany Adams and Brittany Castro MD in our office If here tomorrow we will reassess and frankly suspect she will not be willing to go home yet Trung House MD
[2017-09-26 15:15] VITALS: BP 114/76; PULSE 79; TEMP 36.7; O2SAT 96
[2017-09-26] MEDS: ENOXAPARIN 40 MG/0.4 ML SYR SC SCH (20:59)
[2017-09-26 23:25] VITALS: BP 109/67; PULSE 68; TEMP 36.5; O2SAT 93
[2017-09-27 07:10] VITALS: BP 105/65; PULSE 60; TEMP 36.5; O2SAT 96
[2017-09-27 07:56] LABS: EOS % 0.2 %; EOS ABS # 0.02 K/uL (0-0.5); HEMATOCRIT 40.8 % (37-47); HEMOGLOBIN 14.6 g/dL (12.0-16.0); IG# 0.02 K/uL (0.00-0.02); LYMPH % 15.9 %; LYMPH ABS # 1.81 K/uL (1.2-3.4); MEAN CELL VOLUME 86.6 fL (80-100); MEAN CORPUSCULAR HGB CONC 35.8 g/dl (32-36); MEAN PLATELET VOLUME 9.8 fL (7.4-10.4); MONO % 4.8 %; MONO ABS # 0.55 K/uL (0.11-0.59); NEUT % 78.9 %; NEUT ABS # 8.99 K/uL (1.4-6.5); PLATELET COUNT 273 K/uL (130-400); RED CELL DISTRIBUTION WIDTH CV 12.2 % (11.5-14.5); RED CELL DISTRIBUTION WIDTH SD 38.8 fL (36.4-46.3); WHITE BLOOD COUNT 11.39 K/uL (4.8-10.8)
[2017-09-27 08:26] LABS: ALBUMIN 3.5 gm/dl (3.4-5.0); CALCIUM 8.9 mg/dl (8.5-10.1); CREATININE 0.69 mg/dl (0.60-1.20); POTASSIUM 3.9 mmol/L (3.5-5.1)
[2017-09-27 08:29] LABS: TOTAL PROTEIN 7.4 gm/dl (6.4-8.2)
[2017-09-27] MEDS: LISINOPRIL 10 MG TAB PO SCH (09:02)
[2017-09-27] MEDS: TOPIRAMATE 100 MG TAB PO SCH (09:03)
[2017-09-27] MEDS: ATORVASTATIN 40 MG TAB PO SCH (09:03)
[2017-09-27] MEDS: METOPROLOL SUCC 25MG EXT REL TAB PO SCH (09:03)
[2017-09-27] MEDS: ASPIRIN 81 MG ECTAB PO SCH (09:03)
[2017-09-27] MEDS: ACETAMINOPHEN 325 MG TAB PO PRN (09:06)
--- NOTE | 2017-09-27 11:47 | Progress Note ---
Subjective Date of Service: Sep 27, 2017. Subjective Pt evaluation today including: conversation w/ patient, physical exam, lab review, review of studies, review of inpatient medication list Saw/examined the patient in room 320 No problems/issues to today, she ambulated the hallways headache improved Problem List Medical Problems: (1) Chest pain Status: Acute (2) Cough Status: Acute (3) Elevated WBC count Status: Acute (4) Epigastric abdominal pain Status: Acute (5) Fever Status: Acute (6) Headache Status: Acute (7) Headache Status: Acute (8) Left-sided weakness Status: Acute (9) SIRS (systemic inflammatory response syndrome) Status: Acute (10) Sleep deprivation Status: Acute (11) Weakness of left lower extremity Status: Acute (12) Wheezing Status: Acute Review of Systems ENT: + problem reported (+headache) Respiratory: No shortness of breath Cardiac: No chest pain Medications Current Inpatient Medications Medications (Trade) Dose Ordered Sig/Everardo Route Start Time Stop Time Status Last Admin Dose Admin Enoxaparin Sodium (Lovenox Inj) 40 mg Q24H SC 09/24/17 21:00 10/24/17 20:59 09/26/17 20:59 40 MG Acetaminophen (Tylenol Tab) 650 mg Q4H PRN PO 09/24/17 15:45 10/24/17 15:44 09/27/17 09:06 650 MG Ondansetron HCl (Zofran Inj) 4 mg Q6H PRN IV 09/24/17 15:45 10/24/17 15:44 Aspirin (Ecotrin Tab) 81 mg QAM PO 09/25/17 09:00 10/25/17 08:59 09/27/17 09:03 81 MG Atorvastatin Calcium (Lipitor Tab) 40 mg QAM PO 09/25/17 09:00 10/25/17 08:59 09/27/17 09:03 40 MG Lisinopril (Zestril Tab) 10 mg DAILY PO 09/25/17 09:00 10/25/17 08:59 09/27/17 09:02 10 MG Metoprolol Succinate (Toprol Xl Tab) 25 mg DAILY PO 09/25/17 09:00 10/25/17 08:59 09/27/17 09:03 25 MG Miscellaneous (Iv Fluids Completed) 1 ea PRN PRN N/A 09/24/17 17:30 09/24/18 17:29 09/25/17 08:47 1 EA Topiramate (Topamax Tab) 100 mg BID PO 09/25/17 21:00 10/24/17 20:59 09/27/17 09:03 100 MG Objective Vital Signs Date Time Temp Pulse Resp B/P (MAP) Pulse Ox O2 Delivery O2 Flow Rate FiO2 09/27/17 07:20 Room Air 09/27/17 07:10 36.5 60 16 105/65 (78) 96 Room Air 09/26/17 23:35 Room Air 09/26/17 23:25 36.5 68 16 109/67 (81) 93 Room Air 09/26/17 15:50 Room Air 09/26/17 15:15 36.7 79 18 114/76 (89) 96 Room Air Physical Exam General Appearance: no apparent distress Respiratory/Chest: no respiratory distress, no accessory muscle use Cardiovascular: regular rate, rhythm Neurologic/Psychiatric: no motor/sensory deficits, alert, normal mood/affect Laboratory Results Last 24 Hours Test 09/26/17 13:07 09/27/17 06:57 Sodium Level 138 mmol/L 138 mmol/L Potassium Level 3.7 mmol/L 3.9 mmol/L Chloride Level 107 mmol/L 108 mmol/L Carbon Dioxide Level 23 mmol/L 20 mmol/L Anion Gap 7.0 mmol/L 10.0 mmol/L Blood Urea Nitrogen 10 mg/dl 12 mg/dl Creatinine 0.72 mg/dl 0.69 mg/dl Est Creatinine Clear Calc Drug Dose 115.4 ml/min 120.4 ml/min Estimated GFR () 117.2 121.8 Estimated GFR (Non- 101.1 105.1 BUN/Creatinine Ratio 13.3 16.9 Random Glucose 129 mg/dl 103 mg/dl Calcium Level 8.8 mg/dl 8.9 mg/dl Total Bilirubin 0.4 mg/dl 0.5 mg/dl Aspartate Amino Transf (AST/SGOT) 12 U/L 10 U/L Alanine Aminotransferase (ALT/SGPT) 25 U/L 25 U/L Alkaline Phosphatase 107 U/L 102 U/L Total Protein 7.3 gm/dl 7.4 gm/dl Albumin 3.7 gm/dl 3.5 gm/dl Globulin 3.6 gm/dl 3.9 gm/dl Albumin/Globulin Ratio 1.0 0.9 Folate 17.34 ng/mL White Blood Count 11.39 K/uL Red Blood Count 4.71 M/uL Hemoglobin 14.6 g/dL Hematocrit 40.8 % Mean Corpuscular Volume 86.6 fL Mean Corpuscular Hemoglobin 31.0 pg Mean Corpuscular Hemoglobin Concent 35.8 g/dl Platelet Count 273 K/uL Mean Platelet Volume 9.8 fL Neutrophils (%) (Auto) 78.9 % Lymphocytes (%) (Auto) 15.9 % Monocytes (%) (Auto) 4.8 % Eosinophils (%) (Auto) 0.2 % Basophils (%) (Auto) 0.0 % Neutrophils # (Auto) 8.99 K/uL Lymphocytes # (Auto) 1.81 K/uL Monocytes # (Auto) 0.55 K/uL Eosinophils # (Auto) 0.02 K/uL Basophils # (Auto) 0.00 K/uL RDW Standard Deviation 38.8 fL RDW Coefficient of Variation 12.2 % Immature Granulocyte % (Auto) 0.2 % Immature Granulocyte # (Auto) 0.02 K/uL Assessment and Plan This is a 47 year old female with a PMH of HTN, obesity, migraine headaches - presents with a migraine as well as L sided weakness Complicated Migraine 09/27 appreciate neurology input Topamax increased to 100mg BID continue steroid taper as per neuro will d/c home today 09/25 causing temporary hemiparesis/hemiplegia has had issues with this in the past for now, will give a dose of Verapamil try Toradol monitor electrolytes, check TSH continue Topamax 50mg BID consult neurology for further input PT/OT HTN blood pressure stable continue Lisinopril, metoprolol DVT ppx Lovenox FULL CODE
[2017-09-27] MEDS ORDERED: TPM100 PO (11:53)
[2017-09-27] MEDS ORDERED: PRD20 PO (11:53)
--- NOTE | 2017-09-27 11:57 | Discharge Instructions ---
Discharge Instructions Date of Service Sep 27, 2017. Admission Reason for Admission: Hemiplegic Migraine Discharge Discharge Diagnosis / Problem: Hemiplegic Migraine Discharge Goals Goal(s): Decrease discomfort, Improve function, Diagnostic testing, Therapeutic intervention Activity Recommendations Activity Limitations: resume your previous activity . Instructions / Follow-Up Instructions / Follow-Up Please follow-up with Dr. Brewer (covering for Dr. Mccauley) on September 29 at 10:45AM * Your dose of Topamax will increase to 100mg twice a day * You will be on a prednisone taper as follows * Take 60mg (three tablets) on 09/27 and 09/28 * Take 40mg (two tablets) on 09/29, 09/30, 10/01 * Take 30mg (one and a half tablets) on 10/02, 10/03, 10/04 * Take 20mg (one tablet) on 10/05, 10/06, 10/07 * Take 10mg (half a tablet) on 10/08, 10/09, 10/10 * Follow-up with neurology (JOSIE Gaytan) Current Hospital Diet Patient's current hospital diet: Regular Diet Discharge Diet Recommended Diet: Regular Diet Pending Studies Studies pending at discharge: no Medical Emergencies . Who to Call and When: Medical Emergencies: If at any time you feel your situation is an emergency, please call 911 immediately. . Non-Emergent Contact Non-Emergency issues call your: Primary Care Provider, Neurologist . . "Provider Documentation" section prepared by Cristino Rudolph. . VTE Core Measure Inpt VTE Proph given/why not?: Enoxaparin (Lovenox)SQ
--- NOTE | 2017-09-27 11:59 | Discharge Summary ---
Discharge Summary Date of Service Sep 27, 2017. Discharge Summary Admission Date: Sep 24, 2017 at 15:38 Discharge Date: Sep 27, 2017 Discharge Disposition: Home Principal Diagnosis: Hemiplegic Migraine Hypertension Medication Reconciliation New Medications: Prednisone (Prednisone) 20 Mg Tab 60 MG PO UD for 14 Days, #21 TABS Topiramate (Topiramate) 100 Mg Tab 100 MG PO BID for 30 Days, #60 TAB Continued Medications: Aspirin (Aspirin EC Low Dose) 81 Mg Ectab 81 MG PO QAM for 30 Days, #30 TABS 2 Refills with food Atorvastatin (Lipitor) 40 Mg Tab 40 MG PO QAM for 30 Days, #30 TAB 2 Refills Cyclobenzaprine Hcl (Flexeril) 10 Mg Tab 10 MG PO HS PRN for Muscle Spasms, #21 TAB Epinephrine (Epipen 2-Bashir) 0.3 Mg Inj 0.3 MG IM UD PRN for ALLERGIC REACTION Lisinopril (Zestril) 10 Mg Tab 10 MG PO DAILY Metoprolol Succinate (Toprol Xl) 25 Mg Tabcr 25 MG PO DAILY Discontinued Medications: Topiramate (Topamax) 50 Mg Tab 50 MG PO BID Admission Information HPI (per Admitting provider): This is a 47 year old female with a PMH of HTN, obesity, migraine headaches - presents with a migraine as well as L sided weakness. She has had this in the past and was admitted in March 2017 with similar symptoms. At that time, she had severe headaches and L upper extremity weakness. She had a complete w/up which including multiple brain MRIs and CTs which were negative. She was diagnosed with complicated migraines and was seen by neurology inpatient as well as outpatient. She was started on Topamax and has been doing well. States that the headache started to act up two days prior to arrival and worsened the day of arrival. She then developed L lower extremity weakness and her family urged her to come to the ED. Upon presentation, she had a head CT which was negative. Was given IV toradol, Zofran and fluids. States her headache is better and as her headache improved, her lower extremity weakness improved. During my exam, most of the weakness had subsided. Physical Exam (per Admitting): General Appearance: no apparent distress, + obese Head: normocephalic, atraumatic Eyes: normal inspection ENT: hearing grossly normal Neck: supple Respiratory/Chest: lungs clear, normal breath sounds, no respiratory distress, no accessory muscle use Cardiovascular: regular rate, rhythm, no edema, no murmur Abdomen/GI: normal bowel sounds, non tender, soft Back: no muscle spasm Extremities/Musculoskelatal: normal capillary refill, no pedal edema Neurologic/Psych: alert, + motor weakness (mild weakness to plantarflexion of the L foot; no weakness to any other planes of motion) Skin: normal color Lymphatic: no adenopathy Hospital Course This is a 47 year old female with a PMH of HTN, obesity, migraine headaches - presents with a migraine as well as L sided weakness Complicated Migraine 09/27 appreciate neurology input Topamax increased to 100mg BID continue steroid taper as per neuro will d/c home today 09/25 causing temporary hemiparesis/hemiplegia has had issues with this in the past for now, will give a dose of Verapamil try Toradol monitor electrolytes, check TSH continue Topamax 50mg BID consult neurology for further input PT/OT HTN blood pressure stable continue Lisinopril, metoprolol DVT ppx Lovenox FULL CODE Total time spent on discharge = 25 minutes This includes examination of the patient, discharge planning, medication reconciliation, and communication with other providers. Discharge Instructions Please follow-up with Dr. Brewer (covering for Dr. Mccauley) on September 29 at 10:45AM * Your dose of Topamax will increase to 100mg twice a day * You will be on a prednisone taper as follows * Take 60mg (three tablets) on 09/27 and 09/28 * Take 40mg (two tablets) on 09/29, 09/30, 10/01 * Take 30mg (one and a half tablets) on 10/02, 10/03, 10/04 * Take 20mg (one tablet) on 10/05, 10/06, 10/07 * Take 10mg (half a tablet) on 10/08, 10/09, 10/10 * Follow-up with neurology (Brittany Adams, JOSIE)
[2017-09-27 14:03] VITALS: BP 105/65; PULSE 60; TEMP 36.5; O2SAT 96
== END 2017-09-27 15:45 | disposition home or self-care (01) ==
LOC: C.EDB 13:07 → C.2T 15:38 → ENRESERV 16:27 → CANRESERV 16:49 → ENRESERV 16:49 → INTOOBSV 09-25 13:14 → OBSVTOIN 09-25 13:14 → CANBEDREQ 09-25 14:10 → ENRESERV 09-25 17:16 → C.3E 09-25 19:22
PROVIDERS: ADMIT Family Medicine; ATTEND Family Medicine
DX: G43.409 Hemiplegic migraine, not intractable, without status migrainosus (principal); I10 Essential (primary) hypertension; E11.9 Type 2 diabetes mellitus without complications; Z79.82 Long term (current) use of aspirin; Z79.899 Other long term (current) drug therapy; Z98.890 Other specified postprocedural states; Z86.73 Personal history of transient ischemic attack (TIA), and cerebral infarction without residual deficits; E66.9 Obesity, unspecified; Z88.2 Allergy status to sulfonamides; Z83.3 Family history of diabetes mellitus; Z80.9 Family history of malignant neoplasm, unspecified; Z82.49 Family history of ischemic heart disease and other diseases of the circulatory system

== ENCOUNTER 2017-11-09 17:57 | Emergency (ER) | payer BC ==
[~2017-11-09] VITALS: Ht 167.6 cm; Wt 108.0 kg
[~2017-11-09 17:57] MED LIST changes: +LISI-461 PO; +METO25TA4 PO; +PRD20 PO; -TOPI50TA24 PO; +TPM100 PO
[2017-11-09 18:12] VITALS: TEMP 36.9; Ht 167.6 cm; Wt 108.0 kg
[2017-11-09] MEDS ORDERED: SODIUM CHLORIDE 0.9% 1000ML 1,000 ML IV STA (20:02)
[2017-11-09] MEDS ORDERED: CEFTRIAXONE SOD INJ 1 GM ADDVIAL IV STA (20:02)
[2017-11-09] MEDS ORDERED: KETOROLAC TROMETHAMINE 30 MG/ML VIAL IV STA (20:02)
[2017-11-09] MEDS ORDERED: HYDROmorphone INJ 1 MG/ML SYR IV STA (20:02)
--- NOTE | 2017-11-09 20:07 | EMERGENCY ROOM VISIT NOTE ---
History Report prepared by Kamini: Liz Palma Under the Supervision of: Dr. Bradley Starks M.D. First contact with patient: 19:56 Chief Complaint: URINARY SYMPTOMS Stated Complaint: RUBIO TO PEE AND CHILLS, LOWER BACK HURTS VOMITING Nursing Triage Summary: patient reports UTI being treated with abx from [facility], reports no improvement, states "I'm getting the shakes now and the pain is worse." History of Present Illness The patient is a 47 year old female who presents to the Emergency Room with complaints of worsening urinary burning beginning 10 days ago. The patient went to [facility] on Monday, two days ago, and was started on Cipro. The patient reports chills, nausea, and increased urinary frequency. The patient has been taking Zofran for her nausea with minimal relief. Source of History: patient Onset: 10 days ago Position: other (generalized) Quality: other (urinary burning) Timing: constant Associated Symptoms: + chills, + nausea, + urinary symptoms Review of Systems See HPI for pertinent positives & negatives. A total of 10 systems reviewed and were otherwise negative. 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 Family History Diabetes mellitus FH: cancer FH: heart disease Hypertension Social History Smoking Status: Never Smoker Alcohol Use: none Drug Use: none Marital Status: Housing Status: lives with family Occupation Status: employed Current/Historical Medications Scheduled Aspirin (Aspirin EC Low Dose), 81 MG PO QAM Atorvastatin (Lipitor), 40 MG PO QAM Cephalexin Monohydrate (Keflex), 500 MG PO QID Ciprofloxacin Tab (Cipro), 500 MG PO BID Lisinopril (Zestril), 10 MG PO DAILY Metoprolol Succinate (Toprol Xl), 25 MG PO DAILY Phenazopyridine HCl (Pyridium), 200 MG PO TID Topiramate (Topiramate), 100 MG PO BID Scheduled PRN Cyclobenzaprine Hcl (Flexeril), 10 MG PO HS PRN for Muscle Spasms Epinephrine (Epipen 2-Bashir), 0.3 MG IM UD PRN for ALLERGIC REACTION Metoclopramide (Reglan), 10 MG PO Q6H PRN for Nausea Ondansetron Hcl (Zofran), 4 MG PO for Nausea Miscellaneous Medications Magnesium Oxide (Mag-Ox), 400 MG PO Allergies Coded Allergies: Sulfa Antibiotics (Verified Allergy, Intermediate, HIVES, 11/09/17) Molds & Smuts (Unverified Allergy, Mild, UNKNOWN, 11/09/17) Physical Exam Vital Signs Date Time Temp Pulse Resp B/P (MAP) Pulse Ox O2 Delivery O2 Flow Rate FiO2 11/09/17 22:00 100 18 151/85 96 Room Air 11/09/17 20:23 93 18 146/84 95 Room Air 11/09/17 18:12 36.9 95 18 159/101 95 Room Air Physical Exam GENERAL: Awake, alert, well-appearing, in no acute distress HENT: Normocephalic, atraumatic. Oropharynx unremarkable. EYES: Normal conjunctiva. Sclera non-icteric. NECK: Supple. No nuchal rigidity. FROM. No JVD. RESPIRATORY: Clear to auscultation. CARDIAC: Regular rate, normal rhythm. Extremities warm and well perfused. Pulses equal. ABDOMEN: Soft, non-distended. No tenderness to palpation. No rebound or guarding. No masses. RECTAL: Deferred. MUSCULOSKELETAL: Chest examination reveals no tenderness. The back is symmetrical on inspection without obvious abnormality. There is no CVA tenderness to palpation. No joint edema. LOWER EXTREMITIES: Calves are equal size bilaterally and non-tender. No edema. No discoloration. NEURO: Normal sensorium. No sensory or motor deficits noted. SKIN: No rash or jaundice noted. Medical Decision & Procedures ER Provider Diagnostic Interpretation: Radiology results as stated below per my review and radiologist interpretation: KUB FINDINGS: Cholecystectomy clips noted. Nonobstructive bowel gas pattern. No gross pneumoperitoneum. Allowing for bowel gas and stool, no calcifications to suggest nephrolithiasis. No radiographic evidence of ureteral calculi. Focal degenerative changes noted at L4-5. Lung bases clear. IMPRESSION: 1. No acute intra-abdominal pathology. No nephrolithiasis. Electronically signed by: Dhaval Thayer M.D. (RENAL)RETROPERITON COMP FINDINGS: Examination limited by patient body habitus. Right kidney: Normal echogenicity of renal parenchyma. Right kidney measures 10.8 cm. No hydronephrosis. No convincing evidence of calculus or mass. Left kidney: Normal echogenicity of renal parenchyma. Left kidney measures 11.9 cm. No hydronephrosis. No convincing evidence of calculus or mass. Bladder: Decompressed and not visualized. Other: None. IMPRESSION: 1. Normal renal ultrasound. No obstruction. Electronically signed by: Dhaval Thayer M.D. Laboratory Results 11/09/17 20:20 Red Blood Count 4.81, Mean Corpuscular Volume 86.1, Mean Corpuscular Hemoglobin 31.6, Mean Corpuscular Hemoglobin Concent 36.7, Mean Platelet Volume 9.4, Neutrophils (%) (Auto) 53.2, Lymphocytes (%) (Auto) 39.8, Monocytes (%) (Auto) 6.3, Eosinophils (%) (Auto) 0.5, Basophils (%) (Auto) 0.1, Neutrophils # (Auto) 4.69, Lymphocytes # (Auto) 3.50, Monocytes # (Auto) 0.55, Eosinophils # (Auto) 0.04, Basophils # (Auto) 0.01 11/09/17 20:20 Test 11/09/17 20:10 11/09/17 20:20 Urine Color DK YELLOW Urine Appearance TURBID (CLEAR) Urine pH 5.0 (4.5-7.5) Urine Specific [place] 1.036 (1.000-1.030) Urine Protein TRACE (NEG) Urine Glucose (UA) NEG (NEG) Urine Ketones TRACE (NEG) Urine Occult Blood NEG (NEG) Urine Nitrite NEG (NEG) Urine Bilirubin NEG (NEG) Urine Urobilinogen NEG (NEG) Urine Leukocyte Esterase MODERATE (NEG) Urine WBC (Auto) >30 /hpf (0-5) Urine RBC (Auto) 0-4 /hpf (0-4) Urine Hyaline Casts (Auto) 1-5 /lpf (0-5) Urine Epithelial Cells (Auto) >30 /lpf (0-5) Urine Bacteria (Auto) NEG (NEG) Urine Crystals AMORPHOUS SEDIMENT (NONE Urine Pathogenic Casts /lpf (0) Urine Test NEG (NEG) White Blood Count 8.80 K/uL (4.8-10.8) Red Blood Count 4.81 M/uL (4.2-5.4) Hemoglobin 15.2 g/dL (12.0-16.0) Hematocrit 41.4 % (37-47) Mean Corpuscular Volume 86.1 fL (80-100) Mean Corpuscular Hemoglobin 31.6 pg (25-34) Mean Corpuscular Hemoglobin Concent 36.7 g/dl (32-36) Platelet Count 259 K/uL (130-400) Mean Platelet Volume 9.4 fL (7.4-10.4) Neutrophils (%) (Auto) 53.2 % Lymphocytes (%) (Auto) 39.8 % Monocytes (%) (Auto) 6.3 % Eosinophils (%) (Auto) 0.5 % Basophils (%) (Auto) 0.1 % Neutrophils # (Auto) 4.69 K/uL (1.4-6.5) Lymphocytes # (Auto) 3.50 K/uL (1.2-3.4) Monocytes # (Auto) 0.55 K/uL (0.11-0.59) Eosinophils # (Auto) 0.04 K/uL (0-0.5) Basophils # (Auto) 0.01 K/uL (0-0.2) RDW Standard Deviation 39.6 fL (36.4-46.3) RDW Coefficient of Variation 12.5 % (11.5-14.5) Immature Granulocyte % (Auto) 0.1 % Immature Granulocyte # (Auto) 0.01 K/uL (0.00-0.02) Anion Gap 6.0 mmol/L (3-11) Est Creatinine Clear Calc Drug Dose 110.4 ml/min Estimated GFR () 103.2 Estimated GFR (Non- 89.0 BUN/Creatinine Ratio 14.4 (10-20) Calcium Level 9.2 mg/dl (8.5-10.1) Total Bilirubin 0.6 mg/dl (0.2-1) Direct Bilirubin 0.1 mg/dl (0-0.2) Aspartate Amino Transf (AST/SGOT) 16 U/L (15-37) Alanine Aminotransferase (ALT/SGPT) 26 U/L (12-78) Alkaline Phosphatase 113 U/L (45-117) Total Protein 8.3 gm/dl (6.4-8.2) Albumin 4.3 gm/dl (3.4-5.0) Lipase 122 U/L (73-393) Labs reviewed by ED physician. Medications Administered Medications (Trade) Dose Ordered Sig/Everardo Route Start Time Stop Time Status Last Admin Dose Admin Ceftriaxone Sodium (Rocephin Inj) 1 gm NOW STAT IV 11/09/17 20:02 11/09/17 20:06 DC 11/09/17 20:25 1 GM Ketorolac Tromethamine (Toradol Inj) 30 mg NOW STAT IV 11/09/17 20:02 11/09/17 20:06 DC 11/09/17 20:25 30 MG Sodium Chloride 1,000 ml @ 999 mls/hr Q1H1M STAT IV 11/09/17 20:02 11/09/17 21:02 DC 11/09/17 20:24 999 MLS/HR Hydromorphone HCl (Dilaudid Inj) 1 mg NOW STAT IV 11/09/17 20:02 11/09/17 20:06 DC 11/09/17 20:25 1 MG Potassium Chloride (Alis Ciel Elix) 40 meq NOW STAT PO 11/09/17 21:09 11/09/17 21:10 DC 11/09/17 22:00 40 MEQ Ondansetron HCl (Zofran Inj) 4 mg NOW STAT IV 11/09/17 21:49 11/09/17 21:50 DC 11/09/17 22:00 4 MG Cephalexin Monohydrate (Keflex 500MG Home Pack) 1 homepack NOW ONCE PO 11/09/17 22:15 11/09/17 22:16 DC 11/09/17 22:45 1 HOMEPACK Phenazopyridine HCl (Phenazopyridine HCl 200MG Home Pack) 1 homepack UD ONCE PO 11/09/17 22:15 11/09/17 22:16 DC 11/09/17 22:46 1 HOMEPACK ED Course 1958: Past medical records reviewed. The patient was evaluated in room C12B. A complete history and physical examination was performed. 2001: Ordered Dilaudid Inj 1 mg IV, Sodium Chloride 1000 ml @ 999 mls/hr, Toradol Inj 30 mg IV, Rocephin Inj 1 gm IV. 2108: Ordered Potassium Chloride 40 meq PO. 2148: Ordered Zofran Inj 4 mg IV. 2214: Ordered Phenazopyridine 1 homepack PO, Cephalexin Monohydrate 1 homepack PO. 2251: Upon reexamination the patient is resting comfortably. I discussed results and treatment plan with the patient. She verbalizes agreement and understanding. The patient is ready for discharge. Medical Decision Differential diagnosis: Etiologies such as renal colic, appendicitis, diverticulitis, mesenteric ischemia, aortic pathology, infections, inflammatory bowel disease, PUD, biliary pathology, UTI, as well as others were entertained. Medication Reconcilliation Current Medication List: was personally reviewed by me Blood Pressure Screening Patient's blood pressure: Elevated blood pressure Blood pressure disposition: Referred to PCP Impression Primary Impression: UTI (urinary tract infection) Scribe Attestation The scribe's documentation has been prepared under my direction and personally reviewed by me in its entirety. I confirm that the note above accurately reflects all work, treatment, procedures, and medical decision making performed by me. Departure Information Dispostion Home / Self-Care Prescriptions Phenazopyridine HCl (Pyridium) 200 Mg Tab 200 MG PO TID for Bladder pain, #6 TAB Prov: Bradley Starks MD 11/09/17 Metoclopramide (Reglan) 10 Mg Tab 10 MG PO Q6H Y for Nausea, #6 TAB Prov: Bradley Starks MD 11/09/17 Cephalexin Monohydrate (KEFLEX) 500 Mg Cap 500 MG PO QID for 10 Days, #40 CAP Prov: Bradley Starks MD 11/09/17 Referrals Orlin Mccauley M.D. (PCP) Forms HOME CARE DOCUMENTATION FORM, IMPORTANT VISIT INFORMATION Patient Instructions ED UTI Cystitis Female, My [facility] Additional Instructions Culture results are usually available in approx 48 hours You have been examined and treated today on an emergency basis only. This is not a substitute for, or an effort to provide, complete comprehensive medical care. It is impossible to recognize and treat all injuries or illnesses in a single emergency department visit. It is therefore important that you follow up closely with Dr Oesterling. Call as soon as possible for an appointment. Thank you for your time and consideration. I look forward to speaking with you again soon. Please don't hesitate to call us if you have any questions. Problem Qualifiers Primary Impression: UTI (urinary tract infection) Urinary tract infection type: acute cystitis Hematuria presence: with hematuria Qualified Codes: N30.01 - Acute cystitis with hematuria
[2017-11-09] MEDS ORDERED: ONDA4TAB46 PO (20:27)
[2017-11-09] MEDS ORDERED: MAGN400T6 PO (20:27)
[2017-11-09] MEDS ORDERED: CIPR1TAB11 PO (20:27)
[2017-11-09 20:43] LABS: BASO % 0.1 %; BASO ABS # 0.01 K/uL (0-0.2); EOS % 0.5 %; EOS ABS # 0.04 K/uL (0-0.5); HEMATOCRIT 41.4 % (37-47); HEMOGLOBIN 15.2 g/dL (12.0-16.0); IG# 0.01 K/uL (0.00-0.02); LYMPH % 39.8 %; MEAN CELL VOLUME 86.1 fL (80-100); MEAN CORPUSCULAR HEMOGLOBIN 31.6 pg (25-34); MEAN CORPUSCULAR HGB CONC 36.7 g/dl (32-36); MEAN PLATELET VOLUME 9.4 fL (7.4-10.4); MONO % 6.3 %; MONO ABS # 0.55 K/uL (0.11-0.59); NEUT % 53.2 %; NEUT ABS # 4.69 K/uL (1.4-6.5); PLATELET COUNT 259 K/uL (130-400); RED CELL DISTRIBUTION WIDTH CV 12.5 % (11.5-14.5); RED CELL DISTRIBUTION WIDTH SD 39.6 fL (36.4-46.3)
[2017-11-09 21:06] LABS: ALBUMIN 4.3 gm/dl (3.4-5.0); CALCIUM 9.2 mg/dl (8.5-10.1); CREATININE 0.8 mg/dl (0.60-1.20); POTASSIUM 3.1 mmol/L (3.5-5.1)
[2017-11-09 21:09] LABS: TOTAL PROTEIN 8.3 gm/dl (6.4-8.2)
[2017-11-09] MEDS ORDERED: POTASSIUM CHLORIDE 20 MEQ/15 ML UDC PO STA (21:09)
--- NOTE | 2017-11-09 21:15 | DIAGNOSTIC IMAGING REPORT ---
(RENAL)RETROPERITON COMP CLINICAL HISTORY: 47 years-old Female presenting with Pt c/o B/l kidney pain. TECHNIQUE: Real-time grayscale and limited color Doppler ultrasound imaging of the kidneys and bladder was performed. COMPARISON: CT from 12/21/2016. FINDINGS: Examination limited by patient body habitus. Right kidney: Normal echogenicity of renal parenchyma. Right kidney measures 10.8 cm. No hydronephrosis. No convincing evidence of calculus or mass. Left kidney: Normal echogenicity of renal parenchyma. Left kidney measures 11.9 cm. No hydronephrosis. No convincing evidence of calculus or mass. Bladder: Decompressed and not visualized. Other: None. IMPRESSION: 1. Normal renal ultrasound. No obstruction. Electronically signed by: Dhaval Thayer M.D. 11/09/2017 9:14 PM Dictated Date/Time: 11/09/2017 9:13 PM
--- NOTE | 2017-11-09 21:16 | DIAGNOSTIC IMAGING REPORT ---
KUB CLINICAL HISTORY: 47 years-old Female presenting with Pt c/o urinary frequency, painful urination, low back pain. TECHNIQUE: Single supine view of the abdomen was obtained. COMPARISON: CT from 12/21/2016. FINDINGS: Cholecystectomy clips noted. Nonobstructive bowel gas pattern. No gross pneumoperitoneum. Allowing for bowel gas and stool, no calcifications to suggest nephrolithiasis. No radiographic evidence of ureteral calculi. Focal degenerative changes noted at L4-5. Lung bases clear. IMPRESSION: 1. No acute intra-abdominal pathology. No nephrolithiasis. Electronically signed by: Dhaval Thayer M.D. 11/09/2017 9:15 PM Dictated Date/Time: 11/09/2017 9:14 PM
[2017-11-09] MEDS ORDERED: ONDANSETRON INJ 2 MG/ML 2 ML VIAL IV STA (21:49)
[2017-11-09] MEDS ORDERED: CEPHALEXIN 500MG HOME PACK 1 EA BTL PO ONE (22:15)
[2017-11-09] MEDS ORDERED: PHENAZOPYRIDINE HOME PACK 200 MG VIAL PO ONE (22:15)
[2017-11-09] MEDS ORDERED: PHEN-876 PO (22:17)
[2017-11-09] MEDS ORDERED: METO-157 PO (22:17)
[2017-11-09] MEDS ORDERED: CEPH500C2 PO (22:17)
[2017-11-09 22:51] VITALS: BP 118/67; PULSE 82; O2SAT 95
== END 2017-11-09 22:51 | disposition home or self-care (01) ==
LOC: C.EDB 17:59 → C.EDC 22:51
DX: N30.01 Acute cystitis with hematuria (principal); J45.909 Unspecified asthma, uncomplicated; E11.9 Type 2 diabetes mellitus without complications; I10 Essential (primary) hypertension; Z86.73 Personal history of transient ischemic attack (TIA), and cerebral infarction without residual deficits; Z83.3 Family history of diabetes mellitus; Z88.1 Allergy status to other antibiotic agents; Z91.048 Other nonmedicinal substance allergy status; Z82.49 Family history of ischemic heart disease and other diseases of the circulatory system; Z79.82 Long term (current) use of aspirin; Z79.899 Other long term (current) drug therapy

== ENCOUNTER 2017-11-12 20:56 | Emergency (ER) | payer BC ==
[~2017-11-12] VITALS: Ht 167.6 cm; Wt 108.0 kg
[~2017-11-12 20:56] MED LIST changes: +CEPH500C2 PO; +CIPR1TAB11 PO; +MAGN400T6 PO; +METO-157 PO; +ONDA4TAB46 PO; +PHEN-876 PO; -PRD20 PO
[2017-11-12 21:03] VITALS: TEMP 36.8; Ht 167.6 cm; Wt 108.0 kg
[2017-11-12] MEDS ORDERED: METO-157 PO (21:27)
[2017-11-12] MEDS ORDERED: PHEN-876 PO (21:27)
[2017-11-12] MEDS ORDERED: ASPI81TA28 PO (21:27)
[2017-11-12] MEDS ORDERED: ATOR-24 PO (21:27)
[2017-11-12] MEDS ORDERED: TOPI100T20 PO (21:27)
[2017-11-12] MEDS ORDERED: CEPH500C PO (21:27)
--- NOTE | 2017-11-12 21:41 | EMERGENCY ROOM VISIT NOTE ---
History Report prepared by Kamini: Estuardo Patel Under the Supervision of: Dr. Lavell Osullivan M.D. First contact with patient: 21:19 Chief Complaint: HEADACHE Stated Complaint: COMPLEX MIGRAINE History of Present Illness The patient is a 47 year old female who presents to the Emergency Room with complaints of worsening headache beginning two days ago. The patient states her discomfort is localized to the left frontal lobe. She reports she has a history of complex migraines with stroke-like symptoms. The patient notes her symptoms feel like her previous migraines. 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 The patient reports she went through the rest of her work day because she was sitting for most of the day. She notes after her foot started to roll, it spread through the rest of her body. The patient states she has not had one in a few months. She reports light intensified her symptoms. The patient notes she takes medication regularly, and she has not missed a dose yet. She states she is currently being treated with antibiotics for a UTI that was diagnosed a week ago. The patient reports she did have a mild headache when she was in the ED. She denies fevers, new chills, cough, and congestion. Source of History: patient Onset: two days ago Position: head Quality: ache Timing: worsening Modifying Factors (Worsening): other (light) Associated Symptoms: No fevers, No chills, No cough Note: Associated symptoms: rolling in of the foot Denies: congestion Review of Systems See HPI for pertinent positives and negatives. A total of ten systems were reviewed and were otherwise negative. 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 Family History Diabetes mellitus FH: cancer FH: heart disease Hypertension Social History Smoking Status: Never Smoker Alcohol Use: none Drug Use: none Marital Status: Housing Status: lives with family Occupation Status: employed Current/Historical Medications Scheduled Aspirin (Aspirin Ec), 81 MG PO QAM W/FOOD Atorvastatin (Lipitor), 40 MG PO QAM Cephalexin Monohydrate (Keflex), 500 MG PO QID Ciprofloxacin Tab (Cipro), 500 MG PO BID Lisinopril (Zestril), 10 MG PO DAILY Magnesium Oxide (Mag-Ox), 400 MG PO QAM Metoprolol Succinate (Toprol Xl), 25 MG PO DAILY Topiramate (Topamax), 100 MG PO BID Scheduled PRN Cyclobenzaprine Hcl (Flexeril), 10 MG PO HS PRN for Muscle Spasms Epinephrine (Epipen 2-Bashir), 0.3 MG IM UD PRN for ALLERGIC REACTION Metoclopramide (Reglan), 10 MG PO Q6H PRN for Nausea or Vomiting Ondansetron Hcl (Zofran), 4 MG PO for Nausea Phenazopyridine HCl (Pyridium), 200 MG PO TID PRN for Bladder pain Allergies Coded Allergies: Sulfa Antibiotics (Verified Allergy, Intermediate, HIVES, 11/12/17) Molds & Smuts (Verified Allergy, Mild, UNKNOWN, 11/12/17) Physical Exam Vital Signs Date Time Temp Pulse Resp B/P (MAP) Pulse Ox O2 Delivery O2 Flow Rate FiO2 11/12/17 22:40 65 16 121/74 97 Room Air 11/12/17 21:03 36.8 90 16 129/87 98 Room Air Physical Exam GENERAL: Awake, alert, fatigued and uncomfortable-appearing, no distress HENT: Normocephalic, atraumatic. TM's normal. Oropharynx and mucous membranes are dry, otherwise unremarkable. EYES: PERRL. EOMI. Normal conjunctiva. Sclera non-icteric. NECK: Supple. No nuchal rigidity. FROM. No JVD or bruit. RESPIRATORY: CTA CARDIAC: RRR. No murmur. ABDOMEN: Soft, non distended. No tenderness to palpation. No rebound or guarding. No masses. RECTAL: Deferred. MUSCULOSKELETAL: Unremarkable. No edema. No discoloration. Gross motor strength symmetric. NEURO: Cranial nerves 2-12 grossly intact. Normal sensorium. No sensory or motor deficits noted. Gait normal. Speech normal. No pronator drift. Negative rhomberg. normal cerebellar function with [id number], alternating palms, [id number]. Active eversion of right foot. SKIN: No rash or jaundice noted. LYMPH: No adenopathy. Medical Decision & Procedures Medications Administered Medications (Trade) Dose Ordered Sig/Everardo Route Start Time Stop Time Status Last Admin Dose Admin Sodium Chloride 2,000 ml @ 999 mls/hr Q2H1M STAT IV 11/12/17 21:44 11/12/17 23:44 DC 11/12/17 21:44 999 MLS/HR Metoclopramide HCl (Reglan Inj) 10 mg NOW STAT IV 11/12/17 21:44 11/12/17 21:50 DC 11/12/17 22:07 10 MG Diphenhydramine HCl (Benadryl Inj) 25 mg NOW STAT IV 11/12/17 21:44 11/12/17 21:50 DC 11/12/17 22:07 25 MG Dexamethasone Sodium Phosphate (Dexamethasone Inj Pf) 10 mg NOW ONCE IV 11/12/17 21:45 11/12/17 21:50 DC 11/12/17 22:07 10 MG Haloperidol Lactate (Haldol Inj) 5 mg NOW STAT IM 11/12/17 23:28 11/12/17 23:29 DC 11/12/17 23:34 5 MG ED Course 2130: The patient was evaluated in room A11B. A complete history and physical exam was performed. []: I reevaluated the patient. Discussed results and discharge instructions: she verbalized understanding and agreement. The patient is ready for discharge. Medical Decision I reviewed the patient's past medical history, medications, and the nursing notes as described above. Differential diagnosis: Etiologies such as migraine headache, meningitis, sinusitis, CO exposure, ICH, SAH, infection, tumor, headache, sinus thrombosis, arterial dissection, as well as others were entertained. The patient is a 47-year-old woman with a past medical history of complex migraines with neurologic symptoms presents emergency department with worsening migraine over the past couple of days that became worse today per hpi. On arrival, the patient is uncomfortable but no acute distress, afebrile stable vital signs. Patient is neurologically intact including normal cerebellar function with [id number]-gv-ebdu, alternating palms, [id number]. She does however exhibit external rotation of her right foot which she will do actively. Otherwise she has 5/5 strength in SILT in all extremities. Of note, patient reports that she was treated for a UTI several days ago here in the emergency department. She reports improvement her dysuria. Review the patient's culture results demonstrate multiple donald consistent with skin donald and thus no sensitivities are pending. The patient was given IV fluids, Reglan, Benadryl, dexamethasone with some mild improvement however still reporting discomfort. She was subsequently given dose of IV Haldol with continued improvement on reevaluation. Of note, the patient's right foot was at this time held in normal anatomic position. Thus, given trending improvement the patient is agreeable for discharge and will return if her symptoms become worse. Follow- up with her PCP and neurologist. Findings and plan for follow-up reviewed with patient. Patient agreeable and d/c'd per discharge instructions. Medication Reconcilliation Current Medication List: was personally reviewed by me Blood Pressure Screening Patient's blood pressure: Normal blood pressure Blood pressure disposition: Did not require urgent referral Impression Primary Impression: Migraine Scribe Attestation The scribe's documentation has been prepared under my direction and personally reviewed by me in its entirety. I confirm that the note above accurately reflects all work, treatment, procedures, and medical decision making performed by me. Departure Information Dispostion Home / Self-Care Referrals Orlin Mccauley M.D. (PCP) Forms HOME CARE DOCUMENTATION FORM, IMPORTANT VISIT INFORMATION Patient Instructions ED Headache Migraine, My [facility] Additional Instructions Please follow up with your primary care physician and neurologist in the next 1- 3 days for re-evaluation. Your symptoms are most consistent with your known history of complex migraines. Otherwise, your exam did not show signs of an emergent condition at this time. Continue your current medications as prescribed. Drink plenty of fluids to ensure hydration. Return to the emergency department for worsening symptoms as described in the accompanying instructions. Work Instructions Return To Work: 3 days
[2017-11-12] MEDS ORDERED: METOCLOPRAMIDE HCL INJ 5 MG/ML 2 ML VIAL IV STA (21:44)
[2017-11-12] MEDS ORDERED: SODIUM CHLORIDE 0.9% 1000ML 2,000 ML IV STA (21:44)
[2017-11-12] MEDS ORDERED: DiphenhydrAMINE HCL 50 MG/ML VIAL IV STA (21:44)
[2017-11-12] MEDS ORDERED: DEXAMETHASONE **PF** INJ 10 MG/ML VIAL IV ONE (21:45)
[2017-11-12] MEDS ORDERED: HALOPERIDOL LACTATE 5 MG/ML 1 ML VIAL IM STA (23:28)
[2017-11-13 00:31] VITALS: BP 129/87; PULSE 98; O2SAT 98
== END 2017-11-13 00:51 | disposition home or self-care (01) ==
LOC: C.EDB 20:57 → C.EDA 11-13 00:51
DX: G43.909 Migraine, unspecified, not intractable, without status migrainosus (principal); J45.909 Unspecified asthma, uncomplicated; F41.9 Anxiety disorder, unspecified; Z86.73 Personal history of transient ischemic attack (TIA), and cerebral infarction without residual deficits; E11.9 Type 2 diabetes mellitus without complications; I10 Essential (primary) hypertension; Z83.3 Family history of diabetes mellitus; Z82.49 Family history of ischemic heart disease and other diseases of the circulatory system; Z79.82 Long term (current) use of aspirin; Z88.2 Allergy status to sulfonamides

== ENCOUNTER 2017-12-10 17:11 | Emergency (ER) | payer BC ==
[~2017-12-10] VITALS: Ht 167.6 cm; Wt 110.8 kg
[~2017-12-10 17:11] MED LIST changes: -ASPEC81 PO; +ASPI81TA28 PO; +ATOR-24 PO; +CEPH500C PO; -CEPH500C2 PO; -LPT40 PO; +TOPI100T20 PO; -TPM100 PO
[2017-12-10 17:15] VITALS: TEMP 36.9; Ht 167.6 cm; Wt 110.8 kg
[2017-12-10] MEDS ORDERED: SODIUM CHLORIDE 0.9% 1000ML 1,000 ML IV STA (17:29)
[2017-12-10 18:00] VITALS: O2SAT 97
[2017-12-10 18:01] LABS: BASO % 0.2 %; BASO ABS # 0.02 K/uL (0-0.2); EOS % 0.9 %; EOS ABS # 0.09 K/uL (0-0.5); HEMATOCRIT 43.2 % (37-47); HEMOGLOBIN 15.5 g/dL (12.0-16.0); IG# 0.01 K/uL (0.00-0.02); LYMPH % 32.5 %; LYMPH ABS # 3.12 K/uL (1.2-3.4); MEAN CELL VOLUME 87.3 fL (80-100); MEAN CORPUSCULAR HEMOGLOBIN 31.3 pg (25-34); MEAN CORPUSCULAR HGB CONC 35.9 g/dl (32-36); MEAN PLATELET VOLUME 9.1 fL (7.4-10.4); MONO % 5.2 %; NEUT % 61.1 %; NEUT ABS # 5.87 K/uL (1.4-6.5); PLATELET COUNT 264 K/uL (130-400); RED CELL DISTRIBUTION WIDTH CV 12.4 % (11.5-14.5); WHITE BLOOD COUNT 9.61 K/uL (4.8-10.8)
[2017-12-10 18:20] LABS: ALBUMIN 3.9 gm/dl (3.4-5.0); ALT/SGPT 25 U/L (12-78); AST/SGOT 13 U/L (15-37); BLOOD UREA NITROGEN 9 mg/dl (7-18); CALCIUM 8.8 mg/dl (8.5-10.1); CARBON DIOXIDE 28 mmol/L (21-32); CREATININE 0.82 mg/dl (0.60-1.20); GLUCOSE 88 mg/dl (70-99); LIPASE 106 U/L (73-393); POTASSIUM 3.3 mmol/L (3.5-5.1); SODIUM 141 mmol/L (136-145)
[2017-12-10 18:23] LABS: ALKALINE PHOSPHATASE 125 U/L (45-117); CKMB 0.8 ng/ml (0.5-3.6); TOTAL PROTEIN 8.1 gm/dl (6.4-8.2)
[2017-12-10 18:31] VITALS: BP 127/70
--- NOTE | 2017-12-10 18:39 | DIAGNOSTIC IMAGING REPORT ---
SINGLE VIEW CHEST CLINICAL HISTORY: Atypical chest pain. FINDINGS: An AP, portable, upright chest radiograph is compared to study dated 04/08/2017. The examination is mildly degraded by portable technique and patient rotation. The cardiomediastinal silhouette is unremarkable. The lungs and pleural spaces are clear. No pneumothorax is seen. The bony thorax is grossly intact. IMPRESSION: No active disease in the chest. Electronically signed by: Daniel Gamboa M.D. 12/10/2017 6:37 PM Dictated Date/Time: 12/10/2017 6:37 PM
[2017-12-10 18:50] VITALS: PULSE 85; O2SAT 99
[2017-12-10] MEDS ORDERED: ATIVAN 1MG HOMEPACK PO ONE (19:00)
--- NOTE | 2017-12-10 19:14 | EMERGENCY ROOM VISIT NOTE ---
History Report prepared by Kamini: Vanessa Singer Under the Supervision of: Dr. Bobby Galicia D.O. First contact with patient: 17:23 Chief Complaint: CHEST PAIN Stated Complaint: CHEST TIGHTNESS ON LEFT SIDE, HEADACHE, NAUSEA Nursing Triage Summary: Pt. reports left sided chest tightness and stabbing pain that started yesterday. She also reports a severe headache and nausea, but no vomiting. Pt. denies shortness of breath. Pt. also states that she is feeling confused, but is unable to explain how so. Pt. presents A&Ox4. She reports that she was just tapered off her amitriptyline. History of Present Illness The patient is a 47 year old female who presents to the Emergency Room with complaints of worsening chest tightness starting yesterday. Her chest pain worsens with stress. She has also had a headache. She states that she had these symptoms once before in the distant past. She does not remember what the symptoms were from. She is having confusion which she has spoken with her PCP and neurologist about. They thought that it was a side effect of amitriptyline. She is currently being taken off the amitriptyline. She denies any history of IN. She reports SOB with getting worked up, but none otherwise. Source of History: patient Onset: yesterday Position: chest Quality: other (tightness) Timing: worsening Modifying Factors (Worsening): other (stress) Associated Symptoms: + headache Review of Systems See HPI for pertinent positives & negatives. A total of 10 systems reviewed and were otherwise negative. 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 [employer] Family History Diabetes mellitus FH: cancer FH: heart disease Hypertension Social History Smoking Status: Never Smoker Alcohol Use: none Drug Use: none Marital Status: Housing Status: lives with family Occupation Status: employed Current/Historical Medications Scheduled Aspirin (Aspirin Ec), 81 MG PO QAM W/FOOD Atorvastatin (Lipitor), 40 MG PO QAM Lisinopril (Zestril), 10 MG PO DAILY Magnesium Oxide (Mag-Ox), 400 MG PO QAM Metoprolol Succinate (Toprol Xl), 25 MG PO DAILY Topiramate (Topamax), 100 MG PO BID Scheduled PRN Cyclobenzaprine Hcl (Flexeril), 10 MG PO HS PRN for Muscle Spasms Epinephrine (Epipen 2-Bashir), 0.3 MG IM UD PRN for ALLERGIC REACTION Metoclopramide (Reglan), 10 MG PO Q6H PRN for Nausea or Vomiting Allergies Coded Allergies: Sulfa Antibiotics (Verified Allergy, Intermediate, HIVES, 12/10/17) Molds & Smuts (Verified Allergy, Mild, UNKNOWN, 12/10/17) Physical Exam Vital Signs Date Time Temp Pulse Resp B/P (MAP) Pulse Ox O2 Delivery O2 Flow Rate FiO2 12/10/17 18:50 85 21 99 Room Air 12/10/17 18:31 127/70 12/10/17 18:20 80 17 96 Room Air 12/10/17 18:15 85 16 96 Room Air 12/10/17 18:01 133/84 12/10/17 18:00 97 Room Air 12/10/17 17:45 86 21 97 Room Air 12/10/17 17:32 97 12/10/17 17:30 97 Room Air 12/10/17 17:20 100 Room Air 12/10/17 17:15 36.9 97 20 160/92 100 Room Air Physical Exam GENERAL: Patient is awake, alert, mildly anxious appearing, but overall comfortable. EYES: The conjunctivae are clear. The pupils are round and reactive. EARS, NOSE, MOUTH AND THROAT: The nose is without any evidence of any deformity. Mucous membranes are moist tongue is midline NECK: The neck is nontender and supple. RESPIRATORY: Normal respiratory effort is noted there is no evidence of wheezing rhonchi or rales CARDIOVASCULAR: Regular rate and rhythm noted there no murmurs rubs or gallops normal S1 normal S2 GASTROINTESTINAL: The abdomen is soft. Bowel sounds are present in all quadrants. Abdomen is nontender MUSCULOSKELETAL/EXTREMITIES: There is no evidence of gross deformity full range of motion is noted in the hips and shoulders SKIN: There is no obvious evidence of any rash. There are no petechiae, pallor or cyanosis noted. NEUROLOGIC: Patient is awake alert and oriented x3 Medical Decision & Procedures ER Provider Diagnostic Interpretation: X-ray results as stated below per interpretation by me and the radiologist. SINGLE VIEW CHEST CLINICAL HISTORY: Atypical chest pain. FINDINGS: An AP, portable, upright chest radiograph is compared to study dated 04/08/2017. The examination is mildly degraded by portable technique and patient rotation. The cardiomediastinal silhouette is unremarkable. The lungs and pleural spaces are clear. No pneumothorax is seen. The bony thorax is grossly intact. IMPRESSION: No active disease in the chest. Electronically signed by: Daniel Gamboa M.D. 12/10/2017 6:37 PM Dictated Date/Time: 12/10/2017 6:37 PM Laboratory Results 12/10/17 17:38 Red Blood Count 4.95, Mean Corpuscular Volume 87.3, Mean Corpuscular Hemoglobin 31.3, Mean Corpuscular Hemoglobin Concent 35.9, Mean Platelet Volume 9.1, Neutrophils (%) (Auto) 61.1, Lymphocytes (%) (Auto) 32.5, Monocytes (%) (Auto) 5.2, Eosinophils (%) (Auto) 0.9, Basophils (%) (Auto) 0.2, Neutrophils # (Auto) 5.87, Lymphocytes # (Auto) 3.12, Monocytes # (Auto) 0.50, Eosinophils # (Auto) 0.09, Basophils # (Auto) 0.02 12/10/17 17:38 Test 12/10/17 17:38 12/10/17 17:51 White Blood Count 9.61 K/uL (4.8-10.8) Red Blood Count 4.95 M/uL (4.2-5.4) Hemoglobin 15.5 g/dL (12.0-16.0) Hematocrit 43.2 % (37-47) Mean Corpuscular Volume 87.3 fL (80-100) Mean Corpuscular Hemoglobin 31.3 pg (25-34) Mean Corpuscular Hemoglobin Concent 35.9 g/dl (32-36) Platelet Count 264 K/uL (130-400) Mean Platelet Volume 9.1 fL (7.4-10.4) Neutrophils (%) (Auto) 61.1 % Lymphocytes (%) (Auto) 32.5 % Monocytes (%) (Auto) 5.2 % Eosinophils (%) (Auto) 0.9 % Basophils (%) (Auto) 0.2 % Neutrophils # (Auto) 5.87 K/uL (1.4-6.5) Lymphocytes # (Auto) 3.12 K/uL (1.2-3.4) Monocytes # (Auto) 0.50 K/uL (0.11-0.59) Eosinophils # (Auto) 0.09 K/uL (0-0.5) Basophils # (Auto) 0.02 K/uL (0-0.2) RDW Standard Deviation 40.0 fL (36.4-46.3) RDW Coefficient of Variation 12.4 % (11.5-14.5) Immature Granulocyte % (Auto) 0.1 % Immature Granulocyte # (Auto) 0.01 K/uL (0.00-0.02) Prothrombin Time 10.4 SECONDS (9.0-12.0) Prothromb Time International Ratio 1.0 (0.9-1.1) Activated Partial Thromboplast Time 27.0 SECONDS (21.0-31.0) Partial Thromboplastin Ratio 1.0 Anion Gap 5.0 mmol/L (3-11) Est Creatinine Clear Calc Drug Dose 109.2 ml/min Estimated GFR () 100.2 Estimated GFR (Non- 86.4 BUN/Creatinine Ratio 10.7 (10-20) Calcium Level 8.8 mg/dl (8.5-10.1) Magnesium Level 2.2 mg/dl (1.8-2.4) Total Bilirubin 0.5 mg/dl (0.2-1) Direct Bilirubin 0.1 mg/dl (0-0.2) Aspartate Amino Transf (AST/SGOT) 13 U/L (15-37) Alanine Aminotransferase (ALT/SGPT) 25 U/L (12-78) Alkaline Phosphatase 125 U/L (45-117) Total Creatine Kinase 71 U/L (26-192) Creatine Kinase MB 0.8 ng/ml (0.5-3.6) Creatine Kinase MB Ratio 1.1 (0-3.0) Troponin I < 0.015 ng/ml (0-0.045) Total Protein 8.1 gm/dl (6.4-8.2) Albumin 3.9 gm/dl (3.4-5.0) Lipase 106 U/L (73-393) Human Chorionic Gonadotropin, Qual NEG (NEG) Bedside D-Dimer 307 ng/mlFEU (0-450) Laboratory results per my review. Medications Administered Medications (Trade) Dose Ordered Sig/Everardo Route Start Time Stop Time Status Last Admin Dose Admin Sodium Chloride 1,000 ml @ 999 mls/hr Q1H1M STAT IV 12/10/17 17:29 12/10/17 18:29 DC 12/10/17 17:58 999 MLS/HR Lorazepam (Ativan 1MG Home Pack) 1 homepack UD ONCE PO 12/10/17 19:00 12/10/17 19:01 DC 12/10/17 19:10 1 HOMEPACK ECG Per My Interpretation Indication: chest pain Rate (beats per minute): 94 Rhythm: normal sinus Findings: no ectopy, other (no acute ST segment abnormality) Comparison ECG Date: 26-Sep-2007 Change: no significant change ED Course 1725: The patient was evaluated in room C2B. A complete history and physical examination were performed. 1729: NSS 1,000 ml @ 999 mls/hr IV. 1857: Upon reevaluation, the patient is resting comfortably. I discussed the results and treatment plan with her. She verbalized agreement of the treatment plan. She was discharged home. 1900: Ativan 1 mg 1 homepack PO. Medical Decision Prior records/ancillary studies reviewed. Triage Nursing notes reviewed. The patient's history was concerning for chest pain. Differential diagnosis: Etiologies such as cardiac ischemia, aortic dissection, pulmonary embolism, pneumonia, pneumothorax, musculoskeletal, infections, pericarditis, myocarditis , esophageal rupture, gastrointestinal, as well as others were entertained. The patient is a 47-year-old female who presented to the emergency department for ongoing chest pain. The patient's noticed chest pain and anxiety over the last 24 hours. She has had ongoing symptoms but has a negative troponin as well as a negative d-dimer. I discussed patient's laboratory and radiographic studies with her. I also discussed the limitations of the emergency department workup for chest pain with her. She was encouraged to rest and avoid any strenuous activity. She was also encouraged to continue all medications as prescribed and follow-up with her primary care physician as soon as possible for further evaluation. Otherwise she was encouraged to return to the emergency department immediately if symptoms change worsen or the need arises. Medication Reconcilliation Current Medication List: was personally reviewed by me Blood Pressure Screening Patient's blood pressure: Elevated blood pressure Blood pressure disposition: Elevated BP felt to be situational Impression Primary Impression: Chest pain Additional Impression: Anxiety Scribe Attestation The scribe's documentation has been prepared under my direction and personally reviewed by me in its entirety. I confirm that the note above accurately reflects all work, treatment, procedures, and medical decision making performed by me. Departure Information Dispostion Home / Self-Care Referrals Orlin Mccauley M.D. (PCP) Forms Call Back Authorization, HOME CARE DOCUMENTATION FORM, IMPORTANT VISIT INFORMATION Patient Instructions ED Chest Pain Atypical Unkn Cause, My [facility] Additional Instructions Call your family doctor in the morning to schedule a follow-up appointment. Rest and avoid any strenuous activity. Continue all medications as prescribed. Consider using the Ativan 1 pill before bedtime as needed for anxiety. Return to the emergency department immediately symptoms change worsen or the need arises. Problem Qualifiers Primary Impression: Chest pain Chest pain type: unspecified Qualified Codes: R07.9 - Chest pain, unspecified
== END 2017-12-10 19:13 | disposition home or self-care (01) ==
LOC: C.EDB 17:13 → C.EDC 19:13
DX: R07.9 Chest pain, unspecified (principal); F41.9 Anxiety disorder, unspecified; R03.0 Elevated blood-pressure reading, without diagnosis of hypertension; R51 Headache; I10 Essential (primary) hypertension; E11.9 Type 2 diabetes mellitus without complications; Z79.82 Long term (current) use of aspirin; Z79.899 Other long term (current) drug therapy; Z91.048 Other nonmedicinal substance allergy status; Z88.2 Allergy status to sulfonamides

== ENCOUNTER 2017-12-16 11:42 | Emergency (ER) | payer BC ==
[~2017-12-16] VITALS: Ht 167.6 cm; Wt 109.6 kg
[~2017-12-16 11:42] MED LIST changes: -CEPH500C PO; -CIPR1TAB11 PO; -ONDA4TAB46 PO; -PHEN-876 PO
[2017-12-16 11:43] VITALS: Ht 167.6 cm; Wt 109.6 kg
[2017-12-16] MEDS ORDERED: DEXAMETHASONE SOD INJ 4 MG/ML VIAL IV STA (11:58)
[2017-12-16] MEDS ORDERED: SODIUM CHLORIDE 0.9% 1000ML 1,000 ML IV STA (11:58)
[2017-12-16] MEDS ORDERED: ALBUT/IPRATROP 3MG/0.5MG NEB 3 ML VIAL INH STA ×3 (11:58→12:56)
[2017-12-16] MEDS ORDERED: ACETAMINOPHEN 500 MG TAB PO STA (12:15)
[2017-12-16 12:24] VITALS: O2SAT 95
--- NOTE | 2017-12-16 12:31 | EMERGENCY ROOM VISIT NOTE ---
ED Visit Note First contact with patient: 11:49 CHIEF COMPLAINT: Cough, shortness of breath HISTORY OF PRESENTING ILLNESS: This is a 47-year-old female past medical history of hypertension and hypothyroidism who presents to the emergency department with complaint of cough and shortness of breath. Patient states that she started with a cough on Monday, and it has been getting progressively worse. She states that she has been coughing up a greenish tan mucus. Yesterday she started to have shortness of breath which has been getting worse today. She is also had a sore throat and her voice has become hoarse from the coughing. She states that today she was having a coughing fit and developed pain in her right ear and states that she has had decreased hearing from the ear. She denies any drainage from the ear. She denies any chest pain. She denies any smoking history or history of lung problems. She has had recent sick contacts with similar symptoms. She has had some associated nausea, but denies any vomiting or diarrhea. She does not have any abdominal pain. She denies any urinary symptoms. Denies any unusual rash. She reports that she did receive a flu shot this year. REVIEW OF SYSTEMS: A complete 10 point review of systems was reviewed with the patient with pertinent positives and negatives as per history of present illness. All else were negative. PAST MEDICAL HISTORY: Reviewed in chart. SOCIAL HISTORY: Lives at home. Denies tobacco use ALLERGIES: Reviewed in chart. PHYSICAL EXAM: CONSTITUTIONAL: Pleasant and cooperative. No acute distress, but obviously uncomfortable. Mildly dehydrated, but otherwise well appearing and well nourished. HEENT: Normocephalic, atraumatic. Pupils equal, round and reactive to light, EOMI. Right TM is erythematous, bulging, with some bloody drainage and appears to be perforated. Bony landmarks not visible. The left TM appears normal. Pharynx erythematous and mildly edematous, no exudate. Uvula normal in size and node deviation. No trismus. Airway patent. Tacky mucous membranes. Hoarse voice. NECK: Supple, full active range of motion without discomfort. Bilateral anterior cervical adenopathy. RESPIRATORY: Diminished throughout with diffuse expiratory wheezing and some coarse rhonchi. No crackles or stridor. Mild tachypnea. Nonlabored breathing , no accessory muscle use. Equal expansion bilaterally. CARDIOVASCULAR: Tachycardic. Regular rhythm with no murmurs, rubs or gallops. Normal peripheral perfusion. No edema. GASTROINTESTINAL: Soft, nontender, nondistended. No palpable masses or HSM. Bowel sounds present in all quadrants. MUSCULOSKELETAL: Full range of motion of all joints without discomfort. No calf tenderness or swelling. INTEGUMENTARY: No rash or other significant dermatologic conditions noted. NEUROLOGIC: Alert and oriented X 4 with normal affect. Normal strength and sensation in all 4 extremities. No focal neurologic deficits noted. Normal gait observed. ED COURSE AND MEDICAL DECISION MAKING: CC: Patient presenting with complaint of cough, shortness of breath, sore throat DIFFERENTIAL DIAGNOSIS: Includes, but not limited to viral URI, bronchitis, pneumonia, influenza, strep pharyngitis, otitis media, otitis externa, perforated eardrum, COPD, sepsis/bacteremia, PE, ACS, among others. INTERPRETATION OF LABS: No leukocytosis, no anemia, mild hypokalemia, no other significant electrolyte abnormalities, normal renal function, normal liver enzymes. Negative for influenza A/B. IMAGING: CHEST 2 VIEWS ROUTINE CLINICAL HISTORY: 47 years-old Female presenting with EVALUATE RESPIRATORY DISTRESS.DYSPNEA. TECHNIQUE: PA and lateral views of the chest were obtained. COMPARISON: 12/10/2017. FINDINGS: Cardiomediastinal silhouette normal. Lungs and pleural spaces clear. Osseous structures normal. Cholecystectomy clips noted. IMPRESSION: 1. No acute cardiopulmonary disease. EKG: Shows a sinus tachycardia with a rate of 111 bpm, incomplete right bundle branch block, and prolonged QT, no acute ischemic changes noted, QT is increased when compared to previous EKG from 12/10/2017 by my interpretation. MEDICATION RECONCILIATION: I attest that I have personally reviewed the patient 's current medication list. INITIAL VITAL SIGNS REVIEW: I reviewed the patient's initial vital signs and interpret them as follows: T: Febrile; BP: Normotensive; HR: Tachycardic; RR : Mildly tachypneic; Pulse Ox: Within normal limits on room air. Blood pressure screening: The patient was found to have normal blood pressure on screening and does not require follow-up for repeat blood pressure check. SUMMARY: Patient was evaluated at bedside, history and physical exam performed. Patient is alert and oriented, no acute distress, but does appear to be uncomfortable, resting calmly in the stretcher. Patient's lungs are diminished with diffuse expiratory wheezing throughout. Patient is mildly tachypneic, but no labored breathing or accessory muscle use. Evaluation of the right ear suspicious for perforated TM, noting erythema, bloody drainage, and poor bony landmarks. Patient is noted to be febrile and tachycardic on initial vital signs. Orders were placed at bedside for labs, UA, influenza, rapid strep, blood cultures 2 and lactic acid, IV fluids for hydration, IV Decadron and DuoNeb treatment for wheezing, EKG and chest x-ray to evaluate for cardiopulmonary disease. Patient discussed with Dr. Uribe, who agrees with my assessment and plan. Labs and imaging reviewed as above, unremarkable. Patient reassessed during neb treatments, she looks more comfortable and states she is feeling a little better, and her lungs are mostly clear now with only a few scant wheezes and moving air better. Patient reassessed multiple times throughout ED stay, she remained stable, and clinically improved, her lungs remained clear after neb treatments. Patient was ambulated and maintained her oxygen saturation and states her shortness of breath is much improved and she felt increasingly better. The patient was provided with an albuterol inhaler and spacer for home use, and was educated regarding its use. Rx for amoxicillin to treat otitis media and Tessalon Perles for cough were sent to the pharmacy, patient was educated regarding the medications Patient was updated on all results and plan for discharge, she was encouraged to follow closely with her primary care provider. Patient was also given strict return precautions should her symptoms worsen, she verbalized understanding. Patient was discharged home in stable condition and ambulatory. Problem List Medical Problems: (1) Acute asthma exacerbation Status: Resolved (2) Ambulatory dysfunction Status: Resolved (3) Ambulatory dysfunction Status: Resolved (4) Anxiety Status: Chronic (5) Anxiety attack Status: Resolved (6) Asthma Status: Chronic (7) CVA (cerebral vascular accident) Status: Resolved (8) Diabetes Status: Chronic (9) HTN (hypertension) Status: Chronic (10) Hyperventilation Status: Resolved (11) Intractable headache Status: Resolved (12) Medication reaction Status: Resolved (13) Medication side effect Status: Resolved (14) Migraine Status: Chronic (15) Prolonged QT interval Status: Resolved (16) psychological factors affecting other medical conditions Status: Resolved (17) SOB (shortness of breath) Status: Resolved (18) Stuttered speeh w/headache Status: Resolved (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 Current/Historical Medications Scheduled Amoxicillin (Amoxil), 1,000 MG PO BID Aspirin (Aspirin Ec), 81 MG PO QAM W/FOOD Atorvastatin (Lipitor), 40 MG PO QAM Benzonatate (Tessalon Perles), 200 MG PO Q8H Lisinopril (Zestril), 10 MG PO DAILY Magnesium Oxide (Mag-Ox), 400 MG PO QAM Metoprolol Succinate (Toprol Xl), 25 MG PO DAILY Topiramate (Topamax), 100 MG PO BID Scheduled PRN Cyclobenzaprine Hcl (Flexeril), 10 MG PO HS PRN for Muscle Spasms Epinephrine (Epipen 2-Bashir), 0.3 MG IM UD PRN for ALLERGIC REACTION Metoclopramide (Reglan), 10 MG PO Q6H PRN for Nausea or Vomiting Allergies Coded Allergies: Sulfa Antibiotics (Verified Allergy, Intermediate, HIVES, 12/16/17) Molds & Smuts (Verified Allergy, Mild, UNKNOWN, 12/16/17) Vital Signs Date Time Temp Pulse Resp B/P (MAP) Pulse Ox O2 Delivery O2 Flow Rate FiO2 12/16/17 17:06 37.2 96 16 130/79 95 12/16/17 16:47 96 16 95 12/16/17 16:17 95 17 94 12/16/17 15:47 93 16 92 12/16/17 15:38 130/79 12/16/17 15:12 96 15 130/79 98 12/16/17 14:42 103 23 96 12/16/17 14:37 119 98 Room Air 12/16/17 14:12 98 15 95 12/16/17 13:42 100 15 98 12/16/17 13:12 101 14 98 12/16/17 12:42 106 20 97 12/16/17 12:33 95 Room Air 12/16/17 12:26 103 12/16/17 12:24 95 Room Air 12/16/17 12:24 95 Room Air 12/16/17 11:43 38.0 126 22 131/84 95 Room Air Laboratory Results 12/16/17 12:35 Red Blood Count 4.33, Mean Corpuscular Volume 86.1, Mean Corpuscular Hemoglobin 30.9, Mean Corpuscular Hemoglobin Concent 35.9, Mean Platelet Volume 9.1, Neutrophils (%) (Auto) 68.5, Lymphocytes (%) (Auto) 24.2, Monocytes (%) (Auto) 6.1, Eosinophils (%) (Auto) 0.9, Basophils (%) (Auto) 0.1, Neutrophils # (Auto) 6.78, Lymphocytes # (Auto) 2.39, Monocytes # (Auto) 0.60, Eosinophils # (Auto) 0.09, Basophils # (Auto) 0.01 12/16/17 12:35 Test 12/16/17 12:35 12/16/17 12:40 White Blood Count 9.89 K/uL (4.8-10.8) Red Blood Count 4.33 M/uL (4.2-5.4) Hemoglobin 13.4 g/dL (12.0-16.0) Hematocrit 37.3 % (37-47) Mean Corpuscular Volume 86.1 fL (80-100) Mean Corpuscular Hemoglobin 30.9 pg (25-34) Mean Corpuscular Hemoglobin Concent 35.9 g/dl (32-36) Platelet Count 252 K/uL (130-400) Mean Platelet Volume 9.1 fL (7.4-10.4) Neutrophils (%) (Auto) 68.5 % Lymphocytes (%) (Auto) 24.2 % Monocytes (%) (Auto) 6.1 % Eosinophils (%) (Auto) 0.9 % Basophils (%) (Auto) 0.1 % Neutrophils # (Auto) 6.78 K/uL (1.4-6.5) Lymphocytes # (Auto) 2.39 K/uL (1.2-3.4) Monocytes # (Auto) 0.60 K/uL (0.11-0.59) Eosinophils # (Auto) 0.09 K/uL (0-0.5) Basophils # (Auto) 0.01 K/uL (0-0.2) RDW Standard Deviation 37.6 fL (36.4-46.3) RDW Coefficient of Variation 11.9 % (11.5-14.5) Immature Granulocyte % (Auto) 0.2 % Immature Granulocyte # (Auto) 0.02 K/uL (0.00-0.02) Anion Gap 6.0 mmol/L (3-11) Est Creatinine Clear Calc Drug Dose 139.1 ml/min Estimated GFR () 124.9 Estimated GFR (Non- 107.8 BUN/Creatinine Ratio 12.9 (10-20) Lactic Acid Level 0.9 mmol/L (0.4-2.0) Calcium Level 8.4 mg/dl (8.5-10.1) Total Bilirubin 0.6 mg/dl (0.2-1) Aspartate Amino Transf (AST/SGOT) 18 U/L (15-37) Alanine Aminotransferase (ALT/SGPT) 33 U/L (12-78) Alkaline Phosphatase 110 U/L (45-117) Total Protein 7.4 gm/dl (6.4-8.2) Albumin 3.4 gm/dl (3.4-5.0) Globulin 4.0 gm/dl (2.5-4.0) Albumin/Globulin Ratio 0.8 (0.9-2) Human Chorionic Gonadotropin, Qual NEG (NEG) Influenza Type A Antigen Neg for Influ A (NEG) Influenza Type B Antigen Neg for Influ B (NEG) Medications Administered Medications (Trade) Dose Ordered Sig/Everardo Route Start Time Stop Time Status Last Admin Dose Admin Albuterol/ Ipratropium (Duoneb) 3 ml NOW STAT INH 12/16/17 11:58 12/16/17 12:05 DC 12/16/17 12:24 3 ML Sodium Chloride 1,000 ml @ 999 mls/hr Q1H1M STAT IV 12/16/17 11:58 12/16/17 12:58 DC 12/16/17 12:27 999 MLS/HR Dexamethasone Sodium Phosphate (Decadron Inj) 10 mg NOW STAT IV 12/16/17 11:58 12/16/17 12:05 DC 12/16/17 12:24 10 MG Acetaminophen (Tylenol Tab) 1,000 mg NOW STAT PO 12/16/17 12:15 12/16/17 12:16 DC 12/16/17 12:32 1,000 MG Albuterol/ Ipratropium (Duoneb) 3 ml NOW STAT INH 12/16/17 12:56 12/16/17 12:58 DC 12/16/17 13:09 3 ML Albuterol/ Ipratropium (Duoneb) 3 ml NOW STAT INH 5/5/18 12:56 12/16/17 12:58 DC 12/16/17 13:09 3 ML Amoxicillin (Amoxil Cap) 1,000 mg STK-MED ONCE PO 12/16/17 14:00 12/16/17 14:01 DC 12/16/17 14:02 1,000 MG Albuterol (Ventolin Hfa Inhaler) 2 puffs NOW ONCE INH 12/16/17 15:15 12/16/17 15:16 DC 12/16/17 15:36 2 PUFFS Departure Information Impression Primary Impression: Acute asthmatic bronchitis Additional Impression: Otitis media of right ear Dispostion Home / Self-Care Condition GOOD Prescriptions Benzonatate (Tessalon Perles) 200 Mg Cap 200 MG PO Q8H for 5 Days, #15 CAP Prov: Vandana Krishna CRNP 12/16/17 Amoxicillin (AMOXIL) 500 Mg Cap 1000 MG PO BID for 10 Days, #39 CAP Prov: Vandana Krishna CRNP 12/16/17 Referrals No Doctor, Assigned (PCP) Patient Instructions ED Bronchitis Asthmatic, ED Otitis Media Acute Adult, [facility], [facility] Additional Instructions You have been evaluated in the emergency department for your cough, shortness of breath, and right ear pain. There is no evidence of pneumonia on your chest x-ray. You were found to have a right middle ear infection (otitis media). You have been prescribed amoxicillin to be taken twice a day for 10 days to treat your ear infection. All antibiotics have the potential to cause diarrhea, you can prevent this by eating yogurt every day or taking a daily probiotic. Stop this medication and contact a medical provider if you were to develop any significant adverse side effects including: wheezing, shortness of breath, passing out, vomiting, or a diffuse rash. Always take antibiotics as directed and COMPLETE the ENTIRE course regardless of the improvement of your symptoms. Use the albuterol inhaler TWO puffs every 4 hours as needed for cough, wheezing , chest tightness. You should also use this before bed to help prevent coughing so that you can sleep better at night. You have been prescribed Tessalon Perles to be taken every 8 hours as needed for cough. Use caution when taking this medication, as it may make you dizzy. For fevers or pain, you can use the following [id number] medicines (if > 12 yo): - Regular strength (325mg/tab) Tylenol (acetaminophen) 2 tabs every 4-6 hours as needed. Do not exceed 10 tablets in a 24 hour period. Avoid taking more than 3000 mg of Tylenol per day. This includes any other sources of acetaminophen you may take on a regular basis. - Regular strength (200 mg/tab) Advil (ibuprofen) 3 tabs every 6-8 hours as needed. Do not exceed a dose of 2400 mg per day. - For best results, alternate dosing of Tylenol and Advil. Drink plenty of fluids to stay well hydrated. Please follow-up with your primary care provider in 2 days to be reassessed. Please return to the emergency department if your symptoms worsen over the next 2-3 days despite treatment course outlined above. Return to the emergency department if you develop the following symptoms of: inability to swallow solids , liquids, or drool; excessive wheezing or inability to catch your breath; worsening chest pain, coughing up blood, severe dizziness or passing out; fever or pain that becomes unmanageable with [id number] medications; or any other concerns. Work Instructions Return To Work: 3 days Problem Qualifiers Additional Impression: Otitis media of right ear Otitis media type: suppurative Chronicity: acute Recurrence: not specified as recurrent Spontaneous tympanic membrane rupture: without spontaneous rupture Qualified Codes: H66.001 - Acute suppurative otitis media without spontaneous rupture of ear drum, right ear
[2017-12-16 12:57] LABS: BASO % 0.1 %; BASO ABS # 0.01 K/uL (0-0.2); EOS % 0.9 %; EOS ABS # 0.09 K/uL (0-0.5); HEMATOCRIT 37.3 % (37-47); HEMOGLOBIN 13.4 g/dL (12.0-16.0); IG# 0.02 K/uL (0.00-0.02); LYMPH % 24.2 %; LYMPH ABS # 2.39 K/uL (1.2-3.4); MEAN CELL VOLUME 86.1 fL (80-100); MEAN CORPUSCULAR HEMOGLOBIN 30.9 pg (25-34); MEAN CORPUSCULAR HGB CONC 35.9 g/dl (32-36); MEAN PLATELET VOLUME 9.1 fL (7.4-10.4); MONO % 6.1 %; NEUT % 68.5 %; NEUT ABS # 6.78 K/uL (1.4-6.5); PLATELET COUNT 252 K/uL (130-400); RED CELL DISTRIBUTION WIDTH CV 11.9 % (11.5-14.5); RED CELL DISTRIBUTION WIDTH SD 37.6 fL (36.4-46.3); WHITE BLOOD COUNT 9.89 K/uL (4.8-10.8)
[2017-12-16 13:05] LABS: ALBUMIN 3.4 gm/dl (3.4-5.0); CALCIUM 8.4 mg/dl (8.5-10.1); CREATININE 0.64 mg/dl (0.60-1.20); POTASSIUM 3.2 mmol/L (3.5-5.1)
[2017-12-16 13:08] LABS: TOTAL PROTEIN 7.4 gm/dl (6.4-8.2)
--- NOTE | 2017-12-16 13:13 | DIAGNOSTIC IMAGING REPORT ---
CHEST 2 VIEWS ROUTINE CLINICAL HISTORY: 47 years-old Female presenting with EVALUATE RESPIRATORY DISTRESS.DYSPNEA. TECHNIQUE: PA and lateral views of the chest were obtained. COMPARISON: 12/10/2017. FINDINGS: Cardiomediastinal silhouette normal. Lungs and pleural spaces clear. Osseous structures normal. Cholecystectomy clips noted. IMPRESSION: 1. No acute cardiopulmonary disease. Electronically signed by: Dhaval Thayer M.D. 12/16/2017 1:11 PM Dictated Date/Time: 12/16/2017 1:04 PM
[2017-12-16 13:25] LABS: INFLUENZA B ANTIGEN Neg for Influ B (NEG)
[2017-12-16] MEDS ORDERED: AMOXICILLIN 500 MG CAP PO STA (13:48)
[2017-12-16] MEDS ORDERED: AMOXICILLIN 250 MG CAP PO ONE (14:00)
[2017-12-16] MEDS ORDERED: ALBUTEROL HFA 8 GM INHALER INH ONE (15:15)
[2017-12-16] MEDS ORDERED: BENZ1CAP90 PO (16:08)
[2017-12-16] MEDS ORDERED: AMOX500C3 PO (16:08)
[2017-12-16 17:06] VITALS: BP 130/79; PULSE 96; TEMP 37.2; O2SAT 95
== END 2017-12-16 17:07 | disposition home or self-care (01) ==
LOC: C.EDB 11:43 → C.EDA 17:07
DX: J45.909 Unspecified asthma, uncomplicated (principal); H66.001 Acute suppurative otitis media without spontaneous rupture of ear drum, right ear; I10 Essential (primary) hypertension; E03.9 Hypothyroidism, unspecified; F41.9 Anxiety disorder, unspecified; Z86.73 Personal history of transient ischemic attack (TIA), and cerebral infarction without residual deficits; E11.9 Type 2 diabetes mellitus without complications; Z79.82 Long term (current) use of aspirin; Z79.899 Other long term (current) drug therapy; Z88.2 Allergy status to sulfonamides; Z91.048 Other nonmedicinal substance allergy status

== ENCOUNTER 2024-02-14 14:44 | Inpatient (IN) ==
--- NOTE | 2024-02-14 15:06 | Emergency Department Note ---
Impression & Plan Stroke-like symptoms, Hemiplegic migraine, HTN (hypertension) ED Provider Note NAME: KOFFI DELGADO AGE: 53 SEX: F : 1970 ARRIVES VIA: Walk-In INFORMANT: Patient ED PROVIDER(S): Lavell Osullivan MD CHIEF COMPLAINT: Headache, slurred speech, Right sided weakness, blurred vision. PLAN: Disposition: Admit MEDICAL DECISION MAKING: The patient is a pleasant 53-year-old woman with a past medical history of hypertension, obesity, complex migraine headaches who presents to the emergency department for evaluation of headache, blurred vision, slurred speech, right- sided weakness which occurred abruptly this afternoon when she was at work with last known well as 2 PM. Per review of patient's records the patient does have a history of prior emergency department presentations in 2017 and 2018 for symptoms of headache and extremity weakness on the left where she was diagnosed with complex migraine after negative MRI and MRA imaging. Patient did receive tPA on her presentation in 2017 but did not in 2018. She was placed on Topamax which she reports she is no longer taking has not followed with neurology since 2019 which was her last visit in the [facility] record. 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 Patient ports he takes a baby aspirin but is not on anticoagulation. She reports feeling well prior to today and staff member who accompanied to emergency department reports that she was doing her job as she usually does. Patient denies any recent illness including fevers, chills, cough, congestion, GI/ symptoms. She reports that her migraines are usually in the front of her head but this headache is different on the right side. Patient had reported to triage that she had similar symptoms in the past related to a stroke but this seems to be referring to her prior presentations diagnosed with complex migraine. On presentation stroke alert was activated due to the acuity and character of the patient's symptoms. I did review the patient's case prior to evaluating the patient with [facility], Dr. Dorsey. Appreciate consultation and evaluation via telestroke monitor. On arrival the patient is afebrile with heart in the 90s and blood pressure 180s/100s and vital signs otherwise stable. On my evaluation the patient is anxious appearing with active resting tremor of the right upper extremity. She appears to exhibit some weakness of the right upper and right lower extremity with equivocal drift versus unequal elevation of the extremities. She has stuttering speech but no overt aphasia or dysarthria. Face is symmetric. EKG without overt acute ischemia. CXR negative for acute cardiopulmonary process per my personal preliminary review/interpretation. WBC, H/H and platelets within normal limits. Chemistry without metabolic acidosis. Electrolytes and LFTs are unremarkable. High-sensitivity troponin is undetectable. TSH within normal limits. UA with WBCs but no bacteria and patient denies urinary symptoms. CT of the head and CT of the head and neck were performed and were negative for acute abnormalities. 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 Following completion of his assessment Case was reviewed again with Dr. Dorsey. Agrees vertebral artery findings are incidental and all appropriate for outpatient neurosurgery follow-up. Otherwise, given the patient's consolation of symptoms with exam findings suggestive of functional overlay such as ongoing right upper extremity tremor symptoms or not suggestive of CVA particularly context of prior Emergency Department presentations for the same constellation of symptoms with diagnoses of complex migraine. patient agreed with deferring treatment with tPA at this time. Patient symptoms gradually improved as did her anxiety. Blood pressure was also noticed to improve after IV hydration, IV APAP, IV magnesium for headache and p.o. Ativan. Case was discussed with Lamar Gonzalez, [facility] PAC, with [facility] hospitalist who will evaluate the patient for admission. Triage Nursing notes reviewed and agree them. Prior/external medical records reviewed Vital Signs: reviewed Differential diagnosis: Infection, dehydration, metabolic abnormality, hypo/hyperglycemia, electrolyte disturbance, anemia, hypoxia, cardiac sources, intracerebral event, toxicologic, neurologic, as well as other pathologies. ER treatment provided: See below. Diagnostics interpreted by me: ECG: Sinus tachycardia, 101 bpm, no ectopy, no overt ST elevation depression, QTc 477, Cardiac Monitoring: An order for continuous cardiac monitoring was placed and demonstrated sinus tachycardia, 101 bpm, no ectopy. Laboratory studies: See below Imaging studies: See below Consultation(s): [facility], Dr. Dorsey. Lamar Gonzalez, [facility] PAC, with [facility] hospitalist HPI: The patient is a pleasant 53-year-old woman with a past medical history of hypertension, obesity, complex migraine headaches who presents to the emergency department for evaluation of headache, blurred vision, slurred speech, right- sided weakness which occurred abruptly this afternoon when she was at work with last known well as 2 PM. Per review of patient's records the patient does have a history of prior emergency department presentations in 2017 and 2018 for symptoms of headache and extremity weakness on the left where she was diagnosed with complex migraine after negative MRI and MRA imaging. Patient did receive tPA on her presentation in 2017 but did not in 2018. She was placed on Topamax which she reports she is no longer taking has not followed with neurology since 2019 which was her last visit in the [facility] record. 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 Patient ports he takes a baby aspirin but is not on anticoagulation. She reports feeling well prior to today and staff member who accompanied to emergency department reports that she was doing her job as she usually does. Patient denies any recent illness including fevers, chills, cough, congestion, GI/ symptoms. She reports that her migraines are usually in the front of her head but this headache is different on the right side. Patient had reported to triage that she had similar symptoms in the past related to a stroke but this seems to be referring to her prior presentations diagnosed with complex migraine. ROS: See above HPI for pertinent positives & negatives. A total of 10 systems reviewed and were otherwise negative. VITALS:See Below PHYSICAL EXAMINATION: GENERAL: Awake, alert, anxious-appearing, in no distress, BMI 43.5. HENT: Normocephalic, atraumatic. Oropharynx with dry mucous membranes and otherwise unremarkable. EYES: Normal conjunctiva. Sclera non-icteric. EOMI. No nystamgus. PEARRL. NECK: Supple. No nuchal rigidity. FROM. No JVD. RESPIRATORY: Clear to auscultation. CARDIAC: Tachycardic rate, normal rhythm. Extremities warm and well perfused. Pulses equal. ABDOMEN: Soft, non-distended. No tenderness to palpation. No rebound or guarding. No masses. MUSCULOSKELETAL: Chest examination reveals no tenderness. The back is symmetrical on inspection without obvious abnormality. There is no CVA tenderness to palpation. No joint edema. LOWER EXTREMITIES: Calves are equal size bilaterally and non-tender. No edema. No discoloration. NEURO: Active resting tremor of the right upper extremity. She appears to exhibit some weakness of the right upper and right lower extremity with equivocal drift versus unequal elevation of the extremities. She has stuttering speech but no overt aphasia or dysarthria. Face is symmetric. SKIN: No rash or jaundice noted. Lavell Osullivan MD Past Med/Surg History Problem List (Updated 02/15/24 @ 02:12 by Lavell Osullivan MD) Obesity GERD (gastroesophageal reflux disease) Chronic back pain Prediabetes History of migraine Stroke-like symptoms (Acute) HTN (hypertension) (Chronic) Asthma (Chronic) Diabetes (Chronic) Migraine (Chronic) Anxiety (Chronic) Hemiplegic migraine (Acute) Medical History Hyperlipidemia HTN (hypertension) CVA (cerebral vascular accident) Surgical History History of hysterectomy History of cholecystectomy Family History Other Breast cancer Social History Smoking Status: Never smoker Hx Alcohol Use: No Hx Substance Use: No Preferred Language: Tajik Communication Ability: Effective Podiatry Professor Required: No Beliefs That Will Affect Care: None Current Living Situation: Spouse Feels Safe at Home: Yes Safety Concerns: Feels Safe At This Time Assistive Devices: Glasses Allergies Allergies Allergy/AdvReac Type Severity Reaction Status Date / Time venom-wasp Allergy Severe Anaphylaxis Verified 02/14/24 22:46 -- Yellow jackets Sulfa (Sulfonamide Allergy Intermediate HIVES Verified 02/14/24 15:03 Antibiotics) mold Allergy Mild Congested Verified 02/14/24 15:03 cortisone AdvReac Severe Vomiting Verified 02/14/24 15:03 Home Meds Home Medications Medication Instructions Recorded Confirmed atorvastatin 40 mg tablet (Lipitor) 40 mg PO HS 05/13/18 02/14/24 epinephrine 0.3 mg/0.3 mL 0.3 mg IM Q3H PRN Allergic Reaction 05/13/18 02/14/24 injection, auto-injector (EpiPen) venlafaxine 75 mg capsule,extended 75 mg PO QAM 04/12/19 02/14/24 release 24 hr aspirin 81 mg tablet,delayed 81 mg PO QAM 05/05/21 02/14/24 release (Fadia Low Dose Aspirin) baclofen 10 mg tablet 10 mg PO HS PRN MUSCLE SPASMS 02/14/24 02/14/24 fexofenadine 180 mg tablet 180 mg PO DAILY PRN allergies 02/14/24 02/14/24 gabapentin 800 mg tablet 800 mg PO TID 02/14/24 02/14/24 lisinopril 20 mg tablet 20 mg PO QAM 02/14/24 02/14/24 lorazepam 1 mg tablet 1 mg PO Q8H PRN Anxiety 02/14/24 02/14/24 magnesium oxide 400 mg PO DAILY 02/14/24 02/14/24 omeprazole 20 mg capsule,delayed 20 mg PO DAILYBB 02/14/24 02/14/24 release ondansetron 4 mg disintegrating 4 mg translingual Q8H PRN 02/14/24 02/14/24 tablet NAUSEA/VOMITING verapamil 100 mg capsule 24hr 100 mg PO HS 02/14/24 02/14/[address],ext.release Results & Data (ED) Vital Signs Vital Signs - 24 hr 02/14/24 14:48 02/14/24 15:21 02/14/24 15:24 Pulse Rate 109 H 98 H Pulse Rate [Apical] Pulse Rate from SpO2 Sensor 98 H Respiratory Rate 16 18 Respiratory Depth Normal Blood Pressure 185/126 H 188/105 H Blood Pressure [Left Arm] Blood Pressure Mean 145 115 Blood Pressure Mean [Left Arm] Pulse Oximetry 98 96 Oxygen Delivery Method Room Air Room Air Sepsis Recent Fever Within 48 Hours No Sepsis New/Unexplained Change in Mental Status N/A Sepsis Action Taken by Nursing No Action Required 02/14/24 15:33 02/14/24 15:34 02/14/24 15:48 Pulse Rate 99 H 92 H Pulse Rate [Apical] Pulse Rate from SpO2 Sensor 100 H 92 H Respiratory Rate 23 18 Respiratory Depth Blood Pressure 170/107 H Blood Pressure [Left Arm] Blood Pressure Mean 119 Blood Pressure Mean [Left Arm] Pulse Oximetry 97 96 Oxygen Delivery Method Room Air Room Air Sepsis Recent Fever Within 48 Hours Sepsis New/Unexplained Change in Mental Status Sepsis Action Taken by Nursing 02/14/24 16:00 02/14/24 16:21 02/14/24 16:24 Pulse Rate 84 84 108 H Pulse Rate [Apical] Pulse Rate from SpO2 Sensor 84 Respiratory Rate 20 Respiratory Depth Blood Pressure 173/89 H 161/97 H Blood Pressure [Left Arm] Blood Pressure Mean 108 118 Blood Pressure Mean [Left Arm] Pulse Oximetry 98 97 Oxygen Delivery Method Room Air Sepsis Recent Fever Within 48 Hours Sepsis New/Unexplained Change in Mental Status Sepsis Action Taken by Nursing 02/14/24 16:30 02/14/24 16:30 Pulse Rate 87 Pulse Rate [Apical] 88 Pulse Rate from SpO2 Sensor 87 Respiratory Rate 16 17 Respiratory Depth Blood Pressure 155/94 H Blood Pressure [Left Arm] 155/94 H Blood Pressure Mean 114 Blood Pressure Mean [Left Arm] 114 Pulse Oximetry 94 94 Oxygen Delivery Method Room Air Room Air Sepsis Recent Fever Within 48 Hours Sepsis New/Unexplained Change in Mental Status Sepsis Action Taken by Nursing Laboratory Data Attestation: I reviewed the patient's lab results. 02/14/24 15:26 02/14/24 15:26 Lab Results 02/14/24 02/14/24 02/14/24 Range/Units 15:22 15:26 15:31 WBC 7.84 (4.8-10.8) K/ul RBC 4.58 (4.20-5.40) M/uL Hgb 14.1 (12.0-16.0) g/dl POC Hgb 13.6 (12.0-16.0) g/dl Hct 40.8 (37.0-47.0) % POC Hct 40 (37-47) % MCV 89.1 (80.0-100.0) fL MCH 30.8 (25.0-34.0) pg MCHC 34.6 (32.0-36.0) g/dL RDW Std Deviation 39.5 (36.4-46.3) fL RDW Coeff of Chang 12.2 (11.5-14.5) % Plt Count 267 (130-400) K/uL MPV 9.3 L (9.4-12.4) fL Immature Gran % (Auto) 0.3 % Neut % (Auto) 64.2 % Lymph % (Auto) 26.4 % [place] % (Auto) 7.4 % Eos % (Auto) 1.4 % Baso % (Auto) 0.3 % Neut # (Auto) 5.04 (1.40-6.50) K/uL Lymph # (Auto) 2.07 (1.20-3.40) K/uL [place] # (Auto) 0.58 (0.11-0.59) K/uL Eos # (Auto) 0.11 (0.00-0.50) K/uL Baso # (Auto) 0.02 (0.00-0.20) K/uL Immature Gran # (Auto) 0.02 (0.01-0.20) K/uL PT 10.3 (9.0-12.0) Seconds INR 0.9 (0.9-1.1) APTT 26 (21-31) Seconds PTT Ratio 1.0 POC Sodium 140 (135-144) mmol/L Sodium 137 (136-145) mmol/L POC Potassium 3.7 (3.3-5.0) mmol/L Potassium 3.8 (3.5-5.1) mmol/L POC Chloride 99 L (101-112) mmol/L Chloride 101 (98-107) mmol/L Carbon Dioxide 29 (21-32) mmol/L POC Total CO2 28 (24-31) mmol/L Anion Gap 7 (3-11) POC Anion Gap 18.0 (16-25) mmol/L POC BUN 10 (7-18) mg/dl BUN 11 (6-23) mg/dl Creatinine 0.60 (0.6-1.2) mg/dl POC Creatinine 0.6 (0.6-1.3) mg/dl Est Cr Clr Drug Dosing Not Reportable Est GFR ( Amer) 122.3 ml/min Est GFR (Non-Af Amer) 105.5 ml/min BUN/Creatinine Ratio 18.3 (10-20) Glucose 93 (70-99(Fasting)) mg/dl POC Glucose 92 (70-99) mg/dl POC Glucose (other) 92 (70-99) mg/dl Calcium 8.7 (8.6-10.3) mg/dl POC Ioniz Calcium Jewel 1.12 (1.12-1.32) mmol/l Magnesium 1.9 (1.7-2.4) mg/dl Total Bilirubin 0.3 (0.2-1.0) mg/dl AST 20 (13-39) U/L ALT 21 (7-52) U/L Alkaline Phosphatase 82 (34-104) U/L Troponin I High Sens < 2.3 (0-14) pg/ml Total Protein 7.4 (6.0-8.3) gm/dl Albumin 4.2 (3.4-5.0) gm/dl Globulin 3.2 (2.5-4.0) gm/dl Albumin/Globulin Ratio 1.3 (0.9-2) TSH 3.345 (0.300-4.500) uIu/ml Administered Medications Atorvastatin Calcium (Atorvastatin 40 Mg Tab) 40 mg PO HS ALEJO Stop: 03/15/24 20:59 Last Admin: 02/14/24 21:46 Dose: 40 mg Documented By: MERLE Gabapentin (Gabapentin 800 Mg Tab) 800 mg PO TID ALEJO Stop: 03/15/24 20:59 Last Admin: 02/14/24 21:46 Dose: 800 mg Documented By: MERLE Verapamil HCl (Verapamil Hcl 180 Mg Tabcr) 90 mg PO HS ALEJO Stop: 03/15/24 20:59 Last Admin: 02/14/24 21:45 Dose: 90 mg Documented By: MERLE Discontinued Medications Aspirin (Aspirin 81 Mg Chew) 324 mg PO ONE ONE Stop: 02/14/24 20:53 Last Admin: 02/14/24 21:48 Dose: 324 mg Documented By: MERLE Gadobutrol (Gadobutrol 65ml Vial) 12.5 ml IV ONCE ONE Stop: 02/14/24 22:42 Last Admin: 02/14/24 22:42 Dose: 12.5 ml Documented By: SONA Sodium Chloride (Nss) 500 mls @ 999 mls/hr IV .Q31M ONE Stop: 02/14/24 15:26 Last Infusion: 02/14/24 16:30 Dose: Infused Documented By: Admin: 02/14/24 15:38 Dose: 999 mls/hr Documented By: JUJU Sodium Chloride (Nss) 500 mls @ 999 mls/hr IV .Q31M ONE Stop: 02/14/24 15:59 Last Infusion: 02/14/24 16:30 Dose: Infused Documented By: Admin: 02/14/24 15:38 Dose: 999 mls/hr Documented By: JUJU Acetaminophen (Ofirmev) 1,000 mg in 100 mls @ 400 mls/hr IV NOW STA Stop: 02/14/24 15:43 Last Infusion: 02/14/24 15:58 Dose: Infused Documented By: Admin: 02/14/24 15:38 Dose: 400 mls/hr Documented By: JUJU Magnesium Sulfate/Dextrose (Magnesium Sulfate / D5w) 1 gm in 100 mls @ 100 mls/hr IV NOW STA Stop: 02/14/24 17:22 Last Infusion: 02/14/24 18:05 Dose: Infused Documented By: Admin: 02/14/24 16:36 Dose: 100 mls/hr Documented By: JUJU Ioversol (Optiray 320 125ml) 119 ml IV ONCE ONE Stop: 02/14/24 15:11 Last Admin: 02/14/24 15:11 Dose: 119 ml Documented By: DANIELLA Lorazepam (Lorazepam 1 Mg Tab) 1 mg SL NOW STA Stop: 02/14/24 16:24 Last Admin: 02/14/24 16:29 Dose: 1 mg Documented By: JUJU Imaging Data Radiologist's Impression: Chest X-Ray 02/14/24 14:56 XR chest 1V portable CLINICAL HISTORY: neuro deficit,stroke suspect, blur vis, slur, R wk COMPARISON STUDY: Chest radiograph May 05, 2021. Chest CT October 08, 2015. FINDINGS: Stable mild elevation of the right hemidiaphragm. Lungs are clear. There is no pneumothorax or pleural effusion. The heart is mildly enlarged. Mediastinal contours are normal. There is no evidence for pulmonary edema. IMPRESSION: No acute cardiopulmonary findings. ACT 112: Negative or not required by law. Electronically signed by: Donnell Ugarte M.D. 02/14/2024 3:[address] 02/14/24 14:56 CT OF THE HEAD WITHOUT CONTRAST CLINICAL HISTORY: neuro deficit,stroke suspect, blur vis, slur, R wk COMPARISON STUDY: MRI of brain September 25, 2017. Head CT April 21, 2020. TECHNIQUE: Helical axial images of the head were obtained without IV contrast. Automated exposure control was utilized for the study. A dose lowering technique was utilized adhering to the principles of ALARA. FINDINGS: This study is mildly compromised by motion artifact. No acute intracranial hemorrhage, midline shift or mass effect is present. The ventricular system is stable. The basal cisterns are patent. No extra-axial collections are present. There are no findings to suggest acute dural sinus thrombosis or acute territorial infarct. There are postoperative findings within the sinuses. There are mild secretions within the left maxillary sinus. IMPRESSION: No acute intracranial findings. Exam mildly compromised by motion artifact. ACT 112: Negative or not required by law. Electronically signed by: Donenll Ugarte M.D. 02/14/2024 3:21 PM Head CTA 02/14/24 14:56 CTA ANGIOGRAPHY OF THE HEAD CLINICAL HISTORY: neuro deficit,stroke suspect, blur vis, slur, R wk COMPARISON STUDY: Head CT April 21, 2020. MRA of the head April 08, 2017. TECHNIQUE: Helical axial images of the head were obtained following uneventful intravenous administration of 119 cc of Optiray. Sagittal and coronal reconstructions were viewed as well as maximal intensity projections on an independent 3-D workstation. Automated exposure control was utilized for the study. A dose lowering technique was utilized adhering to the principles of ALARA. FINDINGS: Ventricular system is unremarkable. The basal cisterns are patent. There are no extra-axial collections. No acute intracranial hemorrhage is identified on the unenhanced CT will be reported separately. There are postoperative findings within the sinuses. There is mild mucosal thickening and minimal secretions within the left maxillary sinus. No intracranial aneurysm is identified. The bilateral M1, M2, A1 and A2 segments are patent. Exam is mildly compromised suboptimal opacification. The posterior circulation is also intact. No large vessel occlusion is identified. Mild multifocal stenoses within the intracranial vessels are present. There is no severe stenosis. IMPRESSION: No large vessel occlusion. No intracranial aneurysm. ACT 112: Negative or not required by law. Electronically signed by: Donnell Ugarte M.D. 02/14/2024 3:27 PM Neck CTA 02/14/24 14:56 CT angio neck with con CLINICAL HISTORY: neuro deficit,stroke suspect, blur vis, slur, R wk TECHNIQUE: CT angiography of the neck was performed following intravenous administration of iodinated contrast. Coronal and sagittal MIPS were obtained from the axial data set and were submitted for review. Automated dose lowering techniques and/or adjustment according to patient size were utilized for this examination. All measurements were calculated based on NASCET criteria. CT DOSE: 2495.57 mGy.cm Comparison: Comparison is made to CT cervical spine 02/28/2019 FINDINGS: Lungs and soft tissues are unremarkable. CTA Neck: A 3 vessel aortic arch is shown. There is no significant atherosclerotic plaque in the aortic arch or the origins of the innominate, left common carotid, and left subclavian arteries. 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 Nonhemodynamically significant stenosis of the cavernous/clinoid clinoid portion of the internal carotid arteries is noted bilaterally. The left vertebral artery is dominant. IMPRESSION: 1. No occlusion, hemodynamically significant stenosis, or dissection in the major cervical arteries. 2. 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 Assessment of stenosis of the internal carotid arteries is based on NASCET criteria. ACT 112: Negative or not required by law. Electronically signed by: Brennen Thakkar M.D. 02/14/2024 3:31 PM Discharge Plan Visit Data Chief Complaint: Referred by Doctor Stated Complaint: stroke symptoms, right side weakness, hypertension ED Provider: Lavell Osullivan Discharge Problem: Stroke-like symptoms, Hemiplegic migraine, HTN (hypertension) Patient Disposition: Admitted As Inpatient Discharge Instructions Interventions: ED Discharge Assessment Last Done: 02/14/24 19:45 Discharge Problem: Hemiplegic migraine Qualifiers: Status migrainosus presence: without status migrainosus Intractability: i ntractable Qualified Code(s): G43.419 - Hemiplegic migraine, intractable, without status migrainosus HTN (hypertension) Qualifiers: Hypertension type: unspecified Qualified Code(s): I10 - Essential (primary) hypertension
[2024-02-14] MEDS: OPTIRAY 320 125ml IV ONE (15:11)
--- NOTE | 2024-02-14 15:22 | CT Scan Report ---
CT OF THE HEAD WITHOUT CONTRAST CLINICAL HISTORY: neuro deficit,stroke suspect, blur vis, slur, R wk COMPARISON STUDY: MRI of brain September 25, 2017. Head CT April 21, 2020. TECHNIQUE: Helical axial images of the head were obtained without IV contrast. Automated exposure con trol was utilized for the study. A dose lowering technique was utilized adhering to the principles o f ALARA. FINDINGS: This study is mildly compromised by motion artifact. No acute intracranial hemorrhage, midl ine shift or mass effect is present. The ventricular system is stable. The basal cisterns are patent. No extra-axial collections are present. There are no findings to suggest acute dural sinus thrombosi s or acute territorial infarct. There are postoperative findings within the sinuses. There are mild s ecretions within the left maxillary sinus. IMPRESSION: No acute intracranial findings. Exam mildly compromised by motion artifact. ACT 112: Negative or not required by law. Electronically signed by: Donnell Ugarte M.D. 02/14/2024 3:21 PM
--- NOTE | 2024-02-14 15:29 | CT Scan Report ---
CTA ANGIOGRAPHY OF THE HEAD CLINICAL HISTORY: neuro deficit,stroke suspect, blur vis, slur, R wk COMPARISON STUDY: Head CT April 21, 2020. MRA of the head April 08, 2017. TECHNIQUE: Helical axial images of the head were obtained following uneventful intravenous administr ation of 119 cc of Optiray. Sagittal and coronal reconstructions were viewed as well as maximal inten sity projections on an independent 3-D workstation. Automated exposure control was utilized for the study. A dose lowering technique was utilized adhering to the principles of ALARA. FINDINGS: Ventricular system is unremarkable. The basal cisterns are patent. There are no extra-axial collections. No acute intracranial hemorrhage is identified on the unenhanced CT will be reported se parately. There are postoperative findings within the sinuses. There is mild mucosal thickening and m inimal secretions within the left maxillary sinus. No intracranial aneurysm is identified. The bilate ral M1, M2, A1 and A2 segments are patent. Exam is mildly compromised suboptimal opacification. The p osterior circulation is also intact. No large vessel occlusion is identified. Mild multifocal stenose s within the intracranial vessels are present. There is no severe stenosis. IMPRESSION: No large vessel occlusion. No intracranial aneurysm. ACT 112: Negative or not required by law. Electronically signed by: Donnell Ugarte M.D. 02/14/2024 3:27 PM
--- NOTE | 2024-02-14 15:32 | CT Scan Report ---
CT angio neck with con CLINICAL HISTORY: neuro deficit,stroke suspect, blur vis, slur, R wk TECHNIQUE: CT angiography of the neck was performed following intravenous administration of iodinated contrast. Coronal and sagittal MIPS were obtained from the axial data set and were submitted for rev iew. Automated dose lowering techniques and/or adjustment according to patient size were utilized fo r this examination. All measurements were calculated based on NASCET criteria. CT DOSE: 2495.57 mGy.cm Comparison: Comparison is made to CT cervical spine 02/28/2019 FINDINGS: Lungs and soft tissues are unremarkable. CTA Neck: A 3 vessel aortic arch is shown. There is no significant atherosclerotic plaque in the aor tic arch or the origins of the innominate, left common carotid, and left subclavian arteries. 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 Nonhemodynamically significant stenosis of the cavernous/clinoid clinoid portion of the internal carotid arteries is noted bilaterally. The left vertebral artery is dominant. IMPRESSION: 1. No occlusion, hemodynamically significant stenosis, or dissection in the major cervical arteries. 2. 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 Assessment of stenosis of the internal carotid arteries is based on NASCET criteria. ACT 112: Negative or not required by law. Electronically signed by: Brennen Thakkar M.D. 02/14/2024 3:31 PM
[2024-02-14 15:35] LABS: Basophils # (auto) 0.02 K/uL (0.00-0.20); Basophils % (auto) 0.3 %; Eosinophils # (auto) 0.11 K/uL (0.00-0.50); Eosinophils % (auto) 1.4 %; Hematocrit (blood only) 40.8 % (37.0-47.0); Hemoglobin 14.1 g/dl (12.0-16.0); Immature Granulocytes # (auto) 0.02 K/uL (0.01-0.20); Immature Granulocytes % (auto) 0.3 %; Lymphocytes # (auto) 2.07 K/uL (1.20-3.40); Lymphocytes % (auto) 26.4 %; Mean Corpuscular Hemoglobin 30.8 pg (25.0-34.0); Mean Corpuscular Hgb Conc 34.6 g/dL (32.0-36.0); Mean Corpuscular Volume 89.1 fL (80.0-100.0); Mean Platelet Volume 9.3 fL (9.4-12.4); Monocytes # (auto) 0.58 K/uL (0.11-0.59); Monocytes % (auto) 7.4 %; Neutrophils # (auto) 5.04 K/uL (1.40-6.50); Neutrophils % (auto) 64.2 %; Platelet Count 267 K/uL (130-400); RDW Coefficient of Variation 12.2 % (11.5-14.5); RDW Standard Deviation 39.5 fL (36.4-46.3); Red Blood Count 4.58 M/uL (4.20-5.40); White Blood Count 7.84 K/ul (4.8-10.8)
[2024-02-14] MEDS: ACETAMINOPHEN 1,000 MG/100 ML VIAL IV STA (15:38)
[2024-02-14] MEDS: SODIUM CHLORIDE 0.9% 500 ML IV ONE ×2 (15:38)
[2024-02-14 15:44] LABS: iSTAT Creatinine 0.6 mg/dl (0.6-1.3); iSTAT Hemoglobin 13.6 g/dl (12.0-16.0); iSTAT Ionized Calcium 1.12 mmol/l (1.12-1.32); iSTAT Potassium 3.7 mmol/L (3.3-5.0)
[2024-02-14 15:47] LABS: INR 0.9 (0.9-1.1); Partial Thromboplastin Time 26 Seconds (21-31); Prothrombin Time 10.3 Seconds (9.0-12.0)
--- NOTE | 2024-02-14 15:52 | XRay Report ---
XR chest 1V portable CLINICAL HISTORY: neuro deficit,stroke suspect, blur vis, slur, R wk COMPARISON STUDY: Chest radiograph May 05, 2021. Chest CT October 08, 2015. FINDINGS: Stable mild elevation of the right hemidiaphragm. Lungs are clear. There is no pneumothorax or pleural effusion. The heart is mildly enlarged. Mediastinal contours are normal. There is no evid ence for pulmonary edema. IMPRESSION: No acute cardiopulmonary findings. ACT 112: Negative or not required by law. Electronically signed by: Donnell Ugarte M.D. 02/14/2024 3:51 PM
[2024-02-14 15:55] LABS: Alanine Aminotransferase 21 U/L (7-52); Albumin Globulin Ratio 1.3 (0.9-2); Albumin Level 4.2 gm/dl (3.4-5.0); Alkaline Phosphatase 82 U/L (34-104); Anion Gap 7 (3-11); Aspartate Aminotransferase 20 U/L (13-39); BUN Creatinine Ratio 18.3 (10-20); Bilirubin,Total 0.3 mg/dl (0.2-1.0); Blood Urea Nitrogen 11 mg/dl (6-23); Calcium 8.7 mg/dl (8.6-10.3); Carbon Dioxide 29 mmol/L (21-32); Chloride 101 mmol/L (98-107); Est GFR (African American) 122.3 ml/min; Est GFR (Non-African American) 105.5 ml/min; Globulin 3.2 gm/dl (2.5-4.0); Glucose 93 mg/dl (70-99(Fasting)); Magnesium 1.9 mg/dl (1.7-2.4); Potassium 3.8 mmol/L (3.5-5.1); Sodium 137 mmol/L (136-145); Total Protein 7.4 gm/dl (6.0-8.3)
[2024-02-14 16:02] LABS: Troponin I High Sensitivity < 2.3 pg/ml (0-14)
[2024-02-14] MEDS: LORazepam 1 MG TAB SL STA (16:29)
[2024-02-14] MEDS: MAGNESIUM SULFATE / D5W 1 GM/100 ML BAG IV STA (16:36)
--- NOTE | 2024-02-14 18:11 | History & Physical Report ---
Date of Service February 14, 2024 Assessment & Plan (1) Stroke-like symptoms: (2) History of migraine: Plan: Patient is 53-year-old female with PMH HTN, HLD, prediabetes, depression, GERD, history complex migraine, obesity presented to ER with complaint of strokelike symptoms with onset of right eye blurry vision, RUE tremor, RLE heaviness sensation, stuttering speech and HERRERA that started around 2:10 PM today with last well known at 2:00PM. Prior history complex migraine with negative stroke workups in 2017 and 2018 Initially hypertensive in ER which improved during ER course CT Head: No acute intracranial findings CTA Head: No large vessel occlusion. No intracranial aneurysm CTA neck: No occlusion, hemodynamically significant stenosis, or dissection in the major cervical arteries. 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 Today in ER had tele stroke consult and it is reported it was decision of patient and neurologist to hold on TPA currently and neurology had recommended outpatient neurosurgery referral for incidental note of a left V4 segment aneurysm which appears partially thrombosed noted on CTA Neck. Awaiting tele stroke neurology notes to be downloaded to review full recommendations DDX: TIA, CVA, complex migraine, seizure Tele to monitor for arrhythmias HA1, TSH, lipids pending MRI brain EEG If MRI positive for stroke plan on echo with bubble study Fall precautions, aspiration precautions PT/OT consult Continue home atorvastatin and aspirin Neurology consult (3) HTN (hypertension): Plan: Continue lisinopril, verapamil (4) Prediabetes: Plan: A1c: 5.8 in 03/03/23 Random glucose: 93 A1c in am (5) Anxiety: Plan: Continue venlafaxine, Ativan prn (6) Chronic back pain: Plan: Continue gabapentin (7) GERD (gastroesophageal reflux disease): Plan: Continue PPI (8) Obesity: Plan: BMI: 44 Lifestyle modifications to be considered DVT Prophylaxis SCDs for now Admit med/tele Full Code as per discussion with pt Follows with Dr Mccauley for routine care Pt was seen and care coordinated with Dr Grossman. See addendum I spent a total of 79 minutes reviewing notes, outpatient records, labs, medication, coordinating, documenting and providing care for this patient excluding time spent in the performance of separately billed services. History of Present Illness Chief Complaint: stroke like symptoms Primary Care Provider: Orlin Mccauley MD Patient is 53-year-old female with PMH HTN, HLD, prediabetes, depression, GERD, history complex migraine, obesity presented to ER with complaint of strokelike symptoms. History obtained from patient. Patient's assists with providing history of prior similar events. 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 She states today she was sitting at computer charting at 2 PM. She reports around 2:10 PM she noted right eye vision seemed blurry. She also noted headache to the top of her head and she felt diaphoretic. Patient states she walked down the [place] to the nurses station. She reports while walking she felt like her right leg was "heavy" but she was able to walk. She states she sat down at chair at nurses station and it is reported that they took her blood pressure and blood pressure was 200s over 100s. It is reported that patient had noted stuttering speech. Patient also reports tremoring of right arm. She reports her right arm also feels a little heavy but not as bad as the leg. Patient states she feels like she is slow to speak and feels like she cannot get her thoughts out. Patient states her tongue feels "weird" but is unable to further describe. at bedside states that he has not noted any slurred speech but she seems to be stuttering. He reports past migraines she had stuttering like speech as well. Patient reports had been on Topamax in past for her migraines however she states that she had not been getting migraines so Topamax was discontinued. She reports will have a frontal headache approximately 2 times a month in which she takes 1 dose of Advil with relief. She reports these headaches are not associated with photophobia or phonophobia or nausea or vomiting like her prior migraines were. Patient reports has been under stress at work and has been working 12 to 16-hour shifts. She reports history of anxiety and uses Ativan approximately once a week. History of hospitalization [facility] 2017 for headache, left upper extremity weakness and received tPA in the ER with ongoing negative neuro work-up and was diagnosed with complicated migraines and was started on Topamax. 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 Denies fever/chills, diaphoresis, N/V/D/C, dizziness, syncope, vision loss, neck pain, CP, SOB, orthopnea, palpitations, cough, sore throat, rhinorrhea, abdominal pain, extremity edema, rashes, urinary symptoms. Today in ER had tele stroke consult and it is reported it was decision of patient and neurologist to hold on TPA currently and neurology had recommended outpatient neurosurgery referral for incidental note of a left V4 segment aneurysm which appears partially thrombosed noted on CTA Neck. Allergies Allergy/AdvReac Type Severity Reaction Status Date / Time venom-wasp Allergy Severe Anaphylaxis Verified 02/14/24 22:46 -- Yellow jackets Sulfa (Sulfonamide Allergy Intermediate HIVES Verified 02/14/24 15:03 Antibiotics) mold Allergy Mild Congested Verified 02/14/24 15:03 cortisone AdvReac Severe Vomiting Verified 02/14/24 15:03 Home Medications Medication Instructions Recorded Confirmed Type atorvastatin 40 mg tablet (Lipitor) 40 mg PO HS 05/13/18 02/14/24 History epinephrine 0.3 mg/0.3 mL 0.3 mg IM Q3H PRN Allergic Reaction 05/13/18 02/14/24 History injection, auto-injector (EpiPen) venlafaxine 75 mg capsule,extended 75 mg PO QAM 04/12/19 02/14/24 History release 24 hr aspirin 81 mg tablet,delayed 81 mg PO QAM 05/05/21 02/14/24 History release (Fadia Low Dose Aspirin) baclofen 10 mg tablet 10 mg PO HS PRN MUSCLE SPASMS 02/14/24 02/14/24 History fexofenadine 180 mg tablet 180 mg PO DAILY PRN allergies 02/14/24 02/14/24 History gabapentin 800 mg tablet 800 mg PO TID 02/14/24 02/14/24 History lisinopril 20 mg tablet 20 mg PO QAM 02/14/24 02/14/24 History lorazepam 1 mg tablet 1 mg PO Q8H PRN Anxiety 02/14/24 02/14/24 History magnesium oxide 400 mg PO DAILY 02/14/24 02/14/24 History omeprazole 20 mg capsule,delayed 20 mg PO DAILYBB 02/14/24 02/14/24 History release ondansetron 4 mg disintegrating 4 mg translingual Q8H PRN 02/14/24 02/14/24 History tablet NAUSEA/VOMITING verapamil 100 mg capsule 24hr 100 mg PO HS 02/14/24 02/14/[address],ext.release Past Med/Surg History Problem List (Updated 02/15/24 @ 08:44 by Alo Villa MD) Migraine with aura Obesity GERD (gastroesophageal reflux disease) Chronic back pain Prediabetes History of migraine Stroke-like symptoms (Acute) HTN (hypertension) (Chronic) Asthma (Chronic) Diabetes (Chronic) Migraine (Chronic) Anxiety (Chronic) Hemiplegic migraine (Acute) Medical History Hyperlipidemia HTN (hypertension) CVA (cerebral vascular accident) Surgical History History of hysterectomy History of cholecystectomy Family History Other Breast cancer Social History Smoking Status: Never smoker Hx Alcohol Use: No Hx Substance Use: No Preferred Language: Iraqi Communication Ability: Effective Arabic Teacher Required: No Beliefs That Will Affect Care: None Current Living Situation: Spouse Feels Safe at Home: Yes Safety Concerns: Feels Safe At This Time Assistive Devices: Glasses Review of Systems Review of Systems: All systems reviewed & are unremarkable except as noted in HPI & below Physical Exam Physical Exam: General: no acute distress, but mildly anxious appearing, obese Head: normocephalic, atraumatic Eyes: PERRL, EOM's intact, conjunctiva non-injected, anicteric ENT: normal inspection external ears, nose, mucous membranes moist Neck: supple, trachea midline Lungs: clear, no respiratory distress, no wheezing/rhonchi/rales CV: RRR, no murmur, trace pretibial edema Abd: normal BS, soft, non-tender Ext: no cyanosis, no calf tenderness Neuro: A&O x 3, mildly anxious appearing, Visual loyola appear intact. PERRL, EOMs intact. No nystagmus, Facial sensation is intact and symmetric, face is strong and symmetric, hearing grossly intact, soft palate elevates symmetrically, +stuttering speech, shoulder shrug intact, tongue is midline, normal movement, no fasciculations. Muscle tone normal. RUE strength 4/5, LUE: 5/5, BLE 5/5. Sensation to bilateral upper and lower extremities intact and equal. +tremor noted of right arm Skin: warm, dry Results & Data Results & Data Vital Signs (Past 12 Hours) Vital Signs Pulse Pulse Resp BP BP Pulse Ox O2 Del Method 02/14/24 16:30 88 16 155/94 H 94 Room Air 02/14/24 16:24 108 H 02/14/24 16:21 84 20 161/97 H 97 Room Air 02/14/24 16:00 84 173/89 H 98 02/14/24 15:48 92 H 18 96 Room Air 02/14/24 15:34 170/107 H 02/14/24 15:33 99 H 23 97 Room Air 02/14/24 15:24 98 H 18 96 Room Air 02/14/24 15:21 188/105 H 02/14/24 14:48 109 H 16 185/126 H 98 Room Air Laboratory Results Short CBC 02/14/24 Range/Units 15:26 WBC 7.84 (4.8-10.8) K/ul Hgb 14.1 (12.0-16.0) g/dl Hct 40.8 (37.0-47.0) % Plt Count 267 (130-400) K/uL BMP 02/14/24 15:26 Sodium 137 Potassium 3.8 Chloride 101 Carbon Dioxide 29 BUN 11 Creatinine 0.60 Glucose 93 Calcium 8.7 Liver Function 02/14/24 Range/Units 15:26 Total Bilirubin 0.3 (0.2-1.0) mg/dl AST 20 (13-39) U/L ALT 21 (7-52) U/L Alkaline Phosphatase 82 (34-104) U/L Albumin 4.2 (3.4-5.0) gm/dl Diagnostic Findings Chest X-Ray 02/14/24 14:56 XR chest 1V portable CLINICAL HISTORY: neuro deficit,stroke suspect, blur vis, slur, R wk COMPARISON STUDY: Chest radiograph May 05, 2021. Chest CT October 08, 2015. FINDINGS: Stable mild elevation of the right hemidiaphragm. Lungs are clear. There is no pneumothorax or pleural effusion. The heart is mildly enlarged. Mediastinal contours are normal. There is no evidence for pulmonary edema. IMPRESSION: No acute cardiopulmonary findings. ACT 112: Negative or not required by law. Electronically signed by: Donnell Ugarte M.D. 02/14/2024 3:[address] 02/14/24 14:56 CT OF THE HEAD WITHOUT CONTRAST CLINICAL HISTORY: neuro deficit,stroke suspect, blur vis, slur, R wk COMPARISON STUDY: MRI of brain September 25, 2017. Head CT April 21, 2020. TECHNIQUE: Helical axial images of the head were obtained without IV contrast. Automated exposure control was utilized for the study. A dose lowering technique was utilized adhering to the principles of ALARA. FINDINGS: This study is mildly compromised by motion artifact. No acute intracranial hemorrhage, midline shift or mass effect is present. The ventricular system is stable. The basal cisterns are patent. No extra-axial co llections are present. There are no findings to suggest acute dural sinus thrombosis or acute territorial infarct. There are postoperative findings within the sinuses. There are mild secretions within the left maxillary sinus. IMPRESSION: No acute intracranial findings. Exam mildly compromised by motion artifact. ACT 112: Negative or not required by law. Electronically signed by: Donnell Ugarte M.D. 02/14/2024 3:21 PM Head CTA 02/14/24 14:56 CTA ANGIOGRAPHY OF THE HEAD CLINICAL HISTORY: neuro deficit,stroke suspect, blur vis, slur, R wk COMPARISON STUDY: Head CT April 21, 2020. MRA of the head April 08, 2017. TECHNIQUE: Helical axial images of the head were obtained following uneventful intravenous administration of 119 cc of Optiray. Sagittal and coronal reconstructions were viewed as well as maximal intensity projections on an independent 3-D workstation. Automated exposure control was utilized for the study. A dose lowering technique was utilized adhering to the principles of ALARA. FINDINGS: Ventricular system is unremarkable. The basal cisterns are patent. There are no extra-axial collections. No acute intracranial hemorrhage is identified on the unenhanced CT will be reported separately. There are postoperative findings within the sinuses. There is mild mucosal thickening and minimal secretions within the left maxillary sinus. No intracranial aneurysm is identified. The bilateral M1, M2, A1 and A2 segments are patent. Exam is mildly compromised suboptimal opacification. The posterior circulation is also intact. No large vessel occlusion is identified. Mild multifocal stenoses within the intracranial vessels are present. There is no severe stenosis. IMPRESSION: No large vessel occlusion. No intracranial aneurysm. ACT 112: Negative or not required by law. Electronically signed by: Donnell Ugarte M.D. 02/14/2024 3:27 PM Neck CTA 02/14/24 14:56 CT angio neck with con CLINICAL HISTORY: neuro deficit,stroke suspect, blur vis, slur, R wk TECHNIQUE: CT angiography of the neck was performed following intravenous administration of iodinated contrast. Coronal and sagittal MIPS were obtained from the axial data set and were submitted for review. Automated dose lowering techniques and/or adjustment according to patient size were utilized for this examination. All measurements were calculated based on NASCET criteria. CT DOSE: 2495.57 mGy.cm Comparison: Comparison is made to CT cervical spine 02/28/2019 FINDINGS: Lungs and soft tissues are unremarkable. CTA Neck: A 3 vessel aortic arch is shown. There is no significant atherosclerotic plaque in the aortic arch or the origins of the innominate, left common carotid, and left subclavian arteries. 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 Nonhemodynamically significant stenosis of the cavernous/clinoid clinoid portion of the internal carotid arteries is noted bilaterally. The left vertebral artery is dominant. IMPRESSION: 1. No occlusion, hemodynamically significant stenosis, or dissection in the major cervical arteries. 2. 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 Assessment of stenosis of the internal carotid arteries is based on NASCET criteria. ACT 112: Negative or not required by law. Electronically signed by: Brennen Thakkar M.D. 02/14/2024 3:31 PM Supervising Physician Co-Signing Physician Notes Attending addendum: The patient was seen and examined in emergency room She has a history of complex migraine with prior history of TIA came in with visual disturbance, slurred speech and also tremor-like movements involving the right upper extremity She also had some headache and the symptoms were persisting when I saw the patient in the emergency room She was evaluated by telemedicine and recommendations were provided On examination Lying in bed with minimal distress due to shaking movements of the right upper extremity He still has difficulty in speech Remains hemodynamically stable Chest-clear to auscultate bilateral Heart-S1-S2, regular Abdomen-benign Extremities-negative for any edema PASTEURIZER-alert, awake and oriented x 3. Dysarthria, tremors/jerking movements involving the right upper extremity and no other neurodeficit Her admission labs, imaging studies and CAT scans were reviewed Strokelike symptoms no evidence of acute stroke on CT scan Telemedicine evaluation did not recommend any tPA Will need to have further studies involving MRI, EEG and echo Neurology evaluation in the hospital History of migraine may be the symptoms related to atypical migraine Agree with assessment and plan and take the full responsibility of it as documented by KIT Dubon Dr
[2024-02-14] MEDS ORDERED: PHARMACIST DISCHARGE MED REC CONSULT PRN (20:13)
[2024-02-14 20:51] LABS: Appearance Urine Clear (Clear); Bacteria Urine Automated None Seen (None Seen); Bilirubin Urine Negative (Negative); Blood Urine Negative (Negative); Cast Urine Automated 0-2 /lpf (0-2); Color Urine Yellow; Epithelial Cell Urine Auto 0-2 /hpf (0-2); Glucose Urine UA Negative (Negative); Ketones Urine Negative (Negative); Leukocyte Esterase Urine 1+ (Negative); Nitrite Urine Negative (Negative); Protein Urine Negative (Negative); RBC Urine Automated 0-2 /hpf (0-2); Specific Gravity Urine 1.043 (1.000-1.030); Urobilinogen Urine Negative (Negative)
[2024-02-14 20:55] LABS: Thyroid Stimulating Hormone 3.345 uIu/ml (0.300-4.500)
[2024-02-14] MEDS: VERAPAMIL HCL 180 MG TABCR PO SCH (21:45)
[2024-02-14] MEDS: ATORVASTATIN 40 MG TAB PO SCH (21:46)
[2024-02-14] MEDS: GABAPENTIN 800 MG TAB PO SCH (21:46)
[2024-02-14] MEDS: ASPIRIN 81 MG CHEW PO ONE (21:48)
[2024-02-14] MEDS: GADOBUTROL 65ML VIAL IV ONE (22:42)
--- NOTE | 2024-02-15 00:24 | Electrocardiogram Report ---
Test Reason : Blood Pressure : / mmHG Vent. Rate : 101 BPM Atrial Rate : 101 BPM P-R Int : 164 ms QRS Dur : 088 ms QT Int : 368 ms P-R-T Axes : 059 043 058 degrees QTc Int : 477 ms Sinus tachycardia Possible Left atrial enlargement Borderline ECG When compared with ECG of 05-MAY-2021 16:52, No significant change was found Confirmed by Torito Reyes ([id number]) on 02/15/2024 12:23:59 AM Referred By: REFERRED SELF Confirmed By:Torito Reyes
--- NOTE | 2024-02-15 02:53 | Magnetic Resonance Report ---
Exam(s): MRI HEAD W/WO Contrast EXAM: MR Head Without and With Intravenous Contrast CLINICAL HISTORY: Reason for exam: r/o stroke. TECHNIQUE: Magnetic resonance images of the head/brain without and with intravenous contrast in multiple planes. CONTRAST: Contrast must be dictated COMPARISON: Comparison made to prior head CT from February 14, 2024. FINDINGS: Brain: Minimal nonspecific white matter changes. The flow voids at the base of the brain are intact.. No mass. No hemorrhage. No acute infarct. No evidence of abnormal enhancement. The dural venous sinuses are patent. Ventricles: Unremarkable. No ventriculomegaly. Bones/joints: Hyperostosis frontalis interna. No acute fracture. Sinuses: Chronic ethmoid sinusitis. No acute sinusitis. Mastoid air cells: Unremarkable as visualized. No mastoid effusion. Orbits: Unremarkable as visualized. IMPRESSION: No evidence of acute intracranial pathology. Electronically signed by: Zabrina Yi MD 02/15/24 02:52 AM
[2024-02-15] MEDS: PANTOprazole 40 MG TAB PO SCH (05:59)
[2024-02-15] MEDS: ACETAMINOPHEN 325 MG TAB PO PRN (06:07)
[2024-02-15 06:34] LABS: Basophils # (auto) 0.03 K/uL (0.00-0.20); Basophils % (auto) 0.5 %; Eosinophils # (auto) 0.15 K/uL (0.00-0.50); Eosinophils % (auto) 2.3 %; Immature Granulocytes # (auto) 0.01 K/uL (0.01-0.20); Immature Granulocytes % (auto) 0.2 %; Lymphocytes % (auto) 34.8 %; Mean Corpuscular Hemoglobin 30.5 pg (25.0-34.0); Mean Corpuscular Hgb Conc 34.2 g/dL (32.0-36.0); Mean Corpuscular Volume 89.2 fL (80.0-100.0); Mean Platelet Volume 9.4 fL (9.4-12.4); Monocytes # (auto) 0.49 K/uL (0.11-0.59); Monocytes % (auto) 7.4 %; Neutrophils # (auto) 3.62 K/uL (1.40-6.50); Neutrophils % (auto) 54.8 %; Platelet Count 258 K/uL (130-400); RDW Coefficient of Variation 12.5 % (11.5-14.5); RDW Standard Deviation 40.2 fL (36.4-46.3); Red Blood Count 4.26 M/uL (4.20-5.40)
[2024-02-15 06:35] LABS: BUN Creatinine Ratio 22.4 (10-20); Calcium 8.1 mg/dl (8.6-10.3); Creatinine Clr Calc Pharmacy 181.2 ml/min; Est GFR (African American) 130.7 ml/min; Est GFR (Non-African American) 112.8 ml/min; Potassium 3.9 mmol/L (3.5-5.1)
[2024-02-15 07:19] LABS: Estimated Average Glucose 120 mg/dl; Hemoglobin A1C 5.8 % (4.5-5.6)
--- NOTE | 2024-02-15 08:15 | Hospitalist Progress Note ---
Date of Service February 15, 2024 Assessment & Plan (1) Stroke-like symptoms: (2) History of migraine: (3) HTN (hypertension): (4) Prediabetes: (5) Anxiety: (6) Chronic back pain: (7) GERD (gastroesophageal reflux disease): (8) Obesity: Plan Ms. Lovell is a 53-year-old female with PMH HTN, HLD, prediabetes, depression, GERD, history complex migraine, obesity admitted for evaluation of strokelike symptoms with onset of right eye blurry vision, RUE tremor, RLE heaviness sen sation, stuttering speech and headache that started around 2:10 PM 02/13 with last well known at 2:00PM. Patient with prior history complex migraine with negative stroke workups in 2017 and 2018 Neurology suspects symptoms like complex migraine #Stroke like symptoms #Hypertensive Urgency #History of Complex Migraines Initially hypertensive to 180s in ER which improved during ER course without i ntervention CT Head: No acute intracranial findings CTA Head: No large vessel occlusion. No intracranial aneurysm CTA neck: No occlusion, hemodynamically significant stenosis, or dissection in the major cervical arteries. 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 Per H&P shared decision between pt/tele neuro to hold TPA TSH WNL Hgb A1C 02/14 5.8%, LDL 77, total cholesterol 148 Monitor on tele MRI brain: negative for stroke or acute intracranial pathology EEG pending Fall precautions, aspiration precautions PT/OT consult Continue home atorvastatin and aspirin Previous recommendations: -prior Topamax 100 mg BID- appear to have been tapered off -Continue verapamil ER 100 mg q 24 hours- continue as directed by PCP -Continue Mg++ 400 mg and riboflavin 400 mg daily Neurology consult -Migraine cocktail -PCP referral to neurology upon d/c #Left V4 segment aneurysm, partially thrombosed -OP Neurosurgery Referral #HTN Continue lisinopril, verapamil #Prediabetes: A1c: 5.8 02/15/2024 Random glucose: 93 Lifestyle modifications #Anxiety: Continue venlafaxine, Ativan prn #Chronic back pain: Continue gabapentin #GERD (gastroesophageal reflux disease): Continue PPI #Obesity: BMI: 44 Lifestyle modifications to be considered DVT Prophylaxis SCDs for now med/tele Full Code Follows with Dr Mccauley for routine care Admission and Anticipated Discharge Date Admission Date: February 14, 2024 Subjective Evaluated at bedside prior to obtaining migraine cocktail appears uncomfortable, reports symptoms exactly like prior episodes in 2017/2018 endorses headache, tremulousness and weakness evaluated after migraine cocktail--quietly sleeping Physical Exam Constitutional: appears uncomfortable Respiratory: normal respiratory effort, lungs clear to auscultation Cardiovascular: RRR, no murmur, no edema Gastrointestinal (Abdomen): normal bowel sounds, soft, nontender, no hepatosplenomegaly Neurologic: stammering speech/dysarthria, right arm tremulousness strength 3-4/5, Right lower extremity weakness 3/5 Results & Data Results & Data Vital Signs (Past 12 Hours) Vital Signs Temp Pulse Pulse Resp BP Pulse Ox Pulse Ox 02/15/24 07:00 75 02/15/24 02:53 36.5 C 79 20 144/75 H 97 02/15/24 00:00 72 02/14/24 22:42 36.8 C 80 18 143/79 H 95 02/14/24 20:20 81 02/14/24 20:13 95 O2 Del Method O2 Del Method 02/15/24 07:00 02/15/24 02:53 Room Air 02/15/24 00:00 02/14/24 22:42 Room Air 02/14/24 20:20 02/14/24 20:13 Room Air Laboratory Results Short CBC 02/14/24 02/15/24 Range/Units 15:26 05:19 WBC 7.84 6.60 (4.8-10.8) K/ul Hgb 14.1 13.0 (12.0-16.0) g/dl Hct 40.8 38.0 (37.0-47.0) % Plt Count 267 258 (130-400) K/uL BMP 02/14/24 02/15/24 15:26 05:19 Sodium 137 139 Potassium 3.8 3.9 Chloride 101 105 Carbon Dioxide 29 28 BUN 11 11 Creatinine 0.60 0.49 L Glucose 93 106 H Calcium 8.7 8.1 L Liver Function 02/14/24 Range/Units 15:26 Total Bilirubin 0.3 (0.2-1.0) mg/dl AST 20 (13-39) U/L ALT 21 (7-52) U/L Alkaline Phosphatase 82 (34-104) U/L Albumin 4.2 (3.4-5.0) gm/dl Urine 02/14/24 Range/Units 20:30 Urine Color Yellow Urine Appearance Clear (Clear) Urine pH 7.0 (4.5-7.5) Ur Specific [place] 1.043 H (1.000-1.030) Urine Protein Negative (Negative) Urine Glucose (UA) Negative (Negative) Medications Administered Home Medications Medication Instructions Recorded Confirmed Last Taken atorvastatin 40 mg tablet (Lipitor) 40 mg PO HS 05/13/18 02/14/24 02/13/24 epinephrine 0.3 mg/0.3 mL 0.3 mg IM Q3H PRN Allergic Reaction 05/13/18 02/14/24 Unknown injection, auto-injector (EpiPen) venlafaxine 75 mg capsule,extended 75 mg PO QAM 04/12/19 02/14/24 02/14/24 release 24 hr aspirin 81 mg tablet,delayed 81 mg PO QAM 05/05/21 02/14/24 02/14/24 release (Fadia Low Dose Aspirin) baclofen 10 mg tablet 10 mg PO HS PRN MUSCLE SPASMS 02/14/24 02/14/24 Unknown fexofenadine 180 mg tablet 180 mg PO DAILY PRN allergies 02/14/24 02/14/24 Unknown gabapentin 800 mg tablet 800 mg PO TID 02/14/24 02/14/24 02/14/24 12:00 lisinopril 20 mg tablet 20 mg PO QAM 02/14/24 02/14/24 02/14/24 lorazepam 1 mg tablet 1 mg PO Q8H PRN Anxiety 02/14/24 02/14/24 Unknown magnesium oxide 400 mg PO DAILY 02/14/24 02/14/24 02/14/24 omeprazole 20 mg capsule,delayed 20 mg PO DAILYBB 02/14/24 02/14/24 02/14/24 release ondansetron 4 mg disintegrating 4 mg translingual Q8H PRN 02/14/24 02/14/24 Unknown tablet NAUSEA/VOMITING verapamil 100 mg capsule 24hr 100 mg PO HS 02/14/24 02/14/[address],ext.release Active Medications Generic Name Dose Route Start Last Admin Trade Name Freq PRN Reason Stop Dose Admin Acetaminophen 650 mg 02/14/24 20:13 02/15/24 06:07 Acetaminophen 325 Mg Tab PO 03/15/24 20:12 650 mg Q4H PRN Administration Pain or Fever Aspirin 81 mg 02/15/24 09:00 02/15/24 10:45 Aspirin 81 Mg Ectab PO 03/16/24 08:59 81 mg QAM ALEJO Administration Atorvastatin Calcium 40 mg 02/14/24 21:00 02/14/24 21:46 Atorvastatin 40 Mg Tab PO 03/15/24 20:59 40 mg HS ALEJO Administration Gabapentin 800 mg 02/14/24 21:00 02/15/24 10:45 Gabapentin 800 Mg Tab PO 03/15/24 20:59 800 mg TID ALEJO Administration Lisinopril 20 mg 02/15/24 09:00 02/15/24 10:45 Lisinopril 20 Mg Tab PO 03/16/24 08:59 20 mg QAM ALEJO Administration Magnesium Oxide 400 mg 02/15/24 09:00 02/15/24 10:45 Magnesium Oxide 400 Mg Tab PO 03/16/24 08:59 400 mg DAILY ALEJO Administration Pantoprazole Sodium 40 mg 02/15/24 06:30 02/15/24 05:59 Pantoprazole 40 Mg Tab PO 03/16/24 06:29 40 mg DAILYBB ALEJO Administration Venlafaxine HCl 75 mg 02/15/24 09:00 02/15/24 10:45 Venlafaxine Hcl Xr 75 Mg Capxr PO 03/16/24 08:59 75 mg QAM ALEJO Administration Verapamil HCl 90 mg 02/14/24 21:00 02/14/24 21:45 Verapamil Hcl 180 Mg Tabcr PO 03/15/24 20:59 90 mg HS ALEJO Administration (3) HTN (hypertension) Hypertension type: unspecified Qualified Code(s): I10 - Essential (primary) hypertension
--- NOTE | 2024-02-15 08:29 | Neurology Consultation ---
Date of Consultation February 15, 2024 Assessment & Plan (1) Migraine with aura: Migraine with aura in a 53F with a PMH of migraine with aura, HTN, HLD and anxiety. On exam she has stuttering speech and mild right sided weakness. CTA show no evidence of a CVST and MRI shows no evidence of stroke. Despite the slightly different presentation i still suspect that this is a migraine and the different presentation is related to her age. Plan -- recommend migraine cocktail: Toradol 30, Compazine 10 and benadryl 50 x1 (can repeat q6 PRN) -- no further neuro imaging -- PCP referral to neurology if migraines become difficult to control in the future -- ok to d/c when symptoms are feeling better Telehealth Consultation Telehealth Information Telehealth Information: I performed this visit using a real-time telehealth connection between my location and the patients location ([facility]). After connecting through interactive tele-video, patient was identified by name and date of and/or wristband check.Patient (or authorized healthcare open claims representative) was informed that this was a telemedicine visit and it was being conducted confidentially over secure lines. My office door was closed and no one else was present in the room with me.Patient (or authorized healthcare open claims representative) provided consent to proceed with the visit, expressed an understanding of privacy and security of the telemedicine visit, and gave permission to have a hospital open claims representative in the room in order to assist with the visit and to conduct portions of the visit, as needed. I informed the patient (or authorized healthcare open claims representative) that I reviewed their record and presented the opportunity for them to ask any questions regarding the visit today. The patient agreed to participate. History of Present Illness Reason for Consultation: migraine/weakness Attending Physician: Payal Cardozo MD History of Present Illness Elo Lovell is a 53F with a PMH of migraine with aura (weakness), ambulatory dysfunction, diabetes, and anxiety who presents with a headache, speech changes and weakness. She reports that she was at work yesterday when she felt a pain in the top of her head and then started having difficulty with her speech and using the right side of her body. She says that this is somewhat different than her normal migraine which is typically behind both eyes with associated photophobia/phonophobia. In general her migraines have been well controlled and this is the first she has had for several days. Currently she denies nausea, but does report that she had some yesterday. She also denies recent fevers, chills, chest pain and SOB. She had blurry vision yesterday which has improved. Current headache is 6-10 In the past she would have weakness with her migraines regularly and at one point was on Topiramate and Verapamil for prevention. Allergies Allergy/AdvReac Type Severity Reaction Status Date / Time venom-wasp Allergy Severe Anaphylaxis Verified 02/14/24 22:46 -- Yellow jackets Sulfa (Sulfonamide Allergy Intermediate HIVES Verified 02/14/24 15:03 Antibiotics) mold Allergy Mild Congested Verified 02/14/24 15:03 cortisone AdvReac Severe Vomiting Verified 02/14/24 15:03 Home Medications Medication Instructions Recorded Confirmed Type atorvastatin 40 mg tablet (Lipitor) 40 mg PO HS 05/13/18 02/14/24 History epinephrine 0.3 mg/0.3 mL 0.3 mg IM Q3H PRN Allergic Reaction 05/13/18 02/14/24 History injection, auto-injector (EpiPen) venlafaxine 75 mg capsule,extended 75 mg PO QAM 04/12/19 02/14/24 History release 24 hr aspirin 81 mg tablet,delayed 81 mg PO QAM 05/05/21 02/14/24 History release (Fadia Low Dose Aspirin) baclofen 10 mg tablet 10 mg PO HS PRN MUSCLE SPASMS 02/14/24 02/14/24 History fexofenadine 180 mg tablet 180 mg PO DAILY PRN allergies 02/14/24 02/14/24 History gabapentin 800 mg tablet 800 mg PO TID 02/14/24 02/14/24 History lisinopril 20 mg tablet 20 mg PO QAM 02/14/24 02/14/24 History lorazepam 1 mg tablet 1 mg PO Q8H PRN Anxiety 02/14/24 02/14/24 History magnesium oxide 400 mg PO DAILY 02/14/24 02/14/24 History omeprazole 20 mg capsule,delayed 20 mg PO DAILYBB 02/14/24 02/14/24 History release ondansetron 4 mg disintegrating 4 mg translingual Q8H PRN 02/14/24 02/14/24 History tablet NAUSEA/VOMITING verapamil 100 mg capsule 24hr 100 mg PO HS 02/14/24 02/14/[address],ext.release Patient History Medical History Hyperlipidemia HTN (hypertension) CVA (cerebral vascular accident) Surgical History History of hysterectomy History of cholecystectomy Family History Other Breast cancer Social History Smoking Status: Never smoker Hx Alcohol Use: No Hx Substance Use: No Preferred Language: [place] Communication Ability: Effective Enrolled Nurse Required: No Beliefs That Will Affect Care: None Current Living Situation: Spouse Feels Safe at Home: Yes Safety Concerns: Feels Safe At This Time Assistive Devices: Glasses Review of Systems See HPI Physical Exam NEUROLOGIC EXAMINATION: Mental Status:alert, oriented to time, place, person, normal recent memory, no rmal remote memory, normal attention span, normal concentration, Stuttering speech but normal language, and normal fund of knowledge Cranial Nerves: CN 2 - no visual defect on confrontation and pupils round, equal, reactive to light CN 3, 4, 6 - extra-ocular movements intact and no nystagmus CN 5 - facial sensation intact CN 7 - no facial asymmetry CN 8 - intact hearing CN 9, 10 - palate symmetric, normal gag CN 11 - good shoulder shrug CN 12 - tongue midline MOTOR: Held all extremities against gravity but right side was tremulous SENSATION: intact to LT GAIT: deferred COORDINATION: no ataxia with finger to nose testing and heel to stat[place] testing REFLEXES: cannot assess over telemedicine Results & Data Vital Signs (Past 12 Hours) Vital Signs Temp Pulse Pulse Resp BP Pulse Ox O2 Del Method 02/15/24 07:00 75 02/15/24 02:53 36.5 C 79 20 144/75 H 97 Room Air 02/15/24 00:00 72 02/14/24 22:42 36.8 C 80 18 143/79 H 95 Room Air Laboratory Results Abnormal Lab Results 02/14/24 02/14/24 02/14/24 15:22 15:26 15:31 WBC 7.84 RBC 4.58 Hgb 14.1 POC Hgb 13.6 Hct 40.8 POC Hct 40 MCV 89.1 MCH 30.8 MCHC 34.6 RDW Std Deviation 39.5 RDW Coeff of Chang 12.2 Plt Count 267 MPV 9.3 L Immature Gran % (Auto) 0.3 Neut % (Auto) 64.2 Lymph % (Auto) 26.4 [place] % (Auto) 7.4 Eos % (Auto) 1.4 Baso % (Auto) 0.3 Neut # (Auto) 5.04 Lymph # (Auto) 2.07 [place] # (Auto) 0.58 Eos # (Auto) 0.11 Baso # (Auto) 0.02 Immature Gran # (Auto) 0.02 PT 10.3 INR 0.9 APTT 26 PTT Ratio 1.0 POC Sodium 140 Sodium 137 POC Potassium 3.7 Potassium 3.8 POC Chloride 99 L Chloride 101 Carbon Dioxide 29 POC Total CO2 28 Anion Gap 7 POC Anion Gap 18.0 POC BUN 10 BUN 11 Creatinine 0.60 POC Creatinine 0.6 Est Cr Clr Drug Dosing Not Reportable Est GFR ( Amer) 122.3 Est GFR (Non-Af Amer) 105.5 BUN/Creatinine Ratio 18.3 Glucose 93 POC Glucose 92 POC Glucose (other) 92 Estimat Average Glucose Hemoglobin A1c Calcium 8.7 POC Ioniz Calcium Jewel 1.12 Magnesium 1.9 Total Bilirubin 0.3 AST 20 ALT 21 Alkaline Phosphatase 82 Troponin I High Sens < 2.3 Total Protein 7.4 Albumin 4.2 Globulin 3.2 Albumin/Globulin Ratio 1.3 Triglycerides Cholesterol LDL Cholesterol, Calc VLDL Cholesterol, Calc HDL Cholesterol Cholesterol/HDL Ratio TSH 3.345 Urine Color Urine Appearance Urine pH Ur Specific [place] Urine Protein Urine Glucose (UA) Urine Ketones Urine Blood Urine Nitrite Urine Bilirubin Urine Urobilinogen Ur Leukocyte Esterase Urine WBC (Auto) Urine RBC (Auto) U Hyaline Cast (Auto) U Epithel Cells (Auto) Urine Bacteria (Auto) 02/14/24 02/15/24 20:30 05:19 WBC 6.60 RBC 4.26 Hgb 13.0 POC Hgb Hct 38.0 POC Hct MCV 89.2 MCH 30.5 MCHC 34.2 RDW Std Deviation 40.2 RDW Coeff of Chang 12.5 Plt Count 258 MPV 9.4 Immature Gran % (Auto) 0.2 Neut % (Auto) 54.8 Lymph % (Auto) 34.8 [place] % (Auto) 7.4 Eos % (Auto) 2.3 Baso % (Auto) 0.5 Neut # (Auto) 3.62 Lymph # (Auto) 2.30 [place] # (Auto) 0.49 Eos # (Auto) 0.15 Baso # (Auto) 0.03 Immature Gran # (Auto) 0.01 PT INR APTT PTT Ratio POC Sodium Sodium 139 POC Potassium Potassium 3.9 POC Chloride Chloride 105 Carbon Dioxide 28 POC Total CO2 Anion Gap 6 POC Anion Gap POC BUN BUN 11 Creatinine 0.49 L POC Creatinine Est Cr Clr Drug Dosing 181.2 Est GFR ( Amer) 130.7 Est GFR (Non-Af Amer) 112.8 BUN/Creatinine Ratio 22.4 H Glucose 106 H POC Glucose POC Glucose (other) Estimat Average Glucose 120 Hemoglobin A1c 5.8 H Calcium 8.1 L POC Ioniz Calcium Jewel Magnesium Total Bilirubin AST ALT Alkaline Phosphatase Troponin I High Sens Total Protein Albumin Globulin Albumin/Globulin Ratio Triglycerides 170 H Cholesterol 148 LDL Cholesterol, Calc 77 VLDL Cholesterol, Calc 34 H HDL Cholesterol 37 Cholesterol/HDL Ratio 4.0 TSH Urine Color Yellow Urine Appearance Clear Urine pH 7.0 Ur Specific [place] 1.043 H Urine Protein Negative Urine Glucose (UA) Negative Urine Ketones Negative Urine Blood Negative Urine Nitrite Negative Urine Bilirubin Negative Urine Urobilinogen Negative Ur Leukocyte Esterase 1+ H Urine WBC (Auto) 11-20 H Urine RBC (Auto) 0-2 U Hyaline Cast (Auto) 0-2 U Epithel Cells (Auto) 0-2 Urine Bacteria (Auto) None Seen Diagnostic Findings Chest X-Ray 02/14/24 14:56 XR chest 1V portable CLINICAL HISTORY: neuro deficit,stroke suspect, blur vis, slur, R wk COMPARISON STUDY: Chest radiograph May 05, 2021. Chest CT October 08, 2015. FINDINGS: Stable mild elevation of the right hemidiaphragm. Lungs are clear. There is no pneumothorax or pleural effusion. The heart is mildly enlarged. Mediastinal contours are normal. There is no evidence for pulmonary edema. IMPRESSION: No acute cardiopulmonary findings. ACT 112: Negative or not required by law. Electronically signed by: Donnell Ugarte M.D. 02/14/2024 3:[address] 02/14/24 14:56 CT OF THE HEAD WITHOUT CONTRAST CLINICAL HISTORY: neuro deficit,stroke suspect, blur vis, slur, R wk COMPARISON STUDY: MRI of brain September 25, 2017. Head CT April 21, 2020. TECHNIQUE: Helical axial images of the head were obtained without IV contrast. Automated exposure control was utilized for the study. A dose lowering technique was utilized adhering to the principles of ALARA. FINDINGS: This study is mildly compromised by motion artifact. No acute intracranial hemorrhage, midline shift or mass effect is present. The ventricular system is stable. The basal cisterns are patent. No extra-axial collections are present. There are no findings to suggest acute dural sinus thrombosis or acute territorial infarct. There are postoperative findings within the sinuses. There are mild secretions within the left maxillary sinus. IMPRESSION: No acute intracranial findings. Exam mildly compromised by motion artifact. ACT 112: Negative or not required by law. Electronically signed by: Donnell Ugarte M.D. 02/14/2024 3:21 PM Head CTA 02/14/24 14:56 CTA ANGIOGRAPHY OF THE HEAD CLINICAL HISTORY: neuro deficit,stroke suspect, blur vis, slur, R wk COMPARISON STUDY: Head CT April 21, 2020. MRA of the head April 08, 2017. TECHNIQUE: Helical axial images of the head were obtained following uneventful intravenous administration of 119 cc of Optiray. Sagittal and coronal reconstructions were viewed as well as maximal intensity projections on an independent 3-D workstation. Automated exposure control was utilized for the study. A dose lowering technique was utilized adhering to the principles of ALARA. FINDINGS: Ventricular system is unremarkable. The basal cisterns are patent. There are no extra-axial collections. No acute intracranial hemorrhage is identified on the unenhanced CT will be reported separately. There are postoperative findings within the sinuses. There is mild mucosal thickening and minimal secretions within the left maxillary sinus. No intracranial aneurysm is identified. The bilateral M1, M2, A1 and A2 segments are patent. Exam is mildly compromised suboptimal opacification. The posterior circulation is also intact. No large vessel occlusion is identified. Mild multifocal stenoses within the intracranial vessels are present. There is no severe stenosis. IMPRESSION: No large vessel occlusion. No intracranial aneurysm. ACT 112: Negative or not required by law. Electronically signed by: Donnell Ugarte M.D. 02/14/2024 3:27 PM Neck CTA 02/14/24 14:56 CT angio neck with con CLINICAL HISTORY: neuro deficit,stroke suspect, blur vis, slur, R wk TECHNIQUE: CT angiography of the neck was performed following intravenous administration of iodinated contrast. Coronal and sagittal MIPS were obtained from the axial data set and were submitted for review. Automated dose lowering techniques and/or adjustment according to patient size were utilized for this examination. All measurements were calculated based on NASCET criteria. CT DOSE: 2495.57 mGy.cm Comparison: Comparison is made to CT cervical spine 02/28/2019 FINDINGS: Lungs and soft tissues are unremarkable. CTA Neck: A 3 vessel aortic arch is shown. There is no significant atherosclerotic plaque in the aortic arch or the origins of the innominate, left common carotid, and left subclavian arteries. 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 Nonhemodynamically significant stenosis of the cavernous/clinoid clinoid portion of the internal carotid arteries is noted bilaterally. The left vertebral artery is dominant. IMPRESSION: 1. No occlusion, hemodynamically significant stenosis, or dissection in the major cervical arteries. 2. 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 Assessment of stenosis of the internal carotid arteries is based on NASCET criteria. ACT 112: Negative or not required by law. Electronically signed by: Brennen Thakkar M.D. 02/14/2024 3:31 PM Brain MRI 02/14/24 20:13 Exam(s): MRI HEAD W/WO Contrast EXAM: MR Head Without and With Intravenous Contrast CLINICAL HISTORY: Reason for exam: r/o stroke. TECHNIQUE: Magnetic resonance images of the head/brain without and with intravenous contrast in multiple planes. CONTRAST: Contrast must be dictated COMPARISON: Comparison made to prior head CT from February 14, 2024. FINDINGS: Brain: Minimal nonspecific white matter changes. The flow voids at the base of the brain are intact.. No mass. No hemorrhage. No acute infarct. No evidence of abnormal enhancement. The dural venous sinuses are patent. Ventricles: Unremarkable. No ventriculomegaly. Bones/joints: Hyperostosis frontalis interna. No acute fracture. Sinuses: Chronic ethmoid sinusitis. No acute sinusitis. Mastoid air cells: Unremarkable as visualized. No mastoid effusion. Orbits: Unremarkable as visualized. IMPRESSION: No evidence of acute intracranial pathology. Electronically signed by: Zabrina Yi MD 02/15/24 02:52 AM
--- OUTSIDE RECORDS SUMMARY | 2024-02-15 10:14 | External Medical Summary | Summary of Care ---
Author Name Unknown Organization [facility] Address [address] [address] Phone [phone] Care Team Providers Care Airline Pilot Flight Instructor Name Role Phone Tigist Artis MD Primary Care Provider [phone] Reason for Visit * Reason Onset Date Comments Medication Refill 12/20/2023 Encounter Details Date Type Department Care Team (Late st Contact Info) Description 12/20/2023 Refill [facility] [address] [place] [address] Tigist Artis MD [address] [place] [address] Anxiety Allergies Active Allergy Reactions Criticality Noted Date Comments Cortisone Nausea/vomiting 04/17/2019 Cortisone shots Make patient vomit Sulfa Antibiotics 06/18/1999 hives [place]et Venom Edema face/lips/tongue High 11/2018 documented as of this encounter (statuses as of 12/21/2023) Medications Medication Sig Dispensed Refills Start Date End Date Status Aspirin 81 MG Tablet Take 1 Tablet by mouth in the morning. 0 Active Magnesium 400 MG Capsule Take 1 Cap by mouth daily. 30 Cap 5 02/12/2018 Active atorvaSTATin (LIPITOR) 40 MG TabletIndications:D yslipidemia Take 1 tab by mouth daily at bedtime 90 Tab 3 12/24/2019 Active Omeprazole 20 MG Oral Capsule Delayed Release (PriLOSEC)Indicatio ns:Rib pain on left side,Gastroesophage al reflux disease with esophagitis, unspecified whether hemorrhage Take 1 Cap by mouth daily. 1 hour before the first meal of the day 30 Cap 5 11/21/2020 Active Montelukast Sodium 10 MG Oral Tablet (Singulair)Indicati ons:Cough Take 1 Tab by mouth daily. 30 Tab 5 12/07/2020 Active EpiPen 2-Bashir 0.3 MG/0.3ML Injection Solution Auto-injectorIndica tions:Local reaction to insect sting For life threatening allergy symptoms and go immediately to the emergency room. 2 Each 3 12/07/2020 Active Fexofenadine HCl 180 MG Oral Tablet (Dione)Indication s:Rhinitis, nonallergic,Seasona l allergic rhinitis, unspecified trigger Take 1 Tablet by mouth daily as needed for Allergies. 30 Tablet 11 01/12/2023 Active Fluticasone Propionate 50 MCG/ACT Nasal Suspension (Flonase)Indication s:Rhinitis, nonallergic Administer 2 Sprays into each nostril in the morning. 16 g 5 01/12/2023 Active Baclofen 10 MG Oral Tablet (Lioresal)Indicatio ns:Other migraine without status migrainosus, not intractable Take 1 tab by mouth at bedtime as needed 30 Tablet 1 03/28/2023 Active Verapamil HCl ER 100 MG Oral Capsule Extended Release 24 HourIndications:Oth er migraine without status migrainosus, not intractable 1 tab daily at bedtime 90 Capsule 3 05/12/2023 Active Venlafaxine HCl ER 75 MG Oral Capsule Extended Release 24 Hour (Effexor XR) TAKE ONE CAPSULE BY MOUTH IN THE MORNING 90 Capsule 10/03/2023 Active Lisinopril 20 MG Oral Tablet (Prinivil) TAKE 1 TABLET BY MOUTH EVERY MORNING 30 Tablet 5 11/03/2023 Active Gabapentin 800 MG Oral Tablet (Neurontin) TAKE 1 TABLET BY MOUTH THREE TIMES DAILY EVERY MORNING, AT NOON, AND BEFORE BEDTIME 270 Tablet 1 11/03/2023 Active Nystatin 874403 UNIT/GM External Powder (Nystop)Indications :Candidal intertrigo Apply topically to affected area 3 times a day. Apply to R upper thigh 60 g 0 12/14/2023 Active Doxycycline Hyclate 100 MG Oral CapsuleIndications: Skin tag,Cellulitis of right lower extremity Take 1 Capsule by mouth in the morning and 1 Capsule before bedtime. Do all this for 10 days. Until gone.. 20 Capsule 0 12/14/2023 4 Active Ondansetron 4 MG Oral Tablet Disintegrating (Zofran)Indications :Nausea Place 1 Tablet on tongue every 8 hours as needed for Nausea. dissolve on tongue. 20 Tablet 1 12/14/2023 Active LORazepam 1 MG Oral Tablet (Ativan)Indications :Anxiety Take 1 Tablet by mouth every 8 hours as needed for Anxiety. 30 Tablet 0 12/21/2023 Active LORazepam 1 MG Oral Tablet (Ativan)Indications :Anxiety Take 1 Tablet by mouth every 8 hours as needed for Anxiety. 30 Tablet 0 10/17/2023 4 Discontinu ed(Refill) documented as of this encounter (statuses as of 12/21/2023) Active Problems Problem Noted Date Diagnosed Date Spinal stenosis 01/12/2023 Food insecurity 06/27/2022 Overview: Per [facility] Protocol Prediabetes 06/24/2019 Overview: Per Prediabetes protocol Body mass index (BMI) of 40.0 to 44.9 in adult 1 08/25/2017 Overview: Per Obesity protocol #1 Dyslipidemia 12/20/2017 Adjustment disorder with depressed mood 12/13/19 18 Complicated migraine 05/15/2017 HTN, goal below 140/90 05/15/2017 Rhinitis, nonallergic 03/21/2014 Reflux esophagitis Seasonal allergic rhinitis documented as of this encounter (statuses as of 12/21/2023) Resolved Problems Problem Noted Date Diagnosed Date Resolved Date Chest pain 12/20/2017 06/22/2018 Prediabetes 12/28/2016 05/15/2017 Cutaneous candidiasis 01/19/20162016 Intertrigo 01/19/2016 05/15/2017 Paronychia of fourth toe, left 01/29/2015 05/15/2017 Asthma, mild persistent 03/21/201409/2016 Asthma, mild intermittent 07/17/2013 HTN, goal below 140/80 04/02/201208/01 Overview: Per HTN Protocol #27. Hypothyroidism 06/30/2010 10/05/2021 [facility] SKIN, RIGHT SHOULDER 03/29/2010 05/15/2017 Benign neoplasm of skin 03/29/2010 1009/2016 Sebaceous cyst 03/29/2010 05/15/2017 Asthma with severity to be determined 02/04/2010 07/17/2013 Overview: Per Asthma Taxonomy, Dr Kebede ICD-10 update of inactive term Obesity, morbid (more than 1 00 lbs over ideal weight or BMI > 40) 01/26/2010 12/12/2017 Overview: Per Obesity Protocol, #19 ICD-10 update of inactive term HTN, GOAL BELOW 130/80 07/07/200904/05 Overview: Modified per HTN protocol #16. Type 2 diabetes mellitus wit h hemoglobin A1c goal of less than 7.0% 06/11/2009 11/26/2012 Overview: Per Diabetes Taxonomy. ICD-10 update of inactive term Dermatitis 12/01/2000 05/15/2017 TENOSYNOV HAND-WRIST, LEFT 12/01/2000 1 FAM HX-DIABETES MELLITUS 12/01/200009/2016 Other voice and resonance disorders 05/15/2017 Asthma, allergic 02/04/2010 Overview: Dr Kebede Type 2 diabetes mellitus wit h hemoglobin A1c goal of less than 7.0% 06/11/2009 Overview: Per Diabetes Taxonomy. ICD-10 update of inactive term Major depressive disorder Overview: Dr Baron ICD-10 update of inactive term HTN, goal to be determined 1 09/06/2008 Overview: Modified per HTN protocol #16. documented as of this encounter (statuses as of 12/21/2023) Immunizations Name Administration Dates Next Due COVID-19 mRNA, LNP-s, No Pre serve, 2-Dose Series (PageFair) 05/10/2021,11/18/2020,10/28/2020 HEP A - Hepatitis A (Adult > 18 yrs) 01/17/2016, 2015,07/14/2015 PPD 04/22/2017,04/14/2017 Pneumococcal Polysaccharide PPV23 (Pneumovax) 01/07/2009 Seasonal Influenza, PF, 6 M & above, IM , (FluLaval or Fluzone) 04/20/2023,04/22/2022,05/01/2021,04/14,06/11/2019,06/22/2018,05/15/20 17 Seasonal Influenza, QUAD, wi th Preserv, 6 mons & Above, 0.5 mL, IM 04/22/2022,05/01/2021,05/02/2020,05/15,06/22/2018,05/15/2017,05/05/20 16,05/29/2015,06/13/2014,05/28/2013,1 ,04/19/2011,05/06/2010,04/28,06/12/2008 Seasonal Influenza, Quadriva lent, No Preserve, IM 05/05/2016 05/05/2017 Seasonal Influenza, Split, I IV3, With Preserve, Inj 05/29/2015,06/13/2014,05/28/2013,05/14,04/19/2011,05/06/2010,04/28/20 09,06/12/2008 TD - Tetanus/Diptheria (ADULT) 07/11/2004 TDAP (age 10 and older)(Boostrix) 05/10/2021,04/06/2014 documented as of this encounter Social History Tobacco Use Types Packs/Day Years Used Date Smoking Tobacco: Never Smokeless Tobacco: Never Comments:no passive smoke Alcohol Use Standard Drinks/Week Comments No 0 (1 standard drink = 0.6 oz pur e alcohol) PHQ-2 Answer Date Recorded PHQ-2 Score -1 05/03/2020 Hunger Vital Sign Answer Date Recorded Within the past 12 months, y ou worried that your food would run out before you got the money to buy more. Never true 12/14/19 24 Within the past 12 months, t he food you bought just didn't last and you didn't have money to get more. Never true 12/14/2023 Sex and Gender Information Value Date Recorded Sex Assigned at Female 06/21/2019 7:48 AM EST Gender Identity Female 06/21/2019 7:48 AM EST Sexual Orientation Straight 06/21/2019 7: 48 AM EST Job Start Date Occupation Industry Not on file Not on file Not on file documented as of this encounter Miscellaneous Notes * Telephone Encounter - Tigist Artis MD - 12/21/2023 5:23 PM EDTSigned Prescriptions: Disp Refills LORazepam 1 MG Oral Tablet (Ativan) 30 Tab*0 Sig: Take 1 Tablet by mouth every 8 hours as needed for Anxiety.Authorizing Provider: TIGIST ARTIS * Telephone Encounter - Damion Thorpe [facility] - 12/21/2023 3:18 PM EDTPending Prescriptions: Disp Refills LORazepam 1 MG Oral Tablet (Ativan) 30 Tab*0 Sig: Take 1 Tablet by mouth every 8 hours as needed for Anxiety. * Telephone Encounter - Damion Thorpe [facility] - 12/21/2023 3:17 PM EDT I have reviewed the patients controlled substance dispensing history in the Prescription Drug Monitoring Program in compliance with the [facility] regulations before prescribing a controlled substance. PDMP checked on 12/21/2023. Pending Prescriptions: Disp Refills LORazepam 1 MG Oral Tablet (Ativan) 30 Tab*0 Sig: Take 1 Tablet by mouth every 8 hours as needed for Anxiety. Last Visit: 12/14/2023 (in office), Visit date not found (telemedicine) Next Visit: 12/28/2023 Date medication was last filled: 10-17-23 Date medication is due for refill: 10-27-23 [id number] [id number] Is this request for a controlled substance? Yes and Urine Drug Screen Not completed Toxicology results: No results found. However, due to the size of the patient record, not all encounters were searched.Please check Results Review for a complete set of results. Please approve if appropriate. Thanks, Damion Thorpe, Diana.Ph. Clinical Pharmacist [facility] [phone] ext [phone] 12/21/2023,3:18 PM documented in this encounter Plan of Treatment Upcoming Encounters Date Type Department Care Team (Late st Contact Info) Description 12/28/2023 9:00 AM EDT Office Visit [facility] [address] [place] [address] Hemalatha Carpenter MD [address], [place] [id number] Health Maintenance Due Date Last Done Comments HIV Screening 1987 Hepatitis C Screening 1990 Hepatitis B (1 of 3 - 19+ 3-dose series) 1991 Fecal Occult Blood Test 2017 Sigmoidoscopy 2017 Colonoscopy 03/01/2020 03/01/2010 Depression Screening 06/21/2020 06/21/2019 Zoster Vaccines (1 of 2) 2022 COVID-19 Vaccine ( season) 2023 05/10/2021, 11/18/2020, 10/28/2020 Mammogram 06/09/2023 06/09/2022, 06/09/2016, 10/29/2015, Additional history exists GFR 03/03/2024 03/03/2023, 01/2022, 09/07/2021, Additional history exists HbA1c 03/03/2024 03/03/2023, 01/2022, 09/07/2021, Additional history exists Albumin/Creatinine Ratio 01/12/2026 023, 11/25/2015, 11/05/2014, Additional history exists Cologuard 02/06/2026 02/06/2023, 01/12, 01/27/2023 Colorectal Cancer Screening 02/06/2026 Lipid Panel 10/15/2028 10/16/2023, 08/15, 11/21/2020, Additional history exists DTaP,Tdap,and Td Vaccines (3 - Td or Tdap) 05/10/2031 05/10/2021, 03/27/2014, 07/11/2004 Pneumococcal Vaccine: Pediatrics (0 to 5 Years) and At-Risk Patients (6 to 64 Years) Aged Out 01/07/2009 No longer eligible based on patient's age to complete this topic Influenza Vaccine (FLU shot) Completed 02/2023, 04/22/2022, 04/22/2022, Additional history exists GARDASIL-HPV IMMUNIZATION SERIES Aged Out No longer eligible based on patient's age to complete this topic MENINGOCOCCAL (MENACTRA/MENVEO) Aged Out No longer eligible based on patient's age to complete this topic documented as of this encounter Medical Devices Not on filedocumented as of this encounter Visit Diagnoses Diagnosis Anxiety Anxiety state, unspecified documented in this encounter Care Teams Airline Pilot Flight Instructor Relationship Specialty Start Date End Date Tigist Artis MD [address] [place] [address] PCP - General 10/20/00 documented as of this encounter
--- OUTSIDE RECORDS SUMMARY | 2024-02-15 10:14 | External Medical Summary | Summary of Care ---
Author Name Unknown Organization [facility] Address [address] [place] [address] Phone [phone] Care Team Providers Care Ecological Technical Officer Name Role Phone Orlin Mccauley MD Primary Care Provider [phone]- [phone] Reason for Visit * Reason Comments Procedure Pt here for a proced ure to have a skin tag removal Encounter Details Date Type Department Care Team (Late st Contact Info) Description 12/28/2023 9:00 AM EDT Office Visit [facility] [address] [place] [address] Hemalatha Carpenter MD [address] [place] [address] Skin tag*; Body mass index (BMI) of 40.0 to 44.9 in adult (HCC); Prediabetes Allergies Active Allergy Reactions Criticality Noted Date Comments Cortisone Nausea/vomiting 04/17/2019 Cortisone shots Make patient vomit Sulfa Antibiotics 06/18/1999 hives Yellow Jacket Venom Edema face/lips/tongue High 11/2018 documented as of this encounter (statuses as of 12/28/2023) Medications Medication Sig Dispensed Refills Start Date End Date Status Aspirin 81 MG Tablet Take 1 Tablet by mouth in the morning. 0 Active Magnesium 400 MG Capsule Take 1 Cap by mouth daily. 30 Cap 5 02/12/2018 Active atorvaSTATin (LIPITOR) 40 MG TabletIndications:Dy slipidemia Take 1 tab by mouth daily at bedtime 90 Tab 3 12/24/2019 Active Omeprazole 20 MG Oral Capsule Delayed Release (PriLOSEC)Indication s:Rib pain on left side,Gastroesophagea l reflux disease with esophagitis, unspecified whether hemorrhage Take 1 Cap by mouth daily. 1 hour before the first meal of the day 30 Cap 5 11/21/2020 Active Montelukast Sodium 10 MG Oral Tablet (Singulair)Indicatio ns:Cough Take 1 Tab by mouth daily. 30 Tab 5 12/07/2020 Active EpiPen 2-Bashir 0.3 MG/0.3ML Injection Solution Auto-injectorIndicat ions:Local reaction to insect sting For life threatening allergy symptoms and go immediately to the emergency room. 2 Each 3 12/07/2020 Active Fexofenadine HCl 180 MG Oral Tablet (Dione)Indications :Rhinitis, nonallergic,Seasonal allergic rhinitis, unspecified trigger Take 1 Tablet by mouth daily as needed for Allergies. 30 Tablet 11 01/12/2023 Active Fluticasone Propionate 50 MCG/ACT Nasal Suspension (Flonase)Indications :Rhinitis, nonallergic Administer 2 Sprays into each nostril in the morning. 16 g 5 01/12/2023 Active Baclofen 10 MG Oral Tablet (Lioresal)Indication s:Other migraine without status migrainosus, not intractable Take 1 tab by mouth at bedtime as needed 30 Tablet 1 03/28/2023 Active Verapamil HCl ER 100 MG Oral Capsule Extended Release 24 HourIndications:Othe r migraine without status migrainosus, not intractable 1 tab daily at bedtime 90 Capsule 3 05/12/2023 Active Venlafaxine HCl ER 75 MG Oral Capsule Extended Release 24 Hour (Effexor XR) TAKE ONE CAPSULE BY MOUTH IN THE MORNING 90 Capsule 1 10/03/2023 Active Lisinopril 20 MG Oral Tablet (Prinivil) TAKE 1 TABLET BY MOUTH EVERY MORNING 30 Tablet 5 11/03/2023 Active Gabapentin 800 MG Oral Tablet (Neurontin) TAKE 1 TABLET BY MOUTH THREE TIMES DAILY EVERY MORNING, AT NOON, AND BEFORE BEDTIME 270 Tablet 1 11/03/2023 Active Nystatin 160467 UNIT/GM External Powder (Nystop)Indications: Candidal intertrigo Apply topically to affected area 3 times a day. Apply to R upper thigh 60 g 0 12/14/2023 Active Ondansetron 4 MG Oral Tablet Disintegrating (Zofran)Indications: Nausea Place 1 Tablet on tongue every 8 hours as needed for Nausea. dissolve on tongue. 20 Tablet 1 12/14/2023 Active LORazepam 1 MG Oral Tablet (Ativan)Indications: Anxiety Take 1 Tablet by mouth every 8 hours as needed for Anxiety. 30 Tablet 0 12/21/2023 Active documented as of this encounter (statuses as of 12/28/2023) Active Problems Problem Noted Date Diagnosed Date Spinal stenosis 01/12/2023 Prediabetes 06/24/2019 Overview: Per Prediabetes protocol Body mass index (BMI) of 40.0 to 44.9 in adult 1 08/25/2017 Overview: Per Obesity protocol #1 Dyslipidemia 12/20/2017 Adjustment disorder with depressed mood 12/13/19 18 Complicated migraine 05/15/2017 HTN, goal below 140/90 05/15/2017 Rhinitis, nonallergic 03/21/2014 Reflux esophagitis Seasonal allergic rhinitis documented as of this encounter (statuses as of 12/28/2023) Resolved Problems Problem Noted Date Diagnosed Date Resolved Date Food insecurity 06/27/2022 12/27/2023 Overview: Per [facility] Protocol Chest pain 12/20/2017 06/22/2018 Prediabetes 12/28/2016 05/15/2017 Cutaneous candidiasis 01/19/20162016 Intertrigo 01/19/2016 05/15/2017 Paronychia of fourth toe, left 01/29/2015 05/15/2017 Asthma, mild persistent 03/21/201409/2016 Asthma, mild intermittent 07/17/2013 HTN, goal below 140/80 04/02/201208/01 Overview: Per HTN Protocol #27. Hypothyroidism 06/30/2010 10/05/2021 [facility] SKIN, RIGHT SHOULDER 03/29/2010 05/15/2017 Benign neoplasm of skin 03/29/201009/2016 Sebaceous cyst 03/29/2010 05/15/2017 Asthma with severity [...] as of this encounter (statuses as of 12/28/2023) Immunizations Name Administration Dates Next Due COVID-19 mRNA, LNP-s, No Pre serve, 2-Dose Series ([employer]) 05/10/2021,11/18/2020,10/28/2020 HEP A - Hepatitis A (Adult [...] Packs/Day Years Used Date Smoking Tobacco: Never Passive Smoke Exposure: Never Smokeless Tobacco: Never Tobacco Cessation:Counseling Given: Not Answered Comments:no passive smoke Alcohol Use Standard Drinks/Week [...] on file documented as of this encounter Last Filed Vital Signs Vital Sign Reading Time Taken Comments Blood Pressure 130/84 12/28/2023 8:50 AM EDT Pulse 71 12/28/2023 8:50 AM EDT Temperature 36.2 C (97.1 F) 12/28/2023 8:50 AM ED T Respiratory Rate 16 12/28/2023 8:50 AM EDT Oxygen Saturation 98% 12/28/2023 8:50 AM EDT Inhaled Oxygen Concentration - - Weight 122.5 kg (270 lb) 12/28/2023 8:50 AM EDT Height - - Body Mass Index 44.93 12/14/2023 10:09 AM EDT documented in this encounter Progress Notes * Hemalatha Carpenter MD - 12/28/2023 9:37 AM EDT Images from the original note were not included. Subjective Elo Lovell is a 53 year old female. Chief Complaint Patient presents with Procedure Pt here for a procedure to have a skin tag removal HPI: Here for skin tag infection check and removal Took doxycycline for skin tag infection Now better , Removal today - applied lidocaine spray , removed Minimal discomfort, minimal bleeding, compression for 20 min Silver nitrate applied too Dressing + No complication Known morbid obesity, preDM , hba1c 5.8 PMH: Patient Active Problem List Diagnosis Code Reflux esophagitis K21.00 Seasonal allergic rhinitis J30.2 Rhinitis, nonallergic J31.0 Complicated migraine G43.109 HTN, goal below 140/90 I10 Adjustment disorder with depressed mood F43.21 Dyslipidemia E78.5 Body mass index (BMI) of 40.0 to 44.9 in adult (HCC) Z68.41 Prediabetes R73.03 Spinal stenosis M48.00 Current Outpatient Medications Medication Sig Dispense Refill Aspirin 81 MG Tablet Take 1 Tablet by mouth in the morning. Magnesium 400 MG Capsule Take 1 Cap by mouth daily. 30 Cap 5 atorvaSTATin (LIPITOR) 40 MG Tablet Take 1 tab by mouth daily at bedtime 90 Tab 3 Omeprazole 20 MG Oral Capsule Delayed Release (PriLOSEC) Take 1 Cap by mouth daily. 1 hour before the first meal of the day 30 Cap 5 Montelukast Sodium 10 MG Oral Tablet (Singulair) Take 1 Tab by mouth daily. 30 Tab 5 EpiPen 2-Bashir 0.3 MG/0.3ML Injection Solution Auto-injector For life threatening allergy symptoms and go immediately to the emergency room. 2 Each 3 Fexofenadine HCl 180 MG Oral Tablet (Dione) Take 1 Tablet by mouth daily as needed for Allergies.30 Tablet 11 Fluticasone Propionate 50 MCG/ACT Nasal Suspension (Flonase) Administer 2 Sprays into each nostril in the morning. 16 g 5 Baclofen 10 MG Oral Tablet (Lioresal) Take 1 tab by mouth at bedtime as needed 30 Tablet 1 Verapamil HCl ER 100 MG Oral Capsule Extended Release 24 Hour 1 tab daily at bedtime 90 Capsule 3 Venlafaxine HCl ER 75 MG Oral Capsule Extended Release 24 Hour (Effexor XR) TAKE ONE CAPSULE BY MOUTH IN THE MORNING 90 Capsule 1 Lisinopril 20 MG Oral Tablet (Prinivil) TAKE 1 TABLET BY MOUTH EVERY MORNING 30 Tablet 5 Gabapentin 800 MG Oral Tablet (Neurontin) TAKE 1 TABLET BY MOUTH THREE TIMES DAILY EVERY MORNING, AT NOON, AND BEFORE BEDTIME 270 Tablet 1 Nystatin 703668 UNIT/GM External Powder (Nystop) Apply topically to affected area 3 times a day. Apply to R upper thigh 60 g 0 Ondansetron 4 MG Oral Tablet Disintegrating (Zofran) Place 1 Tablet on tongue every 8 hours as needed for Nausea. dissolve on tongue. 20 Tablet 1 LORazepam 1 MG Oral Tablet (Ativan) Take 1 Tablet by mouth every 8 hours as needed for Anxiety. 30 Tablet 0 No current facility-administered medications for this visit. Past Medical History: Diagnosis Date Allergic rhinitis 2006 Asthma, allergic Dr Kebede Corpus luteum cyst PCOS Depressive disorder, not elsewhere classified Dr Baron HTN, goal to be determined HYPOTHYROIDISM NOS 06/30/2010 OBESITY, BMI 40 AND OVER 01/26/2010 Per Obesity Protocol, #19 Other voice and resonance disorders 2006 Reflux esophagitis 2006 Past Surgical History: Procedure Laterality Date COLONOSCOPY, DIAGNOSTIC (RECTUM) 03/01/10 fair prep INFORMATION labor and delivery x1 LAP;W/HYSTERECTOMY 07/21 LORENZA/BSO - menstrual irregularities, [place] LAPAROSCOPY; CHOLECYSTECTOMY 05/11/09 Cholecystectomy, Laproscopic with cholangiogram - Dr. Galvez [facility] SINUS SURGERY PROCEDURE NEC 2003? removal of multiple polyps, Review of patient's allergies indicates: Allergen Reactions Yellow Jacket Venom Edema face/lips/tongue Cortisone Nausea/vomiting Cortisone shots Make patient vomit Sulfa Antibiotics hives Family History Problem Relation Age of Onset Breast Cancer Grandmother (Maternal) Allergies Grandmother (Maternal) sesonal allergies Allergies Grandfather (Maternal) bee sting allergy Breast Cancer Aunt (Maternal) Family Status Relation Status MGMA (Not Specified) MGFA (Not Specified) MAUNT Alive Social History Socioeconomic History Marital status: Spouse name: Not on file Number of children: Not on file Years of education: Not on file Highest education level: Not on file Occupational History Not on file Tobacco Use Smoking status: Never Passive exposure: Never Smokeless tobacco: Never Tobacco comments: no passive smoke Substance and Sexual Activity Alcohol use: No Drug use: No Sexual activity: Not on file Other Topics Concern Not on file Social History Narrative Not on file Social Determinants of Health Financial Resource Strain: Not on file Food Insecurity: No Food Insecurity (12/14/2023) Hunger Vital Sign Worried About Running Out of Food in the Last Year: Never true Ran Out of Food in the Last Year: Never true Transportation Needs: Not on file Physical Activity: Not on file Stress: Not on file Social Connections: Not on file Intimate Partner Violence: Not on file Housing Stability: Not on file Review of Systems Constitutional: Negative for activity change, appetite change, chills, diaphoresis, fatigue, fever and unexpected weight change. Gastrointestinal: Negative for abdominal distention and abdominal pain. Skin: Negative for color change and wound. Large skin tag on rt upper inner thigh , close to groin Psychiatric/Behavioral: Negative for agitation and behavioral problems. Objective BP 130/84 | Pulse 71 | Temp 36.2 C (97.1 F) (Infrared ) | Resp 16 | Wt 122.5 kg (270 lb) | [id number]% | BMI 44.93 kg/m | BSA 2.37 m Physical Exam Constitutional: General: She is not in acute distress. Appearance: Normal appearance. She is obese. She is not ill-appearing, toxic- appearing or diaphoretic. HENT: Head: Normocephalic and atraumatic. Nose: Nose normal. Eyes: Extraocular Movements: Extraocular movements intact. Skin: Findings: Lesion (skin tag) present. No erythema or rash. Neurological: Mental Status: She is alert and oriented to person, place, and time. Psychiatric: Behavior: Behavior normal. ASSESSMENT/PLAN: Skin tag (Primary) Body mass index (BMI) of 40.0 to 44.9 in adult (HCC) Prediabetes Removed Diet exercise F/u with PCP Hemalatha Carpenter MD documented in this encounter Nursing Notes * Lucita Bond LPN - 12/28/2023 8:47 AM EDT Chief Complaint Patient presents with Procedure Pt here for a procedure to have a skin tag removal documented in this encounter Plan of Treatment Health Maintenance Due Date Last Done Comments Hepatitis B (1 of 3 - 19+ 3-dose series) 1991 Fecal Occult Blood Test 2017 Sigmoidoscopy 2017 Colonoscopy 03/01/2020 03/01/2010 Depression Screening 06/21/2020 06/21/2019 Zoster Vaccines (1 of 2) 2022 COVID-19 Vaccine (2022- season) 2023 05/10/2021, 11/18/2020, 10/28/2020 GFR 03/03/2024 03/03/2023, 1201/2022, 09/07/2021, Additional history exists HbA1c 03/03/2024 03/03/2023, 12/0 01/2022, 09/07/2021, Additional history exists Mammogram 12/20/2024 12/21/2023, 05/15, 02/02/2017, Additional history exists Albumin/Creatinine Ratio 01/12/2026 023, [...] this topic Influenza Vaccine (FLU shot) Completed 04/20/2023, 04/22/2022, 04/22/2022, Additional history exists GARDASIL-HPV IMMUNIZATION SERIES Aged Out No longer eligible based on patient's age to complete this topic HIV Screening Discontinued Hepatitis C Screening Discontinued MENINGOCOCCAL (MENACTRA/MENVEO) Aged Out No longer eligible based on patient's age to complete this topic documented as of this encounter Medical Devices Not on filedocumented as of this encounter Visit Diagnoses Diagnosis Skin tag- Primary Unspecified hypertrophic and atrophic condition of skin Body mass index (BMI) of 40.0 to 44.9 in adult (HCC) Prediabetes Other abnormal glucose documented in this encounter Care Teams Ecological Technical Officer Relationship Specialty Start Date End Date Orlin Mccauley MD [address] [place] [address] PCP - General 10/20/00 documented as of this encounter"
--- OUTSIDE RECORDS SUMMARY | 2024-02-15 10:15 | External Medical Summary | Summary of Care ---
Author Name Unknown Organization [facility] Address [address] [place] [address] Phone [phone] Care Team Providers Care Correctional Facility Nurse Name Role Phone Tigist Artis MD Primary Care Provider +1- [phone] Reason for Visit * Reason Comments eRx-Medication Refill Encounter Details Date Type Department Care Team (Late st Contact Info) Description 11/02/2023 Refill [facility] [address] [place] [address] Tigist Artis MD [address] [place] [address] Allergies Active Allergy Reactions Criticality Noted Date Comments Cortisone Nausea/vomiting 04/17/2019 Cortisone shots Make patient vomit Sulfa Antibiotics 06/18/1999 hives Yellow Jacket Venom Edema face/lips/tongue High 11/2018 documented as of this encounter (statuses as of 11/03/2023) Medications Medication Sig Dispensed Refills Start Date End Date Status Aspirin 81 MG Tablet Take 1 Tablet by mouth in the morning. 0 Active Magnesium 400 MG Capsule Take 1 Cap by mouth daily. 30 Cap 5 02/12/2018 Active atorvaSTATin (LIPITOR) 40 MG TabletIndication s:Dyslipidemia Take 1 tab by mouth daily at bedtime 90 Tab 3 12/24/2019 Active Omeprazole 20 MG Oral Capsule Delayed Release (PriLOSEC)Indica tions:Rib pain on left side,Gastroesoph ageal reflux disease with esophagitis, unspecified whether hemorrhage Take 1 Cap by mouth daily. 1 hour before the first meal of the day 30 Cap 5 11/21/2020 Active Montelukast Sodium 10 MG Oral Tablet (Singulair)Indic ations:Cough Take 1 Tab by mouth daily. 30 Tab 5 12/07/2020 Active EpiPen 2-Bashir 0.3 MG/0.3ML Injection Solution Auto-injectorInd ications:Local reaction to insect sting For life threatening allergy symptoms and go immediately to the emergency room. 2 Each 3 12/07/2020 Active Fexofenadine HCl 180 MG Oral Tablet (Dione)Indicat ions:Rhinitis, nonallergic,Seas onal allergic rhinitis, unspecified trigger Take 1 Tablet by mouth daily as needed for Allergies. 30 Tablet 11 01/12/2023 Active Fluticasone Propionate 50 MCG/ACT Nasal Suspension (Flonase)Indicat ions:Rhinitis, nonallergic Administer 2 Sprays into each nostril in the morning. 16 g 5 01/12/2023 Active Baclofen 10 MG Oral Tablet (Lioresal)Indica tions:Other migraine without status migrainosus, not intractable Take 1 tab by mouth at bedtime as needed 30 Tablet 1 03/28/2023 Active Verapamil HCl ER 100 MG Oral Capsule Extended Release 24 HourIndications: Other migraine without status migrainosus, not intractable 1 tab daily at bedtime 90 Capsule 3 05/12/2023 Active Venlafaxine HCl ER 75 MG Oral Capsule Extended Release 24 Hour (Effexor XR) TAKE ONE CAPSULE BY MOUTH IN THE MORNING 90 Capsule 1 10/03/2023 Active LORazepam 1 MG Oral Tablet (Ativan)Indicati ons:Anxiety Take 1 Tablet by mouth every 8 hours as needed for Anxiety. 30 Tablet 0 10/17/2023 Active Lisinopril 20 MG Oral Tablet (Prinivil) TAKE 1 TABLET BY MOUTH EVERY MORNING 30 Tablet 5 11/03/2023 Active Gabapentin 800 MG Oral Tablet (Neurontin) TAKE 1 TABLET BY MOUTH THREE TIMES DAILY EVERY MORNING, AT NOON, AND BEFORE BEDTIME 270 Tablet 1 11/03/2023 Active Lisinopril 20 MG Oral Tablet (Prinivil) Take 1 Tablet by mouth in the morning. 30 Tablet 5 05/05/2023 Discontinued Gabapentin 800 MG Oral Tablet (Neurontin) Take 1 Tablet by mouth in the morning and 1 Tablet at noon and 1 Tablet before bedtime. 270 Tablet 1 05/09/2023 4 Discontinued documented as of this encounter (statuses as of 11/03/2023) Active Problems Problem Noted Date Diagnosed Date [...] as of this encounter (statuses as of 11/03/2023) Resolved Problems Problem Noted Date Diagnosed Date [...] as of this encounter (statuses as of 11/03/2023) Immunizations Name Administration Dates Next Due COVID-19 mRNA, LNP-s, No Pre serve, 2-Dose Series ([employer]) 05/10/2021,11/18/2020,10/28/2020 HEP A - Hepatitis A (Adult [...] you got the money to buy more. Sometimes true Within the past 12 months, t he food you bought just didn't last and you didn't have money to get more. Never true Sex and Gender Information Value Date Recorded Sex Assigned at Female 06/21/2019 7:48 AM EST Gender Identity Female 06/21/2019 7:48 AM EST Sexual Orientation Straight 06/21/2019 7: 48 AM EST Job Start Date Occupation Industry Not on file Not on file Not on file documented as of this encounter Miscellaneous Notes * Telephone Encounter - Tigist Artis MD - 11/03/2023 4:31 PM EDTSigned Prescriptions: Disp Refills Lisinopril 20 MG Oral Tablet (Prinivil) 30 Tab*5 Sig: TAKE 1 TABLET BY MOUTH EVERY MORNINGAuthorizing Provider: TIGIST ARTIS User: ILANA GRAY Gabapentin 800 MG Oral Tablet (Neurontin) 270 Ta*1 Sig: TAKE 1 TABLET BY MOUTH THREE TIMES DAILY EVERY MORNING, AT NOON, AND BEFORE BEDTIMEAuthorizing Provider: TIGIST ARTIS * Telephone Encounter - Ilana Gray [facility] - 11/03/2023 8:28 AM EDT Pending Prescriptions: Disp Refills Gabapentin 800 MG Oral Tablet (Neurontin) 270 Ta*1 Sig: TAKE 1 TABLET BY MOUTH THREE TIMES DAILY EVERY MORNING, AT NOON, AND BEFORE BEDTIME Signed Prescriptions: Disp Refills Lisinopril 20 MG Oral Tablet (Prinivil) 30 Tab*5 Sig: TAKE 1 TABLET BY MOUTH EVERY MORNING Authorizing Provider: Ginny ARTIS User: ILANA GRAY * Telephone Encounter - Ilana Gray [facility] - 11/03/2023 8:28 AM EDT [facility] to approve refills for this class of medication per refillprotocol. Thank you, Ilana Gray, PharmD Staff Pharmacist Refill Call Center [phone] 11/03/2023, 8:28 AM Pending Prescriptions: Disp Refills Gabapentin 800 MG Oral Tablet (Neurontin) 270 Ta*1 Sig: TAKE 1 TABLET BY MOUTH THREE TIMES DAILY EVERY MORNING, AT NOON, AND BEFORE BEDTIME Signed Prescriptions: Disp Refills Lisinopril 20 MG Oral Tablet (Prinivil) 30 Tab*5 Sig: TAKE 1 TABLET BY MOUTH EVERY MORNING Authorizing Provider: TIGIST ARTIS Ordering User: ILANA GRAY Last Visit: 03/02/2023 (in office), Visit date not found (telemedicine) Next Visit: Visit date not found If no future appointments scheduled, and last appointment is greater than a year ago, please schedule patient for a follow-up appointment Last date the medication was ordered: 05/09/23 Pharmacy: [id number] Is this request for a controlled substance?No Urine Drug Screen:No results found. However, due to the size of the patient record, not all encounters were searched. Please check Results Review for a complete set of results. Patient Phone Numbers Labs: Lab Results Component Value Date/Time CREAT 0.5 03/03/2023 08:08 AM CREAT 0.6 11/02/2019 10:29 AM POTASSIUM 3.5 03/03/2023 08:08 AM POTASSIUM 4.1 11/02/2019 10:29 AM TSH 2.16 07/19/2022 10:52 AM TSH 3.03 11/02/2019 10:29 AM LDLCALC 83 10/16/2023 12:38 PM LDLCALC 101 11/02/2019 10:29 AM LDLDIRECT NOT APPLICABLE 11/02/2019 10:29 AM LDLDIRECT 119 06/13/2013 01:13 PM ALT 25 07/19/2022 10:52 AM ALT 25 11/02/2019 10:29 AM HGBA1C 5.8 (H) 03/03/2023 08:08 AM HGBA1C 5.8 (H) 11/02/2019 10:29 AM documented in this encounter Plan of Treatment Health Maintenance Due Date Last Done Comments HIV Screening 1987 Hepatitis C Screening 1990 Hepatitis B (1 of 3 - 19+ 3-dose series) 1991 Fecal Occult Blood Test 2017 Sigmoidoscopy 2017 Colonoscopy 03/01/2020 03/01/2010 Depression Screening 06/21/2020 06/21/2019 Zoster Vaccines (1 of 2) 2022 COVID-19 Vaccine ( - season) 2023 05/10/2021, 11/18/2020, 10/28/2020 Mammogram 06/09/2023 06/09/2022, 01/13, 10/29/2015, Additional history exists GFR 03/03/2024 03/03/2023, 12/0 01/2022, 09/07/2021, Additional history exists HbA1c 03/03/2024 03/03/2023, 12/0 01/2022, 09/07/2021, Additional history exists Albumin/Creatinine Ratio [...] Not on filedocumented as of this encounter Care Teams Correctional Facility Nurse Relationship Specialty Start Date End Date Tigist Artis MD [address] [facility] [place] [address] PCP - General 10/20/00 documented as of this encounter
--- OUTSIDE RECORDS SUMMARY | 2024-02-15 10:15 | External Medical Summary | Summary of Care ---
Author Name Unknown Organization [facility] Address [address] [facility] [place] [address] Phone [phone] Care Team Providers Care Inbound Sales Consultant Name Role Phone Tigist Mccauley MD Primary Care Provider +1- [phone] Reason for Visit * Reason Onset Date Comments Medication Refill 10/15/2023 Encounter Details Date Type Department Care Team (Late st Contact Info) Description 10/15/2023 [address] [facility] [address] [place] [address] Tigist Mccauley MD [address] [place] [address] Anxiety Allergies Active Allergy Reactions Criticality Noted Date Comments Cortisone Nausea/vomiting 04/17/2019 Cortisone shots Make patient vomit Sulfa Antibiotics 06/18/1999 hives Yellow Jacket Venom Edema face/lips/tongue High 11/2018 documented as of this encounter (statuses as of 10/17/2023) Medications Medication Sig Dispensed Refills Start Date End Date Status Aspirin 81 MG Tablet Take 1 Tablet by mouth in the morning. 0 Active Magnesium 400 MG Capsule Take 1 Cap by mouth daily. 30 Cap 5 02/12/2018 Active atorvaSTATin (LIPITOR) 40 MG TabletIndications :Dyslipidemia Take 1 tab by mouth daily at bedtime 90 Tab 3 12/24/2019 Active Omeprazole 20 MG Oral Capsule Delayed Release (PriLOSEC)Indicat ions:Rib pain on left side,Gastroesopha geal reflux disease with esophagitis, unspecified whether hemorrhage Take 1 Cap by mouth daily. 1 hour before the first meal of the day 30 Cap 5 11/21/2020 Active Montelukast Sodium 10 MG Oral Tablet (Singulair)Indica tions:Cough Take 1 Tab by mouth daily. 30 Tab 5 12/07/2020 Active EpiPen 2-Bashir 0.3 MG/0.3ML Injection Solution Auto-injectorIndi cations:Local reaction to insect sting For life threatening allergy symptoms and go immediately to the emergency room. 2 Each 3 12/07/2020 Active Fexofenadine HCl 180 MG Oral Tablet (Dione)Indicati ons:Rhinitis, nonallergic,Seaso nal allergic rhinitis, unspecified trigger Take 1 Tablet by mouth daily as needed for Allergies. 30 Tablet 11 01/12/2023 Active Fluticasone Propionate 50 MCG/ACT Nasal Suspension (Flonase)Indicati ons:Rhinitis, nonallergic Administer 2 Sprays into each nostril in the morning. 16 g 5 01/12/2023 Active Baclofen 10 MG Oral Tablet (Lioresal)Indicat ions:Other migraine without status migrainosus, not intractable Take 1 tab by mouth at bedtime as needed 30 Tablet 1 03/28/2023 Active Lisinopril 20 MG Oral Tablet (Prinivil) Take 1 Tablet by mouth in the morning. 30 Tablet 5 05/05/2023 Active Gabapentin 800 MG Oral Tablet (Neurontin) Take 1 Tablet by mouth in the morning and 1 Tablet at noon and 1 Tablet before bedtime. 270 Tablet 1 05/09/2023 Active Verapamil HCl ER 100 MG Oral Capsule Extended Release 24 HourIndications:O ther migraine without status migrainosus, not intractable 1 tab daily at bedtime 90 Capsule 3 05/12/2023 Active Venlafaxine HCl ER 75 MG Oral Capsule Extended Release 24 Hour (Effexor XR) TAKE ONE CAPSULE BY MOUTH IN THE MORNING 90 Capsule 1 10/03/2023 Active LORazepam 1 MG Oral Tablet (Ativan)Indicatio ns:Anxiety Take 1 Tablet by mouth every 8 hours as needed for Anxiety. 30 Tablet 0 10/17/2023 Active LORazepam 1 MG Oral Tablet (Ativan)Indicatio ns:Anxiety Take 1 Tablet by mouth every 8 hours as needed for Anxiety. 30 Tablet 0 07/27/2023 4 Discontinue d(Refill) documented as of this encounter (statuses as of 10/17/2023) Active Problems Problem Noted Date Diagnosed Date [...] as of this encounter (statuses as of 10/17/2023) Resolved Problems Problem Noted Date Diagnosed Date [...] as of this encounter (statuses as of 10/17/2023) Immunizations Name Administration Dates Next Due COVID-19 mRNA, LNP-s, No Pre serve, 2-Dose Series ([employer]) 05/10/2021,11/18/2020,10/28/2020 HEP A - Hepatitis A (Adult [...] Miscellaneous Notes * Telephone Encounter - Tigist Mccauley MD - 10/17/2023 7:45 AM ESTSigned Prescriptions: Disp Refills LORazepam 1 MG Oral Tablet (Ativan) 30 Tab*0 Sig: Take 1 Tabletby mouth every 8 hours as needed for Anxiety.Authorizing Provider: OESTERLING, TIGIST R * Telephone Encounter - Michael Samuels, [facility] - 10/17/2023 7:43 AM ESTPending Prescriptions: Disp Refills LORazepam 1 MG Oral Tablet (Ativan) 30 Tab*0 Sig: Take 1 Tablet by mouth every 8 hours as needed for Anxiety. * Telephone Encounter - Michael Samuels [facility] - 10/17/2023 7:42 AM EST I have reviewed the patients controlled substance dispensing history in the Prescription Drug Monitoring Program in compliance with the [facility] regulations before prescribing a controlled substance. PDMP checked on 10/17/2023. Pending Prescriptions: Disp Refills LORazepam 1 MG Oral Tablet (Ativan) 30 Tab*0 Sig: Take 1 Tablet by mouth every 8 hours as needed for Anxiety. Last Visit: 03/02/2023 (in office), Visit date not found (telemedicine) Next Visit: Visit date not found Date medication was last filled: 08/09/23 Date medication is due for refill: 08/18/23 Pharmacy: [id number] Is this request for a controlled substance? Yes and Urine Drug Screen Not completed Toxicology results: No results found. However, due to the size of the patient record, not all encounters were searched.Please check Results Review for a complete set of results. Please approve if appropriate. Thank You, Michael Chacon [facility] Clinical Pharmacist [facility] ([facility]) (formerly Telepharmacy) 10/17/2023, 7:42 AM documented in this encounter Plan of [...] unspecified documented in this encounter Care Teams Inbound Sales Consultant Relationship Specialty Start Date End Date Tigist Mccauley MD [address] [place] [address] PCP - General 10/20/00 documented as of this encounter
--- OUTSIDE RECORDS SUMMARY | 2024-02-15 10:15 | External Medical Summary | Summary of Care ---
Author Name Unknown Organization [facility] Address [address] [facility] [place] [address] Phone [phone] Care Team Providers Care Radar Air Traffic Controller Name Role Phone Orlin Mccauley MD Primary Care Provider +1- [phone] Reason for Visit * Reason Comments Outpatient Testing Encounter Details Date Type Department Care Team (Late st Contact Info) Description 10/16/2023 12:30 PM EST [facility] [place] [address] [place] [address] [place] [address] [place] [address] Dyslipidemia; Encounter for long-term (current) use of medications Allergies Active Allergy Reactions Criticality Noted Date Comments Cortisone Nausea/vomiting 04/17/2019 Cortisone shots Make patient vomit Sulfa Antibiotics 06/18/1999 hives Yellow Jacket Venom Edema face/lips/tongue High 11/2018 documented as of this encounter (statuses as of 10/16/2023) Medications Medication Sig Dispensed Refills Start Date [...] at bedtime 90 Capsule 3 05/12/2023 Active LORazepam 1 MG Oral Tablet (Ativan)Indications :Anxiety Take 1 Tablet by mouth every 8 hours as needed for Anxiety. 30 Tablet 0 07/27/2023 Active Venlafaxine HCl ER 75 MG Oral Capsule Extended Release 24 Hour (Effexor XR) TAKE ONE CAPSULE BY MOUTH IN THE MORNING 90 Capsule 1 10/03/2023 Active documented as of this encounter (statuses as of 10/16/2023) Active Problems Problem Noted Date Diagnosed Date [...] as of this encounter (statuses as of 10/16/2023) Resolved Problems Problem Noted Date Diagnosed Date [...] as of this encounter (statuses as of 10/16/2023) Immunizations Name Administration Dates Next Due COVID-19 mRNA, LNP-s, No Pre serve, 2-Dose Series ([employer]) 05/10/2021,11/18/2020,10/28/2020 HEP A - Hepatitis A (Adult [...] on file documented as of this encounter Plan of Treatment Pending Results Name Type Priority Associated Diagnoses Date /Time LIPID PANEL WITH DIRECT LDL IF TG IS HIGH Lab Routine Dyslipidemia Encounter for long-term (current) use of medications 10/16/2023 12:38 PM EST Health Maintenance Due Date Last Done Comments [...] 01/27/2023 Colorectal Cancer Screening 02/06/2026 Lipid Panel 09/07/2026 09/07/2021, 11/12, 11/02/2019, Additional history exists DTaP,Tdap,and Td Vaccines (3 [...] as of this encounter Visit Diagnoses Diagnosis Dyslipidemia Other and unspecified hyperlipidemia Encounter for long-term (current) use of medications Encounter for long-term (current) use of other medications documented in this encounter Care Teams Radar Air Traffic Controller Relationship Specialty Start Date End Date Orlin Mccauley MD [address] [place] [address] PCP - General 10/20/00 documented as of this encounter
--- OUTSIDE RECORDS SUMMARY | 2024-02-15 10:15 | External Medical Summary | Summary of Care ---
Author Name Unknown Organization [facility] Address [address] [place] [address] Phone [phone] Care Team Providers Care Aircraft Shipping Checker Name Role Phone Orlin Mccauley MD Primary Care Provider +1- [phone] Reason for Visit * Reason Onset Date Comments Referral 12/18/2023 Mammo Order Encounter Details Date Type Department Care Team (Late st Contact Info) Description 12/18/2023 Telephone [facility] [address] [place] [address] Orlin Mccauley MD [address] [place] [address] Referral (Mammo Order) Allergies Active Allergy Reactions Criticality Noted Date Comments Cortisone Nausea/vomiting 04/17/2019 Cortisone shots Make patient vomit Sulfa Antibiotics 06/18/1999 hives Yellow Jacket Venom Edema face/lips/tongue High 11/2018 documented as of this encounter (statuses as of 12/18/2023) Medications Medication Sig Dispensed Refills Start Date [...] 10/03/2023 Active LORazepam 1 MG Oral Tablet (Ativan)Indications: [...] BEDTIME 270 Tablet 1 11/03/2023 Active Nystatin 973343 UNIT/GM External Powder (Nystop)Indications: Candidal intertrigo Apply topically to affected area 3 times a day. Apply to R upper thigh 60 g 0 12/14/2023 Active Doxycycline Hyclate 100 MG Oral CapsuleIndications:S kin tag,Cellulitis of right lower extremity Take 1 Capsule by mouth in the morning and 1 Capsule before bedtime. Do all this for 10 days. Until gone.. 20 Capsule 0 12/14/2023 Active Ondansetron 4 MG Oral Tablet Disintegrating (Zofran)Indications: Nausea Place 1 Tablet on tongue every 8 hours as needed for Nausea. dissolve on tongue. 20 Tablet 1 12/14/2023 Active documented as of this encounter (statuses as of 12/18/2023) Active Problems Problem Noted Date Diagnosed Date [...] as of this encounter (statuses as of 12/18/2023) Resolved Problems Problem Noted Date Diagnosed Date Resolved Date Chest pain 12/20/2017 06/22/2018 Prediabetes 12/28/2016 05/15/2017 Cutaneous candidiasis 01/19/20162016 Intertrigo 01/19/2016 05/15/2017 Paronychia of fourth toe, left 01/29/2015 05/15/2017 Asthma, mild persistent 03/21/201409/2016 Asthma, mild intermittent 07/17/2013 HTN, goal below 140/80 04/02/201208/01 Overview: Per HTN Protocol #27. Hypothyroidism 06/30/2010 10/05/2021 [facility] SKIN, RIGHT SHOULDER 03/29/2010 05/15/2017 Benign neoplasm of skin 03/29/20100 09/2016 Sebaceous cyst 03/29/2010 05/15/2017 Asthma with severity [...] as of this encounter (statuses as of 12/18/2023) Immunizations Name Administration Dates Next Due COVID-19 mRNA, LNP-s, No Pre serve, 2-Dose Series ([employer]) 05/10/2021,11/18/2020,10/28/2020 HEP A - Hepatitis A (Adult [...] encounter Miscellaneous Notes * Telephone Encounter - Radha Pittman OSA - 12/18/2023 11:43 AM EDT MyG sent. 12/18/2023 documented in this encounter Plan of Treatment Upcoming Encounters Date Type Department Care Team (Late st Contact Info) Description 12/28/2023 9:00 AM EDT Office Visit [facility] [address] [facility] [place] [address] Hemalatha Carpenter MD [address] [facility] [place] [address] Health Maintenance Due Date Last Done Comments [...] filedocumented as of this encounter Care Teams Aircraft Shipping Checker Relationship Specialty Start Date End Date Orlin Mccauley MD [address] [place] [address] PCP - General 10/20/00 documented as of this encounter
--- OUTSIDE RECORDS SUMMARY | 2024-02-15 10:15 | External Medical Summary | Summary of Care ---
Author Name Unknown Organization [facility] Address [address] [place] [address] Phone [phone] Care Team Providers Care Order Processor Name Role Phone Orlin Mccauley MD Primary Care Provider +1- [phone] Reason for Visit * Reason Onset Date Comments Referral 12/18/2023 Mammo Order Encounter Details Date Type Department Care Team (Late st Contact Info) Description 12/18/2023 Telephone [facility] [address] [place] [address] Orlin Mccauley MD [address] [place] [address] Referral (Mammo Order) Allergies Active [...] BEDTIME 270 Tablet 1 11/03/2023 Active Nystatin 220115 UNIT/GM External Powder (Nystop)Indications: Candidal intertrigo Apply [...] mRNA, LNP-s, No Pre serve, 2-Dose Series ([employer]) 05/10/2021,11/18/2020,10/28/2020 HEP A - Hepatitis A (Adult [...] Telephone Encounter - Radha Pittman OSA - 12/21/2023 1:11 PM EDT Done. 12/21/2023 * Telephone Encounter - Radha Pittman OSA - 12/18/2023 11:43 AM EDT MyG sent. 12/18/2023 documented in this encounter Plan of Treatment Upcoming Encounters Date Type Department Care Team (Late st Contact Info) Description 12/28/2023 9:00 AM EDT Office Visit [facility] [address] [place] [address] Hemalatha Carpenter MD [address] [place] [address] Health Maintenance Due Date Last Done Comments [...] filedocumented as of this encounter Care Teams Order Processor Relationship Specialty Start Date End Date Orlin Mccauley MD [address] [place] [address] PCP - General 10/20/00 documented as of this encounter
--- OUTSIDE RECORDS SUMMARY | 2024-02-15 10:15 | External Medical Summary | Summary of Care ---
Author Name Unknown Organization [facility] Address [address] [place] [address] Phone [phone] Care Team Providers Care Dumper Bulk System Name Role Phone Orlin Mccauley MD Primary Care Provider +1- [phone] Reason for Visit * Reason Comments Skin Growth Pt states that she h as skin tag and a lump on Right side of her groin area Encounter Details Date Type Department Care Team (Late st Contact Info) Description 12/14/2023 10:20 AM EDT Office Visit [facility] [address] [place] [address] Chelsi Alberto PA-C [address] [place] [address] Encounter for screening mammogram for malignant neoplasm of breast*; Candidal intertrigo; Nausea; Skin tag; Cellulitis of right lower extremity; Body mass index (BMI) of 40.0 to 44.9 in adult (HCC) Allergies Active Allergy Reactions Criticality Noted Date Comments Cortisone Nausea/vomiting 04/17/2019 Cortisone shots Make patient vomit Sulfa Antibiotics 06/18/1999 hives Yellow Jacket Venom Edema face/lips/tongue High 11/2018 documented as of this encounter (statuses as of 12/14/2023) Medications Medication Sig Dispensed Refills Start Date [...] BEDTIME 270 Tablet 1 11/03/2023 Active Nystatin 805863 UNIT/GM External Powder (Nystop)Indications: Candidal intertrigo Apply [...] as of this encounter (statuses as of 12/14/2023) Active Problems Problem Noted Date Diagnosed Date [...] as of this encounter (statuses as of 12/14/2023) Resolved Problems Problem Noted Date Diagnosed Date [...] as of this encounter (statuses as of 12/14/2023) Immunizations Name Administration Dates Next Due COVID-19 mRNA, LNP-s, No Pre serve, 2-Dose Series ([employer]) 05/10/2021,11/18/2020,10/28/2020 HEP A - Hepatitis A (Adult [...] Date Smoking Tobacco: Never Smokeless Tobacco: Never Tobacco Cessation:Counseling Given: [...] Sign Reading Time Taken Comments Blood Pressure 130/82 12/14/2023 10:09 AM EDT Pulse 80 12/14/2023 10:09 AM EDT Temperature 36.2 C (97.1 F) 12/14/2023 1 0:09 AM EDT Respiratory Rate 16 12/14/2023 10:0 9 AM EDT Oxygen Saturation 95% 12/14/2023 10: 09 AM EDT Inhaled Oxygen Concentration - - Weight 121.4 kg (267 lb 9.6 oz) 024 10:09 AM EDT Height 165.1 cm (5' 5") 12/14/2023 10:0 9 AM EDT Body Mass Index 44.53 12/14/2023 10:09 AM EDT documented in this encounter Patient Instructions * Patient Instructions* Lynne Kessler LPN - 12/14/2023 10:07 AM EDT Images from the original note were not included. Mammography Mammography is an X-ray exam of your breast tissue. The image it makes is called a mammogram. A mammogram can help find problems with your breasts, such as cysts or cancer. Mammography is the best breast cancer screening tool available. Have screening mammograms and professional breast exams as often as your healthcare provider recommends. Also, be sure you know how your breasts normally look and feel. This makes it easier to noticeany changes. Report changes to your healthcare provider as soon as possible. How do I get ready for a mammogram? Schedule the test for 1 week after your period. Your breasts are less sore then. Make sure your clinic gets images of your last mammogram if it was done somewhere else. This lets the provider compare the 2 sets of images for any changes. On the morning of your test, dont use deodorant, powder, or perfume. Wear a top that you can take off easily. What happens during a mammogram? You will need to undress from the waist up. The technologist will position your breast to get the best test results. Each of your breasts will be compressed one at a time. This helps get the most complete X-ray image. Your breasts will be repositioned to get at least 2 separate views of each breast. What happens after a mammogram? More X-rays are sometimes needed. If not done at the time of your initial mammogram, youll be called to schedule them. You should receive your test results in writing. Ask about this on the day of your appointment. Have mammograms as often as your healthcare provider recommends. Let the technologist know if: Youre or think you may be You have breast implants You have any scars or moles on or near your breasts Youve had a breast biopsy or surgery Youre Date Last Reviewed: 01/12/201719998653-5144 [employer]. [address] [place] [address]. All rights reserved. This information is not intended as a substitute for professional medical care. Always follow your healthcare professional's instructions documented in this encounter Progress Notes * Chelsi Alberto PA-C - 12/14/2023 10:28 AM EDT Images from the original note were not included. History of Present Illness Elo Lovell is a 53 year old female that presents for Skin Growth (Pt states that she has skintag and a lump on Right side of her groin area/) Here for a possible skin infection Started to bother her a last weekend. Flared fast Skin is red and irritated Hurts a lot Underwear rubs Sweat stings + nausea but could bet he heat or this No fever or chills Physical Exam Vitals: 12/14/23 1009 Temp: 36.2 C (97.1 F) Pulse: 80 Resp: 16 SpO2: 95% BP: 130/82 BMI: 44.53 BP Readings from Last 3 Encounters: 12/14/23 130/82 03/02/23 146/82 01/12/23 130/80 Wt Readings from Last 3 Encounters: 12/14/23 121.4 kg (267 lb 9.6 oz) 03/02/23 117.2 kg (258 lb 6.4 oz) 01/12/23 113.9 kg (251 lb) BMI Readings from Last 3 Encounters: 12/14/23 44.53 kg/m 03/02/23 43.00 kg/m 01/12/23 41.77 kg/m Ht Readings from Last 3 Encounters: 12/14/23 1.651 m (5' 5") 03/02/23 1.651 m (5' 5") 01/12/23 1.651 m (5' 5") General: alert, healthy, and no distress Head: Normocephalic, No masses, lesions, tenderness or abnormalities Heart: regular rate & rhythm, no murmur, no gallops, S-1 normal, and S-2 normal Lungs: chest symmetric with normal AP diameter, no chest deformities noted, no chest wall tenderness, lungs clear to auscultation Skin: skin color, texture, turgor are normal, R upper thigh - inferior to the fold of skin she has a 1.5 cm ulcerated, infected skin tag with surrounding candidal infection Assessment and Plan Encounter for screening mammogram for malignant neoplasm of breast (Primary) - MAMMOGRAM SCREENING NOLAN BILATERAL; Future; Expected date: 12/14/2023 Candidal intertrigo - Nystatin 412138 UNIT/GM External Powder (Nystop); Apply topically to affected area 3 times a day.Apply to R upper thigh Nausea - Ondansetron 4 MG Oral Tablet Disintegrating (Zofran); Place 1 Tablet on tongue every 8 hours as needed for Nausea. dissolve on tongue. Skin tag - Doxycycline Hyclate 100 MG Oral Capsule; Take 1 Capsule by mouth in the morning and 1 Capsule before bedtime. Do all this for 10 days. Until gone.. Cellulitis of right lower extremity - Doxycycline Hyclate 100 MG Oral Capsule; Take 1 Capsule by mouth in the morning and 1 Capsule before bedtime. Do all this for 10 days. Until gone.. Body mass index (BMI) of 40.0 to 44.9 in adult (HCC) The patient is asked to make an attempt to improve diet and exercise patterns to aid in medical management of this problem. Follow Up: Return for [facility] 40 minutes - any provider - no sooner than 2 weeks. | For: les rem 40minutes - any provider - no sooner than 2 weeks Treat infection Calm yeast Back for les rem once healed Wrap-Up Time: I spent a total of 10-19 minutes (exact time 16 mins) on the date of service in preparation, delivery, and documentation of the care provided to Elo Lovell excluding any time spent in the performance of separately billed services. Chelsi Alberto PA-C 12/14/2023 10:34 AM documented in this encounter Nursing Notes * Lynne Kessler LPN - 12/14/2023 10:09 AM EDT Elo Lovell is a 53 year old female who presents today for Chief Complaint Patient presents with Skin Growth Pt states that she has skin tag and a lump on Right side of her groin area documented in this encounter Plan of Treatment Upcoming Encounters Date Type Department Care Team (Late st Contact Info) Description 12/28/2023 9:00 AM EDT Office Visit [facility] [address] [place] [id number] Hemalatha Carpenter MD [address] [place] [address], [place] [id number] Scheduled Orders Name Type Priority Associated Diagnoses Orde r Schedule MAMMOGRAM SCREENING NOLAN BILATERAL Medical Imaging Routine Encounter for screening mammogram for malignant neoplasm of breast Expected: 12/14/2023, Expires: 01/13/2025 Health Maintenance Due Date Last Done Comments [...] as of this encounter Visit Diagnoses Diagnosis Encounter for screening mammogram for malignant neoplasm of breast- Primary Other screening mammogram Candidal intertrigo Candidiasis of skin and nails Nausea Nausea alone Skin tag Unspecified hypertrophic and atrophic condition of skin Cellulitis of right lower extremity Cellulitis and abscess of leg, except foot Body mass index (BMI) of 40.0 to 44.9 in adult (HCC) documented in this encounter Care Teams Dumper Bulk System Relationship Specialty Start Date End Date Orlin Mccauley MD [address] [place] [address] PCP - General 10/20/00 documented as of this encounter
--- OUTSIDE RECORDS SUMMARY | 2024-02-15 10:15 | External Medical Summary ---
Author Name Unknown Address Unknown Organization [id number]:[facility] [place] [address] [place] [address] Laboratory Report Ordering Provider Test Date Status CALI SCHWARTZ 10/16/2023 12:38:24 Final Observation Date Value Abnormality Reference (Units ) Status Triglyceride 10/16/2023 12:38:24 199 Above high normal <=174 (mg/dL) Final Triglyceride Reference Range s (mg/dL):
<150 Acceptable
150-174 Borderline high
175-499 High
>=500 Very high Cholesterol 10/16/2023 12:38:24 164 <200 (mg /dL) Final Total Cholesterol Reference Ranges (mg/dL):
<200 Desirable
200-239 Borderline high
>=240 High HDL 10/16/2023 12:38:24 41 Below low normal >49 (mg/dL) Final HDL Cholesterol Reference Ra nges (mg/dL):
>=60 High (Desirable)
<50 Low (Undesirable) For Females
<40 Low (Undesirable) For Males NON-HDL CHOLESTEROL 10/16/2023 12:38:24 123 <=159 (mg/dL) Final Non-HDL Cholesterol Referenc e Range (mg/dL):
<100 Target level for high risk ASCVD patient
<130 Optimal for general population
130-159 Near optimal for general population
160-189 Borderline High
190-219 High
>=220 Very High LDL, (calculated) 10/16/2023 12:38:24 83 <= 129 (mg/dL) Final LDL Cholesterol Reference Ra nges (mg/dL):
<70 Target level for high risk ASCVD patient
<100 Optimal for general population
100-129 Near optimal for general population
130-159 Borderline high
160-189 High
>=190 Very high Performing Location [facility] [place] [address] [facility] [address]
--- OUTSIDE RECORDS SUMMARY | 2024-02-15 10:15 | External Medical Summary | Summary of Care ---
Author Name Unknown Organization [facility] Address [address] [place] [address] Phone [phone] Care Team Providers Care Ip Attorney Name Role Phone Tigist Artis MD Primary Care Provider [phone]- [phone] Reason for Visit * Reason Comments eRx-Medication Refill Encounter Details Date Type Department Care Team (Late st Contact Info) Description 10/02/2023 Refill [facility] [address] [place] [address] Tigist Artis MD [address] [place] [address] Dyslipidemia*; Encounter for long-term (current) use of medications Allergies Active Allergy Reactions Criticality Noted Date Comments Cortisone Nausea/vomiting 04/17/2019 Cortisone shots Make patient vomit Sulfa Antibiotics 06/18/1999 hives Yellow Jacket Venom Edema face/lips/tongue High 11/2018 documented as of this encounter (statuses as of 10/03/2023) Medications Medication Sig Dispensed Refills Start Date [...] 05/12/2023 Active LORazepam 1 MG Oral Tablet (Ativan)Indicati ons:Anxiety Take 1 Tablet by mouth every 8 hours as needed for Anxiety. 30 Tablet 0 07/27/2023 Active Venlafaxine HCl ER 75 MG Oral Capsule Extended Release 24 Hour (Effexor XR) TAKE ONE CAPSULE BY MOUTH IN THE MORNING 90 Capsule 1 10/03/2023 Active Venlafaxine HCl ER 75 MG Oral Capsule Extended Release 24 Hour (Effexor XR) Take 1 Capsule by mouth in the morning. 90 Capsule 3 09/07/2022 4 Discontinued documented as of this encounter (statuses as of 10/03/2023) Active Problems Problem Noted Date Diagnosed Date Spinal stenosis 01/12/2023 Food insecurity 06/27/2022 Overview: Per [facility] Protocol Prediabetes 06/24/2019 Overview: Per Prediabetes protocol Body mass index (BMI) of 40.0 to 44.9 in adult 1 08/25/2017 Overview: Per Obesity protocol #1 Dyslipidemia 12/20/2017 Adjustment disorder with depressed mood 12/13/19 Complicated migraine 05/15/2017 HTN, goal below 140/90 05/15/2017 Rhinitis, nonallergic 03/21/2014 Reflux esophagitis Seasonal allergic rhinitis documented as of this encounter (statuses as of 10/03/2023) Resolved Problems Problem Noted Date Diagnosed Date [...] as of this encounter (statuses as of 10/03/2023) Immunizations Name Administration Dates Next Due COVID-19 mRNA, LNP-s, No Pre serve, 2-Dose Series (B[place]o) 05/10/2021,11/18/2020,10/28/2020 HEP A - Hepatitis A (Adult [...] encounter Miscellaneous Notes * Telephone Encounter - Alcira Sylvester, [facility] - 10/03/2023 11:54 AM ESTSigned Prescriptions: Disp Refills Venlafaxine HCl ER 75 MG Oral Capsule Exte*90 Cap*1 Sig: TAKE ONE CAPSULE BY MOUTH IN THE MORNINGAuthorizing Provider: TIGIST ARTIS User: ARMINDA SYLVESTER * Telephone Encounter - Alcira Sylvester RPh - 10/03/2023 11:51 AM EST Provided 90 days supply with 1 refill(s) until next routine labs will approximately be drawn. Per refill protocol patient should have Lipid panel on file within past year. Reviewed AMP report, Care Gaps/Health Maintenance, medications list, and for any routine labs typically ordered for this patient. Lab orders placed. Patient can complete labs with next routine lab work. Thanks, Alcira Sylvester, PharmD Clinical Pharmacist [facility] ([facility] [phone] 10/03/2023 11:52 AM documented in this encounter Plan of Treatment Scheduled Orders Name Type Priority Associated Diagnoses Orde r Schedule LIPID PANEL WITH DIRECT LDL IF TG IS HIGH Lab Routine Dyslipidemia Encounter for long-term (current) use of medications Expected: 10/03/2023 (Approximate), Expires: 10/03/2024 Health Maintenance Due Date Last Done Comments HIV Screening 1987 Hepatitis C Screening 1990 Hepatitis B (1 of 3 - 19+ 3-dose series) 1991 Fecal Occult Blood Test 2017 Sigmoidoscopy 2017 Colonoscopy 03/01/2020 03/01/2010 Depression Screening 06/21/2020 06/21/2019 Zoster Vaccines (1 of 2) 2022 COVID-19 Vaccine ( season) 2023 05/10/2021, 11/18/2020, 10/28/2020 Mammogram 06/09/2023 06/09/2022, 01/13, 10/29/2015, Additional history exists GFR 03/03/2024 03/03/2023, 1201/2022, 09/07/2021, Additional history exists HbA1c 03/03/2024 03/03/2023, 120 01/2022, 09/07/2021, Additional history exists Albumin/Creatinine Ratio [...] as of this encounter Visit Diagnoses Diagnosis Dyslipidemia- Primary Other and unspecified hyperlipidemia Encounter for long-term (current) use of medications Encounter for long-term (current) use of other medications documented in this encounter Care Teams Ip Attorney Relationship Specialty Start Date End Date Tigist Artis MD [address] [place] [address] PCP - General 10/20/00 documented as of this encounter
--- OUTSIDE RECORDS SUMMARY | 2024-02-15 10:15 | External Medical Summary | Summary of Care ---
Author Name Unknown Organization [facility] Address [address] [facility] [place] [address] Phone [phone] Care Team Providers Care Packaging Inspector Name Role Phone Orlin Mccauley MD Primary Care Provider [phone]- [phone] Encounter Details Date Type Department Care Team (Late st Contact Info) Description 10/04/2023 Orders Only PATIENT PORTAL DO NOT DELETE THIS DEPT USED BY [facility] [id number] Allergies Active Allergy Reactions Criticality Noted Date Comments Cortisone Nausea/vomiting 04/17/2019 Cortisone shots Make patient vomit Sulfa Antibiotics 06/18/1999 hives Yellow Jacket Venom Edema face/lips/tongue High 11/2018 documented as of this encounter (statuses as of 10/04/2023) Medications Medication Sig Dispensed Refills Start Date [...] as of this encounter (statuses as of 10/04/2023) Active Problems Problem Noted Date Diagnosed Date [...] as of this encounter (statuses as of 10/04/2023) Resolved Problems Problem Noted Date Diagnosed Date [...] as of this encounter (statuses as of 10/04/2023) Immunizations Name Administration Dates Next Due COVID-19 mRNA, LNP-s, No Pre serve, 2-Dose Series (Aimetis) 05/10/2021,11/18/2020,10/28/2020 HEP A - Hepatitis A (Adult [...] as of this encounter Plan of Treatment Health Maintenance [...] 10/29/2015, Additional history exists GFR 03/03/2024 03/03/2023, 12/01/2022, 09/07/2021, Additional history exists HbA1c 03/03/2024 03/03/2023, 1201/2022, 09/07/2021, Additional history exists Albumin/Creatinine Ratio 01/12/2026 [...] filedocumented as of this encounter Care Teams Packaging Inspector Relationship Specialty Start Date End Date Orlin Mccauley MD [address] [place] [address] PCP - General 10/20/00 documented as of this encounter
[2024-02-15] MEDS: PROCHLORPERAZINE 10 MG in SYRINGE 8 ML IV ONE (10:33)
[2024-02-15] MEDS: diphenhydrAMINE 50 MG/ML VIAL IV STA (10:37)
[2024-02-15] MEDS: KETOROLAC 30 MG/ML VIAL IV ONE (10:39)
[2024-02-15] MEDS: lisinopril 20 MG TAB PO SCH (10:45)
[2024-02-15] MEDS: MAGNESIUM OXIDE 400 MG TAB PO SCH (10:45)
[2024-02-15] MEDS: ASPIRIN 81 MG ECTAB PO SCH (10:45)
[2024-02-15] MEDS: VENLAFAXINE HCL XR 75 MG CAPXR PO SCH (10:45)
[2024-02-16 04:40] LABS: Mean Corpuscular Hemoglobin 30.4 pg (25.0-34.0); Mean Corpuscular Hgb Conc 34.2 g/dL (32.0-36.0); Mean Platelet Volume 9.3 fL (9.4-12.4); Platelet Count 235 K/uL (130-400); RDW Coefficient of Variation 12.2 % (11.5-14.5); RDW Standard Deviation 39.7 fL (36.4-46.3); Red Blood Count 4.27 M/uL (4.20-5.40); White Blood Count 7.32 K/ul (4.8-10.8)
[2024-02-16 04:47] LABS: BUN Creatinine Ratio 24.2 (10-20); Calcium 8.4 mg/dl (8.6-10.3); Creatinine Clr Calc Pharmacy 143.2 ml/min; Est GFR (Non-African American) 104.4 ml/min; Magnesium 1.9 mg/dl (1.7-2.4); Phosphorus 4.6 mg/dl (2.5-4.9); Potassium 4.2 mmol/L (3.5-5.1)
[2024-02-16] MEDS: LORazepam 1 MG TAB PO PRN (07:44)
[2024-02-16] MEDS: diphenhydrAMINE 50 MG/ML VIAL IV STA (11:55)
[2024-02-16] MEDS: KETOROLAC 30 MG/ML VIAL IV ONE (11:55)
[2024-02-16] MEDS: PROCHLORPERAZINE 10 MG in SYRINGE 8 ML IV ONE (11:56)
--- NOTE | 2024-02-16 14:44 | Hospitalist Progress Note ---
Date of Service February 16, 2024 Assessment & Plan (1) Stroke-like symptoms: (2) History of migraine: (3) HTN (hypertension): (4) Prediabetes: (5) Anxiety: (6) Chronic back pain: (7) GERD (gastroesophageal reflux disease): (8) Obesity: Plan Ms. Lovell is a 53-year-old female with PMH HTN, HLD, prediabetes, depression, GERD, history complex migraine, obesity admitted for evaluation of strokelike symptoms with onset of right eye blurry vision, RUE tremor, RLE heaviness sen sation, stuttering speech and headache that started around 2:10 PM 02/13 with last well known at 2:00PM. Patient with prior history complex migraine with negative stroke workups in 2017 and 2018 Neurology suspects symptoms like complex migraine #Stroke like symptoms #Hypertensive Urgency #History of Complex Migraines Initially hypertensive to 180s in ER which improved during ER course without i ntervention CT Head: No acute intracranial findings CTA Head: No large vessel occlusion. No intracranial aneurysm CTA neck: No occlusion, hemodynamically significant stenosis, or dissection in the major cervical arteries. 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 Per H&P shared decision between pt/tele neuro to hold TPA TSH WNL Hgb A1C 02/14 5.8%, LDL 77, total cholesterol 148 Monitor on tele MRI brain: negative for stroke or acute intracranial pathology EEG pending Fall precautions, aspiration precautions PT/OT consult Continue home atorvastatin and aspirin Previous recommendations: -prior Topamax 100 mg BID- appear to have been tapered off -Continue verapamil ER 100 mg q 24 hours- continue as directed by PCP -Continue Mg++ 400 mg and riboflavin 400 mg daily Neurology consult -Migraine cocktail 02/14, repeat on 02/15 -PCP referral to neurology upon d/c PT/OT recommending inpatient rehab, referrals to [facility] #Left V4 segment aneurysm, partially thrombosed -OP Neurosurgery Referral #HTN Continue lisinopril, verapamil #Prediabetes: A1c: 5.8 02/15/2024 Random glucose: 93 Lifestyle modifications encouraged #Anxiety: Continue venlafaxine, Ativan prn #Chronic back pain: Continue gabapentin #GERD (gastroesophageal reflux disease): Continue PPI #Obesity: BMI: 44 Lifestyle modifications to be considered DVT Prophylaxis SCDs for now med/tele Full Code Follows with Dr Mccauley for routine care Admission and Anticipated Discharge Date Admission Date: February 14, 2024 Subjective Reported subtle improvement in symptoms after migraine cocktail Discussed one more trial of cocktail and further Pt/Ot to ensure safety prior to discharge Physical Exam Constitutional: WD/WN, vitals as above still with some stammering, but improvement Respiratory: normal respiratory effort, lungs clear to auscultation Cardiovascular: RRR, no murmur, no edema Neurologic: improved tremulousness some right sided weakness Results & Data Results & Data Vital Signs (Past 12 Hours) Vital Signs Temp Pulse Pulse Pulse Resp BP Pulse Ox 02/16/24 11:14 37.0 C 77 18 130/73 90 02/16/24 08:00 82 02/16/24 07:36 36.3 C L 56 L 18 133/78 100 02/16/24 04:20 36.7 C 70 20 119/74 96 O2 Del Method 02/16/24 11:14 Room Air 02/16/24 08:00 02/16/24 07:36 Room Air 02/16/24 04:20 Room Air Laboratory Results Short CBC 02/16/24 Range/Units 04:07 WBC 7.32 (4.8-10.8) K/ul Hgb 13.0 (12.0-16.0) g/dl Hct 38.0 (37.0-47.0) % Plt Count 235 (130-400) K/uL BMP 02/16/24 04:07 Sodium 137 Potassium 4.2 Chloride 102 Carbon Dioxide 29 BUN 15 Creatinine 0.62 Glucose 100 H Calcium 8.4 L Medications Administered Home Medications Medication Instructions Recorded Confirmed Last Taken atorvastatin 40 mg tablet (Lipitor) 40 mg PO HS 05/13/18 02/14/24 02/13/24 epinephrine 0.3 mg/0.3 mL 0.3 mg IM Q3H PRN Allergic Reaction 05/13/18 02/14/24 Unknown injection, auto-injector (EpiPen) venlafaxine 75 mg capsule,extended 75 mg PO QAM 04/12/19 02/14/24 02/14/24 release 24 hr aspirin 81 mg tablet,delayed 81 mg PO QAM 05/05/21 02/14/24 02/14/24 release (Fadia Low Dose Aspirin) baclofen 10 mg tablet 10 mg PO HS PRN MUSCLE SPASMS 02/14/24 02/14/24 Unknown fexofenadine 180 mg tablet 180 mg PO DAILY PRN allergies 02/14/24 02/14/24 Unknown gabapentin 800 mg tablet 800 mg PO TID 02/14/24 02/14/24 02/14/24 12:00 lisinopril 20 mg tablet 20 mg PO QAM 02/14/24 02/14/24 02/14/24 lorazepam 1 mg tablet 1 mg PO Q8H PRN Anxiety 02/14/24 02/14/24 Unknown magnesium oxide 400 mg PO DAILY 02/14/24 02/14/24 02/14/24 omeprazole 20 mg capsule,delayed 20 mg PO DAILYBB 02/14/24 02/14/24 02/14/24 release ondansetron 4 mg disintegrating 4 mg translingual Q8H PRN 02/14/24 02/14/24 Unknown tablet NAUSEA/VOMITING verapamil 100 mg capsule 24hr 100 mg PO HS 02/14/24 02/14/[address],ext.release Active Medications Generic Name Dose Route Start Last Admin Trade Name Freq PRN Reason Stop Dose Admin Acetaminophen 650 mg 02/14/24 20:13 02/16/24 06:18 Acetaminophen 325 Mg Tab PO 03/15/24 20:12 650 mg Q4H PRN Administration Pain or Fever Aspirin 81 mg 02/15/24 09:00 02/16/24 07:46 Aspirin 81 Mg Ectab PO 03/16/24 08:59 81 mg QAM ALEJO Administration Atorvastatin Calcium 40 mg 02/14/24 21:00 02/15/24 21:23 Atorvastatin 40 Mg Tab PO 03/15/24 20:59 40 mg HS ALEJO Administration Gabapentin 800 mg 02/14/24 21:00 02/16/24 07:45 Gabapentin 800 Mg Tab PO 03/15/24 20:59 800 mg TID ALEJO Administration Lisinopril 20 mg 02/15/24 09:00 02/16/24 07:46 Lisinopril 20 Mg Tab PO 03/16/24 08:59 20 mg QAM ALEJO Administration Lorazepam 1 mg 02/14/24 20:13 02/16/24 07:44 Lorazepam 1 Mg Tab PO 03/15/24 20:12 1 mg Q8H PRN Administration Anxiety Magnesium Oxide 400 mg 02/15/24 09:00 02/16/24 07:46 Magnesium Oxide 400 Mg Tab PO 03/16/24 08:59 400 mg DAILY ALEJO Administration Pantoprazole Sodium 40 mg 02/15/24 06:30 02/16/24 06:02 Pantoprazole 40 Mg Tab PO 03/16/24 06:29 40 mg DAILYBB ALEJO Administration Venlafaxine HCl 75 mg 02/15/24 09:00 02/16/24 07:45 Venlafaxine Hcl Xr 75 Mg Capxr PO 03/16/24 08:59 75 mg QAM ALEJO Administration Verapamil HCl 90 mg 02/14/24 21:00 02/15/24 21:24 Verapamil Hcl 180 Mg Tabcr PO 03/15/24 20:59 90 mg HS ALEJO Administration (3) HTN (hypertension) Hypertension type: unspecified Qualified Code(s): I10 - Essential (primary) hypertension
--- NOTE | 2024-02-17 09:49 | Hospitalist Progress Note ---
Date of Service February 17, 2024 Assessment & Plan (1) Stroke-like symptoms: (2) History of migraine: (3) HTN (hypertension): (4) Prediabetes: (5) Anxiety: (6) Chronic back pain: (7) GERD (gastroesophageal reflux disease): (8) Obesity: Plan Ms. Lovell is a 53-year-old female with PMH HTN, HLD, prediabetes, depression, GERD, history complex migraine, obesity admitted for evaluation of strokelike symptoms with onset of right eye blurry vision, RUE tremor, RLE heaviness sen sation, stuttering speech and headache that started around 2:10 PM 02/13 with last well known at 2:00PM. Patient with prior history complex migraine with negative stroke workups in 2017 and 2018 Neurology suspects symptoms like complex migraine. Patient with near resolution of symptoms, still with headache but notes she feels much better than presentation. Pending auth for rehab #Stroke like symptoms #Hypertensive Urgency #History of Complex Migraines Initially hypertensive to 180s in ER which improved during ER course without intervention CT Head: No acute intracranial findings CTA Head: No large vessel occlusion. No intracranial aneurysm CTA neck: No occlusion, hemodynamically significant stenosis, or dissection in the major cervical arteries. 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 Per H&P shared decision between pt/tele neuro to hold TPA TSH WNL Hgb A1C 02/14 5.8%, LDL 77, total cholesterol 148 Monitor on tele MRI brain: negative for stroke or acute intracranial pathology EEG pending Fall precautions, aspiration precautions PT/OT consult Continue home atorvastatin and aspirin Previous recommendations: -prior Topamax 100 mg BID- appear to have been tapered off -Continue verapamil ER 100 mg q 24 hours- continue as directed by PCP -Continue Mg++ 400 mg and riboflavin 400 mg daily Neurology consult -Migraine cocktail 02/14, repeat on 02/15 and 02/16 -PCP referral to neurology upon d/c PT/OT recommending inpatient rehab, referrals to [facility] -Awaiting auth #Left V4 segment aneurysm, partially thrombosed -OP Neurosurgery Referral #HTN Continue lisinopril, verapamil #Prediabetes: A1c: 5.8 02/15/2024 Random glucose: 93 Lifestyle modifications encouraged #Anxiety: Continue venlafaxine, Ativan prn #Chronic back pain: Continue gabapentin #GERD (gastroesophageal reflux disease): Continue PPI #Obesity: BMI: 44 Lifestyle modifications to be considered DVT Prophylaxis SCDs for now med/tele Full Code Follows with Dr Mccauley for routine care Admission and Anticipated Discharge Date Admission Date: February 14, 2024 Subjective NAEO Reports "creeping" headache and some discomfort Initially sleeping/resting upon entering room, symptoms progress as conversation went on (fluent speech became stammering, stillness at rest progressed to tremors) Physical Exam Constitutional: WD/WN, vitals as above Respiratory: normal respiratory effort, lungs clear to auscultation Cardiovascular: RRR, no murmur, no edema Neurologic: stammering returned during conversation, right arm tremor as well Results & Data Results & Data Vital Signs (Past 12 Hours) Vital Signs Temp Pulse Pulse Pulse Resp BP Pulse Ox 02/17/24 08:57 66 02/17/24 07:20 36.7 C 68 18 132/82 95 02/17/24 04:12 36.5 C 65 18 112/74 96 02/16/24 23:55 36.6 C 69 18 131/82 94 02/16/24 21:57 71 O2 Del Method 02/17/24 08:57 02/17/24 07:20 Room Air 02/17/24 04:12 Room Air 02/16/24 23:55 Room Air 02/16/24 21:57 Medications Administered Home Medications Medication Instructions Recorded Confirmed Last Taken atorvastatin 40 mg tablet (Lipitor) 40 mg PO HS 05/13/18 02/14/24 02/13/24 epinephrine 0.3 mg/0.3 mL 0.3 mg IM Q3H PRN Allergic Reaction 05/13/18 02/14/24 Unknown injection, auto-injector (EpiPen) venlafaxine 75 mg capsule,extended 75 mg PO QAM 04/12/19 02/14/24 02/14/24 release 24 hr aspirin 81 mg tablet,delayed 81 mg PO QAM 05/05/21 02/14/24 02/14/24 release (Fadia Low Dose Aspirin) baclofen 10 mg tablet 10 mg PO HS PRN MUSCLE SPASMS 02/14/24 02/14/24 Unknown fexofenadine 180 mg tablet 180 mg PO DAILY PRN allergies 02/14/24 02/14/24 Unknown gabapentin 800 mg tablet 800 mg PO TID 02/14/24 02/14/24 02/14/24 12:00 lisinopril 20 mg tablet 20 mg PO QAM 02/14/24 02/14/24 02/14/24 lorazepam 1 mg tablet 1 mg PO Q8H PRN Anxiety 02/14/24 02/14/24 Unknown magnesium oxide 400 mg PO DAILY 02/14/24 02/14/24 02/14/24 omeprazole 20 mg capsule,delayed 20 mg PO DAILYBB 02/14/24 02/14/24 02/14/24 release ondansetron 4 mg disintegrating 4 mg translingual Q8H PRN 02/14/24 02/14/24 Unknown tablet NAUSEA/VOMITING verapamil 100 mg capsule 24hr 100 mg PO HS 02/14/24 02/14/[address],ext.release Active Medications Generic Name Dose Route Start Last Admin Trade Name Freq PRN Reason Stop Dose Admin Acetaminophen 650 mg 02/14/24 20:13 02/17/24 05:47 Acetaminophen 325 Mg Tab PO 03/15/24 20:12 650 mg Q4H PRN Administration Pain or Fever Aspirin 81 mg 02/15/24 09:00 02/17/24 10:10 Aspirin 81 Mg Ectab PO 03/16/24 08:59 81 mg QAM ALEJO Administration Atorvastatin Calcium 40 mg 02/14/24 21:00 02/16/24 20:10 Atorvastatin 40 Mg Tab PO 03/15/24 20:59 40 mg HS ALEJO Administration Gabapentin 800 mg 02/14/24 21:00 02/17/24 10:10 Gabapentin 800 Mg Tab PO 03/15/24 20:59 800 mg TID ALEJO Administration Lisinopril 20 mg 02/15/24 09:00 02/17/24 10:10 Lisinopril 20 Mg Tab PO 03/16/24 08:59 20 mg QAM ALEJO Administration Lorazepam 1 mg 02/14/24 20:13 02/16/24 07:44 Lorazepam 1 Mg Tab PO 03/15/24 20:12 1 mg Q8H PRN Administration Anxiety Magnesium Oxide 400 mg 02/15/24 09:00 02/17/24 10:10 Magnesium Oxide 400 Mg Tab PO 03/16/24 08:59 400 mg DAILY ALEJO Administration Pantoprazole Sodium 40 mg 02/15/24 06:30 02/17/24 05:41 Pantoprazole 40 Mg Tab PO 03/16/24 06:29 40 mg DAILYBB ALEJO Administration Venlafaxine HCl 75 mg 02/15/24 09:00 02/17/24 10:10 Venlafaxine Hcl Xr 75 Mg Capxr PO 03/16/24 08:59 75 mg QAM ALEJO Administration Verapamil HCl 90 mg 02/14/24 21:00 02/16/24 20:09 Verapamil Hcl 180 Mg Tabcr PO 03/15/24 20:59 90 mg HS ALEJO Administration (3) HTN (hypertension) Hypertension type: unspecified Qualified Code(s): I10 - Essential (primary) hypertension
[2024-02-17] MEDS: diphenhydrAMINE 50 MG/ML VIAL IV STA (10:08)
[2024-02-17] MEDS: KETOROLAC 30 MG/ML VIAL IV ONE (10:08)
[2024-02-17] MEDS: PROCHLORPERAZINE 10 MG in SYRINGE 8 ML IV ONE (13:11)
[2024-02-17] MEDS: KETOROLAC TROMETHAMINE 15 MG/ML VIAL IV ONE (18:43)
[2024-02-18 07:32] LABS: Hematocrit (blood only) 40.6 % (37.0-47.0); Hemoglobin 13.9 g/dl (12.0-16.0); Mean Corpuscular Hemoglobin 30.6 pg (25.0-34.0); Mean Corpuscular Hgb Conc 34.2 g/dL (32.0-36.0); Mean Corpuscular Volume 89.4 fL (80.0-100.0); Platelet Count 238 K/uL (130-400); RDW Coefficient of Variation 11.9 % (11.5-14.5); RDW Standard Deviation 38.2 fL (36.4-46.3); Red Blood Count 4.54 M/uL (4.20-5.40); White Blood Count 7.69 K/ul (4.8-10.8)
[2024-02-18 07:51] LABS: BUN Creatinine Ratio 21.9 (10-20); Calcium 8.5 mg/dl (8.6-10.3); Creatinine Clr Calc Pharmacy 137.8 ml/min; Est GFR (African American) 119.7 ml/min; Est GFR (Non-African American) 103.3 ml/min; Magnesium 2.1 mg/dl (1.7-2.4); Phosphorus 4.4 mg/dl (2.5-4.9); Potassium 4.4 mmol/L (3.5-5.1)
[2024-02-18] MEDS: KETOROLAC TROMETHAMINE 15 MG/ML VIAL IV PRN (09:11)
[2024-02-18] MEDS ORDERED: dexAMETHasone**PF** 10 MG/ML VIAL IV ONE (10:25)
[2024-02-18] MEDS: dexAMETHasone 4 MG in SYRINGE 0 ML IV ONE (11:26)
--- NOTE | 2024-02-18 12:37 | Hospitalist Progress Note ---
Date of Service February 18, 2024 Assessment & Plan (1) Stroke-like symptoms: (2) History of migraine: (3) HTN (hypertension): (4) Prediabetes: (5) Anxiety: (6) Chronic back pain: (7) GERD (gastroesophageal reflux disease): (8) Obesity: Plan Ms. Lovell is a 53-year-old female with PMH HTN, HLD, prediabetes, depression, GERD, history complex migraine, obesity admitted for evaluation of strokelike symptoms with onset of right eye blurry vision, RUE tremor, RLE heaviness sen sation, stuttering speech and headache that started around 2:10 PM 02/13 with last well known at 2:00PM. Patient with prior history complex migraine with negative stroke workups in 2017 and 2018 Neurology suspects symptoms like complex migraine. Patient with near resolution of symptoms, still with headache but notes she feels much better than presentation. Pending auth for rehab #Complex migraine #Stroke like symptoms *resolved #Hypertensive Urgency Initially hypertensive to 180s in ER which improved during ER course without intervention CT Head: No acute intracranial findings CTA Head: No large vessel occlusion. No intracranial aneurysm CTA neck: No occlusion, hemodynamically significant stenosis, or dissection in the major cervical arteries. 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 Per H&P shared decision between pt/tele neuro to hold TPA TSH WNL Hgb A1C 02/14 5.8%, LDL 77, total cholesterol 148 Monitor on tele MRI brain: negative for stroke or acute intracranial pathology EEG pending Fall precautions, aspiration precautions PT/OT consult Continue home atorvastatin and aspirin Previous recommendations: -prior Topamax 100 mg BID- appear to have been tapered off -Continue verapamil ER 100 mg q 24 hours- continue as directed by PCP -Continue Mg++ 400 mg and riboflavin 400 mg daily Neurology consult -Migraine cocktail 02/14, repeat on 02/15 and 02/16 -PCP referral to neurology upon d/c PT/OT recommending inpatient rehab, referrals to [facility] -Awaiting auth Trial x 1 dexamethsone 4mg given recrurrent headaches #Left V4 segment aneurysm, partially thrombosed -OP Neurosurgery Referral #HTN Continue lisinopril, verapamil #Prediabetes: A1c: 5.8 02/15/2024 Random glucose: 93 Lifestyle modifications encouraged #Anxiety: Continue venlafaxine, Ativan prn #Chronic back pain: Continue gabapentin #GERD (gastroesophageal reflux disease): Continue PPI #Obesity: BMI: 44 Lifestyle modifications to be considered DVT Prophylaxis SCDs for now med/tele--downgrade from [facility] [employer] [place] Full Code Follows with Dr Mccauley for routine care Admission and Anticipated Discharge Date Admission Date: February 14, 2024 Subjective NAEO Reports incomplete resolution of symptoms given migraine cocktail only takes the edge off bet migraine yet to resolve. agreeable to IV decadron, has received in past no stammering or tremors on exam Physical Exam Constitutional: WD/WN, vitals as above Respiratory: normal respiratory effort, lungs clear to auscultation Cardiovascular: RRR, no murmur, no edema Gastrointestinal (Abdomen): normal bowel sounds, soft, nontender, no hepatosplenomegaly Results & Data Results & Data Vital Signs (Past 12 Hours) Vital Signs Temp Pulse Pulse Pulse Resp BP Pulse Ox 02/18/24 12:31 36.6 C 79 18 138/85 94 02/18/24 07:25 36.5 C 65 18 126/80 94 02/18/24 07:18 67 02/18/24 03:01 36.6 C 67 18 115/70 94 O2 Del Method 02/18/24 12:31 Room Air 02/18/24 07:25 Room Air 02/18/24 07:18 02/18/24 03:01 Room Air Laboratory Results Short CBC 02/18/24 Range/Units 07:17 WBC 7.69 (4.8-10.8) K/ul Hgb 13.9 (12.0-16.0) g/dl Hct 40.6 (37.0-47.0) % Plt Count 238 (130-400) K/uL BMP 02/18/24 07:17 Sodium 137 Potassium 4.4 Chloride 102 Carbon Dioxide 30 BUN 14 Creatinine 0.64 Glucose 94 Calcium 8.5 L Medications Administered Home Medications Medication Instructions Recorded Confirmed Last Taken atorvastatin 40 mg tablet (Lipitor) 40 mg PO HS 05/13/18 02/14/24 02/13/24 epinephrine 0.3 mg/0.3 mL 0.3 mg IM Q3H PRN Allergic Reaction 05/13/18 02/14/24 Unknown injection, auto-injector (EpiPen) venlafaxine 75 mg capsule,extended 75 mg PO QAM 04/12/19 02/14/24 02/14/24 release 24 hr aspirin 81 mg tablet,delayed 81 mg PO QAM 05/05/21 02/14/24 02/14/24 release (Fadia Low Dose Aspirin) baclofen 10 mg tablet 10 mg PO HS PRN MUSCLE SPASMS 02/14/24 02/14/24 Unknown fexofenadine 180 mg tablet 180 mg PO DAILY PRN allergies 02/14/24 02/14/24 Unknown gabapentin 800 mg tablet 800 mg PO TID 02/14/24 02/14/24 02/14/24 12:00 lisinopril 20 mg tablet 20 mg PO QAM 02/14/24 02/14/24 02/14/24 lorazepam 1 mg tablet 1 mg PO Q8H PRN Anxiety 02/14/24 02/14/24 Unknown magnesium oxide 400 mg PO DAILY 02/14/24 02/14/24 02/14/24 omeprazole 20 mg capsule,delayed 20 mg PO DAILYBB 02/14/24 02/14/24 02/14/24 release ondansetron 4 mg disintegrating 4 mg translingual Q8H PRN 02/14/24 02/14/24 Unknown tablet NAUSEA/VOMITING verapamil 100 mg capsule 24hr 100 mg PO HS 02/14/24 02/14/[address],ext.release Active Medications Generic Name Dose Route Start Last Admin Trade Name Freq PRN Reason Stop Dose Admin Acetaminophen 650 mg 02/14/24 20:13 02/18/24 05:06 Acetaminophen 325 Mg Tab PO 03/15/24 20:12 650 mg Q4H PRN Administration Pain or Fever Aspirin 81 mg 02/15/24 09:00 02/18/24 08:22 Aspirin 81 Mg Ectab PO 03/16/24 08:59 81 mg QAM ALEJO Administration Atorvastatin Calcium 40 mg 02/14/24 21:00 02/17/24 20:04 Atorvastatin 40 Mg Tab PO 03/15/24 20:59 40 mg HS ALEJO Administration Gabapentin 800 mg 02/14/24 21:00 02/18/24 08:22 Gabapentin 800 Mg Tab PO 03/15/24 20:59 800 mg TID ALEJO Administration Ketorolac Tromethamine 15 mg 02/18/24 08:30 02/18/24 09:11 Ketorolac Tromethamine 15 Mg/Ml Vial IV 02/23/24 08:29 15 mg Q6H PRN Administration Pain Lisinopril 20 mg 02/15/24 09:00 02/18/24 08:22 Lisinopril 20 Mg Tab PO 03/16/24 08:59 20 mg QAM ALEJO Administration Lorazepam 1 mg 02/14/24 20:13 02/16/24 07:44 Lorazepam 1 Mg Tab PO 03/15/24 20:12 1 mg Q8H PRN Administration Anxiety Magnesium Oxide 400 mg 02/15/24 09:00 02/18/24 08:22 Magnesium Oxide 400 Mg Tab PO 03/16/24 08:59 400 mg DAILY ALEJO Administration Pantoprazole Sodium 40 mg 02/15/24 06:30 02/18/24 05:06 Pantoprazole 40 Mg Tab PO 03/16/24 06:29 40 mg DAILYBB ALEJO Administration Venlafaxine HCl 75 mg 02/15/24 09:00 02/18/24 08:22 Venlafaxine Hcl Xr 75 Mg Capxr PO 03/16/24 08:59 75 mg QAM ALEJO Administration Verapamil HCl 90 mg 02/14/24 21:00 02/17/24 20:03 Verapamil Hcl 180 Mg Tabcr PO 03/15/24 20:59 90 mg HS ALEJO Administration (3) HTN (hypertension) Hypertension type: unspecified Qualified Code(s): I10 - Essential (primary) hypertension
[2024-02-18] MEDS ORDERED: FEXOFENADINE HCL 180 MG TAB PO PRN (12:45)
[2024-02-18] MEDS ORDERED: BACLOFEN 10 MG TAB PO PRN (12:45)
[2024-02-18] MEDS: oxyCODONE HCL IR 5 MG TAB (IMMEDIATE RELEASE) PO STA (20:39)
[2024-02-19] MEDS: ONDANSETRON INJ 2 MG/ML 2 ML VIAL IV PRN (09:36)
--- NOTE | 2024-02-19 16:26 | Hospitalist Progress Note ---
Date of Service February 19, 2024 Assessment & Plan (1) Stroke-like symptoms: (2) History of migraine: (3) HTN (hypertension): (4) Prediabetes: (5) Anxiety: (6) Chronic back pain: (7) GERD (gastroesophageal reflux disease): (8) Obesity: Plan Ms. Lovell is a 53-year-old female with PMH HTN, HLD, prediabetes, depression, GERD, history complex migraine, obesity admitted for evaluation of strokelike symptoms with onset of right eye blurry vision, RUE tremor, RLE heaviness sen sation, stuttering speech and headache that started around 2:10 PM 02/13 with last well known at 2:00PM. Patient with prior history complex migraine with negative stroke workups in 2017 and 2018 Neurology suspects symptoms like complex migraine. Patient with near resolution of symptoms, still with headache but notes she feels much better than presentation. Pending auth for rehab No changes in management today. #Complex migraine #Stroke like symptoms *resolved #Hypertensive Urgency Initially hypertensive to 180s in ER which improved during ER course without intervention CT Head: No acute intracranial findings CTA Head: No large vessel occlusion. No intracranial aneurysm CTA neck: No occlusion, hemodynamically significant stenosis, or dissection in the major cervical arteries. 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 Per H&P shared decision between pt/tele neuro to hold TPA TSH WNL Hgb A1C 02/14 5.8%, LDL 77, total cholesterol 148 Monitor on tele MRI brain: negative for stroke or acute intracranial pathology EEG pending Fall precautions, aspiration precautions PT/OT consult Continue home atorvastatin and aspirin Previous recommendations: -prior Topamax 100 mg BID- appear to have been tapered off -Continue verapamil ER 100 mg q 24 hours- continue as directed by PCP -Continue Mg++ 400 mg and riboflavin 400 mg daily Neurology consult -Migraine cocktail 02/14, repeat on 02/15 and 02/16 -PCP referral to neurology upon d/c PT/OT recommending inpatient rehab, referrals to [facility] -Awaiting auth Trial x 1 dexamethsone 4mg given recurrent headaches #Left V4 segment aneurysm, partially thrombosed -OP Neurosurgery Referral #HTN Continue lisinopril, verapamil #Prediabetes: A1c: 5.8 02/15/2024 Random glucose: 93 Lifestyle modifications encouraged #Anxiety: Continue venlafaxine, Ativan prn #Chronic back pain: Continue gabapentin #GERD (gastroesophageal reflux disease): Continue PPI #Obesity: BMI: 44 Lifestyle modifications to be considered DVT Prophylaxis SCDs for now med/tele--downgrade from [employer] Full Code Follows with Dr Mccauley for routine care Admission and Anticipated Discharge Date Admission Date: February 14, 2024 Subjective NAEO Reports subtle headache, but much improved Physical Exam Constitutional: WD/WN, vitals as above Respiratory: normal respiratory effort, lungs clear to auscultation Cardiovascular: RRR, no murmur, no edema Gastrointestinal (Abdomen): normal bowel sounds, soft, nontender, no hepatosplenomegaly Results & Data Results & Data Vital Signs (Past 12 Hours) Vital Signs Temp Pulse Pulse Resp BP Pulse Ox O2 Del Method 02/19/24 14:45 36.5 C 70 16 129/84 02/19/24 11:57 36.4 C L 65 22 146/98 H 93 Room Air 02/19/24 08:09 36.5 C 70 20 148/98 H 94 Room Air 02/19/24 07:15 36.5 C 68 16 132/85 93 Room Air (3) HTN (hypertension) Hypertension type: unspecified Qualified Code(s): I10 - Essential (primary) hypertension
[2024-02-20] MEDS: oxyCODONE HCL IR 5 MG TAB (IMMEDIATE RELEASE) PO STA ×2 (00:51→00:54)
[2024-02-20 08:00] LABS: Hematocrit (blood only) 38.5 % (37.0-47.0); Hemoglobin 13.1 g/dl (12.0-16.0); Mean Corpuscular Hemoglobin 30.5 pg (25.0-34.0); Mean Corpuscular Volume 89.7 fL (80.0-100.0); Mean Platelet Volume 9.5 fL (9.4-12.4); Platelet Count 247 K/uL (130-400); RDW Coefficient of Variation 12.3 % (11.5-14.5); RDW Standard Deviation 40.1 fL (36.4-46.3); Red Blood Count 4.29 M/uL (4.20-5.40); White Blood Count 8.57 K/ul (4.8-10.8)
[2024-02-20 08:22] LABS: Calcium 8.5 mg/dl (8.6-10.3); Creatinine Clr Calc Pharmacy 129.8 ml/min; Est GFR (African American) 117.4 ml/min; Est GFR (Non-African American) 101.3 ml/min; Potassium 4.1 mmol/L (3.5-5.1)
--- NOTE | 2024-02-20 13:55 | Discharge Summary ---
Discharge Summary Date of Service February 20, 2024 Principal Dx & Hospital Course #1 = Principal Diagnosis (1) Stroke-like symptoms: (2) History of migraine: (3) HTN (hypertension): (4) Prediabetes: (5) Anxiety: (6) Chronic back pain: (7) GERD (gastroesophageal reflux disease): (8) Obesity: Plan Ms. Lovell is a 53-year-old female with PMH HTN, HLD, prediabetes, depression, GERD, history complex migraine, obesity admitted for evaluation of strokelike symptoms with onset of right eye blurry vision, RUE tremor, RLE heaviness sensation, stuttering speech and headache that started around 2:10 PM 02/13 with last well known at 2:00PM. Patient with prior history complex migraine with negative stroke workups in 2016 and 2017 Neurology suspects symptoms like complex migraine. Patient with near resolution of symptoms, still with headache but notes she feels much better than presentation. Prolonged admission given delay in authorization for initial SNF selection; however, approval today for [facility] prompting discharge. On day of discharge, patient motivated to improve, denies any acute symptoms or tremor/speech delays, reports weakness in right hand--however, remarks notable improvement. #Complex migraine #Stroke like symptoms *resolved #Hypertensive Urgency Initially hypertensive to 180s in ER which improved during ER course without intervention CT Head: No acute intracranial findings CTA Head: No large vessel occlusion. No intracranial aneurysm CTA neck: No occlusion, hemodynamically significant stenosis, or dissection in the major cervical arteries. 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 Per H&P shared decision between pt/tele neuro to hold TPA TSH WNL Hgb A1C 02/14 5.8%, LDL 77, total cholesterol 148 Monitor on tele MRI brain: negative for stroke or acute intracranial pathology EEG pending Fall precautions, aspiration precautions PT/OT consult Continue home atorvastatin and aspirin Previous recommendations: -prior Topamax 100 mg BID- appear to have been tapered off -Continue verapamil ER 100 mg q 24 hours- continue as directed by PCP -Continue Mg++ 400 mg and riboflavin 400 mg daily Neurology consult -Migraine cocktail 02/14, repeat on 02/15 and 02/16, Decadron x 1 02/17 -PCP referral to neurology upon d/c PT/OT recommending rehab: [facility] today Neurology follow up in 2-4 weeks #Left V4 segment aneurysm, partially thrombosed -OP Neurosurgery Referral #HTN Continue lisinopril, verapamil #Prediabetes: A1c: 5.8 02/15/2024 Random glucose: 93 Lifestyle modifications encouraged #Anxiety: Continue venlafaxine, Ativan prn #Chronic back pain: Continue gabapentin #GERD (gastroesophageal reflux disease): Continue PPI #Obesity: BMI: 44 Lifestyle modifications to be considered Notes For Next Care Provider Needs OP Neurosurgery Eval for Left V4 segment aneurysm, partially thrombosed Medication Changes From Visit None Admission HPI Per Admitting Provider Patient is 53-year-old female with PMH HTN, HLD, prediabetes, depression, GERD, history complex migraine, obesity presented to ER with complaint of strokelike symptoms. History obtained from patient. Patient's assists with providing history of prior similar events. Patient reports she works as a [employer] at [employer]. She states today she was sitting at computer charting at 2 PM. She reports around 2:10 PM she noted right eye vision seemed blurry. She also noted headache to the top of her head and she felt diaphoretic. Patient states she walked down the [place] to the nurses station. She reports while walking she felt like her right leg was "heavy" but she was able to walk. She states she sat down at chair at nurses station and it is reported that they took her blood pressure and blood pressure was 200s over 100s. It is reported that patient had noted stuttering speech. Patient also reports tremoring of right arm. She reports her right arm also feels a little heavy but not as bad as the leg. Patient states she feels like she is slow to speak and feels like she cannot get her thoughts out. Patient states her tongue feels "weird" but is unable to further describe. at bedside states that he has not noted any slurred speech but she seems to be stuttering. He reports past migraines she had stuttering like speech as well. Patient reports had been on Topamax in past for her migraines however she states that she had not been getting migraines so Topamax was discontinued. She reports will have a frontal headache approximately 2 times a month in which she takes 1 dose of Advil with relief. She reports these headaches are not associated with photophobia or phonophobia or nausea or vomiting like her prior migraines were. Patient reports has been under stress at work and has been working 12 to 16-hour shifts. She reports history of anxiety and uses Ativan approximately once a week. History of hospitalization [facility] 2017 for headache, left upper extremity weakness and received tPA in the ER with ongoing negative neuro work-up and was diagnosed with complicated migraines and was started on Topamax. 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 Denies fever/chills, diaphoresis, N/V/D/C, dizziness, syncope, vision loss, neck pain, CP, SOB, orthopnea, palpitations, cough, sore throat, rhinorrhea, abdominal pain, extremity edema, rashes, urinary symptoms. Today in ER had tele stroke consult and it is reported it was decision of patient and neurologist to hold on TPA currently and neurology had recommended outpatient neurosurgery referral for incidental note of a left V4 segment aneurysm which appears partially thrombosed noted on CTA Neck. Admission Exam Per Admitting Provider General: no acute distress, but mildly anxious appearing, obese Head: normocephalic, atraumatic Eyes: PERRL, EOM's intact, conjunctiva non-injected, anicteric ENT: normal inspection external ears, nose, mucous membranes moist Neck: supple, trachea midline Lungs: clear, no respiratory distress, no wheezing/rhonchi/rales CV: RRR, no murmur, trace pretibial edema Abd: normal BS, soft, non-tender Ext: no cyanosis, no calf tenderness Neuro: A&O x 3, mildly anxious appearing, Visual loyola appear intact. PERRL, EOMs intact. No nystagmus, Facial sensation is intact and symmetric, face is strong and symmetric, hearing grossly intact, soft palate elevates symmetrically, +stuttering speech, shoulder shrug intact, tongue is midline, normal movement, no fasciculations. Muscle tone normal. RUE strength 4/5, LUE: 5/5, BLE 5/5. Sensation to bilateral upper and lower extremities intact and equal. +tremor noted of right arm Skin: warm, dry Discharge Exam Constitutional WD/WN, vitals as above Respiratory normal respiratory effort, lungs clear to auscultation Cardiovascular RRR, no murmur, no edema Gastrointestinal (Abdomen) normal bowel sounds, soft, nontender, no hepatosplenomegaly Neurologic PERRL, EOMI, accommodation nl, no face palsy, no dysarthria Updated Medication List Medication Instructions Recorded Confirmed Type atorvastatin 40 mg tablet (Lipitor) 40 mg PO HS 05/13/18 02/14/24 History epinephrine 0.3 mg/0.3 mL 0.3 mg IM Q3H PRN Allergic Reaction 05/13/18 02/14/24 History injection, auto-injector (EpiPen) venlafaxine 75 mg capsule,extended 75 mg PO QAM 04/12/19 02/14/24 History release 24 hr aspirin 81 mg tablet,delayed 81 mg PO QAM 05/05/21 02/14/24 History release (Fadia Low Dose Aspirin) baclofen 10 mg tablet 10 mg PO HS PRN MUSCLE SPASMS 02/14/24 02/14/24 History fexofenadine 180 mg tablet 180 mg PO DAILY PRN allergies 02/14/24 02/14/24 History gabapentin 800 mg tablet 800 mg PO TID 02/14/24 02/14/24 History lisinopril 20 mg tablet 20 mg PO QAM 02/14/24 02/14/24 History lorazepam 1 mg tablet 1 mg PO Q8H PRN Anxiety 02/14/24 02/14/24 History magnesium oxide 400 mg PO DAILY 02/14/24 02/14/24 History omeprazole 20 mg capsule,delayed 20 mg PO DAILYBB 02/14/24 02/14/24 History release ondansetron 4 mg disintegrating 4 mg translingual Q8H PRN 02/14/24 02/14/24 History tablet NAUSEA/VOMITING verapamil 100 mg capsule 24hr 100 mg PO HS 02/14/24 02/14/[address],ext.release Hospital Stay Data Consultations 02/14/24 16:49 ED Decision to Admit Stat 02/14/24 20:13 Consult Neurology Routine Diagnostic Imagining Performed 02/14/24 14:56 CT angio head w con Stat CT angio neck with con Stat CT head/brain wo con Stat 02/14/24 20:13 MR brain wo/w con Routine Pending Results Patient Have Any Pending Studies at Discharge: No Discharge Instructions Given to Patient (Per Discharging Provider) You were admitted for complex migraines. You were evaluated by surgery who did not reveal any signs of stroke. You were treated with migraine cocktail (Toradol Compazine and Benadryl) which notably helped your symptoms. These neurologic issues can cause weakness therefore it is recommended you go to rehab. Please follow up with Neurology in 4-6 weeks. Please reduce stress, caffeine intake, and avoid chronic NSAID use. Total Time Total Time Spent Total Time Spent (In Minutes): 35
[2024-02-20] MEDS: POLYETHYLENE (MIRALAX) 17 GM PACK PO PRN (14:48)
== END 2024-02-20 15:54 | DRG 103 ==
LOC: ED 14:44 → SUATTDRO 17:21 → 2W 17:21 → 3W 02-18 16:02

== ENCOUNTER 2024-10-08 07:36 | Inpatient (IN) ==
--- NOTE | 2024-09-18 13:01 | PAT Medication Instructions ---
Medication Instructions Date of Service September 18, 2024 Home Medications atorvastatin 40 mg tablet (Lipitor) 40 mg PO HS epinephrine 0.3 mg/0.3 mL injection, auto-injector (EpiPen) 0.3 mg IM Q3H PRN Allergic Reaction venlafaxine 75 mg capsule,extended release 24 hr 75 mg PO QAM aspirin 81 mg tablet,delayed release (Fadia Low Dose Aspirin) 81 mg PO QAM baclofen 10 mg tablet 10 mg PO HS PRN MUSCLE SPASMS gabapentin 800 mg tablet 800 mg PO TID lisinopril 20 mg tablet 20 mg PO QAM lorazepam 1 mg tablet (Ativan) 1 mg PO Q8H PRN Anxiety omeprazole 20 mg capsule,delayed release 20 mg PO DAILYBB ondansetron 4 mg disintegrating tablet 4 mg translingual Q8H PRN NAUSEA/VOMITING cholecalciferol (vitamin D3) 125 mcg (5,000 unit) tablet (Vitamin D3) 125 mcg PO BID rimegepant 75 mg disintegrating tablet (Nurtec ODT) 75 mg PO DAILY PRN Migraine Headache topiramate 50 mg tablet 50 mg PO BID Continue as directed epinephrine 0.3 mg/0.3 mL injection, auto-injector (EpiPen) 0.3 mg IM Q3H PRN Allergic Reaction (if needed) DO NOT take the morning of surgery lisinopril 20 mg tablet 20 mg PO QAM cholecalciferol (vitamin D3) 125 mcg (5,000 unit) tablet (Vitamin D3) 125 mcg PO BID Take morning of surgery With a small sip of water, OTHERWISE NOTHING TO EAT OR DRINK AFTER MIDNIGHT: venlafaxine 75 mg capsule,extended release 24 hr 75 mg PO QAM aspirin 81 mg tablet,delayed release (Fadia Low Dose Aspirin) 81 mg PO QAM (unless surgeon directed otherwise) gabapentin 800 mg tablet 800 mg PO TID lorazepam 1 mg tablet (Ativan) 1 mg PO Q8H PRN Anxiety (if needed) omeprazole 20 mg capsule,delayed release 20 mg PO DAILYBB ondansetron 4 mg disintegrating tablet 4 mg translingual Q8H PRN NAUSEA/VOMITING (if needed) rimegepant 75 mg disintegrating tablet (Nurtec ODT) 75 mg PO DAILY PRN Migraine Headache (if needed) topiramate 50 mg tablet 50 mg PO BID Take evening before surgery atorvastatin 40 mg tablet (Lipitor) 40 mg PO HS baclofen 10 mg tablet 10 mg PO HS PRN MUSCLE SPASMS (if needed) gabapentin 800 mg tablet 800 mg PO TID lorazepam 1 mg tablet (Ativan) 1 mg PO Q8H PRN Anxiety (if needed) ondansetron 4 mg disintegrating tablet 4 mg translingual Q8H PRN NAUSEA/VOMITING (if needed) cholecalciferol (vitamin D3) 125 mcg (5,000 unit) tablet (Vitamin D3) 125 mcg PO BID rimegepant 75 mg disintegrating tablet (Nurtec ODT) 75 mg PO DAILY PRN Migraine Headache (if needed) topiramate 50 mg tablet 50 mg PO BID Other Notes If you have any questions please call us at [phone] or [phone] or [phone] or [phone]
--- NOTE | 2024-09-24 10:38 | Anesthesiology Consultation ---
Date of Service September 24, 2024 Assessment & Plan (1) Encounter for pre-operative examination: - Check BSG DOS - Infectious disease screening: Per assessment on 09/24/24- No known recent infectious disease contacts or current infectious disease symptoms. 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 Patient was experiencing severe headaches with weakness that she was admitted to the hospital for for multiple days as well as rehab following for strength training. No strokes were found on MRI imaging. She returns to the clinic today with an updated scan that shows no aneurysm.. My impression: No left vertebral artery abnormality viewed.. Possible very small infundibulum of the V4 segment of the left vert.. Imaging reviewed.. No further imaging needed" - Patient acceptable risk for surgery pending surgeon-ordered PCP preop evaluation (Barrett Kelly appt done 09/24- note in draft). Chart Review Chart Review: Patient seen in Pre Admission Testing Teaching & Discussion Pre-Anesthesia Teaching/Discussion Notes: Instructed NPO after midnight before surgery,except medications with 15 cc of water. Medication instructions provided according to the PAT guidelines. History Surgery Operation Date: 10/08/24 12:25 Proposed Procedures p L5-S1 Decompression and Fusion, with Spinal Cord Monitoring - Danielito Ken, Height/Weight Height: 5 ft 6 in Weight: 119.5 kg Allergies Allergy/AdvReac Type Severity Reaction Status Date / Time venom-wasp Allergy Severe Anaphylaxis Verified 09/18/24 07:28 -- Yellow jackets Sulfa (Sulfonamide Allergy Intermediate Hives Verified 09/18/24 07:28 Antibiotics) mold Allergy Mild Congested Verified 09/18/24 07:28 cortisone AdvReac Severe Vomiting Verified 09/18/24 07:28 Medications Home Medications Medication Instructions Recorded Confirmed Last Taken atorvastatin 40 mg tablet (Lipitor) 40 mg PO HS 05/13/18 09/18/24 02/13/24 epinephrine 0.3 mg/0.3 mL 0.3 mg IM Q3H PRN Allergic Reaction 05/13/18 09/18/24 Unknown injection, auto-injector (EpiPen) venlafaxine 75 mg capsule,extended 75 mg PO QAM 04/12/19 09/18/24 02/14/24 release 24 hr aspirin 81 mg tablet,delayed 81 mg PO QAM 05/05/21 09/18/24 02/14/24 release (Fadia Low Dose Aspirin) baclofen 10 mg tablet 10 mg PO HS PRN MUSCLE SPASMS 02/14/24 09/18/24 Unknown gabapentin 800 mg tablet 800 mg PO TID 02/14/24 09/18/24 02/14/24 12:00 lisinopril 20 mg tablet 20 mg PO QAM 02/14/24 09/18/24 02/14/24 lorazepam 1 mg tablet (Ativan) 1 mg PO Q8H PRN Anxiety 02/14/24 09/18/24 Unknown omeprazole 20 mg capsule,delayed 20 mg PO DAILYBB 02/14/24 09/18/24 02/14/24 release ondansetron 4 mg disintegrating 4 mg translingual Q8H PRN 02/14/24 09/18/24 Unknown tablet NAUSEA/VOMITING cholecalciferol (vitamin D3) 125 125 mcg PO BID 09/18/24 09/18/24 Unknown mcg (5,000 unit) tablet (Vitamin D3) rimegepant 75 mg disintegrating 75 mg PO DAILY PRN Migraine 09/18/24 09/18/24 Unknown tablet (Nurtec ODT) Headache topiramate 50 mg tablet 50 mg PO BID 09/18/24 09/18/24 Unknown Past Medical History Medical History Anxiety Asthma Per records, patient denies CVA (cerebral vascular accident) 2016- possible CVA (per [facility] records, slurred speech/left sided weakness, treated with TPA administration, brain/head/carotid imaging unremarkable/no acute process, possible complicated migraine) Follows with [facility] neurology GERD (gastroesophageal reflux disease) HTN (hypertension) Hyperlipidemia IBS (irritable bowel syndrome) Migraines Hx hemiplegic migraines per records 02/2024- [facility] admission for stroke-like symptoms, complex migraine/hypertensive urgency per discharge summary Follows with [facility] neurology Morbid obesity Prediabetes Hx diabetes and prediabetes listed in records HgbA1C 02/15/24 5.8% Prolonged QT interval Per records Sleep apnea "not bad enough to need a device" as per patient Exercise / Class Metabolic Activity III < 4 Walking/Shop/Light housework Past Family History Family History Other Breast cancer Past Surgical History Surgical History History of cholecystectomy History of hysterectomy Hx of colonoscopy Hx of sinus surgery polyp removal Past Anesthesia History No Hx of Anesthesia Complications and No Family Hx of Anesthesia Complications History of PONV No Hx of PONV and No Hx of Motion Sickness Social History Smoking Status: Never smoker Do You Dip or Chew Tobacco: No Hx Alcohol Use: No Hx Substance Use: No substance use type: does not use Review of Systems Rare palpitations. Patient denies chest pain, shortness of breath, fever, chills, cough, wheezing. Physical Exam Vital Signs BP 155/92 P 74 TEMP 98.8 SP02 96%RA RESP 16 Physical Full cervical extension range of motion. Full TMJ range of motion. TMD > 3.5 finger breaths Mallampati Score II Dentition: several missing sides/molars Lungs: clear throughout to auscultation Cardiac: regular rate and rhythm, no murmurs noted Spine: normal Carotid arteries: negative bruit Extremities: no LE edema Lab Results Anesthesia Preop Results Results Anesthesia Widget: WBC 7.01 K/ul (4.8-10.8) 09/24/24 Hgb 14.1 g/dl (12.0-16.0) 09/24/24 Hct 39.4 % (37.0-47.0) 09/24/24 Plt 278 K/uL (130-400) 09/24/24 Na 139 mmol/L (136-145) 09/24/24 K 4.0 mmol/L (3.5-5.1) 09/24/24 Cl 104 mmol/L (98-107) 09/24/24 CO2 30 mmol/L (21-32) 09/24/24 BUN 13 mg/dl (6-23) 09/24/24 Creat 0.58 mg/dl (0.6-1.2) L 09/24/24 Glucose Level 121 mg/dl (70-99(Fasting)) H 09/24/24 PT 10.3 Seconds (9.0-12.0) 09/24/24 PTT 27 Seconds (21-31) 09/24/24 INR 0.9 (0.9-1.1) 09/24/24 HA1c 5.7 % (4.5-5.6) H 09/24/24 Urine Color Yellow 08/19/24 Urine Appearance Clear (Clear) 08/19/24 Urine pH 6.5 (4.5-7.5) 08/19/24 Urine Specific [place] 1.019 (1.000-1.030) 08/19/24 Urine Protein Negative (Negative) 08/19/24 Urine Glucose (UA) Negative (Negative) 08/19/24 Urine Ketones Negative (Negative) 08/19/24 Urine Blood Negative (Negative) 08/19/24 Urine Nitrite Negative (Negative) 08/19/24 Urine Bilirubin Negative (Negative) 08/19/24 Urine Urobilinogen Negative (Negative) 08/19/24 Urine Leukocyte Esterase 2+ (Negative) H 08/19/24 Urine WBC (Auto) 21-50 /hpf (0-5) H 08/19/24 Urine RBC (Auto) 0-2 /hpf (0-2) 08/19/24 Urine Hyaline Casts (Auto) 0-2 /lpf (0-2) 08/19/24 Urine Epithelial Cells (Auto) 0-2 /hpf (0-2) 08/19/24 Urine Bacteria (Auto) None Seen (None Seen) 08/19/24 Blood Type A Positive 09/24/24 Antibody Screen NEGATIVE 09/24/24 Testing Laboratory Results Urine culture (08/19/24): probable skin donald Electrocardiogram Date: 02/14/24 ST at 101bpm. Possible LAE. No significant change compared to 05/05/2021 per merchandise appraiser comparison. Chest X-Ray Date: 02/14/24 FINDINGS: Stable mild elevation of the right hemidiaphragm. Lungs are clear. There is no pneumothorax or pleural effusion. The heart is mildly enlarged. Mediastinal contours are normal. There is no evidence for pulmonary edema. IMPRESSION: No acute cardiopulmonary findings. Other Testing Head CT Date: 02/14/24 IMPRESSION: No acute intracranial findings. Exam mildly compromised by motion artifact. Brain MRI Date: 02/14/24 IMPRESSION: No evidence of acute intracranial pathology. CTA Head/neck Date: 06/26/24 IMPRESSION: No acute intracranial abnormality. No significant stenosis or aneurysmal dilatation on head and neck angiogram. Specifically no aneurysm of the left vertebral artery. Small ossific fragment (anatomic) adjacent to the terminal V3 segment on the left.
[~2024-10-08 07:36] MED LIST changes: -ASPI81TA28 PO; -ATOR-24 PO; -CYCL10TA6 PO; -EPP3/2 IM; -LISI-461 PO; -MAGN400T6 PO; -METO-157 PO; -METO25TA4 PO; -TOPI100T20 PO; +VANCOMYCIN HCL 1,750 MG in SODIUM CHLORIDE 0.9% 500 ML IV SCH
--- OUTSIDE RECORDS SUMMARY | 2024-10-08 07:51 | External Medical Summary | Summary of Care ---
Author Name Unknown Organization [facility] Address [address] [place] [address] Phone [phone] Care Team Providers Care Locate Technician Name Role Phone Agnes Montes MD Primary Care Provid er Encounter Details Date Type Department Care Team (Late st Contact Info) Description 09/27/2024 Orders Only [facility] [place] [address] [id number] [facility] [address] [facility] [address] Allergies Active Allergy Reactions Criticality Noted Date Comments Cortisone Nausea/vomiting 04/17/2019 Cortisone shots Make patient vomit Sulfa Antibiotics 06/18/1999 hives Yellow Jacket Venom Edema face/lips/tongue High 11/2018 documented as of this encounter (statuses as of 09/27/2024) Medications Aspirin 81 MG Tablet Take 1 Tablet by mouth in the morning. Active Montelukast Sodium 10 MG Oral Tablet (Singulair)Indicat ions:Cough Take 1 Tab by mouth daily. 30 Tab 5 12/08/19 21 Active EpiPen 2-Bashir 0.3 MG/0.3ML Injection Solution Auto-injectorIndic ations:Local reaction to insect sting For life threatening allergy symptoms and go immediately to the emergency room. 2 Each 3 12/08/19 21 Active Fexofenadine HCl 180 MG Oral Tablet (Dione)Indicatio ns:Rhinitis, nonallergic,Season al allergic rhinitis, unspecified trigger Take 1 Tablet by mouth daily as needed for Allergies. 30 Tablet 11 01/13/20 23 Active Lisinopril 20 MG Oral Tablet (Prinivil) TAKE 1 TABLET BY MOUTH EVERY MORNING 30 Tablet 5 11/03/19 24 Active Nystatin 612807 UNIT/GM External Powder (Nystop)Indication s:Candidal intertrigo Apply topically to affected area 3 times a day. Apply to R upper thigh 60 g 12/14/19 24 Active Ondansetron 4 MG Oral Tablet Disintegrating (Zofran)Indication s:Nausea Place 1 Tablet on tongue every 8 hours as needed for Nausea. dissolve on tongue. 20 Tablet 1 12/14/19 24 Active Topiramate 50 MG Oral Tablet (Topamax) Take 2 tabs by mouth twice per day 120 Tablet 5 03/13/20 24 Active Baclofen 10 MG Oral Tablet (Lioresal)Indicati ons:Other migraine without status migrainosus, not intractable Take 1 tab by mouth at bedtime as needed 30 Tablet 1 03/18/20 24 Active Nurtec 75 MG Oral Tablet Disintegrating (Rimegepant Sulfate) 1 tab at onset of migraine may repeat in 2 hours no more than 2 in 24 hours 15 Tablet 2 03/19/20 24 Active Venlafaxine HCl ER 75 MG Oral Capsule Extended Release 24 Hour (Effexor XR) Take 1 Capsule by mouth in the morning. 90 Capsule 1 03/27/20 24 Active Omeprazole 20 MG Oral Capsule Delayed Release (PriLOSEC)Indicati ons:Rib pain on left side,Gastroesophag eal reflux disease with esophagitis, unspecified whether hemorrhage TAKE 1 CAPSULE BY MOUTH ONCE DAILY BEFORE BREAKFAST 90 Capsule 3 04/12/20 24 Active Atorvastatin Calcium 40 MG Oral Tablet (Lipitor)Indicatio ns:Dyslipidemia TAKE 1 TABLET BY MOUTH AT BEDTIME 90 Tablet 3 04/12/20 24 Active LORazepam 1 MG Oral Tablet (Ativan)Indication s:Anxiety Take 1 Tablet by mouth every 8 hours as needed for Anxiety. 30 Tablet 06/07/20 24 Active Gabapentin 800 MG Oral Tablet (Neurontin) TAKE 1 TABLET BY MOUTH THREE TIMES DAILY EVERY MORNING, AT NOON, AND BEFORE BEDTIME 270 Tablet 1 08/05/20 24 Active documented as of this encounter (statuses as of 09/27/2024) Active Problems Problem Noted Date Diagnosed Date Body mass index (BMI) of 40.0 to 44.9 in adult 0 08/26/2024 Overview: Per Obesity protocol - Per Obesity protocol - Spinal stenosis 01/12/2023 Prediabetes 06/24/2019 Overview: Per Prediabetes protocol Dyslipidemia 12/20/2017 Adjustment disorder with depressed mood 12/13/19 18 Complicated migraine 05/15/2017 HTN, goal below 140/90 05/15/2017 Rhinitis, nonallergic 03/21/2014 Reflux esophagitis Seasonal allergic rhinitis documented as of this encounter (statuses as of 09/27/2024) Resolved Problems Problem Noted Date Diagnosed Date Resolved Date Body mass index (BMI) of 45. 0 to 49.9 in adult 06/24/2024 08/29/2024 Overview: Per Obesity protocol - Food insecurity 06/27/2022 12/27/2023 Overview: Per [facility] Protocol Body mass index (BMI) of 40. 0 to 44.9 in adult 06/25/2018 06/27/2024 Overview: Per Obesity protocol #1 Chest pain 12/20/2017 06/22/2018 Prediabetes 12/28/2016 05/15/2017 [...] with severity to be determined 02/04/2010 07/17/2013 Overview (11/23/2015): Per Asthma Taxonomy, Dr Kebede ICD-10 update of inactive term Obesity, morbid (more than 1 00 lbs over ideal weight or BMI > 40) 01/26/2010 12/12/2017 Overview (11/02/2015): Per Obesity Protocol, #19 ICD-10 update of inactive term HTN, GOAL BELOW 130/80 07/07/200904/05 Overview (07/07/2009): Modified per HTN protocol #16. Type 2 diabetes mellitus wit h hemoglobin A1c goal of less than 7.0% 06/11/2009 11/26/2012 Overview (12/08/2015): Per Diabetes Taxonomy. ICD-10 update of inactive term Dermatitis 12/01/2000 05/15/2017 TENOSYNOV HAND-WRIST, LEFT 12/01/2000 1 FAM HX-DIABETES MELLITUS 12/01/200009/2016 Other voice and resonance disorders 05/15/2017 Asthma, allergic 02/04/2010 Overview (01/07/2009): Dr Kebede Type 2 diabetes mellitus wit h hemoglobin A1c goal of less than 7.0% 06/11/2009 Overview (12/08/2015): Per Diabetes Taxonomy. ICD-10 update of inactive term Major depressive disorder Overview (06/06/2017): Dr Baron ICD-10 update of inactive term HTN, goal to be determined 1 09/06/2008 Overview (07/07/2009): Modified per HTN protocol #16. documented as of this encounter (statuses as of 09/27/2024) Immunizations Name Administration Dates Next Due COVID-19 mRNA, LNP-s, No Pre serve, 2-Dose Series (MedGRC) 05/10/2021,11/18/2020,10/28/2020 COVID-19, MRNA-LNP, PF, 30 M CG/0.3 mL, 12 YRS AND ABOVE, IM (PFIZER-Comirnaty) 04/17/2024 HEP A - Hepatitis A (Adult > 18 yrs) 01/17/2016, 2015,07/14/2015 PPD 04/22/2017,04/14/2017 Pneumococcal Polysaccharide PPV23 (Pneumovax) 01/07/2009 Seasonal Influenza Vac., MDV , IM, 0.5 mL (Fluzone) 05/29/2015,06/13/2014,05/28/2013,05/14,04/19/2011,05/06/2010,04/28/20 09,06/12/2008 Seasonal Influenza, PF, 6 M & above, IM , (FluLaval or Fluzone) 04/20/2023,04/22/2022,05/01/2021,04/14,06/11/2019,06/22/2018,05/15/20 17 Seasonal Influenza, QUAD, wi th Preserv, 6 mons & Above, 0.5 mL, IM 04/22/2022,05/01/2021,05/02/2020,05/15,06/22/2018,05/15/2017,05/05/20 16,05/29/2015,06/13/2014,05/28/2013,1 ,04/19/2011,05/06/2010,04/28,06/12/2008 Seasonal Influenza, Quadriva lent, No Preserve, IM 05/05/2016 05/05/2017 Seasonal Influenza, Recombin ant, RIV4, PF, (Flublock) 04/17/2024 TD - Tetanus/Diptheria (ADULT) 07/11/2004 TDAP (age 10 and older)(Boostrix) 05/10/2021,04/06/2014 documented as of this encounter Social History Tobacco Use Types Packs/Day Years Used Date Smoking Tobacco: Never Passive Smoke Exposure: Never Smokeless Tobacco: Never Comments:no passive smoke Alcohol Use Standard Drinks/Week Comments No 0 (1 standard drink = 0.6 oz pur e alcohol) PHQ-2 Answer Date Recorded PHQ Adult Total Score 1 09/24/2024 Hunger Vital Sign Answer Date Recorded Within the past 12 months, y ou worried that your food would run out before you got the money to buy more. Never true 12/14/19 24 Within the past 12 months, t he food you bought just didn't last and you didn't have money to get more. Never true 12/14/2023 Childcare Answer Date Recorded Do you feel overwhelmed with taking care of a child, family member or friend? No 12/14/2023 Does your family need help f inding childcare? (Household - for ages 0-17 years) Not on file 12/14/2023 Clothing Answer Date Recorded Have you been unable to get clothing when it was really needed? No 12/14/2023 Is your family able to get c lothes or diapers when needed? (Household - for ages 0-17 years) Not on file 12/14/2023 Personal Safety Answer Date Recorded Do you feel unsafe or have concerns for your saf ety? No 12/14/2023 Do you have concerns for you r family's safety? (Household - for ages 0-17 years) Not on file 12/14/2023 Utilities Answer Date Recorded Do you have trouble paying y our heating, water, or electric bill? No 12/14/2023 Is your family able to pay t he heat, water, or electric bill? (Household - for ages 0-17 years) Not on file 12/14/2023 Does your family have access to good internet? (Household - for ages 0-17 years) Not on file 12/14/2023 Employment Status Answer Date Recorded Are you unemployed or without regular income? No 12/14/2023 Does the household have a re gular source of income? (Household - for ages 0-17 years) Not on file 12/14/2023 Social Connections Answer Date Recorded How often do you feel lonely or isolated from those around you? Sometimes 12/14/2023 Financial Resource Strain Answer Date R ecorded Do you have any trouble payi ng for your medications, or do you think you might in the future? No 12/14/2023 Does your family have troubl e paying for medicine? (Household - for ages 0-17 years) Not on file 12/14/2023 Transportation Needs Answer Date Record ed READ ONLY Do you have troubl e getting a ride to medical visits or work? Never True 12/14/2023 Does your family have a hard time getting a ride to doctors visits? (Household - for ages 0-17 years) Not on file 12/14/2023 Has lack of transportation k ept you from medical appointments, meetings, work, or from getting things needed for daily living? Check all that apply. (Adult - for ages 18 years and over) Not on file 12/14/2023 Do you (or your family) have trouble finding or paying for a ride (transportation)? (Household - for ages 0-17 years) Not on file 12/14/2023 Housing Stability Answer Date Recorded Do you currently live in a s helter or have no steady place to sleep at night? No 12/14/2023 READ ONLY Do you think you a re at risk of becoming homeless? No 12/14/2023 Does your family worry about paying for your home or becoming homeless? (Household - for ages 0-17 years) Not on file 0 12/14/2023 Are you homeless or worried that you might be in the future? (Adult - for ages 18 years and over) Not on file Are you (or your family) shraddha eless or worried that you might be in the future? (Household - for ages 0-17 years) Not on file Food Insecurity Answer Date Recorded Do you need food for this week? No 12/14/2023 Are you able to get enough f ood for your family? (Household - for ages 0-17 years) Not on file 12/14/2023 Does your family need food t his week? (Household - for ages 0-17 years) Not on file 12/14/2023 Do you always have enough fo od for your family? (Household - for ages 0-17 years) Not on file 12/14/2023 Food Insecurity Answer Date Recorded Within the past 12 months, y ou worried that your food would run out before you got the money to buy more. Never true 12/14/19 24 Within the past 12 months, t he food you bought just didn't last and you didn't have money to get more. Never true 12/14/2023 Do you need food for this week? No 12/14/2023 Comments No Sex and Gender Information Value Date Recorded Sex Assigned at Female 06/21/2019 7:48 AM EST Legal Sex Female 5:58 AM EST Gender Identity Female 06/21/2019 7:48 AM EST Sexual Orientation Straight 06/21/2019 7: 48 AM EST documented as of this encounter Plan of Treatment Upcoming Encounters Date Type Department Care Team (Late st Contact Info) Description 10/22/2024 1:30 PM EDT Office Visit Neurology [facility] [place] [address] [facility] [id number] Karyn Wayne PA-C [address] [facility] [place] [phone] Health Maintenance Due Date Last Done Comments Fecal Occult Blood Test 2017 Sigmoidoscopy 2017 Colonoscopy 03/01/2020 03/01/2010 Pneumococcal Vaccine: 50+ Years (2 of 2 - PCV) 2022 01/07/2009 Zoster Vaccines (1 of 2) 2022 Mammogram 12/20/2024 12/21/2023, 05/15, 02/02/2017, Additional history exists Depression Screening 09/24/2025 09/24/2024 GFR 09/24/2025 09/24/2024, 02/12, 02/28/2024, Additional history exists HbA1c 09/24/2025 09/24/2024, 02/12, 07/19/2022, Additional history exists Albumin/Creatinine Ratio 01/12/2026 023, 11/25/2015, 11/05/2014, Additional history exists Cologuard 02/06/2026 02/06/2023, 01/12, 01/27/2023 Colorectal Cancer Screening 02/06/2026 Lipid Panel 10/15/2028 10/16/2023, 08/15, 11/21/2020, Additional history exists DTap/Tdap Vaccines (3 - Td or Tdap) 05/10/2031 05/10/2021, 03/27/2014, 07/11/2004 Hepatitis B Vaccine Completed 01/17/2024, COVID-19 Vaccine Completed 04/17/2024, , 05/10/2021, Additional history exists Influenza Vaccine (FLU shot) Completed 04/17/2024, 04/20/2023, 04/22/2022, Additional history exists HIV Screening Discontinued HPV (Gardasil) Vaccine Aged Out No lo nger eligible based on patient's age to complete this topic Hepatitis C Screening Discontinued MENINGOCOCCAL (MENACTRA/MENVEO) Aged Out No longer eligible based on patient's age to complete this topic Meningitis B Vaccine (Bexsero/Trumemba) Aged Out No longer eligible based on patient's age to complete this topic documented as of this encounter Medical Devices Not on filedocumented as of this encounter Procedures Procedure Name Priority Date/Time Associated Diagnosis Comments XR CHEST 1 VIEW Routine 02/14/2024 documented in this encounter Results * XR CHEST 1 VIEW (02/14/2024) Anatomical Region Laterality Modality Chest Other 02/14/2024 us History Per Patient RADIOLOGY (RAD GENERAL) Leanna l Result documented in this encounter Care Teams Locate Technician Relationship Specialty Start Date End Date Agnes Montes MD [address] [address] PCP - General Family Medicine 06/04/24 documented as of this encounter
--- OUTSIDE RECORDS SUMMARY | 2024-10-08 07:51 | External Medical Summary | Summary of Care ---
Author Name Unknown Organization [facility] Address [address] [place] [address] Phone [phone] Care Team Providers Care Professor Of French Name Role Phone Agnes Montes MD Primary Care Provid er Encounter Details Date Type Department Care Team (Late st Contact Info) Description 09/25/2024 Orders Only [facility] [place] [address] [place] [phone] Agnes [facility]es [facility] [address] Allergies Active Allergy Reactions Criticality Noted Date Comments Cortisone Nausea/vomiting 04/17/2019 Cortisone shots Make patient vomit Sulfa Antibiotics 06/18/1999 hives Yellow Jacket Venom Edema face/lips/tongue High 11/2018 documented as of this encounter (statuses as of 09/25/2024) Medications Aspirin 81 MG Tablet Take 1 [...] 30 Tablet 5 11/03/19 24 Active Nystatin 603518 UNIT/GM External Powder (Nystop)Indication s:Candidal intertrigo Apply [...] as of this encounter (statuses as of 09/25/2024) Active Problems Problem Noted Date Diagnosed Date [...] as of this encounter (statuses as of 09/25/2024) Resolved Problems Problem Noted Date Diagnosed Date [...] as of this encounter (statuses as of 09/25/2024) Immunizations Name Administration Dates Next Due COVID-19 mRNA, LNP-s, No Pre serve, 2-Dose Series ([employer]) 05/10/2021,11/18/2020,10/28/2020 COVID-19, MRNA-LNP, PF, 30 M CG/0.3 [...] PM EDT Office Visit [facility]rology [facility] [place] [facility] [address] Karyn Wayne PA-C 21 [facility] [place] [address] Health Maintenance Due Date Last Done Comments Fecal Occult Blood Test 2017 Sigmoidoscopy 2017 Colonoscopy 03/01/2020 03/01/2010 Pneumococcal Vaccine: 50+ Years (2 of 2 - PCV) 2022 01/07/2009 Zoster Vaccines (1 of 2) 2022 HbA1c 03/03/2024 03/03/2023, 12/0 01/2022, 09/07/2021, Additional history exists Mammogram 12/20/2024 12/21/2023, 05/15, 02/02/2017, Additional history exists GFR 03/06/2025 09/24/2024, 02/12, 02/28/2024, Additional history exists Depression Screening 09/24/2025 09/24/2024 Albumin/Creatinine Ratio 01/12/2026 023, 11/25/2015, 11/05/2014, Additional [...] Procedure Name Priority Date/Time Associated Diagnosis Comments CHEMISTRY-OUTSIDE Routine 09/24/2024 documented in this encounter Results * (ABNORMAL) CHEMISTRY-OUTSIDE (09/24/2024) Not all results display below - see scan for full detail Comment:SEE SCAN - CBCD, PTI NR, CMP, CRP CREATININE 0.58(A) 0.6 - 1.2 MG/DL EGFR 108.82 ML/MIN POTASSIUM 4.0 3.5 - 5.1 MMOL/L GLUCOSE 121(A) 70 - 99 MG/DL HOURS FASTING TRIGLYCERIDES-OUT SIDE LAB CHOLESTEROL-OUTSI DE LAB HDL-OUTSIDE LAB CHOL/HDL RATIO-OUTSIDE LAB LDL (CALCULATED)-OUTS [facility] LAB LDL (DIRECT MEASURE)-OUTSIDE LAB HEMOGLOBIN, W2K-MCRLOUA LAB PHOSPHORUS-OUTSID E LAB PTH-OUTSIDE LAB MICROALBUMIN RATIO-OUTSIDE LAB PROTEIN, UA-OUTSIDE LAB HGB 14.1 12.0 - 16.0 G/DL 09/24/2024 us Tushar Sharma PA-C LABORATORY Final Res ult documented in this encounter Care Teams Professor Of French Relationship Specialty Start Date End Date Agnes Montes MD [address] [facility] [place] [address] PCP - General Family Medicine 06/04/24 documented as of this encounter
--- OUTSIDE RECORDS SUMMARY | 2024-10-08 07:51 | External Medical Summary | Summary of Care ---
Author Name Unknown Organization [facility] Address [address] [facility] [place] [address] Phone [phone] Care Team Providers Care Psychiatric Specialist Name Role Phone Agnes Montes MD Primary Care Provid er Reason for Visit * Reason Comments pre-op exam Patient is here for a preop exam for lumbar decompression and fusion at L4 and L5 on 10/[address] Ken. Encounter Details Date Type Department Care Team (Late st Contact Info) Description 09/24/2024 8:40 AM EST Office Visit [facility] [address] [place] [phone] Tushar Sharma PA-C [address] [facility] [place] [address] Preop examination*; Foraminal stenosis of lumbar region; Osteoarthritis of spine with radiculopathy, lumbosacral region; BMI 40.0-44.9, adult (HCC) Allergies Active Allergy Reactions Criticality Noted Date Comments Cortisone Nausea/vomiting 04/17/2019 Cortisone shots Make patient vomit Sulfa Antibiotics 06/18/1999 hives Yellow Jacket Venom Edema face/lips/tongue High 11/2018 documented as of this encounter (statuses as of 09/26/2024) Medications Aspirin 81 MG Tablet Take 1 [...] 30 Tablet 5 11/03/19 24 Active Nystatin 590699 UNIT/GM External Powder (Nystop)Indication s:Candidal intertrigo Apply [...] BEDTIME 270 Tablet 1 08/05/20 24 Active Magnesium 400 MG Capsule Take 1 Cap by mouth daily. 30 Cap 5 02/13/20 18 025 Discontin ued(Medic ation List Clean Up) Fluticasone Propionate 50 MCG/ACT Nasal Suspension (Flonase)Indicatio ns:Rhinitis, nonallergic Administer 2 Sprays into each nostril in the morning. 16 g 5 01/13/20 23 025 Discontin ued(Medic ation List Clean Up) Verapamil HCl ER 100 MG Oral Capsule Extended Release 24 HourIndications:Ot her migraine without status migrainosus, not intractable 1 tab daily at bedtime 90 Capsule 3 05/12/20 23 025 Discontin ued(Medic ation List Clean Up) methylPREDNISolone 4 MG Oral Tablet Therapy Pack (Medrol Dosepack)Indicatio ns:Left foot pain,Injury of left foot, initial encounter,Lisfranc 's sprain, left, subsequent encounter follow package directions 21 Tablet 07/24/20 24 025 Discontin ued(Medic ation List Clean Up) documented as of this encounter (statuses as of 09/26/2024) Active Problems Problem Noted Date Diagnosed Date [...] as of this encounter (statuses as of 09/26/2024) Resolved Problems Problem Noted Date Diagnosed Date [...] as of this encounter (statuses as of 09/26/2024) Immunizations Name Administration Dates Next Due COVID-19 mRNA, LNP-s, No Pre serve, 2-Dose Series ([employer]) 05/10/2021,11/18/2020,10/28/2020 COVID-19, MRNA-LNP, PF, 30 M CG/0.3 [...] AM EST documented as of this encounter Last Filed Vital Signs Vital Sign Reading Time Taken Comments Blood Pressure 130/84 09/24/2024 8:36 AM EST Pulse 88 09/24/2024 8:36 AM EST Temperature 36.1 C (96.9 F) 09/24/2024 8:36 AM ES T Respiratory Rate 18 09/24/2024 8:36 AM EST Oxygen Saturation 99% 09/24/2024 8:36 AM EST Inhaled Oxygen Concentration - - Weight 118.6 kg (261 lb 6.4 oz) 09/24/2024 8:36 AM EST Height - - Body Mass Index 43.5 08/19/2024 10:48 AM EST documented in this encounter Nursing Notes * Vandana Flaherty LPN - 09/24/2024 8:36 AM EST The patient has been properly identified by confirmation of name and date of . Chief Complaint Patient presents with pre-op exam Patient is here for a preop exam for lumbar decompression and fusion at L4 and L5 on 10/[address] Ken. documented in this encounter Plan of Treatment Upcoming Encounters Date Type Department Care Team (Late st Contact Info) Description 10/22/2024 1:30 PM EDT Office Visit Neurology [facility] [place] [address] [place] [address] Karyn Wayne PA-C 21 [facility] [place] [address] Scheduled Orders Name Type Priority Associated Diagnoses Orde r Schedule CBC WITH WBC DIFFERENTIAL Lab Routine Preop examination Expected: 09/24/2024 (Approximate), Expires: 09/24/2025 BASIC METABOLIC PANEL Lab Routine Preop examination Expected: 09/24/2024 (Approximate), Expires: 09/24/2025 HEMOGLOBIN A1C Lab Routine Preop examination Expected: 09/24/2024 (Approximate), Expires: 09/24/2025 Health Maintenance Due Date Last Done Comments [...] as of this encounter Visit Diagnoses Diagnosis Preop examination- Primary Preoperative examination, unspecified Foraminal stenosis of lumbar region Spinal stenosis, lumbar region, without neurogenic claudication Osteoarthritis of spine with radiculopathy, lumbosacral region BMI 40.0-44.9, adult (HCC) Body Mass Index 40.0-44.9, adult documented in this encounter Care Teams Psychiatric Specialist Relationship Specialty Start Date End Date Agnes Montes MD [facility] [place] [address] PCP - General Family Medicine 06/04/24 documented as of this encounter
--- OUTSIDE RECORDS SUMMARY | 2024-10-08 07:51 | External Medical Summary | Summary of Care ---
Author Name Unknown Organization [facility] Address [address] [place] [address] Phone [phone] Care Team Providers Care Barmaid Name Role Phone Agnes Montes MD Primary Care Provid er Encounter Details Date Type Department Care Team (Late st Contact Info) Description 08/19/2024 Result Scan Unspecified Department <No scans attached> Allergies Active Allergy Reactions Criticality Noted Date [...] 30 Tablet 5 11/03/19 24 Active Nystatin 861759 UNIT/GM External Powder (Nystop)Indication s:Candidal intertrigo Apply [...] mRNA, LNP-s, No Pre serve, 2-Dose Series ([employer]) 05/10/2021,11/18/2020,10/28/2020 COVID-19, MRNA-LNP, PF, 30 M CG/0.3 mL, 12 YRS AND ABOVE, IM ([employer]) 04/17/2024 HEP A - Hepatitis A (Adult [...] PM EDT Office Visit Neurology Phil Arias [place] [address] [facility] [place] [address] Karyn Wayne PA-C [address] [place] [address] Health Maintenance Due Date Last Done Comments [...] Procedure Name Priority Date/Time Associated Diagnosis Comments OUTSIDE LAB RESULTS 08/19/2024 documented in this encounter Results * OUTSIDE LAB RESULTS (08/19/2024) 08/19/2024 No Physician Data Unknown LABORATORY Final Result documented in this encounter Care Teams Barmaid Relationship Specialty Start Date End Date Agnes Montes MD [address] [facility] [place] [address] PCP - General Family Medicine 06/04/24 documented as of this encounter
--- OUTSIDE RECORDS SUMMARY | 2024-10-08 07:52 | External Medical Summary | Summary of Care ---
Author Name Unknown Organization [facility] Address [address] [facility] [place] [address] Phone [phone] Care Team Providers Care Trackless Trolley Driver Name Role Phone Agnes Montes MD Primary Care Provid er Encounter Details Date Type Department Care Team (Late st Contact Info) Description 09/25/2024 Orders Only [facility] [place] Elizabeth [address] [place] [phone] Agnes Montes MD [address] [facility] [place] [address] Allergies Active Allergy [...] 30 Tablet 5 11/03/19 24 Active Nystatin 442446 UNIT/GM External Powder (Nystop)Indication s:Candidal intertrigo Apply [...] mRNA, LNP-s, No Pre serve, 2-Dose Series ([employer]) 05/10/2021,11/18/2020,10/28/2020 COVID-19, MRNA-LNP, PF, 30 M CG/0.3 [...] PM EDT Office Visit [facility]as [place] [address] [facility] [address] Karyn Wayne PA-C 21 [facility] [place] [address] Health Maintenance Due Date Last Done Comments [...] Diagnosis Comments XR CHEST 1 VIEW Routine 02/13/2024 documented in this encounter Results * XR CHEST 1 VIEW (02/13/2024) Anatomical Region Laterality Modality Chest Other 02/13/2024 us Lavell Osullivan MD RADIOLOGY (RAD GENERAL) Final Result documented in this encounter Care Teams Trackless Trolley Driver Relationship Specialty Start Date End Date Agnes Montes MD [address] [facility] [place] [address] PCP - General Family Medicine 06/04/24 documented as of this encounter
[2024-10-08] MEDS: LR 15ML/HR IV SCH (08:15)
[2024-10-08] MEDS: LR 60ML/HR IV SCH (08:16)
[2024-10-08] MEDS ORDERED: ONDANSETRON INJ 2 MG/ML 2 ML VIAL ONE (08:17)
[2024-10-08] MEDS ORDERED: fentaNYL citrate PF 100 MCG/2 ML VIAL ONE ×2 (08:17→10:08)
[2024-10-08] MEDS ORDERED: MIDAZOLAM HCL 1 MG/ML 2ML VIAL ONE (08:17)
[2024-10-08] MEDS ORDERED: PROPOFOL IV EMULSION 10 MG/ML 20 ML VIAL IV ONE ×2 (08:17→10:08)
[2024-10-08] MEDS ORDERED: DEXAMETHASONE SOD INJ 4 MG/ML VIAL ONE (08:17)
[2024-10-08] MEDS ORDERED: LIDOCAINE 2% 2 ML VIAL/AMP(20MG/ML) INFIL ONE ×2 (08:17→08:19)
[2024-10-08] MEDS ORDERED: ROCURONIUM BROMIDE 10 MG/ML 5 ML VIAL IV ONE ×2 (08:18→10:09)
[2024-10-08] MEDS: ACETAMINOPHEN 500 MG TAB PO SCH (08:52)
[2024-10-08] MEDS: GABAPENTIN 900 MG DOSE PO SCH (08:52)
[2024-10-08] MEDS: CeleBREX 200 MG CAP PO SCH (08:52)
--- NOTE | 2024-10-08 09:18 | History & Physical Bridge Note ---
Date of Service October 08, 2024 History & Physical Bridge Note I have examined the patient, reviewed the History & Physical and in the interval since the performance of the History & Physical I have noted the following changes of clinical significance: no changes noted
--- NOTE | 2024-10-08 09:20 | History & Physical Report ---
Date of Service October 08, 2024 Assessment & Plan (1) Multilevel lumbosacral spondylosis with radiculopathy: Plan: L5-S1 decompression and fusion, possible L4-L5 History of Present Illness Chief Complaint: Back and leg pain Primary Care Provider: Orlin Mccauley MD This is a 54-year-old female presents with persistent back and leg pain after failing course of nonoperative care is here for surgical invention. Allergies Allergy/AdvReac Type Severity Reaction Status Date / Time venom-wasp Allergy Severe Anaphylaxis Verified 10/08/24 08:20 -- Yellow jackets Sulfa (Sulfonamide Allergy Intermediate Hives Verified 10/08/24 08:20 Antibiotics) mold Allergy Mild Congested Verified 10/08/24 08:20 cortisone AdvReac Severe Vomiting Verified 10/08/24 08:20 Home Medications Medication Instructions Recorded Confirmed Type atorvastatin 40 mg tablet (Lipitor) 40 mg PO HS 05/13/18 10/08/24 History epinephrine 0.3 mg/0.3 mL 0.3 mg IM Q3H PRN Allergic Reaction 05/13/18 10/08/24 History injection, auto-injector (EpiPen) venlafaxine 75 mg capsule,extended 75 mg PO QAM 04/12/19 10/08/24 History release 24 hr aspirin 81 mg tablet,delayed 81 mg PO QAM 05/05/21 10/08/24 History release (Fadia Low Dose Aspirin) baclofen 10 mg tablet 10 mg PO HS PRN MUSCLE SPASMS 02/14/24 10/08/24 History gabapentin 800 mg tablet 800 mg PO TID 02/14/24 10/08/24 History lisinopril 20 mg tablet 20 mg PO QAM 02/14/24 10/08/24 History lorazepam 1 mg tablet (Ativan) 1 mg PO Q8H PRN Anxiety 02/14/24 10/08/24 History omeprazole 20 mg capsule,delayed 20 mg PO DAILYBB 02/14/24 10/08/24 History release ondansetron 4 mg disintegrating 4 mg translingual Q8H PRN 02/14/24 10/08/24 History tablet NAUSEA/VOMITING cholecalciferol (vitamin D3) 125 125 mcg PO BID 09/18/24 10/08/24 History mcg (5,000 unit) tablet (Vitamin D3) rimegepant 75 mg disintegrating 75 mg PO DAILY PRN Migraine 09/18/24 10/08/24 History tablet (Nurtec ODT) Headache topiramate 50 mg tablet (Topamax) 50 mg PO BID 09/18/24 10/08/24 History Past Med/Surg History Problem List (Updated 10/08/24 @ 09:18 by Danielito Ken, DO) Multilevel lumbosacral spondylosis with radiculopathy Encounter for pre-operative examination GERD (gastroesophageal reflux disease) Chronic back pain Prediabetes History of migraine Anxiety (Chronic) HTN (hypertension) (Chronic) Medical History Anxiety Asthma Per records, patient denies CVA (cerebral vascular accident) 2016- possible CVA (per [facility] records, slurred speech/left sided weakness, treated with TPA administration, brain/head/carotid imaging unremarkable/no acute process, possible complicated migraine) Follows with [facility] neurology GERD (gastroesophageal reflux disease) HTN (hypertension) Hyperlipidemia IBS (irritable bowel syndrome) Migraines Hx hemiplegic migraines per records 02/2024- [facility] admission for stroke-like symptoms, complex migraine/hypertensive urgency per discharge summary Follows with [facility] neurology Morbid obesity Prediabetes Hx diabetes and prediabetes listed in records HgbA1C 02/15/24 5.8% Prolonged QT interval Per records Sleep apnea "not bad enough to need a device" as per patient Surgical History History of cholecystectomy History of hysterectomy Hx of colonoscopy Hx of sinus surgery polyp removal Family History Other Breast cancer Social History Smoking Status: Never smoker Second Hand Exposure: No; Do You Dip or Chew Tobacco: No; Tobacco Cessation Education Requested by Patient: No Hx Alcohol Use: No Hx Substance Use: No Preferred Language: Belizean Communication Ability: Effective Metaphysician Required: No Beliefs That Will Affect Care: None Current Living Situation: Spouse Other Information That Helps Us Care for You: No Feels Safe at Home: Yes Safety Concerns: Feels Safe At This Time Assistive Devices: Glasses Physical Exam Physical Exam: Patient is alert and oriented Heart regular rhythm Lungs clear Results & Data Results & Data Vital Signs (Past 12 Hours) Vital Signs Temp Pulse Resp BP Pulse Ox O2 Del Method 10/08/24 08:30 37 C 90 20 123/102 H 97 Room Air
[2024-10-08] MEDS ORDERED: PROMETHAZINE HCL 6.25 MG in SODIUM CHLORIDE 0.9% 50 ML IV PRN (09:48)
[2024-10-08] MEDS ORDERED: ATROPINE SULFATE 0.1 MG/ML 10ML SYR IV PRN (09:48)
[2024-10-08] MEDS ORDERED: ePHEDrine sulfate 50 MG/ML AMP IV PRN (09:48)
[2024-10-08] MEDS ORDERED: ONDANSETRON INJ 2 MG/ML 2 ML VIAL IV PRN ×2 (09:48→13:54)
[2024-10-08] MEDS ORDERED: HYDROmorphone INJ 2 MG/ML SYR/VIAL IV PRN (09:48)
[2024-10-08] MEDS: ceFAZolin 3000MG 3,000 MG/72.5 ML BAG IV SCH (09:51)
[2024-10-08] MEDS ORDERED: SUGAMMADEX SODIUM 200 MG/2 ML VIAL IV ONE (10:09)
[2024-10-08] MEDS: ceFAZolin 330 MG/ML 1 GM VIAL ONE (10:28)
[2024-10-08] MEDS: BUPIVACAINE/EPINEPHRINE 0.25% 1:200,000 30 ML VIAL ONE (10:28)
[2024-10-08] MEDS ORDERED: ePHEDrine sulfate 50 MG/5 ML SYR ONE (10:39)
[2024-10-08] MEDS: FLOSEAL HEMOSTATIC MATRIX 10ML TOP ONE (11:28)
--- NOTE | 2024-10-08 11:32 | Operative Report ---
Post Operative Report Pre & Post Diagnosis Operation Date: 10/08/24 09:35 Pre-Op Diagnosis: #1 lumbosacral spondylosis with radiculopathy. #2 lumbar spinal stenosis. #3 degenerative disc disease. #4 morbid obesity Post-Op Diagnosis: Same I identified the patient and participated in the time-out.: Yes Procedure Operation Date: 10/08/24 09:35 Actual Procedures #1 lumbar decompression bilateral medial facetectomies and foraminotomies L4-L5 L5-S1. #2 posterior spinal fusion L5-S1. #3 placement posterior instrumentation L5-S1 using Hull rods and screws. #4 interbody fusion L5-S1. #5 placement Spira 14 x 26 mm x 2 at L5-S1. #6 placement locally harvested morselized autograft and posterior gutters. #7 placement fuse collagen sponge, with Koros in the posterior lateral gutters and os design and interbody space. #8 placement of versa wrap over the exposed dura. Surgeon Danielito Ken, DO Marketing Liaison Delaney Martinez Estimated Blood Loss 100 Findings See Below The patient is 5 foot 6 weighing over 119 kg with a BMI in excess of 42. The patient's body mass did contribute to significant technical difficulty with positioning exposure and the procedure itself. This had at least 50% increased operative time. Specimens None Indications This is a 54-year-old female who presents publish diagnosis after failing course of nonoperative care is here for surgical invention. Description of Procedure Patient met with identified informed consent obtained. Patient was then taken to the operative suite underwent intubation placed in a prone position on the Mark table on top of the Jamie frame. All bony promises well-padded I suspected to ensure no external pressure placed upon them. This point the lumbar spine was prepped and draped in normal sterile fashion. Sharp dissection with the assistance of Bovie cautery performed down to and exposing the lamina and transverse processes of L5 and the sacral ala bilaterally. From caudal to cephalad fashion complete laminectomy of L5 was performed including bilateral medial facetectomies and foraminotomies addressing severe subarticular and foraminal stenosis. Then performed a partial laminectomy of L4 with bilateral medial facetectomies to address all subarticular stenosis. Pedicle screws then placed at L5-S1 bilaterally with the assistance of fluoroscopy in the process miles placed. By way of a transforaminal approach on the right a discectomy of L5-S1 was performed endplates corrected to subcortical bleeding bone and a 14 x 26 mm spiral cage filled with os design bone graft tapped in position. Then proceeded to the left transforaminal region at L5-S1. Again discectomy performed. Endplates guided to subcortical bleeding bone and a second 14 x 26 mm Spira cage filled with os design bone graft tapped in position. The rods were then locked in final position bilaterally. The transverse processes of L5 and the sacral ala burred to subcortical bleeding bone. Infuse collagen sponge, with Koros and local autograft placed in the posterior gutters. 15 round ANALY drain inserted. The incision was then closed with 1 Vicryl in the fascia 2-0 Vicryl subcutaneously and 4 Monocryl for final skin closure. Steri-Strips and sterile dressing placed. Patient waken taken PACU stable condition. Please note spinal cord monitoring was utilized at the procedure no changes noted. Delaney Martinez was present at the entire surgery while the patient positioning complex portion of the surgery and final skin closure. I attest to the content of the Intraoperative Record and any orders documented therein. Any exceptions are noted below.
[2024-10-08] MEDS: fentaNYL citrate PF 100 MCG/2 ML VIAL IV PRN (12:05)
--- NOTE | 2024-10-08 12:14 | Fluoroscopy Report ---
FL lumbar spine 2-3V CLINICAL HISTORY: L5-S1 DECOMPRESSION AND FUSION COMPARISON STUDY: None FLUOROSCOPY TIME: 23 seconds FLUOROSCOPY IMAGES: 2 EXPOSURE DOSE: 22 mGy FINDINGS: Fluoroscopy was provided for metallic fusion at L5-S1. IMPRESSION: Intraoperative fluoroscopy. ACT 112: Negative or not required by law. Electronically signed by: Lior Arthur M.D. 10/08/2024 12:13 PM
--- NOTE | 2024-10-08 13:23 | Anesthesiology Progress Note ---
Date of Service October 08, 2024 Anesthesia Post Procedure Vital Signs Vital Signs: Temp Pulse Pulse Resp BP Pulse Ox O2 Del Method 10/08/24 13:15 99 H 15 151/86 H 96 Nasal Cannula 10/08/24 13:00 95 H 12 132/78 96 Nasal Cannula 10/08/24 12:45 92 H 12 142/96 H 94 Nasal Cannula 10/08/24 12:35 37.0 C 96 H 12 135/84 96 Nasal Cannula 10/08/24 12:25 95 H 13 140/86 94 Nasal Cannula 10/08/24 12:15 93 H 12 150/87 H 93 Oxymask 10/08/24 12:05 99 H 14 159/98 H 97 Oxymask 10/08/24 11:55 93 H 12 134/81 93 Oxymask 10/08/24 11:47 36.1 C L 95 H 16 134/80 94 Oxymask 10/08/24 08:30 37 C 90 20 123/102 H 97 Room Air O2 Flow Rate 10/08/24 13:15 2 10/08/24 13:00 2 10/08/24 12:45 2 10/08/24 12:35 2 10/08/24 12:25 2 10/08/24 12:15 6 10/08/24 12:05 6 10/08/24 11:55 6 10/08/24 11:47 6 10/08/24 08:30 Pain Intensity Lower Back: Pain Intensity: 3 Transfer of Care Handoff Completed per policy Notes Mental Status: alert / awake / arousable and participated in evaluation Patient Amnestic to Procedure: Yes Nausea / Vomiting: adequately controlled Pain: adequately controlled Airway Patency, RR, SpO2: stable & adequate BP & HR: stable & adequate Hydration State: stable & adequate Anesthetic Complications: no major complications apparent
[2024-10-08] MEDS ORDERED: PROMETHAZINE 12.5 MG/50.5 ML BAG IV PRN (13:54)
[2024-10-08] MEDS ORDERED: hydrOXYzine HCl 25 MG TAB PO PRN (13:54)
[2024-10-08] MEDS ORDERED: diphenhydrAMINE Capsule 25 MG CAP PO PRN (13:54)
[2024-10-08] MEDS ORDERED: SOD PHOSPHATE/SOD BIPHOSPHATE ENEMA 132 ML BTL PR PRN (13:54)
[2024-10-08] MEDS ORDERED: ALUMINUM/MAGNESIUM SUSP 30 ML UDC PO PRN (13:54)
[2024-10-08] MEDS ORDERED: METOCLOPRAMIDE HCL INJ 5 MG/ML 2 ML VIAL IV PRN (13:54)
[2024-10-08] MEDS ORDERED: ONDANSETRON 4 MG OD TAB PO PRN (13:54)
[2024-10-08] MEDS ORDERED: HYDROmorphone INJ 0.5 MG/0.5 ML SYR IV PRN (13:54)
[2024-10-08] MEDS ORDERED: DO NOT ADMINISTER FLU VACCINE PRN (13:54)
[2024-10-08] MEDS ORDERED: NALOXONE HCL 0.4 MG/1 ML VIAL/CARP IV PRN (13:54)
[2024-10-08] MEDS ORDERED: DO NOT ADMINISTER PNEUMOCOCCAL VACCINE PRN (13:54)
[2024-10-08] MEDS ORDERED: BACLOFEN 10 MG TAB PO PRN (13:54)
[2024-10-08] MEDS ORDERED: LORazepam 2 MG/1 ML VIAL IV PRN (13:54)
[2024-10-08] MEDS ORDERED: bisacodyL 10 MG SUPP PR PRN (13:54)
[2024-10-08] MEDS ORDERED: FAMOTIDINE 20 MG TAB PO PRN (13:54)
[2024-10-08] MEDS: HYDROmorphone INJ 1 MG/ML SYRINGE IV PRN (14:13)
--- NOTE | 2024-10-08 14:17 | Hospitalist Consultation ---
<Statement entered by Get Haque DO - 10/08/24 17:27> I have seen and examined the patient and have discussed the case with the advance practice provider. I have reviewed the advanced practitioner's documentation, and I agree with, and take responsibility for that plan of care. Patient in bed, doing well postoperatively. Pain is controlled. Plan of care as outlined below I spent a total of 10 minutes coordinating, documenting, and providing care for this patient excluding time spent by another provider/QHP. Date of Consultation October 08, 2024 Assessment & Plan (1) Multilevel lumbosacral spondylosis with radiculopathy: (2) Chronic back pain: -Status post lumbar decompression fusion surgery on 10/08/[address] Ken - POD #0, lumbar decompression fusion from L4-S1. - Pain management, bowel regimen and DVT ppx per the primary team - PT/OT consults, pt is planning on outpatient therapy with short inpatient stays - Monitor for acute blood loss, Last hgb of 14.1 on 09/24/24 (3) HTN (hypertension): - May continue home medication including lisinopril - aspirin per surgery after 24 hours - Atorvastatin 40 mg at bedtime (4) Prediabetes: -Last A1c is 5.7 on 09/24/2024 - Encourage diet and exercise (5) GERD (gastroesophageal reflux disease): -Continue PPI with omeprazole (6) Morbid obesity: - Controlled diet and exercise for encouraged throughout hospital stay (7) Migraines: -Continue topiramate, venlafaxine, gabapentin, also uses Nurotec ODT prn, last used it 3 days ago. DVT ppx: teds, scds Lines: PIV x 1 FEN/GI: HTN CODE: Full code Dispo: From home, likely to remain in the hospital x 1-2 days, CM to asses with dc planning for potential inpatient stay after acute hospital stay. I spent a total of 37 minutes with greater than 50% of that time face to face with the patient, personally reviewing all current laboratories, imaging studies, past medication reconciliation, outpatient chart review, and discussion with specialists to collaborate care for the patient excluding time spent in the performance of separately billed services or time spent by another provider/QHP. Please see attending documentation for corrections and/or additions. History of Present Illness Reason for Consultation: Medical management Requesting Physician: Dr. Ken Attending Physician: Danielito Ken, DO History of Present Illness This is a 53 yo F with PMHx HTN, HLD, hypertensive urgency, prediabetes, depression, GERD, complex migraine, morbid obesity, known history of left vertebral artery aneurysm, severe headaches, TIA in November 2023, who presents to the hospital for elective lumbar decompression fusion from L4-S1 by Dr. Ken on 10/08/2024 for a lumbosacral spondylosis with radiculopathy, lumbar spinal stenosis, DDD. She states that since having surgery she feels much improved, can move her legs without difficulty, no numbness or tingling. She also notes that she is looking for a short inpatient stay if at all possible as she has minimal assistance at home as well as a large pet coon dog who is not well-trained, jumps, also worried about potential injury. Last bowel movement was this morning. She is tolerating sips of fluid without any difficulty. Reports having a sore throat and is requesting Chloraseptic/cough drop which was ordered at bedside. She did not take antihypertensive medication this morning. Patient notes significant anxiety and typically uses Ativan 1 mg at least once per day but is prescribed up to every 8 hours as needed for anxiety. She did denies any other acute complaints. ANALY drain is in place. Urinary catheter is in place draining clear yellow urine. Allergies Allergy/AdvReac Type Severity Reaction Status Date / Time venom-wasp Allergy Severe Anaphylaxis Verified 10/08/24 08:20 -- Yellow jackets Sulfa (Sulfonamide Allergy Intermediate Hives Verified 10/08/24 08:20 Antibiotics) mold Allergy Mild Congested Verified 10/08/24 08:20 cortisone AdvReac Severe Vomiting Verified 10/08/24 08:20 Home Medications Medication Instructions Recorded Confirmed Type atorvastatin 40 mg tablet (Lipitor) 40 mg PO HS 05/13/18 10/08/24 History epinephrine 0.3 mg/0.3 mL 0.3 mg IM Q3H PRN Allergic Reaction 05/13/18 10/08/24 History injection, auto-injector (EpiPen) venlafaxine 75 mg capsule,extended 75 mg PO QAM 04/12/19 10/08/24 History release 24 hr aspirin 81 mg tablet,delayed 81 mg PO QAM 05/05/21 10/08/24 History release (Fadia Low Dose Aspirin) baclofen 10 mg tablet 10 mg PO HS PRN MUSCLE SPASMS 02/14/24 10/08/24 History gabapentin 800 mg tablet 800 mg PO TID 02/14/24 10/08/24 History lisinopril 20 mg tablet 20 mg PO QAM 02/14/24 10/08/24 History lorazepam 1 mg tablet (Ativan) 1 mg PO Q8H PRN Anxiety 02/14/24 10/08/24 History omeprazole 20 mg capsule,delayed 20 mg PO DAILYBB 02/14/24 10/08/24 History release ondansetron 4 mg disintegrating 4 mg translingual Q8H PRN 02/14/24 10/08/24 History tablet NAUSEA/VOMITING cholecalciferol (vitamin D3) 125 125 mcg PO BID 09/18/24 10/08/24 History mcg (5,000 unit) tablet (Vitamin D3) rimegepant 75 mg disintegrating 75 mg PO DAILY PRN Migraine 09/18/24 10/08/24 History tablet (Nurtec ODT) Headache topiramate 50 mg tablet (Topamax) 50 mg PO BID 09/18/24 10/08/24 History Patient History Medical History Anxiety Asthma Per records, patient denies CVA (cerebral vascular accident) 2016- possible CVA (per [facility] records, slurred speech/left sided weakness, treated with TPA administration, brain/head/carotid imaging unremarkable/no acute process, possible complicated migraine) Follows with [facility] neurology GERD (gastroesophageal reflux disease) HTN (hypertension) Hyperlipidemia IBS (irritable bowel syndrome) Migraines Hx hemiplegic migraines per records 02/2024- [facility] admission for stroke-like symptoms, complex migraine/hypertensive urgency per discharge summary Follows with [facility] neurology Morbid obesity Prediabetes Hx diabetes and prediabetes listed in records HgbA1C 02/15/24 5.8% Prolonged QT interval Per records Sleep apnea "not bad enough to need a device" as per patient Surgical History History of cholecystectomy History of hysterectomy Hx of colonoscopy Hx of sinus surgery polyp removal Family History Other Breast cancer Social History Smoking Status: Never smoker Second Hand Exposure: No; Do You Dip or Chew Tobacco: No; Tobacco Cessation Education Requested by Patient: No Hx Alcohol Use: No Hx Substance Use: No Preferred Language: Mongolian Communication Ability: Effective Cane Flume Watchman Required: No Beliefs That Will Affect Care: None Current Living Situation: Spouse Other Information That Helps Us Care for You: No Feels Safe at Home: Yes Safety Concerns: Feels Safe At This Time Assistive Devices: Glasses Review of Systems Review of Systems: Constitutional: No fever, sweats or chills Eyes: No diplopia, no worsening or blurred vision ENT: normal hearing, no trouble swallowing Respiratory: No cough, sputum, dyspnea at rest or on exertion Cardiovascular: No chest pain, tightness or palpitations Abdomen: No pain, nausea, vomiting, diarrhea or constipation Musculoskeletal: No joint pain, calf pain, swelling Neurologic: No weakness, numbness/tingling, or balance problems Psychiatric: No anxiety or depression Skin: No rash or itch Physical Exam Physical Exam: General: awake, alert, no apparent distress, obese white female Head: Normocephalic, atraumatic ENT: PERRL, EOMI, no pharyngeal exudate, mucous membranes moist Chest: Clear to auscultation, on room air, O2 sats at 93 to 94% with conversation, no adventitious breath sounds Cardiac: Regular rate and rhythm, heart rate in mid 90s at bedside, no murmur, no JVD, normal peripheral pulses, good capillary refill Abdominal: NABS x 4 quadrants, soft, nondistended, nontender to palpation, no rebound or guarding : Jeffries catheter draining clear yellow urine Back: Dressing C/D/I, ANALY drain with serosanguineous outs Extremities: Normal inspection, no peripheral edema or erythema, calfs nontender to palpation Psych: Normal mood and affect Neuro: AAO x 3, strength intact bilaterally and rated 5/5, no motor deficits, speech is clear, no peripheral sensory deficits Results & Data Results & Data Vital Signs (Past 12 Hours) Vital Signs Temp Pulse Pulse Resp BP Pulse Ox O2 Del Method 10/08/24 13:30 104 H 12 137/76 95 Nasal Cannula 10/08/24 13:15 99 H 15 151/86 H 96 Nasal Cannula 10/08/24 13:00 95 H 12 132/78 96 Nasal Cannula 10/08/24 12:45 92 H 12 142/96 H 94 Nasal Cannula 10/08/24 12:35 37.0 C 96 H 12 135/84 96 Nasal Cannula 10/08/24 12:25 95 H 13 140/86 94 Nasal Cannula 10/08/24 12:15 93 H 12 150/87 H 93 Oxymask 10/08/24 12:05 99 H 14 159/98 H 97 Oxymask 10/08/24 11:55 93 H 12 134/81 93 Oxymask 10/08/24 11:47 36.1 C L 95 H 16 134/80 94 Oxymask 10/08/24 08:30 37 C 90 20 123/102 H 97 Room Air O2 Flow Rate 10/08/24 13:30 2 10/08/24 13:15 2 10/08/24 13:00 2 10/08/24 12:45 2 10/08/24 12:35 2 10/08/24 12:25 2 10/08/24 12:15 6 10/08/24 12:05 6 10/08/24 11:55 6 10/08/24 11:47 6 10/08/24 08:30 Laboratory Results 10/08/24 08:18 POC Glucose 115 H Diagnostic Findings Lumbar Spine X-Ray 10/08/24 09:35 FL lumbar spine 2-3V CLINICAL HISTORY: L5-S1 DECOMPRESSION AND FUSION COMPARISON STUDY: None FLUOROSCOPY TIME: 23 seconds FLUOROSCOPY IMAGES: 2 EXPOSURE DOSE: 22 mGy FINDINGS: Fluoroscopy was provided for metallic fusion at L5-S1. IMPRESSION: Intraoperative fluoroscopy. ACT 112: Negative or not required by law. Electronically signed by: Lior Arthur M.D. 10/08/2024 12:13 PM (3) HTN (hypertension) Hypertension type: unspecified Qualified Code(s): I10 - Essential (primary) hypertension
[2024-10-08] MEDS: GABAPENTIN 800 MG TAB PO SCH (15:09)
[2024-10-08] MEDS ORDERED: COUGH DROP (SUGAR FREE) LOZ 24 LOZ/1 BOX BUCCAL PRN (15:14)
[2024-10-08] MEDS: COUGH DROP (SUGAR FREE) LOZ 24 LOZ/1 BOX BUCCAL STA (16:20)
[2024-10-08] MEDS: CHLORASEPTIC (PHENOL) 1.4% SOLN 180 ML BTL MT PRN (16:57)
[2024-10-08] MEDS: ceFAZolin 2000MG 2,000 MG/15 ML SYR IV SCH (18:19)
[2024-10-08] MEDS: traMADol HCL 50 MG TABLET PO PRN (18:29)
[2024-10-08] MEDS: DOCUSATE SODIUM/SENNA 50/8.6MG TAB PO SCH (20:09)
[2024-10-08] MEDS: ATORVASTATIN 40 MG TAB PO SCH (20:09)
[2024-10-08] MEDS: CHOLECALCIFEROL 125 MCG (5,000 UNITS) TAB PO SCH (20:09)
[2024-10-08] MEDS: TOPIRAMATE 50 MG TAB PO SCH (20:10)
[2024-10-08] MEDS: oxyCODONE HCL IR 5 MG TAB (IMMEDIATE RELEASE) PO PRN (20:12)
[2024-10-08] MEDS: Patient's ALLERGY Info needs ENTERED SCH (21:32)
[2024-10-09] MEDS: POLYETHYLENE (MIRALAX) 17 GM PACK PO SCH (06:19)
[2024-10-09] MEDS: PANTOprazole 40 MG TAB PO SCH (06:19)
[2024-10-09 06:35] LABS: BUN Creatinine Ratio 20.9 (10-20); Calcium 8.5 mg/dl (8.6-10.3); Creatinine Clr Calc Pharmacy 128.9 ml/min; Potassium 4.1 mmol/L (3.5-5.1)
[2024-10-09 06:37] LABS: Basophils # (auto) 0.02 K/uL (0.00-0.20); Basophils % (auto) 0.1 %; Hematocrit (blood only) 36.1 % (37.0-47.0); Hemoglobin 12.7 g/dl (12.0-16.0); Immature Granulocytes # (auto) 0.28 K/uL (0.01-0.20); Immature Granulocytes % (auto) 1.9 %; Lymphocytes # (auto) 1.68 K/uL (1.20-3.40); Lymphocytes % (auto) 11.7 %; Mean Corpuscular Hemoglobin 30.6 pg (25.0-34.0); Mean Corpuscular Hgb Conc 35.2 g/dL (32.0-36.0); Mean Platelet Volume 9.2 fL (9.4-12.4); Monocytes # (auto) 0.85 K/uL (0.11-0.59); Monocytes % (auto) 5.9 %; Neutrophils # (auto) 11.57 K/uL (1.40-6.50); Neutrophils % (auto) 80.4 %; Platelet Count 301 K/uL (130-400); RDW Coefficient of Variation 12.5 % (11.5-14.5); RDW Standard Deviation 39.2 fL (36.4-46.3); Red Blood Count 4.15 M/uL (4.20-5.40)
[2024-10-09] MEDS: dexAMETHasone 6 MG in SYRINGE 0 ML IV SCH (08:26)
[2024-10-09] MEDS: ASPIRIN 81 MG ECTAB PO SCH (08:27)
[2024-10-09] MEDS: lisinopril 20 MG TAB PO SCH (08:27)
[2024-10-09] MEDS: ACETAMINOPHEN 1,000 MG/100 ML VIAL IV PRN (08:27)
[2024-10-09] MEDS: VENLAFAXINE HCL XR 75 MG CAPXR PO SCH (08:27)
--- NOTE | 2024-10-09 08:39 | Hospitalist Progress Note ---
Date of Service October 09, 2024 Assessment & Plan (1) Multilevel lumbosacral spondylosis with radiculopathy: (2) Chronic back pain: Plan: -Status post lumbar decompression fusion surgery on 10/08/[address] Ken - POD #1, lumbar decompression fusion from L4-S1. - Pain management, bowel regimen and DVT ppx per the primary team - PT/OT consults, pt is planning on outpatient therapy with short inpatient stays - Monitor for acute blood loss, Last hgb of 14.1 on 09/24/24, current Hgb 12.7 - cont. to monitor (3) HTN (hypertension): Plan: - May continue home medication including lisinopril - aspirin per surgery after 24 hours - Atorvastatin 40 mg at bedtime (4) Prediabetes: Plan: -Last A1c is 5.7 on 09/24/2024 - Encourage diet and exercise (5) GERD (gastroesophageal reflux disease): Plan: -Continue PPI with omeprazole (6) Morbid obesity: Plan: - Counselling provided, will need outpt follow up (7) Migraines: Plan: -Continue topiramate, venlafaxine, gabapentin, also uses Nurotec ODT prn, last used it 3 days ago. DVT ppx - per surgeon Lines: PIV x 1 CODE: Full code Dispo: From home, likely to remain in the hospital x 1-2 days, CM to asses with dc planning for potential inpatient stay after acute hospital stay. Admission and Anticipated Discharge Date Admission Date: October 08, 2024 Subjective Pt seen in follow up of med consult, pt s/p lumbar spine surgery Currently lying in bed in NAD reports has + right foot right sided numbness, she is able to move her feet, move LEs says she worked w/ PT + Nesha BEE RN at the bedside no fever, chills, chest pain, shortness of breath, no abd. pain, n/v Review of Systems Review of Systems: All systems reviewed & are unremarkable except as noted in Subjective Physical Exam Physical Exam: General: awake, alert, no apparent distress, obese white female Head: Normocephalic, atraumatic ENT: PERRL, EOMI Chest: Clear to auscultation, on room air Cardiac: Regular rate and rhythm, heart rate in mid 90s at bedside, no murmur, no JVD Abdominal: NABS x 4 quadrants, soft, nondistended, nontender to palpation : Jeffries catheter draining clear yellow urine Back: Dressing C/D/I, ANALY drain with serosanguineous outs Extremities: Normal inspection, no peripheral edema or erythema, + moves extremities Psych: Normal mood and affect Neuro: AAO x 3, speech is clear, answers appropriately, moves extremities Results & Data Results & Data Vital Signs (Past 12 Hours) Vital Signs Temp Pulse Pulse Resp BP Pulse Ox O2 Del Method 10/09/24 08:15 37.4 C 96 H 18 161/92 H 96 Room Air 10/09/24 00:00 36.6 C 89 89 12 122/77 90 Room Air Laboratory Results 10/09/24 Range/Units 05:55 WBC 14.40 H (4.8-10.8) K/ul RBC 4.15 L (4.20-5.40) M/uL Hgb 12.7 (12.0-16.0) g/dl Hct 36.1 L (37.0-47.0) % MCV 87.0 (80.0-100.0) fL MCH 30.6 (25.0-34.0) pg MCHC 35.2 (32.0-36.0) g/dL RDW Std Deviation 39.2 (36.4-46.3) fL RDW Coeff of Chang 12.5 (11.5-14.5) % Plt Count 301 (130-400) K/uL MPV 9.2 L (9.4-12.4) fL Immature Gran % (Auto) 1.9 % Neut % (Auto) 80.4 % Lymph % (Auto) 11.7 % Kane % (Auto) 5.9 % Eos % (Auto) 0.0 % Baso % (Auto) 0.1 % Neut # (Auto) 11.57 H (1.40-6.50) K/uL Lymph # (Auto) 1.68 (1.20-3.40) K/uL Kane # (Auto) 0.85 H (0.11-0.59) K/uL Eos # (Auto) 0.00 (0.00-0.50) K/uL Baso # (Auto) 0.02 (0.00-0.20) K/uL Immature Gran # (Auto) 0.28 H (0.01-0.20) K/uL Sodium 135 L (136-145) mmol/L Potassium 4.1 (3.5-5.1) mmol/L Chloride 100 (98-107) mmol/L Carbon Dioxide 28 (21-32) mmol/L Anion Gap 7 (3-11) BUN 14 (6-23) mg/dl Creatinine 0.67 (0.6-1.2) mg/dl Est Cr Clr Drug Dosing 128.9 ml/min eGFR 105.10 BUN/Creatinine Ratio 20.9 H (10-20) Glucose 119 H (70-99(Fasting)) mg/dl Calcium 8.5 L (8.6-10.3) mg/dl Medications Administered Current Inpatient Medications Acetaminophen (Acetaminophen 500 Mg Tab) 1,000 mg PO Q8H PRN PRN Reason: MILD Pain Scale 1,2,3 & Pre PT Stop: 11/07/24 13:53 Al Hydrox/Mg Hydrox/Simethicone (Aluminum/Magnesium Susp 30 Ml Udc) 30 ml PO Q6H PRN PRN Reason: Dyspepsia Stop: 11/07/24 13:53 Aspirin (Aspirin 81 Mg Ectab) 81 mg PO QAM [facility] Stop: 11/08/24 08:59 Last Admin: 10/09/24 08:27 Dose: 81 mg Atorvastatin Calcium (Atorvastatin 40 Mg Tab) 40 mg PO HS [facility] Stop: 11/07/24 20:59 Last Admin: 10/08/24 20:09 Dose: 40 mg Baclofen (Baclofen 10 Mg Tab) 10 mg PO HS PRN PRN Reason: MUSCLE SPASMS Stop: 11/07/24 13:53 Bisacodyl (Bisacodyl 10 Mg Supp) 10 mg ME DAILY PRN PRN Reason: Constipation Stop: 11/07/24 13:53 Diphenhydramine HCl (Diphenhydramine Capsule 25 Mg Cap) 25 mg PO Q6H PRN PRN Reason: Allergic Rhinitis/Insomnia Stop: 11/07/24 13:53 Famotidine (Famotidine 20 Mg Tab) 20 mg PO Q12H PRN PRN Reason: Dyspepsia Stop: 11/07/24 13:53 Gabapentin (Gabapentin 800 Mg Tab) 800 mg PO TID [facility] Stop: 11/07/24 13:59 Last Admin: 10/09/24 08:27 Dose: 800 mg Hydromorphone HCl (Hydromorphone Inj 0.5 Mg/0.5 Ml Syr) 0.5 mg IV Q3H PRN PRN Reason: MODERATE Pain (Scale 4,5,6) & Pre PT Stop: 10/22/24 13:53 Hydromorphone HCl (Hydromorphone Inj 1 Mg/Ml Syringe) 1 mg IV Q3H PRN PRN Reason: SEVERE Pain (Scale 7,8,9,10) Stop: 10/22/24 13:53 Last Admin: 10/08/24 23:03 Dose: 1 mg Hydroxyzine HCl (Hydroxyzine Hcl 25 Mg Tab) 25 mg PO Q8H PRN PRN Reason: Anxiety Stop: 11/07/24 13:53 Acetaminophen (Ofirmev) 1,000 mg in 100 mls @ 400 mls/hr IV Q8H PRN PRN Reason: Pain Rating 1-3 & Pre PT Stop: 10/09/24 13:54 Last Admin: 10/09/24 08:27 Dose: 400 mls/hr Promethazine HCl (Phenergan) 12.5 mg in 50.5 mls @ 202 mls/hr IV Q6H PRN PRN Reason: Nausea And Vomiting Stop: 11/07/24 13:53 Dexamethasone 6 mg/ Syringe 1.5 mls @ 1 mls/min IV DAILY [facility] Stop: 10/11/24 09:02 Last Admin: 10/09/24 08:26 Dose: 1 mls/min Influenza Virus Vaccine Quadrival (Do Not Administer Flu Vaccine) 1 each N/A PRN PRN PRN Reason: Notification Stop: 11/07/24 13:53 Lisinopril (Lisinopril 20 Mg Tab) 20 mg PO QAM [facility] Stop: 11/08/24 08:59 Last Admin: 10/09/24 08:27 Dose: 20 mg Lorazepam (Lorazepam 0.5 Mg Tab) 0.5 mg PO Q8H PRN PRN Reason: Sedation/Anxiety Stop: 11/07/24 13:53 Lorazepam (Lorazepam 2 Mg/1 Ml Vial) 0.5 mg IV Q8H PRN PRN Reason: Sedation/Anxiety Stop: 11/07/24 13:53 Magnesium Hydroxide (Magnesium Hydroxide Susp 30 Ml Udc) 30 ml PO Q24H PRN PRN Reason: Constipation Stop: 11/07/24 13:53 Menthol (Cough Drop (Sugar Free) Susan 24 Susan/1 Box) 1 susan BUCCAL Q1H PRN PRN Reason: Sore Throat Stop: 11/07/24 15:13 Metoclopramide HCl (Metoclopramide Hcl Inj 5 Mg/Ml 2 Ml Vial) 10 mg IV Q6H PRN PRN Reason: Nausea &/or Vomiting Stop: 11/07/24 13:53 Miscellaneous (Order Awaiting Action - Bannerte) 1 each N/A QS [facility] Stop: 11/07/24 15:59 Last Admin: 10/09/24 07:13 Dose: Not Given Naloxone HCl (Naloxone Hcl 0.4 Mg/1 Ml Vial/Carp) 0.1 mg IV Q5M PRN PRN Reason: Oversedation/Resp depression Stop: 11/07/24 13:53 Ondansetron HCl (Ondansetron Inj 2 Mg/Ml 2 Ml Vial) 4 mg IV Q6H PRN PRN Reason: Nausea &/or Vomiting Stop: 11/07/24 13:53 Ondansetron HCl (Ondansetron 4 Mg Od Tab) 4 mg PO Q6H PRN PRN Reason: Nausea Stop: 11/07/24 13:53 Oxycodone HCl (Oxycodone Hcl Ir 5 Mg Tab (Immediate Release)) 5 - 10 mg PO Q4H PRN PRN Reason: Pain & Pre PT Stop: 10/22/24 13:53 Last Admin: 10/09/24 06:19 Dose: 5 mg Pantoprazole Sodium (Pantoprazole 40 Mg Tab) 40 mg PO DAILYBB [facility] Stop: 11/08/24 06:29 Last Admin: 10/09/24 06:19 Dose: 40 mg Phenol (Chloraseptic (Phenol) 1.4% Soln 180 Ml Btl) 2 sprays MT Q2H PRN PRN Reason: Sore Throat Stop: 11/07/24 15:13 Last Admin: 10/08/24 16:57 Dose: 2 sprays Pneumococcal Polyvalent Vaccine (Do Not Administer Pneumococcal Vaccine) 1 each N/A PRN PRN PRN Reason: Notification Stop: 11/07/24 13:53 Polyethylene Glycol (Polyethylene (Miralax) 17 Gm Pack) 17 gm PO Q6 [facility] Stop: 11/08/24 05:59 Last Admin: 10/09/24 06:19 Dose: 17 gm Senna/Docusate Sodium (Docusate Sodium/Senna 50/8.6mg Tab) 2 tab PO HS [facility] Stop: 11/07/24 20:59 Last Admin: 10/08/24 20:09 Dose: 2 tab Sodium Biphosphate/Sodium Phosphate (Sod Phosphate/Sod Biphosphate Enema 132 Ml Btl) 132 ml ME ONE PRN PRN Reason: Constipation Stop: 11/07/24 13:53 Topiramate (Topiramate 50 Mg Tab) 50 mg PO BID [facility] Stop: 11/07/24 20:59 Last Admin: 10/09/24 08:26 Dose: 50 mg Tramadol HCl (Tramadol Hcl 50 Mg Tablet) 50 - 100 mg PO Q4H PRN PRN Reason: Moderate-Severe pain & Pre PT Stop: 11/07/24 13:53 Last Admin: 10/09/24 02:25 Dose: 50 mg Venlafaxine HCl (Venlafaxine Hcl Xr 75 Mg Capxr) 75 mg PO QAM [facility] Stop: 11/08/24 08:59 Last Admin: 10/09/24 08:27 Dose: 75 mg Vitamin D (Cholecalciferol 125 Mcg (5,000 Units) Tab) 125 mcg PO BID [facility] Stop: 11/07/24 20:59 Last Admin: 10/09/24 08:27 Dose: 125 mcg (3) HTN (hypertension) Hypertension type: unspecified Qualified Code(s): I10 - Essential (primary) hypertension
--- NOTE | 2024-10-09 12:05 | Orthopedic Progress Note ---
Date of Service October 09, 2024 Assessment & Plan (1) Multilevel lumbosacral spondylosis with radiculopathy: Plan: this time we will continue patient physical therapy occupational therapy and plan for rehab placement as soon as bed available. Admission and Anticipated Discharge Date Admission Date: October 08, 2024 Subjective Back pain controlled still struggling some leg numbness and tingling and weakness. Physical Exam Physical Exam: Patient is currently in bed. He has regional strength testing. Results & Data Vital Signs (Past 12 Hours) Vital Signs Temp Pulse Resp BP Pulse Ox O2 Del Method 10/09/24 08:15 37.4 C 96 H 18 161/92 H 96 Room Air Queries Orthopedic Spine Obesity: Yes
[2024-10-10] MEDS: ACETAMINOPHEN 500 MG TAB PO PRN (06:22)
[2024-10-10 07:38] LABS: Hematocrit (blood only) 35.9 % (37.0-47.0); Hemoglobin 12.1 g/dl (12.0-16.0); Mean Corpuscular Hemoglobin 30.3 pg (25.0-34.0); Mean Corpuscular Hgb Conc 33.7 g/dL (32.0-36.0); Mean Platelet Volume 9.5 fL (9.4-12.4); Platelet Count 258 K/uL (130-400); RDW Coefficient of Variation 12.8 % (11.5-14.5); RDW Standard Deviation 41.9 fL (36.4-46.3); Red Blood Count 3.99 M/uL (4.20-5.40); White Blood Count 12.93 K/ul (4.8-10.8)
[2024-10-10 07:52] LABS: BUN Creatinine Ratio 31.1 (10-20); Calcium 8.6 mg/dl (8.6-10.3); Creatinine Clr Calc Pharmacy 141.5 ml/min; Magnesium 2.1 mg/dl (1.7-2.4); Phosphorus 3.2 mg/dl (2.5-4.9); Potassium 4.1 mmol/L (3.5-5.1)
--- NOTE | 2024-10-10 09:14 | Hospitalist Progress Note ---
Date of Service October 10, 2024 Assessment & Plan (1) Multilevel lumbosacral spondylosis with radiculopathy: (2) Chronic back pain: Plan: -Status post lumbar decompression fusion surgery on 10/08/[address] Ken - POD #2, lumbar decompression fusion from L4-S1. - Pain management, bowel regimen and DVT ppx per the primary team - PT/OT consults, pt is planning on outpatient therapy with short inpatient stays - Monitor for acute blood loss, Pre-op hgb of 14.1 on 09/24/24, post-op Hgb 12.7 , now 12.1 - stable, cont. to monitor (3) HTN (hypertension): Plan: - May continue home medication including lisinopril - aspirin per surgery after 24 hours - Atorvastatin 40 mg at bedtime (4) Prediabetes: Plan: -Last A1c is 5.7 on 09/24/2024 - Encourage diet and exercise (5) GERD (gastroesophageal reflux disease): Plan: -Continue PPI with omeprazole (6) Morbid obesity: Plan: - Counselling provided, will need outpt follow up (7) Migraines: Plan: -Continue topiramate, venlafaxine, gabapentin, also uses Nurotec ODT prn DVT ppx - per surgeon CODE: Full code Dispo: From home, likely to remain in the hospital x 1-2 days, CM to asses with dc planning for potential inpatient stay after acute hospital stay. Admission and Anticipated Discharge Date Admission Date: October 08, 2024 Subjective Pt seen in follow up of med consult, pt s/p lumbar spine surgery Currently pt sitting up in bed in NAD reports has + right foot right sided numbness, she is able to move her feet, moves LEs says she worked w/ PT, plan for rehab - encompass no fever, chills, chest pain, shortness of breath, no abd. pain, n/v Review of Systems Review of Systems: All systems reviewed & are unremarkable except as noted in Subjective Physical Exam Physical Exam: General: awake, alert, no apparent distress, obese F Head: Normocephalic, atraumatic ENT: PERRL, EOMI Chest: Clear to auscultation, on room air Cardiac: Regular rate and rhythm, no murmur, no JVD Abdominal: NABS x 4 quadrants, soft, nondistended, nontender to palpation Back: Dressing C/D/I, ANALY drain with serosanguineous outs Extremities: Normal inspection, no peripheral edema or erythema, + moves extremities Psych: Normal mood and affect Neuro: AAO x 3, speech is clear, answers appropriately, moves extremities Results & Data Results & Data Vital Signs (Past 12 Hours) Vital Signs Temp Pulse Resp BP Pulse Ox O2 Del Method 10/10/24 07:26 36.5 C 63 19 123/80 97 Room Air 10/09/24 22:18 36.6 C 69 14 123/73 94 Room Air Laboratory Results 10/10/24 Range/Units 06:21 WBC 12.93 H (4.8-10.8) K/ul RBC 3.99 L (4.20-5.40) M/uL Hgb 12.1 (12.0-16.0) g/dl Hct 35.9 L (37.0-47.0) % MCV 90.0 (80.0-100.0) fL MCH 30.3 (25.0-34.0) pg MCHC 33.7 (32.0-36.0) g/dL RDW Std Deviation 41.9 (36.4-46.3) fL RDW Coeff of Chang 12.8 (11.5-14.5) % Plt Count 258 (130-400) K/uL MPV 9.5 (9.4-12.4) fL Sodium 138 (136-145) mmol/L Potassium 4.1 (3.5-5.1) mmol/L Chloride 103 (98-107) mmol/L Carbon Dioxide 29 (21-32) mmol/L Anion Gap 6 (3-11) BUN 19 (6-23) mg/dl Creatinine 0.61 (0.6-1.2) mg/dl Est Cr Clr Drug Dosing 141.5 ml/min eGFR 107.50 BUN/Creatinine Ratio 31.1 H (10-20) Glucose 104 H (70-99(Fasting)) mg/dl Calcium 8.6 (8.6-10.3) mg/dl Phosphorus 3.2 (2.5-4.9) mg/dl Magnesium 2.1 (1.7-2.4) mg/dl Medications Administered Current Inpatient Medications Acetaminophen (Acetaminophen 500 Mg Tab) 1,000 mg PO Q8H PRN PRN Reason: MILD Pain Scale 1,2,3 & Pre PT Stop: 11/07/24 13:53 Last Admin: 10/10/24 06:22 Dose: 1,000 mg Al Hydrox/Mg Hydrox/Simethicone (Aluminum/Magnesium Susp 30 Ml Udc) 30 ml PO Q6H PRN PRN Reason: Dyspepsia Stop: 11/07/24 13:53 Aspirin (Aspirin 81 Mg Ectab) 81 mg PO QAM [facility] Stop: 11/08/24 08:59 Last Admin: 10/10/24 07:42 Dose: 81 mg Atorvastatin Calcium (Atorvastatin 40 Mg Tab) 40 mg PO HS [facility] Stop: 11/07/24 20:59 Last Admin: 10/09/24 19:55 Dose: 40 mg Baclofen (Baclofen 10 Mg Tab) 10 mg PO HS PRN PRN Reason: MUSCLE SPASMS Stop: 11/07/24 13:53 Bisacodyl (Bisacodyl 10 Mg Supp) 10 mg ID DAILY PRN PRN Reason: Constipation Stop: 11/07/24 13:53 Diphenhydramine HCl (Diphenhydramine Capsule 25 Mg Cap) 25 mg PO Q6H PRN PRN Reason: Allergic Rhinitis/Insomnia Stop: 11/07/24 13:53 Famotidine (Famotidine 20 Mg Tab) 20 mg PO Q12H PRN PRN Reason: Dyspepsia Stop: 11/07/24 13:53 Gabapentin (Gabapentin 800 Mg Tab) 800 mg PO TID [facility] Stop: 11/07/24 13:59 Last Admin: 10/10/24 07:41 Dose: 800 mg Hydromorphone HCl (Hydromorphone Inj 0.5 Mg/0.5 Ml Syr) 0.5 mg IV Q3H PRN PRN Reason: MODERATE Pain (Scale 4,5,6) & Pre PT Stop: 10/22/24 13:53 Hydromorphone HCl (Hydromorphone Inj 1 Mg/Ml Syringe) 1 mg IV Q3H PRN PRN Reason: SEVERE Pain (Scale 7,8,9,10) Stop: 10/22/24 13:53 Last Admin: 10/09/24 10:17 Dose: 1 mg Hydroxyzine HCl (Hydroxyzine Hcl 25 Mg Tab) 25 mg PO Q8H PRN PRN Reason: Anxiety Stop: 11/07/24 13:53 Promethazine HCl (Phenergan) 12.5 mg in 50.5 mls @ 202 mls/hr IV Q6H PRN PRN Reason: Nausea And Vomiting Stop: 11/07/24 13:53 Dexamethasone 6 mg/ Syringe 1.5 mls @ 1 mls/min IV DAILY [facility] Stop: 10/11/24 09:02 Last Admin: 10/10/24 07:41 Dose: 1 mls/min Influenza Virus Vaccine Quadrival (Do Not Administer Flu Vaccine) 1 each N/A PRN PRN PRN Reason: Notification Stop: 11/07/24 13:53 Lisinopril (Lisinopril 20 Mg Tab) 20 mg PO QAM [facility] Stop: 11/08/24 08:59 Last Admin: 10/10/24 07:41 Dose: 20 mg Lorazepam (Lorazepam 0.5 Mg Tab) 0.5 mg PO Q8H PRN PRN Reason: Sedation/Anxiety Stop: 11/07/24 13:53 Lorazepam (Lorazepam 2 Mg/1 Ml Vial) 0.5 mg IV Q8H PRN PRN Reason: Sedation/Anxiety Stop: 11/07/24 13:53 Magnesium Hydroxide (Magnesium Hydroxide Susp 30 Ml Udc) 30 ml PO Q24H PRN PRN Reason: Constipation Stop: 11/07/24 13:53 Menthol (Cough Drop (Sugar Free) Susan 24 Susan/1 Box) 1 susan BUCCAL Q1H PRN PRN Reason: Sore Throat Stop: 11/07/24 15:13 Metoclopramide HCl (Metoclopramide Hcl Inj 5 Mg/Ml 2 Ml Vial) 10 mg IV Q6H PRN PRN Reason: Nausea &/or Vomiting Stop: 11/07/24 13:53 Miscellaneous (Order Awaiting [facility]) 1 each N/A QS [facility]LE[facility] Stop: 11/07/24 15:59 Last Admin: 10/10/24 07:24 Dose: Not Given Naloxone HCl (Naloxone Hcl 0.4 Mg/1 Ml Vial/Carp) 0.1 mg IV Q5M PRN PRN Reason: Oversedation/Resp depression Stop: 11/07/24 13:53 Ondansetron HCl (Ondansetron Inj 2 Mg/Ml 2 Ml Vial) 4 mg IV Q6H PRN PRN Reason: Nausea &/or Vomiting Stop: 11/07/24 13:53 Ondansetron HCl (Ondansetron 4 Mg Od Tab) 4 mg PO Q6H PRN PRN Reason: Nausea Stop: 11/07/24 13:53 Oxycodone HCl (Oxycodone Hcl Ir 5 Mg Tab (Immediate Release)) 5 - 10 mg PO Q4H PRN PRN Reason: Pain & Pre PT Stop: 10/22/24 13:53 Last Admin: 10/10/24 02:00 Dose: 10 mg Pantoprazole Sodium (Pantoprazole 40 Mg Tab) 40 mg PO DAILYBB [facility] Stop: 11/08/24 06:29 Last Admin: 10/10/24 06:18 Dose: 40 mg Phenol (Chloraseptic (Phenol) 1.4% Soln 180 Ml Btl) 2 sprays MT Q2H PRN PRN Reason: Sore Throat Stop: 11/07/24 15:13 Last Admin: 10/08/24 16:57 Dose: 2 sprays Pneumococcal Polyvalent Vaccine (Do Not Administer Pneumococcal Vaccine) 1 each N/A PRN PRN PRN Reason: Notification Stop: 11/07/24 13:53 Senna/Docusate Sodium (Docusate Sodium/Senna 50/8.6mg Tab) 2 tab PO HS [facility] Stop: 11/07/24 20:59 Last Admin: 10/09/24 19:55 Dose: 2 tab Sodium Biphosphate/Sodium Phosphate (Sod Phosphate/Sod Biphosphate Enema 132 Ml Btl) 132 ml ID ONE PRN PRN Reason: Constipation Stop: 11/07/24 13:53 Topiramate (Topiramate 50 Mg Tab) 50 mg PO BID [facility] Stop: 11/07/24 20:59 Last Admin: 10/10/24 07:41 Dose: 50 mg Tramadol HCl (Tramadol Hcl 50 Mg Tablet) 50 - 100 mg PO Q4H PRN PRN Reason: Moderate-Severe pain & Pre PT Stop: 11/07/24 13:53 Last Admin: 10/09/24 02:25 Dose: 50 mg Venlafaxine HCl (Venlafaxine Hcl Xr 75 Mg Capxr) 75 mg PO QAM [facility] Stop: 11/08/24 08:59 Last Admin: 10/10/24 07:42 Dose: 75 mg Vitamin D (Cholecalciferol 125 Mcg (5,000 Units) Tab) 125 mcg PO BID [facility] Stop: 11/07/24 20:59 Last Admin: 10/10/24 07:41 Dose: 125 mcg (3) HTN (hypertension) Hypertension type: unspecified Qualified Code(s): I10 - Essential (primary) hypertension
--- NOTE | 2024-10-10 10:03 | Orthopedic Progress Note ---
Date of Service October 10, 2024 Assessment & Plan (1) Multilevel lumbosacral spondylosis with radiculopathy: Plan: At this time we will continue physical therapy as tolerated. Plan for rehab placement when bed available. Admission and Anticipated Discharge Date Admission Date: October 08, 2024 Subjective Patient's back pain is controlled leg pain is improved. She still limited overall however. Notes tingling in her right leg. Physical Exam Physical Exam: On exam she is in the chair at the bedside. Appears comfortable. Reasonable strength testing. Results & Data Vital Signs (Past 12 Hours) Vital Signs Temp Pulse Resp BP Pulse Ox O2 Del Method 10/10/24 07:26 36.5 C 63 19 123/80 97 Room Air 10/09/24 22:18 36.6 C 69 14 123/73 94 Room Air Queries Orthopedic Spine Obesity: Yes
[2024-10-10] MEDS: MAGNESIUM HYDROXIDE SUSP 30 ML UDC PO PRN (11:06)
[2024-10-11 07:11] VITALS: TEMP 98.1
[2024-10-11 08:39] VITALS: BP 128/88; PULSE 79; RESP 16; O2SAT 100
[2024-10-11] MEDS: LORazepam 0.5 MG TAB PO PRN (08:49)
--- NOTE | 2024-10-11 10:06 | Discharge Summary ---
Date of Service October 11, 2024 Admission HPI Per Admitting Provider This is a 54-year-old female presents with persistent back and leg pain after failing course of nonoperative care is here for surgical invention. Principal Diagnosis Lumbar spondylosis with radiculopathy Discharge Data Allergies Allergy/AdvReac Type Severity Reaction Status Date / Time venom-wasp Allergy Severe Anaphylaxis Verified 10/08/24 08:20 -- Yellow jackets Sulfa (Sulfonamide Allergy Intermediate Hives Verified 10/08/24 08:20 Antibiotics) mold Allergy Mild Congested Verified 10/08/24 08:20 cortisone AdvReac Severe Vomiting Verified 10/08/24 08:20 Consultations 10/08/24 13:54 Consult Hospitalist Routine Procedures Performed Operation Date: 10/08/24 09:35 Actual Procedures p L5-S1 Decompression and Fusion, Spinal Cord Monitoring(Not Applicable) - Danielito Ken DO Ordered Studies 10/08/24 09:35 FL lumbar spine 2-3V Routine Hospital Course (1) Multilevel lumbosacral spondylosis with radiculopathy: Patient underwent lumbar decompression fusion tolerated as well as taken to the orthopedic floor postoperatively. Postoperative she progressed appropriately. ANALY drain decreasing. Good strength testing. Pain control. Subsidy discharged to rehab. Discharge orders and instructions from the chart for further review. Total Time Total Time Spent Total Time Spent (In Minutes): 20 minutes Discharge Plan Discharge Items Patient Disposition: Transfer Inpatient Rehab Fac Reason For Visit: Foraminal Stenosis of Lumbar Region, Lumbosacral S Discharge Diagnosis: Lumbar spondylosis with radiculopathy Activity: As commented below Non-emergency contact: Primary Care Provider Call non-emergency contact if: you have any medication questions Follow-up/Referrals: Orlin Mccauley MD [Primary Care Provider] - Diet: Regular Addtl Attending Provider Instructions: ACTIVITY RECOMMENDATIONS: SELF CARE INSTRUCTIONS AFTER THORACIC/LUMBAR FUSIONS 1. You may walk to your tolerance. It is good exercise for your legs and back. Expect some back and intermittent leg aches and pains. 2. You may perform "counter-top" level activities (make a sandwich, jasiel with a project, etc.). 3. No bending or lifting of more than 10 pounds or back twisting of any nature (roll like a log when turning in bed). 4. You may ride in a car for 20-30 minutes at a time. No driving until after your first visit with your doctor. 5. Frequent changes of position and restricting sitting to 30 minutes at a time will help limit the amount of back spasms and stiffness you may experience. 6. You may discontinue the use of ambulatory aids (cane, crutches, etc.) once your strength and confidence allow. 7. You may stand grinder the shower and let water strike your incision when you arrive home at least once daily. Do not take a tub bath, sit in a hot tub or go into a swimming pool until after your first recheck in the office. 8. You may resume previous diet. SPECIAL CARE INSTRUCTIONS: VERY IMPORTANT TO READ AND REVIEW A. Your surgical incision has been closed with a cosmetic suture under the skin that will dissolve in about 6 weeks. In 14 days, you can use a pair of clean scissors and cut the suture that is left outside of the skin at the ends of your incision. 1. The small skin tapes can be removed 7 days after surgery if they have not fallen off by that point. 2. You may keep the wound open to air as much as possible to promote healing after post-op day number 5 unless told otherwise by your doctor. 3. If you think the wound looks like it is becoming infected (redness or worsening drainage) and/or you are experiencing fever, chill or worsening back pain and muscle spasms, contact the office so that we may evaluate you as soon as possible. B. Complications are uncommon, but please contact us if you have any signs or symptoms of: 1. wound infection (fever higher than 102.5 degrees F, redness, separation of wound, drainage, or increasing pain from the incision) 2. blood clots in legs (pain, swelling, redness and warmth in legs) 3. urinary tract infection (fever higher than 102.5 degrees F, burning upon urination or increased frequency of urination) 4. nerve problems (inability to walk on your toes or heels, numbness, loss of bowel or bladder control) 5. any other symptoms that concern you C. Please call the office at if you have any concerns or q uestions about your operation or recovery. D. No smoking! Smoking drastically decreases the chance of a solid fusion. E. Do not take any anti-inflammatory medications (Indocin, Advil, Motrin, Aspirin, Naprosyn, etc.) as these may inhibit the chance of a solid fusion. Tylenol is okay to take for pain. MANAGING PAIN AFTER SPINAL SURGERY 1. Narcotic medication is intended for short-term use and will be provided for surgical pain. Surgical pain usually lasts for a period of 4-6 weeks. Narcotic medication includes Percocet, Vicodin, Darvocet, Tylenol #3 or Lortab. 2. Longer-term pain is more appropriately treated with non-narcotic medication such as Tylenol ES. 3. Muscle spasm is not appropriately treated with narcotics. Muscle relaxers such as Soma, Flexeril or Skelaxin can be used along with Tylenol ES. 4. Remember that we all live with some "aches and pains". This is not unusual or uncommon after an injury or as we get older. a. Back pain is expected and may include muscle spasms for 4 to 6 weeks after surgery. The pain should gradually improve. If the pain worsens for no apparent reason, please contact the office. b. Intermittent leg pain may also be experienced and should not be concerned about unless it worsens for no apparent reason. If so, please contact the office. 5. We will provide appropriate medication within the normal guidelines of their prescribed use. We will also be very cautious and aware of potential abuse and extended duration of patients' medication needs. a. Pain medications are for your comfort and to assist with sleep and rest so that the tissue can heal. They are not provided in order to return to normal activity and should not be used through the day. To do so or worsening pain at night can result from ongoing tissue damage and development of tolerance to the prescribed medicine. 6. Please allow 2-3 days to process refills. Prescriptions will not be mailed but must be picked up at the office. FOLLOW UP VISIT: Keep your scheduled follow-up appointment. Any questions, please call the office at . Pending Studies at Discharge: No Stand-Alone Forms: My [facility] Skilled Items Patient informed of condition?: Yes DNR: No Discharge Level of Care: Acute rehab Communicable Disease: No Discharge Prognosis: Improving Lines: None Urinary Catheter: No Medications and DC Order Prescriptions: New tramadol 50 mg tablet 50 mg PO Q6H PRN (Reason: pain, moderate) Qty: 30 0RF oxycodone 5 mg tablet 5 mg PO Q6H PRN (Reason: pain) Qty: 30 0RF Continued atorvastatin [Lipitor] 40 mg Tablet 40 mg PO HS epinephrine [EpiPen] 0.3 mg/0.3 mL Auto-Injector 0.3 mg IM Q3H PRN (Reason: Allergic Reaction) venlafaxine 75 mg Capsule,Extended Release 24hr 75 mg PO QAM aspirin [Fadia Low Dose Aspirin] 81 mg Tablet,Delayed Release (Dr/Ec) 81 mg PO QAM lisinopril 20 mg tablet 20 mg PO QAM gabapentin 800 mg tablet 800 mg PO TID baclofen 10 mg tablet 10 mg PO HS PRN (Reason: MUSCLE SPASMS) omeprazole 20 mg Capsule,Delayed Release(Dr/Ec) 20 mg PO DAILYBB lorazepam [Ativan] 1 mg tablet 1 mg PO Q8H PRN (Reason: Anxiety) ondansetron 4 mg tablet,disintegrating 4 mg translingual Q8H PRN (Reason: NAUSEA/VOMITING) topiramate [Topamax] 50 mg tablet 50 mg PO BID cholecalciferol (vitamin D3) [Vitamin D3] 125 mcg (5,000 unit) Tablet 125 mcg PO BID Rx Instructions: 2 weeks Preop and 4 weeks Post Op - Procedure 10/08/24 Nurtec ODT 75 mg tablet,disintegrating 75 mg PO DAILY PRN (Reason: Migraine Headache) Discharge Orders: Discharge Order (Routine); Ordered 10/11/24 Ordered By: Danielito Ken Admission Data Admit Date/Time: 10/08/24 11:36 Attending Provider: Danielito Ken Admit Provider: Danielito Ken Primary Care Provider: Orlin Mccauley Other Providers: Vickie Burkett; [facility]; [facility]
== END 2024-10-11 12:00 | DRG 402 ==
LOC: ASU 07:36 → 3E 11:36